=== PATIENT | female | born 1940 | race Caucasian/White ===

== ENCOUNTER 2017-05-31 11:18 | Outpatient (RCR) | payer SELFPAY | END 2017-06-27 23:59 | LOC: NS 11:18 | PROVIDERS: Family Provider Family Medicine; PCP Family Medicine; Visit Provider Family Medicine | DX: Z71.3 Dietary counseling and surveillance (principal) | CPT/HCPCS: 97803 ==

== ENCOUNTER → 2017-06-29 12:33 | Outpatient (CLI) | payer MEDICARE, SELFPAY ==
[2017-06-29 13:35] LABS: Anion Gap 8 (5-15); BUN 19 mg/dL (7-18); BUN/Creat Ratio 18.6 RATIO (10-20); Calcium,Total 9.3 mg/dL (8.5-10.1); Chloride 100 mmol/L (98-107); Creatinine, Serum 1.02 mg/dL (0.55-1.02); EST Glomerular Filtration Rate 56 mL/min (>60); Est Glom Filt Rate - Afr Amer 68 mL/min (>60); Glucose 90 mg/dL (70-110); Potassium 3.8 mmol/L (3.5-5.1); Sodium Level 137 mmol/L (136-145)
== END ==
PROVIDERS: Family Provider Family Medicine; PCP Family Medicine; Visit Provider Nurse Practitioner Family
DX: I10 Essential (primary) hypertension (principal); R53.83 Other fatigue
CPT/HCPCS: 36415; 80048

== ENCOUNTER 2017-07-26 11:32 | Outpatient (RCR) | payer SELFPAY | END 2017-08-25 23:59 | LOC: NS 11:32 | PROVIDERS: Family Provider Family Medicine; PCP Family Medicine; Visit Provider Family Medicine | DX: Z71.3 Dietary counseling and surveillance (principal) | CPT/HCPCS: 97803 ==

== ENCOUNTER → 2017-12-14 08:41 | Outpatient (CLI) | payer MEDICARE, SELFPAY ==
[2017-12-14 10:34] LABS: Anion Gap 6 (5-15); BUN 18 mg/dL (7-18); BUN/Creat Ratio 17.8 RATIO (10-20); Calcium,Total 9.2 mg/dL (8.5-10.1); Chloride 104 mmol/L (98-107); Creatinine, Serum 1.01 mg/dL (0.55-1.02); EST Glomerular Filtration Rate 57 mL/min (>60); Est Glom Filt Rate - Afr Amer 69 mL/min (>60); Glucose 96 mg/dL (74-106); Potassium 4.4 mmol/L (3.5-5.1); Sodium Level 140 mmol/L (136-145)
== END ==
PROVIDERS: Family Provider Family Medicine; PCP Family Medicine; Visit Provider Internal Medicine Cardiovascular Disease
DX: I34.1 Nonrheumatic mitral (valve) prolapse (principal); I10 Essential (primary) hypertension
CPT/HCPCS: 36415; 80048

== ENCOUNTER → 2018-02-28 14:27 | Outpatient (CLI) | payer MEDICARE, SELFPAY ==
--- NOTE | 2018-02-28 14:31 | ECHOD_ITS ---
Reason For Study: MVP Procedure This was a 2D Doppler, Color Flow transthoracic echocardiogram. The exam was of adequate technical quality. Exam performed in department. Left Ventricle Normal LV size. Left ventricular systolic function is normal. The estimated ejection fraction is 70 %. There is evidence of diastolic dysfunction. No regional wall motion abnormalities noted. Right Ventricle Normal RV size. Normal systolic function. Atria Normal left atrium. Normal right atrium. No doppler evidence for ASD. Mitral Valve There is mild mitral annular calcification. Mild diffuse mitral valve thickening. Mild mitral valve prolapse. Trivial mitral valve insufficiency. Tricuspid Valve Normal tricuspid valve. Mild tricuspid valve insufficiency. Right ventricular systolic pressure estimated to be 25 mmHg. Aortic Valve Trisinus/trileaflet aortic valve. Normal aortic valve. Trivial aortic valve insufficiency. Pulmonic Valve The pulmonic valve is not well visualized. Trivial pulmonic valve insufficiency. Great Vessels Normal sized aortic root. Pericardium/Pleural Trivial pericardial effusion. There are no echocardiographic indications of cardiac tamponade. MMode/2D Measurements & Calculations LVIDd: 4.6 cm IVSd: 1.1 cm Ao root diam: 3.4 cm LVIDs: 3.2 cm LVPWd: 1.1 cm LA dimension: 3.8 cm RVDd: 2.6 cm FS: 29.3 % LAV(MOD-bp): 49.4 ml LVAd ap4: 23.3 cm2 SV(MOD-sp4): 43.3 ml LAV(MOD-bp) Indexed: 26.4 ml/m2 EDV(MOD-sp4): 61.7 ml LAV(MOD-sp2): 59.4 ml EDV(sp4-el): 63.5 ml LAV(MOD-sp4): 33.9 ml LVAs ap4: 11.4 cm2 ESV(MOD-sp4): 18.4 ml ESV(sp4-el): 19.3 ml EF(MOD-sp4): 70.2 % EF(sp4-el): 69.7 % SV(sp4-el): 44.3 ml LA A4 area: 14.1 cm2 RA A4 area: 12.6 cm2 Time Measurements MV dec time: 0.31 sec Doppler Measurements & Calculations MV E max darin: 82.6 cm/sec Lat Peak E' Darin: 3.1 cm/sec Med Peak E' Darin: 3.0 cm/sec MV A max darin: 96.6 cm/sec E/E' lat: 26.7 E/E' med: 27.8 MV E/A: 0.85 Ao V2 max: 141.0 cm/sec LV V1 max: 107.0 cm/sec TR max darin: 234.2 cm/sec Ao max P.0 mmHg LV V1 max P.6 mmHg TR max P.1 mmHg Interpretation Summary Left ventricular systolic function is normal. The estimated ejection fraction is 70 %. There is mild mitral annular calcification. Mild diffuse mitral valve thickening. Mild mitral valve prolapse. Trivial mitral valve insufficiency. Mild tricuspid valve insufficiency. Trivial aortic valve insufficiency. Trivial pulmonic valve insufficiency. Trivial pericardial effusion. There are no echocardiographic indications of cardiac tamponade. Right ventricular systolic pressure estimated to be 25 mmHg. There is evidence of diastolic dysfunction. Ordering Physician: Rick Prabhakar Referring Physician: SEBASTIAN CASAS Performed By: Flor Walter, ANJELICA, RVT
== END ==
PROVIDERS: Family Provider Family Medicine; PCP Family Medicine; Referring Provider Internal Medicine Cardiovascular Disease; Visit Provider Internal Medicine Cardiovascular Disease
DX: I34.1 Nonrheumatic mitral (valve) prolapse (principal)
CPT/HCPCS: 93306

== ENCOUNTER → 2020-03-24 09:00 | Outpatient (CLI) | payer MEDICARE, SELFPAY ==
[2019-11-17 08:43] VITALS: BMI 31.0
[2020-03-22 13:03] VITALS: BMI 31.4
--- NOTE | 2020-03-24 09:25 | MRI_ITS ---
STUDY: MRI BRAIN WITHOUT CONTRAST (ATTENTION INTERNAL AUDITORY CANALS - I.A.C.''s) REASON FOR EXAM: Female, 79 years old. left tinnitus, left sudden sensoneural hearing loss TECHNIQUE: Standardized multiplanar fat and water weighted pulse sequences were obtained. COMPARISON: None. FINDINGS: Normal bilateral internal auditory canals. There is no demonstrated intracanalicular or cisternal vestibular schwannoma (acoustic neuroma) on this unenhanced examination. Normal visualized bilateral cochlea, vestibules and semicircular canals. Normal bilateral mastoid air cells. Normal midbrain, gilmar and medulla. Normal cerebellum. Normal basal cisterns. There is mild cerebral atrophy with widening of the extra-axial spaces and ventricular dilatation. There are a limited number of small white matter hyperintensities, distributed throughout the deep white matter tracts of the cerebral hemispheres, consistent with mild chronic white matter ischemic changes. There is no evidence for recent intracranial ischemia or other cause of cytotoxic edema on diffusion weighted imaging (DWI). Normal bilateral basal ganglia. Normal thalami. There is no extra-axial fluid accumulation. Normal flow voids within the major intracranial circulation suggesting patency by spin echo criteria. Normal sella turcica, pituitary gland, infundibular stalk, optic chiasm and hypothalamus. Normal tectal plate and pineal gland. No demonstrated orbital abnormality, within the constraints of a routine brain study. Normal visualized paranasal sinuses. Normal calvarium and skull base. Normal visualized soft tissue structures. MRI/Brain without Contrast IMPRESSION: Normal unenhanced MRI of the bilateral internal auditory canals (I.A.C''s). Involutional changes of the brain, as described above. Electronically Signed: Guillermo Ken MD at 14:08 EDT Tel , Service support ,
== END ==
PROVIDERS: PCP Student in an Organized Health Care Education/Training Program; Referring Provider Otolaryngology; Visit Provider Otolaryngology
DX: H93.12 Tinnitus, left ear (principal); H91.22 Sudden idiopathic hearing loss, left ear
CPT/HCPCS: 70551

== ENCOUNTER 2021-08-25 10:25 | Outpatient (RCR) | payer MEDICARE, SELFPAY ==
--- NOTE | 2021-08-25 12:55 | HP.OTEVAL ---
Patient's Visit Information MARNI BARRAZA is a 80 year old F, referred to Occupational Therapy by Dr. Lizz Doty MD, with a diagnosis of lymphedema. Date of Evaluation: 08/25/21 Occupational Therapist: Bernice Helms, OTR/L, CHT - Subjective This 80 year old female was seen for OT eval with dx of Lymphedema-. 18 lymph nodes removed from groin. swelling increases with blood pressure medication change- pt states she gained 9lbs. left leg larger than right. 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 - Lymphedema (Circumferential Measure) Ankle: right 24cm left 25cm Lower calf: right 27.5cm left 28.5cm Largest calf: right 39.5cm left 39.8cm Below knee: right 40cm left 40cm Above knee: right 47cm left 46cm Mid-thigh: right 52.5cm left 52.5cm Groin: right 58cm left 57cm - Lower Limb Functional Index Lower Extremity Functional Score: 62 - Rehabilitation General Assessment: pt demo need for skilled OT services 2-3 visits to ed. pt on use of compression garments, lymph stim exercise, self manual lymph massage, skin care and beneficial exercise. Today therapist discussed options of pantyhose vs thigh high compression garments along with use of capris and knee high compression socks- pt was receptive to the leggings and compression knee high socks- to avoid use of garments with silicone beaded boarders- pt states she will initiate a pool program at the in [place]. pt demo understanding of POC and agree to POC. Rehabilitation Potential: Good - Anticipated Interventions Education re Diagnosis, Manual Lymph Drainage, Education re Life-long lymphedema Management, Education re Skin Care and Precautions, Education re Self Massage Techniques, Education re Correct Donning Tech,Care&Wearing Sched Comp Garments, Home Program - Visit Plan TEXT: Thank you for the opportunity to evaluate your patient. For Medicare and Medicare HMO plans, please review the plan of care and approve it. It will need to be FAXED BACK to us at [phone] for Medicare purposes. Please let me know if there are questions or concerns regarding this plan of care. Physician Signature: Date:
== END 2021-08-25 19:00 | disposition home or self-care (01) ==
LOC: OT 10:25
PROVIDERS: PCP Internal Medicine; Referring Provider Internal Medicine; Visit Provider Internal Medicine
DX: I89.0 Lymphedema, not elsewhere classified (principal)
CPT/HCPCS: 97166; 97530

== ENCOUNTER → 2022-03-21 | Outpatient (CLI) | payer MEDICARE, SELFPAY | END | disposition home or self-care (01) | LOC: LABSPEC 09:46 | PROVIDERS: PCP Internal Medicine; Visit Provider Physician Assistant | DX: R05.9 Cough, unspecified (principal) | CPT/HCPCS: 87635; U0003; U0005 ==

== ENCOUNTER → 2022-09-11 | Outpatient (CLI) | payer MEDICARE, SELFPAY ==
[2022-09-11 14:32] LABS: Absolute Lymphocyte Count 1.54 X10^3/uL (0.83-4.51); Absolute Neutrophil Count 3.4 X10^3/uL (2.0-7.7); Basophil# 0.07 X10^3/uL; Basophil% 1.3 % (0-1); Eosinophil# 0.12 X10^3/uL; Eosinophils% 2.2 % (0-5); Hematocrit 39.5 % (37-47); Hemoglobin 13.2 g/dL (12.0-15.0); Lymphocyte # 1.54 X10^3/ul (0.83-4.51); Lymphocyte % 27.6 % (19-41); Mean Corp Hgb Conc 33.4 g/dL (32-36); Mean Corpuscular Hgb 29.8 pg (27.0-32.0); Mean Corpuscular Volume 89.2 fL (81-99); Mean Platelet Vol. 10.8 fl (6.2-12.0); Monocyte# 0.43 X10^3/uL; Monocyte% 7.7 % (0-10); NRBC Flagged by Analyzer 0 % (0-5); Platelet Count 256 K/mm3 (150-450); RBC Distribution Width CV 12.8 % (11.6-14.6); RBC Distribution Width SD 42.3 fl (35.1-43.9); Red Blood Count 4.43 M/mm3 (4.2-5.4); White Blood Count 5.6 K/mm3 (4.4-11.0)
[2022-09-11 15:09] LABS: AST(SGOT) 17 U/L (15-37); Alanine Aminotransfer ALT/SGPT 26 U/L (13-56); Albumin, Serum 3.7 g/dL (3.2-5.0); Alkaline Phosphatase 82 U/L (45-117); Bilirubin, Direct 0.08 mg/dL (0.00-0.30); Globulin 4.2 g/dL (2.2-4.2); Protein, Total 7.9 g/dL (6.4-8.2)
[2022-09-11 15:12] LABS: Free T3 2.7 pg/mL (2.18-3.98)
== END | disposition home or self-care (01) ==
LOC: LAB 14:06
PROVIDERS: PCP Internal Medicine; Referring Provider Nurse Practitioner Family; Visit Provider Nurse Practitioner Family
DX: I89.0 Lymphedema, not elsewhere classified (principal); I34.1 Nonrheumatic mitral (valve) prolapse; I10 Essential (primary) hypertension; E03.9 Hypothyroidism, unspecified; R00.2 Palpitations
CPT/HCPCS: 36415; 80076; 84481; 85025

== ENCOUNTER → 2022-10-12 | Outpatient (CLI) | payer MEDICARE, SELFPAY ==
--- NOTE | 2022-10-12 08:45 | RAD_ITS ---
STUDY: X-RAY - RIGHT FOOT CLINICAL: Female, 81 years old. Toe injury. Painful toes. TECHNIQUE: 2 view(s) of the foot. COMPARISON: None. FINDINGS: Normal talus, calcaneus, and tarsal bones. Normal visualized subtalar, talonavicular, calcaneocuboid, tarsal and tarsometatarsal articulations. Normal metatarsi. There is degenerative arthrosis of the metatarsophalangeal joint of the hallux with a hallux valgus deformity. Normal tibial and fibular sesamoid bones. Normal interphalangeal joint of the great toe. Normal phalanges of the great toe. Normal second through fifth metatarsophalangeal joints. There is Claw toe deformity of the second through fifth toes. The soft tissue structures are unremarkable. RAD/Foot 2 Views IMPRESSION: Degenerative changes of the forefoot without visualized fracture or dislocation. Electronically Signed: Joe Ferrari DO at 20:31 EDT ,
== END | disposition home or self-care (01) ==
LOC: RAD 08:35
PROVIDERS: PCP Internal Medicine; Referring Provider Internal Medicine; Visit Provider Internal Medicine
DX: M79.674 Pain in right toe(s) (principal)
CPT/HCPCS: 73620

== ENCOUNTER → 2023-01-24 | Outpatient (CLI) | payer MEDICARE, SELFPAY ==
[2023-01-24 07:29] LABS: Absolute Neutrophil Count 1.9 X10^3/uL (2.0-7.7); Basophil# 0.06 X10^3/uL; Basophil% 1.5 % (0-1); Eosinophil# 0.12 X10^3/uL; Lymphocyte % 37.6 % (19-41); Mean Corp Hgb Conc 32.5 g/dL (32-36); Mean Corpuscular Hgb 29.4 pg (27.0-32.0); Mean Corpuscular Volume 90.5 fL (81-99); Mean Platelet Vol. 11.7 fl (6.2-12.0); Monocyte# 0.45 X10^3/uL; Monocyte% 11.3 % (0-10); NRBC Flagged by Analyzer 0 % (0-5); Neutrophil # 1.85 X10^3/uL (2.7-7.7); Neutrophil % 46.3 % (47-70); Platelet Count 231 K/mm3 (150-450); RBC Distribution Width CV 12.9 % (11.6-14.6); RBC Distribution Width SD 42.5 fl (35.1-43.9); Red Blood Count 4.42 M/mm3 (4.2-5.4)
[2023-01-24 08:09] LABS: ALB/GLOB Ratio 0.9 RATIO (0.9-2.4); AST(SGOT) 15 U/L (15-37); Alanine Aminotransfer ALT/SGPT 22 U/L (13-56); Albumin, Serum 3.7 g/dL (3.2-5.0); Alkaline Phosphatase 74 U/L (45-117); Anion Gap 6 (5-15); BUN 12 mg/dL (7-18); BUN/Creat Ratio 13.2 RATIO (10-20); Calcium,Total 9.1 mg/dL (8.5-10.1); Chloride 102 mmol/L (98-107); Cholesterol 185 mg/dL (200); Creatinine, Serum 0.91 mg/dL (0.55-1.02); EST Glomerular Filtration Rate 63 mL/min (>60); Est Glom Filt Rate - Afr Amer 76 mL/min (>60); Globulin 3.9 g/dL (2.2-4.2); Glucose 93 mg/dL (74-106); High Density Lipoprotein 57 mg/dL; Magnesium 2.5 mg/dL (1.6-2.6); Potassium 3.6 mmol/L (3.5-5.1); Protein, Total 7.6 g/dL (6.4-8.2); Sodium Level 137 mmol/L (136-145); T4 Free Direct 1.42 ng/dL (0.76-1.46); Triglycerides 89 mg/dL; Very Low Density Lipoprotein 18 mg/dL (5-40)
[2023-01-24 08:52] LABS: Vitamin D,25 Hydroxy 45.9 ng/mL
== END | disposition home or self-care (01) ==
LOC: LAB 06:39
PROVIDERS: PCP Internal Medicine; Referring Provider Internal Medicine; Visit Provider Internal Medicine
DX: I10 Essential (primary) hypertension (principal); E03.9 Hypothyroidism, unspecified; E55.9 Vitamin D deficiency, unspecified
CPT/HCPCS: 36415; 80053; 80061; 82306; 83735; 84439; 84443; 84481; 85025

== ENCOUNTER → 2023-02-09 | Outpatient (CLI) | payer MEDICARE, SELFPAY ==
--- NOTE | 2023-02-09 08:56 | ECHOD_ITS ---
Reason For Study: MURMUR Procedure This was a 2D Doppler, Color Flow transthoracic echocardiogram. Exam performed in department. Left Ventricle Normal LV size. Left ventricular systolic function is normal. The estimated ejection fraction is 60 %. Stage 1 diastolic dysfunction. No regional wall motion abnormalities noted. Right Ventricle Normal RV size. Normal systolic function. Atria Normal left atrium. Normal right atrium. Mitral Valve Equivocal mitral valve prolapse. Tricuspid Valve Normal tricuspid valve. Mild (1+) tricuspid valve insufficiency. Pulmonary artery systolic pressure is 30 mmHg. Aortic Valve Normal aortic valve. Trisinus/trileaflet aortic valve. Pulmonic Valve Normal pulmonic valve. Great Vessels Normal aortic root. The pulmonary artery is normal size. Normal inferior vena cava. Pericardium/Pleural No pericardial effusion. MMode/2D Measurements & Calculations LVIDd: 3.8 cm IVSd: 0.97 cm Ao root diam: 3.1 cm LVIDs: 2.6 cm LVPWd: 1.5 cm RVDd: 3.1 cm FS: 31.3 % LAV(MOD-bp): 61.6 ml LVAd ap4: 26.8 cm2 SV(MOD-sp4): 54.6 ml LAV(MOD-bp) Indexed: 35.1 ml/m2 LVLd ap4: 7.7 cm LAV(MOD-sp2): 62.7 ml EDV(MOD-sp4): 77.1 ml LAV(MOD-sp4): 59.6 ml EDV(sp4-el): 79.4 ml LVAs ap4: 12.4 cm2 LVLs ap4: 6.1 cm ESV(MOD-sp4): 22.5 ml ESV(sp4-el): 21.6 ml EF(MOD-sp4): 70.8 % EF(sp4-el): 72.8 % SV(sp4-el): 57.8 ml LA A4 area: 20.1 cm2 LA dimension(2D): 3.6 cm RA A4 area: 18.4 cm2 Time Measurements MV dec time: 0.30 sec Doppler Measurements & Calculations MV E max darin: 102.3 cm/sec Lat Peak E' Darin: 7.6 cm/sec Med Peak E' Darin: 6.7 cm/sec MV A max darin: 103.7 cm/sec E/E' lat: 13.5 E/E' med: 15.2 MV E/A: 0.99 MV V2 max: 114.5 cm/sec Ao V2 max: 180.9 cm/sec MV max P.2 mmHg MV dec slope: 337.0 cm/sec2 Ao max P.1 mmHg MV V2 mean: 69.3 cm/sec Ao V2 mean: 119.4 cm/sec MV mean P.2 mmHg Ao mean P.6 mmHg MV V2 VTI: 39.3 cm Ao V2 VTI: 40.3 cm AV (velocity ratio): 0.77 LV V1 max: 141.1 cm/sec PA V2 max: 107.1 cm/sec TR max darin: 263.5 cm/sec LV V1 max P.0 mmHg PA V2 mean: 78.5 cm/sec TR max P.8 mmHg LV V1 mean P.0 mmHg LV V1 mean: 92.8 cm/sec LV V1 VTI: 31.2 cm ECHO/Echo Complete Interpretation Summary Normal LV size. Left ventricular systolic function is normal. The estimated ejection fraction is 60 %. Equivocal mitral valve prolapse. Stage 1 diastolic dysfunction. Ordering Physician: Lizz Doty Referring Physician: Lizz Doty Performed By: Karla Gross RCS
== END | disposition home or self-care (01) ==
PROVIDERS: PCP Internal Medicine; Referring Provider Internal Medicine; Visit Provider Internal Medicine
DX: R00.2 Palpitations (principal)
CPT/HCPCS: 93306

== ENCOUNTER → 2023-05-01 | Outpatient (CLI) | payer MEDICARE, SELFPAY ==
[2023-05-07 21:07] LABS: Fats, Neutral Normal (.); Fats, Total Normal (.)
== END | disposition home or self-care (01) ==
LOC: LABSPEC 08:47
PROVIDERS: PCP Internal Medicine; Referring Provider Internal Medicine; Visit Provider Internal Medicine
DX: R19.7 Diarrhea, unspecified (principal); K58.9 Irritable bowel syndrome, unspecified
CPT/HCPCS: 82705; 83630; 87493; 87506

== ENCOUNTER → 2023-08-14 | Outpatient (CLI) | payer MEDICARE, SELFPAY ==
[2023-08-14 11:45] LABS: Absolute Neutrophil Count 2.4 X10^3/uL (2.0-7.7); Basophil# 0.03 X10^3/uL; Basophil% 0.8 % (0-1); Eosinophil# 0.15 X10^3/uL; Eosinophils% 3.8 % (0-5); Hematocrit 40.1 % (37-47); Hemoglobin 13.3 g/dL (12.0-15.0); Lymphocyte % 25.6 % (19-41); Mean Corp Hgb Conc 33.2 g/dL (32-36); Mean Corpuscular Hgb 29.6 pg (27.0-32.0); Mean Corpuscular Volume 89.3 fL (81-99); Mean Platelet Vol. 11.6 fl (6.2-12.0); Monocyte# 0.36 X10^3/uL; Monocyte% 9.2 % (0-10); NRBC Flagged by Analyzer 0 % (0-5); Neutrophil # 2.36 X10^3/uL (2.7-7.7); Neutrophil % 60.3 % (47-70); Platelet Count 264 K/mm3 (150-450); RBC Distribution Width CV 12.6 % (11.6-14.6); RBC Distribution Width SD 41.3 fl (35.1-43.9); Red Blood Count 4.49 M/mm3 (4.2-5.4); White Blood Count 3.9 K/mm3 (4.4-11.0)
[2023-08-14 12:37] LABS: Vitamin D,25 Hydroxy 40.1 ng/mL
[2023-08-14 12:49] LABS: ALB/GLOB Ratio 0.8 RATIO (0.9-2.4); AST(SGOT) 21 U/L (15-37); Alanine Aminotransfer ALT/SGPT 21 U/L (13-56); Albumin, Serum 3.7 g/dL (3.2-5.0); Alkaline Phosphatase 70 U/L (45-117); Anion Gap 6 (5-15); BUN 18 mg/dL (7-18); BUN/Creat Ratio 19.1 RATIO (10-20); Calcium,Total 9.2 mg/dL (8.5-10.1); Chloride 102 mmol/L (98-107); Creatinine, Serum 0.94 mg/dL (0.55-1.02); EST Glomerular Filtration Rate 61 mL/min (>60); Est Glom Filt Rate - Afr Amer 73 mL/min (>60); Globulin 4.4 g/dL (2.2-4.2); Glucose 100 mg/dL (74-106); Potassium 3.6 mmol/L (3.5-5.1); Protein, Total 8.1 g/dL (6.4-8.2); Sodium Level 137 mmol/L (136-145); T4 Free Direct 1.38 ng/dL (0.76-1.46); Thyroid Stim Hormone (TSH) 2.01 uIU/mL (0.358-3.74)
== END | disposition home or self-care (01) ==
LOC: BIMLAB 08:01
PROVIDERS: PCP Internal Medicine; Visit Provider Internal Medicine
DX: R00.2 Palpitations (principal); G47.9 Sleep disorder, unspecified; I10 Essential (primary) hypertension; E03.9 Hypothyroidism, unspecified; E55.9 Vitamin D deficiency, unspecified
CPT/HCPCS: 36415; 80053; 82306; 84439; 84443; 84481; 85025

== ENCOUNTER → 2023-09-04 | Outpatient (CLI) | payer MEDICARE, SELFPAY ==
--- NOTE | 2023-09-04 08:25 | BD_ITS ---
STUDY: DUAL ENERGY X-RAY ABSORPTIOMETRY / DXA REASON FOR EXAM: Female, 82 years old. Osteoporosis TECHNIQUE: Bone Mineral Density (BMD) measurements of lumbar spine and bilateral hips were obtained. COMPARISON: Comparison is made with prior study dated December 12, 2011. FINDINGS: Lumbar Spine (L1-L4): g/cm2 (0.864) / T-score (-1.4) / Z-score (1.3) Findings are suggestive of osteopenia with a low fracture risk. Left Femur Total: g/cm2 (0.817) / T-score (-1.0) / Z-score (1.1) Left Femoral Neck: g/cm2 (0.690) / T-score (-1.4) / Z-score (0.9) Right Femur Total: g/cm2 (0.833) / T-score (-0.9) / Z-score (1.3) Right Femoral Neck: g/cm2 (0.726) / T-score (-1.1) / Z-score (1.3) The T-Scores on the most recent prior examination were: Lumbar Spine (L1-L4): There has been worsening of bone density since the previous examination. Left Femur Total: which represents a worsening of 4.4%. Right Femur Total: which represents a worsening of 0.5%. BD/Dexa Bone Density Study IMPRESSION: The patient is considered osteopenic as outlined below according to World Bladimir Organization (WHO) criteria with a low fracture risk. There has been worsening of bone density since the previous examination. Reference Information: The T-score is the number of standard deviations above or below the standard which is normal for young adults at their peak bone mineral density. The World Health Organization (WHO) interprets the T-scores as follows: Above -1 Normal bone density Between -1 and -2.5 Osteopenia Equal to / or below -2.5 Osteoporosis As a practical clinical guideline, osteopenia may be graded as follows: Mild -1 through -1.5 Moderate -1.6 through -2.0 Severe -2.1 through -2.4 The Z-score is the number of standard deviations above or below age-matched controls. A Z-score of less than -1.5 would be considered abnormal. References: 1. NIH Osteoporosis and Related Bone Diseases www osteo.org 2. International Society for Clinical Densitometry www iscd.org 3. National Osteoporosis Foundation www nof.org Electronically Signed: Janes Aguilar MD at 13:20 EDT ,
== END | disposition home or self-care (01) ==
LOC: OPBD 08:11
PROVIDERS: PCP Internal Medicine; Referring Provider Internal Medicine; Visit Provider Internal Medicine
DX: M81.0 Age-related osteoporosis without current pathological fracture (principal)
CPT/HCPCS: 77080

== ENCOUNTER → 2023-10-19 | Outpatient (CLI) | payer MEDICARE, SELFPAY ==
--- NOTE | 2023-10-19 16:53 | RAD_ITS ---
INDICATION: left middle finger injury EXAMINATION/TECHNIQUE: X-RAY - LEFT HAND XR Fingers Min 2 Views 3 VIEWS COMPARISON: None FINDINGS: SOFT TISSUES: Distal third digit edema. No subcutaneous emphysema. No radiopaque foreign body. BONES/JOINTS: Intra-articular third distal phalanx dorsal base fracture with 1.3 mm proximal displacement. No dislocation. Mild diffuse degenerative joint space narrowing and minimal osteophyte formation along the imaged second through fourth digits. No aggressive osseous lesion. RAD/Finger(s) Min 2 Views IMPRESSION: Mildly displaced intra-articular third distal phalanx base fracture.. Electronically Signed: Hudson Lee MD at 17:48 EDT ,
== END | disposition home or self-care (01) ==
LOC: MTRAD 16:53
PROVIDERS: PCP Internal Medicine; Referring Provider Nurse Practitioner; Visit Provider Nurse Practitioner
DX: S69.92XA Unspecified injury of left wrist, hand and finger(s), initial encounter (principal)
CPT/HCPCS: 73140

== ENCOUNTER → 2024-04-11 | Outpatient (CLI) | payer MEDICARE, SELFPAY ==
[2024-04-11 12:33] LABS: AST(SGOT) 19 U/L (15-37); Alanine Aminotransfer ALT/SGPT 23 U/L (13-56); Albumin, Serum 3.5 g/dL (3.2-5.0); Alkaline Phosphatase 65 U/L (45-117); Bilirubin, Direct 0.12 mg/dL (0.00-0.30); Cholesterol 179 mg/dL (200); Globulin 3.9 g/dL (2.2-4.2); High Density Lipoprotein 56 mg/dL; Protein, Total 7.4 g/dL (6.4-8.2); Triglycerides 87 mg/dL; Very Low Density Lipoprotein 17 mg/dL (5-40)
== END | disposition home or self-care (01) ==
LOC: BIMLAB 07:57
PROVIDERS: PCP Internal Medicine; Referring Provider Nurse Practitioner Family; Visit Provider Nurse Practitioner Family
DX: E78.00 Pure hypercholesterolemia, unspecified (principal); I10 Essential (primary) hypertension; I73.9 Peripheral vascular disease, unspecified; I34.1 Nonrheumatic mitral (valve) prolapse
CPT/HCPCS: 36415; 80061; 80076

== ENCOUNTER → 2024-10-27 | Outpatient (CLI) | payer MEDICARE, SELFPAY ==
[2024-10-27 09:41] LABS: Erythrocyte Sedimentation Rate 13 mm/hr (0-30)
[2024-10-27 09:43] LABS: Absolute Lymphocyte Count 1.39 X10^3/uL (0.83-4.51); Absolute Neutrophil Count 1.7 X10^3/uL (2.0-7.7); Basophil# 0.05 X10^3/uL; Basophil% 1.3 % (0-1); Eosinophil# 0.17 X10^3/uL; Eosinophils% 4.6 % (0-5); Hematocrit 38.6 % (37-47); Hemoglobin 12.8 g/dL (12.0-15.0); Lymphocyte # 1.39 X10^3/ul (0.83-4.51); Lymphocyte % 37.5 % (19-41); Mean Corp Hgb Conc 33.2 g/dL (32-36); Mean Corpuscular Hgb 29.2 pg (27.0-32.0); Mean Corpuscular Volume 87.9 fL (81-99); Mean Platelet Vol. 11.6 fl (6.2-12.0); Monocyte# 0.37 X10^3/uL; NRBC Flagged by Analyzer 0 % (0-5); Neutrophil # 1.72 X10^3/uL (2.7-7.7); Neutrophil % 46.3 % (47-70); Platelet Count 243 K/mm3 (150-450); RBC Distribution Width CV 12.7 % (11.6-14.6); RBC Distribution Width SD 41.3 fl (35.1-43.9); Red Blood Count 4.39 M/mm3 (4.2-5.4); White Blood Count 3.7 K/mm3 (4.4-11.0)
[2024-10-27 10:05] LABS: ALB/GLOB Ratio 1.2 RATIO (0.9-2.4); AST(SGOT) 22 U/L (<=31); Alanine Aminotransfer ALT/SGPT 22 U/L (<=34); Albumin, Serum 4.2 g/dL (3.4-4.8); Alkaline Phosphatase 76 U/L (35-104); Anion Gap 11 (5-15); BUN 19 mg/dL (4-19); BUN/Creat Ratio 21.4 RATIO (10-20); Calcium,Total 9.6 mg/dL (7.6-11.0); Carbon Dioxide 26.9 mmol/L (21.0-32.0); Chloride 101 mmol/L (98-108); Cholesterol 192 mg/dL (<=200); EST Glomerular Filtration Rate 64 (>60); Ferritin 100 ng/mL (22-378); Free T3 2.9 pg/mL (2.18-3.98); Globulin 3.4 g/dL (2.2-4.2); Glucose 101 mg/dL (70-99); High Density Lipoprotein 49 mg/dL; Low Density Lipoprotein Calc. 121 mg/dL; Potassium 4.3 mmol/L (3.3-5.1); Protein, Total 7.6 g/dL (5.9-8.4); Sodium Level 139 mmol/L (133-145); Total Bilirubin 0.53 mg/dL (0.00-1.30); Triglycerides 107 mg/dL; Very Low Density Lipoprotein 21 mg/dL (5-40)
[2024-10-27 10:29] LABS: CRP < 3.00 mg/L (0.0-3.0); LDH 100 U/L (84-246); Magnesium 2.2 mg/dL (1.5-2.2)
== END | disposition home or self-care (01) ==
LOC: BIMLAB 08:06
PROVIDERS: PCP Internal Medicine; Referring Provider Internal Medicine; Visit Provider Internal Medicine
DX: D72.818 Other decreased white blood cell count (principal); R94.6 Abnormal results of thyroid function studies; D50.9 Iron deficiency anemia, unspecified; R74.8 Abnormal levels of other serum enzymes; R70.0 Elevated erythrocyte sedimentation rate; R53.83 Other fatigue; E78.5 Hyperlipidemia, unspecified; R77.9 Abnormality of plasma protein, unspecified; E55.9 Vitamin D deficiency, unspecified; I10 Essential (primary) hypertension; E03.9 Hypothyroidism, unspecified; I89.0 Lymphedema, not elsewhere classified
CPT/HCPCS: 36415; 80053; 80061; 82306; 82728; 83615; 83735; 84439; 84443; 84481; 85025; 85652; 86140

== ENCOUNTER 2024-11-26 13:00 | Outpatient (RCR) | payer MEDICARE, SELFPAY ==
--- NOTE | 2024-10-23 07:47 | HP.OTEVAL ---
Patient's Visit Information Visit Information Visit Information: MARNI BARRAZA is a 83 year old F, referred to Occupational Therapy by Dr. Lizz Doty MD, with a diagnosis of Lymphedema. Date of Evaluation: 10/22/24 Occupational Therapist: Bernice Helms, ABELINO/Andressa, CHT Subjective Subjective: This 83 year old female was seen for OT eval with dx of lymphedema: pt states she has tried to wear compression hose a few times, and they are very difficult to get on. Pt states she legs are less swollen in AM. pt states she likes to travel and would like to mtg. her LE edema the best she can. pt motivated to initiate mtg. of her lymphedema Lymphedema (Circumferential Measure) Mid-foot: right 21cm left 21cm Ankle: right 26cm left 27cm Lower calf: right 24cm left 24cm Largest calf: right 38cm left 38cm Below knee: right 36cm left 36.5cm Above knee: right 46cm left 47cm Lower Limb Functional Index Lower Extremity Functional Score: 54 Goals Goal: Patient will demonstrate a 20% reduction in edema by discharge: Yes Goal: Patient will demonstrate adequate knowledge of self-massage by the end of the second week.: Yes Goal: Patient will demonstrate adequate knowledge of skin care and precautions by the end of the first week.: Yes Goal: Patient will demonstrate adequate knowledge of therapeutic exercises by discharge.: Yes Goal: Patient will select an appropriate compression garment and demonstrate adequate knowledge of correct donning technique, care and wearing schedule by discharge.: Yes Goal: Patient will voice understanding of need to replace compression garment every four to six months by discharge.: Yes Rehabilitation General Assessment: pt demo with lymphedema and decreased knowledge of how to mtg. dx. pt would benefit from skilled OT services 3-4 visits to ensure pts understanding of life long mtg of lymphedema, exercises that promote lymphatic circulation, skin care and compression garment use for mtg. pt demo understanding and agrees to POC. Rehabilitation Potential: Good Anticipated Interventions Anticipated Interventions: Education re Diagnosis, Education re Life-long lymphedema Management, Education re Self-Bandaging Techniques, Education re Skin Care and Precautions, Education re Self Massage Techniques and Education re Correct Donning Tech,Care&Wearing Sched Comp Garments Visit Plan Frequency: 1x/Week Duration: 6 Weeks TEXT: Thank you for the opportunity to evaluate your patient. For Medicare and Medicare HMO plans, please review the plan of care and approve it. It will need to be FAXED BACK to us at [phone] for Medicare purposes. Please let me know if there are questions or concerns regarding this plan of care. Physician Signature: Date:
--- NOTE | 2024-11-26 13:49 | HP.OTREVAL ---
Re-Evaluation Intro: Dr. Lizz Doty MD, It has been my pleasure to treat MARNI BARRAZA over the last 3 visits for Lymphedema. Please see the progress note below for an update on the occupational therapy plan of care! Subjective Subjective: pt arrives to session states she continue to have issues with swelling. Objective Objective/Function: Mid-foot: right 21cm left 21cm Ankle: right 26cm left 27cm Lower calf: right 24cm left 24cm Largest calf: right 38cm left 38cm Below knee: right 36cm left 36.5cm Above knee: right 46cm left 47cm mid thigh right 56cm left 57 cm Plan Plan Frequency: 1x/Week Duration: 6 Weeks Visits in this POC: 3-4 visits Plan: pt arrives following 4 weeks of conservative lymphedema treatment. Pt was using elevation, exercise, using compression garments and performing self massage. This did not change pts skin integrity or circumference in limbs. pt would benefit from use of home vaso pneumatic thigh high . Goals Goals Goal: Patient will demonstrate a 20% reduction in edema by discharge: Yes Goal: Patient will demonstrate adequate knowledge of self-massage by the end of the second week.: Yes Goal: Patient will demonstrate adequate knowledge of skin care and precautions by the end of the first week.: Yes Goal: Patient will demonstrate adequate knowledge of therapeutic exercises by discharge.: Yes Goal: Patient will select an appropriate compression garment and demonstrate adequate knowledge of correct donning technique, care and wearing schedule by discharge.: Yes Goal: Patient will voice understanding of need to replace compression garment every four to six months by discharge.: Yes Patient Goals: Learn how to Manage Lymphedema and Learn how to Apply Compression Stockings Anticipated Interventions Anticipated Interventions Anticipated Interventions: Education re Diagnosis, Education re Life-long lymphedema Management, Education re Self-Bandaging Techniques, Education re Skin Care and Precautions, Education re Self Massage Techniques and Education re Correct Donning Tech,Care&Wearing Sched Comp Garments Re-Evaluation Ending Re-evaluation ending: Please do not hesitate to contact me at [phone] by phone or if you have questions or concerns regarding this new plan of care! Sincerely, Bernice Helms, OTR/L, CHT
--- NOTE | 2025-02-17 11:58 | HP.OT.NRP ---
Patient Information Patient Information: MARNI BARRAZA was seen in my office for initial evaluation on 10/22/24. The following Plan of Care was established for this patient: POC Established Initial Frequency: 1x/Week Initial Duration: 6 Weeks Plan: pt arrives following 4 weeks of conservative lymphedema treatment. Pt was using elevation, exercise, using compression garments and performing self massage. This did not change pts skin integrity or circumference in limbs. pt would benefit from use of home vaso pneumatic thigh high . Anticipated Interventions Anticipated Interventions: Education re Diagnosis, Education re Life-long lymphedema Management, Education re Self-Bandaging Techniques, Education re Skin Care and Precautions, Education re Self Massage Techniques and Education re Correct Donning Tech,Care&Wearing Sched Comp Garments Last Seen Last Seen: This patient was last seen in our office 11/26/24. Pertinent comments regarding their Occupational therapy will appear below: no further apts have been scheduled and due to time lapse in services pt is d/c at this time. At this point I will be discontinuing this patient from occupational therapy. I would be happy to see this patient again in the future if found appropriate by the physician. Thank you! Bernice Helms, OTR/L, CHT
== END 2024-11-26 19:00 | disposition home or self-care (01) ==
LOC: OT 13:00
PROVIDERS: PCP Internal Medicine; Referring Provider Internal Medicine; Visit Provider Internal Medicine
DX: I89.0 Lymphedema, not elsewhere classified (principal)
CPT/HCPCS: 97166; 97530

== ENCOUNTER → 2025-01-17 | Outpatient (CLI) | payer MEDICARE, SELFPAY ==
--- OUTSIDE RECORDS SUMMARY | 2025-01-17 08:40 | XMS RPT_ITS | CCD ---
Author Organization [facility] Care Team Providers Care Airport Guide Name Role Phone Pau CAMARENA, Dari Shore Unavailable Unavailable MARGA CHILEL DO Primary Care Physician Dr. Tanvi Doty Primary Care Provider Dr. Tanvi Doty Attending Provider [phone] Dr. Tanvi Doty Referring Provider [phone] Dr. Marga Chilel Primary Care Provider Dr. Marga Chilel Referring Provider [phone] Star SHIRT FINISHER, SHIRT FINISHER-Annalise Ramirez Attending Provider Dr. Tanvi Doty Primary Care Provider Dr. Tanvi Doty Attending Provider [phone] Dr. Tanvi Doty Referring Provider [phone] [place], [place] Tammy Attending Provider Unavailab le Clifford Aburto DO Primary Care Provider Shahnaz vailable Clifford Aburto DO Primary Care Provider Shahnaz vailable Dr. Tanvi Doty Primary Care Provider Dr. Tanvi Doty Referring Provider [phone] Star SHIRT FINISHER, INEZ-Annalise Ramirez Attending Provider Dr. Tanvi Doty Primary Care Provider Dr. Tanvi Doty Attending Provider [phone] Tnavi Doty Primary Care Provider Dr. Tnavi Doty Attending Provider [phone] Rodger Hogan Attending Provider [phone] [place] DO Primary Care Provider [phone] Clifford Aburto DO Primary Care Provider Tanvi Doty MD Primary Care Provider HYUN DAVIS, PAO Attending Unavaila ble HALKO DO, MARGA Primary Care Unavailable HYUN DAVIS, PAO Attending Unavaila ble HALKO DO, MARGA Primary Care Unavailable MARIZA DAVIS, DR PHAM Ann JR Attending Unavaila ble HALKO DO, MARGA Primary Care Unavailable KEVAN OLSON, ANNIA Attending Unavailable JOSEPHKO , MARGA Primary Care Unavailable TANVI DOTY MD Primary Care Physician [phone] ANNIA WILSON Attending Unavailable TANVI DOTY Primary Care Unavailable ATNVI DOTY Primary Care Unavailable AMERICA SULTANA JR Attending Unavaila AMERICA Kolb JR Admitting Unavaila TANVI Elizabeth Primary Care Unavailable ANNIA WILSON Attending Unavailable TANVI DOTY Primary Care Unavailable ANNIA WILSON Attending Unavailable TANVI DOTY Primary Care Unavailable PAO PURVIS MD Attending Unavaila ble HALKO DO, MARGA Primary Care Unavailable KEVAN OLSON, ANNIA Attending Unavailable TANVI DOTY MD Primary Care Unavailable HYUN DAVIS, PAO Attending Unavailasia DOTY MD, TANVI Primary Care Unavailable JUAN LOPEZ MD Attending Unavailable SOREN DAVIS, TANVI Primary Care Unavailable SOREN DAVIS, TANVI Primary Care Unavailable SUROVE, MOTOR BLOCK MECHANIC-DATABASE ADMINISTRATION MANAGER EPIFANIO Attending Gus labbrenda RUIZKO , MARGA Primary Care Unavailable MARIZA DAVIS, DR PHAM Ann JR Attending Unavaila Tanvi Elizabeth Primary Care Unavailable Tanvi Doty Attending Unavailable Nelson Rojo Attending Unavailable Tanvi Doty Primary Care Unavailable Tanvi Doty Referring Unavailable Nelson Rojo Attending Unavailable Tanvi Doty Primary Care Unavailable Tavni Doty Referring Unavailable Tanvi Doty Primary Care Unavailable Tanvi Doty Attending Unavailable Soren, Tanvi Primary Care Unavailable Carlos Herrmann Attending Unavailable Soren, Tanvi Referring Unavailable Soren, Tanvi Attending Unavailable Soren, Tanvi Referring Unavailable Soren, Tanvi Primary Care Unavailable Roof SHIRT FINISHER, Suresh H Attending Unavailable Roof SHIRT FINISHER, Suresh H Referring Unavailable Soren, Tanvi Primary Care Unavailable Soren, Tanvi Attending Unavailable Soren, Tanvi Referring Unavailable Soren, Tanvi Primary Care Unavailable Soren, Tanvi Primary Care Unavailable Carols Herrmann Attending Unavailable Soren, Tanvi Referring Unavailable Soren, Tanvi Attending Unavailable Soren, Tanvi Primary Care Unavailable Soren, Tanvi Attending Unavailable Soren, Tanvi Primary Care Unavailable Soren, Tanvi Attending Unavailable Soren, Tanvi Primary Care Unavailable Nelson Rojo Attending Unavailable Soren, Tanvi Primary Care Unavailable Soren, Tanvi Referring Unavailable Allergies Allergy Classification Reported Allergen(s) Allergy Type Date of Onset Reaction(s) Facility amLODIPine (1 source) amLODIPine; Translations: [amlodipine] Drug Allergy Leg swelling symptom (finding) [facility] HMG-CoA Reductase Inhibitors (statins) (1 source) atorvastatin; Translations: [atorvastatin] Drug Allergy Eruption of skin (disorder) [facility] Lidocaine (1 source) Lidocaine; Translations: [lidocaine] Drug Allergy Congestion of throat (finding) [facility] NSAIDs (1 source) Naproxen; Translations: [naproxen] Drug Allergy Colitis (disorder) [facility] Penicillins (antibiotic) (2 sources) Penicillins; Translations: [Penicillin -class of antibiotic- (substance)] Drug Allergy [facility] Sulfonamides (antibiotic) (2 sources) Sulfonamides (Antibiotic); Translations: [Sulfonamide (substance)] Drug Allergy [facility] (16 sources) penicillin; Translations: [penicillins] Drug Allergy [facility] Work Phone: [phone] (1 source) Sulfonamides (Antibiotic) drug allergy [facility] Work Phone: (20 sources) amLODIPine; Translations: [amlodipine] Drug Allergy Leg swelling symptom (finding) [facility] Work Phone: (20 sources) atorvastatin; Translations: [atorvastatin] Drug Allergy Eruption of skin (disorder) [facility] Work Phone: (15 sources) Lidocaine; Translations: [lidocaine] Drug Allergy Congestion of throat (finding) [facility] Work Phone: (15 sources) Naproxen; Translations: [naproxen] Drug Allergy Colitis (disorder) [facility] Work Phone: (15 sources) Sulfonamides (Antibiotic); Translations: [sulfa drugs] Drug allergy [facility] Work Phone: (5 sources) Losartan Drug Allergy doesn't feel well, fatigued [facility] (20 sources) Penicillins; Translations: [PENICILLINS] Allergy to substance [facility] (20 sources) Sulfonamides (Antibiotic); Translations: [SULFA (SULFONAMIDE ANTIBIOTICS)] Allergy to substance [facility] (6 sources) Influenza Virus Vaccines; Translations: [Influenza Virus Vaccines] Allergy to substance left ear deafness [facility] (1 source) generic telmisartan-hctz Propensity to adverse reactions Palpitations, nausea, fatigue [facility] Work Phone: (4 sources) hydroCHLOROthiazide Drug Allergy Nausea, fatigue, palpitations [facility] (4 sources) telmisartan Drug Allergy Nausea, fatigue, palpitations [facility] (20 sources) HMG-CoA reductase inhibitor; Translations: [[id number] REDUCTASE INHIBITORS] Drug Intolerance Other: See [facility] (5 sources) NSAIDs; Translations: [NSAIDS (NON-STEROIDAL ANTI-INFLAMMATORY DRUG)] Propensity to adverse reactions to drug Contraindicati on-Medical Surgical [facility] (1 source) amLODIPine Drug Allergy [facility] (1 source) atorvastatin Drug Allergy [facility] (1 source) hydroCHLOROthiazide Drug Allergy [facility] (1 source) Losartan Drug Allergy [facility] (1 source) telmisartan Drug Allergy [facility] Medications Current Medications Medication Drug Class(es) Dates Sig (Normalized) Sig (Original) biotin 2.5 mg oral capsule (20 sources) Biotin 2,500 mcg cap Take by mouth. Twice weekly Active Comment on above: Take by mouth. Twice weekly calcium carbonate 1500 mg oral tablet (12 sources) Start: 12-13-2023 calcium (as carbonate) 600 mg oral tablet Dose : 600 mg = 1 tab(s), Oral, qDay, 0 Refill(s) Start Date: 12/13/23 Status: Ordered Medication Dispense Status: Completed Total Allowed Fills: 1 Fills Dispensed: 0 Start: 03-24-2019 End: 11-17-2019 take 1 tablet by mouth every other day Calcium Carbonate (Calcium 600) 600 mg calcium (1,500 mg) tablet Discontinued 600 MG PO .QOD March 24, 2019 12:00am November 17, 2019 8:46am Start: 02-23-2017 take 1 tablet by jori th once daily CALCIUM 600 600 MG TABS One tablet by mouth daily CALCIUM CARBONATE [id number] Rick Prabhakar MD calcium carbonate 1500 mg / cholecalciferol 0.01 mg oral capsule (5 sources) Vitamin D Start: 03-22-2020 take 1 capsule by mouth once daily Calcium Carbonate-Vitamin D3 Active 1 CAP PO DAILY March 22, 2020 12:00am Calcium Carbonate / vitamin D3 (20 sources) CALCIUM CARBONATE/VITAMIN D3 (CALCIUM 600 + D ORAL) Take by mouth. Active CALCIUM CARBONAT E/VITAMIN D3 (CALCIUM 600 + D ORAL) Take by mouth. 0 Active Comment on above: Take by mouth. cephalexin 500 mg oral capsule (1 source) Cephalosporin Antibacterial Start: End: cephalexin 500 mg oral capsule Dose : 500 mg = 1 cap(s), Oral, q8h, X 7 day(s), # 21 cap(s), 0 Refill(s), 01/13/25 9:45:00 AM EDT, Pharmacy: [facility], 162, cm, 12/23/24 9:52:00 EDT, Height, 75.3, kg, 12/23/24 9:52:00 EDT, Dosing Weight Start Date: 01/06/25 Stop Date: 01/13/25 Status: Ordered Medication Dispense Status: Completed Quantity: 21.0 Unit: cap(s) Total Allowed Fills: 1 Fills Dispensed: 0 ciprofloxacin 250 mg oral tablet (2 sources) Quinolone Antimicrobial Start: 023 Ciprofloxacin Hcl Active 250 MG PO DAILY January 18, 2023 12:00am Take one tab 1/2 hour prior to or immediately after sexual activity. Citracal Calcium + D Slow Release 1200 oral tablet, extended release (10 sources) Start: 020 Citracal Calcium + D Slow Release 1200 oral tablet, extended release See Instructions, 2 tab(s) Oral qAM, 0 Refill(s) Start Date: 12/31/19 Status: Ordered docosahexaenoic acid/epa (FISH OIL ORAL) (11 sources) Start: 022 take 1 tablet by mouth once daily docosahexaenoic acid/epa (FISH OIL ORAL) Take 1 tablet by mouth once daily. 01/05/2022 Active fluocinolone acetonide 0.1 mg/ml otic solution (2 sources) Corticosteroid Start: 024 fluocinolone 0.01% otic solution place 3 drops INTO AFFECTED EAR(S) once daily if needed Start Date: 12/13/23 Status: Ordered Repeat number: 1 MULTIVIT WITH CALCIUM,IRON,MIN (MULTIPLE VITAMIN, WOMENS ORAL) (20 sources) take 1 tablet by mouth once daily MULTIVIT WITH CALCIUM,IRON,MIN (MULTIPLE VITAMIN, WOMENS ORAL) Take 1 tablet by mouth once daily. Active take 1 tablet by mouth once sonal y MULTIVIT WITH CALCIUM,IRON,MIN (MULTIPLE VITAMIN, WOMENS ORAL) Take 1 tablet by mouth once daily. 0 Active Comment on above: Take 1 tablet by [facility] once daily. Multivitamin preparation (15 sources) Start: 12-13-2023 take 1 tablet by mouth once daily Multivitamin Dose = 1 tab(s), Oral, Daily, 0 Refill(s) Start Date: 12/13/23 Status: Ordered Repeat number: 1 Start: 12-13-2023 take 1 tablet by jori once daily Multivitamin Dose = 1 tab(s), Oral, Daily, 0 Refill(s) Start Date: 12/13/23 Status: Ordered Start: 07-08-2021 End: 01-05-2022 take 0.5 tablet by mouth once daily Multivitamin Discontinued 0.5 TABLET PO DAILY July 08, 2021 10:51am January 05, 2022 9:11am Start: 07-08-2021 take 0.5 tablet by m outh once daily Multivitamin Active 0.5 TABLET PO DAILY July 08, 2021 10:51am Start: 03-22-2020 End: 07-08-2021 take 1 tablet by mouth once daily Multivitamin Discontinued 1 TABLET PO DAILY March 22, 2020 12:00am July 08, 2021 10:52am nitrofurantoin, macrocrystals 25 mg / nitrofurantoin, monohydrate 75 mg oral capsule (1 source) Nitrofuran Antibacterial Start: 12-24-2024 End: 12-31-2024 take 1 capsule by mouth twice daily nitrofurantoin monohydrate and macrocrystal (MACROBID) 100 mg capsule Indications: Acute cystitis without hematuria Take 1 capsule by mouth two times a day for 7 days. 14 capsule 12/24/2024 12/31/2024 Active [place]-3 Fatty Acids (4 sources) Start: 01-05-2022 take 1000 mg by mouth once daily [place]-3 Fatty Acids Active 1000 MG PO DAILY January 05, 2022 12:00am omega-3 polyunsaturated fatty acids-turmeric (12 sources) Start: 02-09-2022 take 1 capsule by mouth once daily omega-3 polyunsaturated fatty acids-turmeric Dose = 1 cap(s), Oral, qDay, Fish oil, 0 Refill(s) Start Date: 02/09/22 Status: Ordered Medication Dispense Status: Completed Total Allowed Fills: 1 Fills Dispensed: 0 Start: 02-09-2022 take 1 capsule by mo [facility] once daily omega-3 polyunsaturated fatty acids-turmeric Dose = 1 cap(s), Oral, qDay, Fish oil, 0 Refill(s) Start Date: 02/09/22 Status: Ordered Repeat number: 1 Start: 02-09-2022 take 1 capsule by [facility] once daily omega-3 polyunsaturated fatty acids-turmeric Dose = 1 cap(s), Oral, qDay, Fish oil, 0 Refill(s) Start Date: 02/09/22 Status: Ordered Start: 02-09-2022 omega-3 polyun saturated fatty acids-turmeric Oral, BID, 0 Refill(s) Start Date: 02/09/22 Status: Ordered POLYCARBOPHIL (REPLENS VAGIN AL) (20 sources) POLYCARBOPHIL (R EPLENS VAGINAL) Use vaginally. Active POLYCARBOPHIL (R EPLENS VAGINAL) Use vaginally. 0 Active Comment on above: Use vaginally. Pressure Vision Multivit (1 source) Start: 12-23-2024 Pressure Vision Multivit Pressure Vision Multivit, 0 Refill(s), 74.8 Start Date: 12/23/24 Status: Ordered Medication Dispense Status: Completed Total Allowed Fills: 1 Fills Dispensed: 0 Propylene glycol (11 sources) propylene glycol (SYSTANE COMPLETE OPHTHALMIC) Use 1 Drop in eyes as needed (Eyes). Active psyllium 3400 mg powder for oral suspension (5 sources) Start: 07-02-2019 Metamucil 3.4 g/5.2 g oral powder for reconstitution See Instructions, gram(s) Oral qDay, 0 Refill(s), 81.6 Start Date: 07/02/19 Status: Ordered Start: 02-23-2017 METAMUCIL POWD as directed PSYLLIUM POWD [id number] Rick Prabhakar MD Saccharomyces boulardii (20 sources) SACCHAROMYCES PRINCE ULARDII (PROBIOTIC, S.BOULARDII, ORAL) Take by mouth as needed. Active SACCHAROMYCES PRINCE ULARDII (PROBIOTIC, S.BOULARDII, ORAL) Take by mouth as needed. 0 Active Comment on above: Take by mouth as nee ded. telmisartan (7 sources) Angiotensin 2 Receptor Letty Start: 06-02-2021 End: 11-29-2021 take 1 tablet by mouth once daily Micardis HCT 80 mg-25 mg oral tablet Dose = 1 tab(s), Oral, Daily, must be brand name, cannot tolerate generic formulation, # 90 tab(s), 1 Refill(s), JAYE, Pharmacy: [id number], 162, cm, 06/02/21 9:36:00 EST, Height, kg, 06/02/21 9:36:00 EST, Dosing Weight Start Date: 06/02/21 Stop Date: 11/29/21 Status: Ordered Start: 04-15-2018 End: 07-24-2019 take 40 mg by mouth once daily Telmisartan Discontinue d 40 MG PO DAILY April 15, 2018 1:00am July 24, 2019 4:00pm levothyroxine sodium 0.1 mg oral tablet (20 sources) l-Thyroxine Start: 06-24-2024 Synthroid 100 mcg (0.1 mg) oral tablet Dose : 100 mcg = 1 tab(s), Oral, qDay, 1 tab daily , skip sundays, # 90 tab(s), 3 Refill(s), JAYE, Pharmacy: [facility], 162, cm, 06/24/24 9:51:00 EST, Height, kg, 06/24/24 9:51:00 EST, Dosing Weight Start Date: 06/24/24 Status: Ordered Medication Dispense Status: Completed Quantity: 90.0 Unit: tab(s) Total Allowed Fills: 4 Fills Dispensed: 0 Start: 06-16-2024 Synthroid 100 mcg (0.1 mg) oral tablet Dose : 100 mcg = 1 tab(s), Oral, qDay, 1 tab daily , skip sundays, # 90 tab(s), 3 Refill(s), JAYE, Pharmacy: [facility], 162, cm, 12/13/23 9:55:00 EDT, Height, kg, 12/13/23 9:55:00 EDT, Dosing Weight Start Date: 06/16/24 Status: Ordered Quantity: 90.0 Unit: tab(s) Repeat number: 4 Start: 12-13-2023 Synthroid 100 mcg (0.1 mg) oral tablet Dose : 100 mcg = 1 tab(s), Oral, qDay, 1 tab daily , skip sundays, # 90 tab(s), 3 Refill(s), JAYE, other reason (Rx) Start Date: 12/13/23 Status: Ordered Start: 06-07-2023 Synthroid 100 mcg (0.1 mg) oral tablet Dose : 100 mcg = 1 tab(s), Oral, qDay, # 90 tab(s), 3 Refill(s), JAYE, Pharmacy: [facility], 162, cm, 03/15/23 10:00:00 EDT, Height, kg, 03/15/23 10:00:00 EDT, Dosing Weight Start Date: 06/07/23 Status: Ordered Start: 05-04-2022 Synthroid 100 mcg (0.1 mg) oral tablet Dose : 100 mcg = 1 tab(s), Oral, qDay, # 90 tab(s), 3 Refill(s), JAYE, Pharmacy: [facility], 162, cm, 02/09/22 10:32:00 EDT, Height, kg, 02/09/22 10:32:00 EDT, Dosing Weight Start Date: 05/04/22 Status: Ordered Start: 02-03-2021 take 1 tablet by jori th once daily Synthroid 100 mcg (0.1 mg) oral tablet See Instructions, take 1 tablet by mouth daily, EXCEPT SUNDAYS, # 90 tab(s), 3 Refill(s), JAYE, Pharmacy: [facility], 162, cm, 02/03/21 10:45:00 EDT, Height, kg, 02/03/21 10:45:00 EDT, Dosing Weight Start Date: 02/03/21 Status: Ordered Start: 11-30-2017 End: 01-05-2022 take 1 capsule by mouth once daily levothyroxine 100 mcg capsule Discontinued 100 MCG PO daily November 30, 2017 1:31pm January 05, 2022 9:05am Start: 06-08-2017 End: 11-30-2017 levothyroxine 100 mcg capsul e Discontinued PO June 08, 2017 1:00am November 30, 2017 1:54pm Start: 03-04-2015 SYNTHROID 100 mcg tablet Once daily, skip tab on sundays10/21/2015 Active Comment on above: Once daily, skip tab on sundays Turmeric extract (20 sources) Start: 07-28-2022 take 250 mg by mouth once daily Turmeric Active 250 MG PO DAILY July 28, 2022 4:26pm Start: 02-09-2022 take 500 mg by mouth once daily TURMERIC ORAL Take 500 mg by mouth once daily. 02/09/2022 Active Start: 02-09-2022 turmeric 500 m g oral capsule Dose : 500 mg = 1 cap(s), Oral, qDay, 0 Refill(s) Start Date: 02/09/22 Status: Ordered Medication Dispense Status: Completed Total Allowed Fills: 1 Fills Dispensed: 0 Start: 01-05-2022 End: 07-28-2022 Turmeric Discontinued MG PO January 05, 2022 12:00am July 28, 2022 4:27pm Start: 01-05-2022 Turmeric Activ e MG PO January 05, 2022 12:00am Vitamin D3 50 mcg (2000 intl units) oral tablet (2 sources) Start: 08-04-2021 Vitamin D3 50 mcg (2000 intl units) oral tablet Dose : 2,000 unit(s) = 1 tab(s), Oral, Daily, # 90 tab(s), 3 Refill(s), other reason (Rx) Start Date: 08/04/21 Status: Ordered Completed/Discontinued Medications Medication Drug Class(es) Dates Sig (Normalized) Sig (Original) amLODIPine 2.5 mg oral tablet (16 sources) Dihydropyridine Calcium Channel Letty Start: 07-24-2019 End: 09-22-2022 take 1 tablet by mouth once daily Amlodipine (Norvasc) 2.5 mg tablet Discontinued 2.5 MG PO DAILY October 13, 2019 2:44pm June 02, 2020 3:46pm Comment on above: Take 2.5 mg by mouth once daily. atorvastatin 40 mg oral tablet (5 sources) HMG-CoA Reductase Inhibitor Start: 07-24-2019 End: 07-24-2019 take 40 mg by mouth once daily Atorvastatin Discontinued 40 MG PO DAILY July 24, 2019 1:00am July 24, 2019 4:26pm atropine sulfate 0.025 mg / diphenoxylate hydrochloride 2.5 mg oral tablet (2 sources) Anticholinergic, Cholinergic Muscarinic Antagonist, Antidiarrheal Start: 03-04-2015 End: 02-23-2017 LOMOTIL 2.5-0.025 MG TABS As needed DIPHENOXYLATE-ATR OPINE [id number] Rick Prabhakar MD benzonatate 100 mg oral capsule (4 sources) Non-narcotic Antitussive Start: 03-21-2022 End: 07-28-2022 take 100 mg by mouth three times daily Benzonatate Discontinued 100 MG PO THREE TIMES A DAY March 21, 2022 12:00am July 28, 2022 4:27pm calcium carbonate / vitamin D (2 sources) Start: 03-03-2016 take 1 tablet by mouth once daily OYSTER SHELL CALCIUM 500 + D 500-200 MG-UNIT TABS One tablet by mouth daily CALCIUM CARBONATE-VITAMIN D Rick Prabhakar MD Start: 03-03-2016 End: 02-23-2017 take 1 tablet by mouth once daily OYSTER SHELL CALCIUM 500 + D 500-200 MG-UNIT TABS One tablet by mouth daily CALCIUM CARBONATE-VITAMIN D Rick Prabhaakr MD cholecalciferol 0.025 mg oral capsule (20 sources) Vitamin D Start: 03-24-2019 End: 11-17-2019 take 1000 [IU] by mouth once daily Cholecalciferol (Vitamin D3) Discontinued 1000 UNIT PO DAILY March 24, 2019 12:00am November 17, 2019 8:46am Comment on above: Take 1,000 Units by mouth once daily. clindamycin 150 mg oral capsule (20 sources) Lincosamide Antibacterial Start: 07-24-2019 End: 11-17-2019 Clindamycin Hcl Discontinued PO July 24, 2019 1:00am November 17, 2019 8:46am Start: 11-30-2017 End: 07-24-2019 take 300 mg by mouth once Clindamycin Hcl Discontinued 300 MG PO ONCE 2 June 19, 2019 12:23pm July 24, 2019 4:01pm Start: 03-19-2015 take 4 capsules by m outh every hour CLINDAMYCIN HCL 150 MG CAPS 4 capsules by mouth (600 mg) 1 hour prior to dental appt. CLINDAMYCIN HCL [id number] Rick Prabhakar MD Cod Liver Oil (5 sources) Start: 03-24-2019 End: 07-24-2019 take 1 capsule by mouth once daily Cod Liver Oil Discontinued 1 CAP PO DAILY March 24, 2019 12:00am July 24, 2019 4:01pm ferrous sulfate 325 mg delayed release oral tablet (11 sources) Start: 11-30-2017 End: 03-24-2019 take 325 mg by mouth once daily Ferrous Sulfate Discontinued 325 MG PO daily November 30, 2017 12:00am March 24, 2019 11:07am Start: 11-06-2017 End: 09-22-2022 take 1 tablet by mouth once ferrous sulfate 325 mg (65 mg iron) tablet take 1 tablet by mouth every AFTERNOON 0 11/06/2017 09/22/2022 Discontinued Comment on above: take 1 tablet by jori th every AFTERNOON furosemide 20 mg oral tablet (11 sources) Loop Diuretic Start: 11-30-2017 End: 11-30-2017 take 20 mg by mouth every other day Furosemide Discontinued 20 MG PO .QOD November 30, 2017 12:00am November 30, 2017 1:50pm Start: 11-06-2017 End: 09-22-2022 take 1 tablet by mouth once furosemide (LASIX) 20 mg t ablet TAKE 1 TABLET BY MOUTH EVERY SUNDAY, SUNDAY AND SUNDAY 0 11/06/2017 09/22/2022 Discontinued Comment on above: TAKE 1 TABLET BY JORI TH EVERY SUNDAY, SUNDAY AND SUNDAY guaiFENesin 200 mg oral tablet (4 sources) Start: End: take 200 mg by mouth every six hours Guaifenesin Discontinued 200 MG PO EVERY 6 HOURS March 21, 2022 12:00am July 28, 2022 4:27pm hydroCHLOROthiazide 12.5 mg oral tablet (15 sources) Thiazide Diuretic Start: 018 End: 019 take 12.5 mg by mouth once daily Hydrochlorothiazide Discontinued 12.5 MG PO DAILY April 15, 2018 1:00am March 24, 2019 11:07am Start: 06-15-2017 End: 06-22-2017 take 12.5 mg by mouth once daily Hydrochlorothiazide Discontinued 12.5 MG PO daily June 15, 2017 4:39pm June 22, 2017 3:50pm Start: 06-08-2017 End: 06-15-2017 take 25 mg by mouth once daily Hydrochlorothiazide Discontinued 25 MG PO daily June 08, 2017 1:00am June 15, 2017 4:40pm hydroCHLOROthiazide 25 mg / telmisartan 80 mg oral tablet (20 sources) Thiazide Diuretic, Angiotensin 2 Receptor Letty Start: 09-13-2020 End: 01-18-2023 take 1 tablet by mouth once daily Micardis HCT 80 mg-25 mg oral tablet Dose = 1 tab(s), Oral, Daily, must be brand name, cannot tolerate generic formulation, # 90 tab(s), 1 Refill(s), JAYE, Pharmacy: [address] [facility], 162, cm, 06/02/21 9:36:00 EST, Height, kg, 06/02/21 9:36:00 EST, Dosing Weight Start Date: 06/02/21 Stop Date: 11/29/21 Status: Ordered Medication Dispense Status: Completed Quantity: 90.0 Unit: tab(s) Total Allowed Fills: 2 Fills Dispensed: 0 Start: 06-02-2020 End: 09-13-2020 take 1 tablet by mouth twice daily Telmisartan-Hydrochlorothiazid (Micardis Hct) 40-12.5 mg tablet Discontinued 1 TABLET PO TWICE A DAY 180 June 02, 2020 1:00am September 13, 2020 1:09pm Start: 03-04-2015 End: 05-09-2024 take 1 tablet by mouth once daily Telmisartan-Hydrochlorothiazid (Micardis Hct) 40-12.5 mg tablet Discontinued 1 TABLET PO DAILY 90 June 02, 2020 3:41pm June 02, 2020 3:43pm Comment on above: Take 0.5 tablets by mouth once daily. Take 1 tablet by jori th once daily. loperamide hydrochloride 2 mg oral capsule (6 sources) Opioid Agonist End: loperamide (IMODIUM) 2 mg cap(s) Take 2 mg by mouth as needed. 0 09/22/2022 Discontinued Comment on above: Take 2 mg by mouth a s needed. losartan potassium 50 mg oral tablet (20 sources) Angiotensin 2 Receptor Letty Start: 8 End: 8 take 50 mg by mouth once daily Losartan Discontinued 50 MG PO daily June 15, 2017 4:40pm June 22, 2017 3:50pm Start: 06-08-2017 End: 06-15-2017 take 100 mg by mouth once daily Losartan Discontinued 100 MG PO daily June 08, 2017 1:00am June 15, 2017 4:40pm Start: 05-07-2017 End: 09-22-2022 take 50 mg by mouth once daily Losartan Discontinued 5 0 MG PO daily November 30, 2017 12:00am November 30, 2017 1:49pm Start: 03-15-2017 take 1 tablet by jori th once daily LOSARTAN POTASSIUM 50 MG TABS One tablet by mouth daily LOSARTAN POTASSIUM [id number] Bernice Johnson RN Start: 02-01-2017 End: 03-05-2017 take 1 tablet by mouth once daily LOSARTAN POTASSIUM 50 MG TABS One tablet by mouth daily LOSARTAN POTASSIUM [id number] Dari Mai RN Start: 02-01-2017 take 0.5 tablet by m outh once daily LOSARTAN POTASSIUM 50 MG TABS 1/2 tablet by mouth daily LOSARTAN POTASSIUM [id number] Dari Mai RN Comment on above: Take 50 mg by mouth once daily. Melatonin (5 sources) End: 05-09-2024 MELATONIN ORAL Take 1 tablet by mouth as directed. 05/09/2024 Discontinued MELATONIN ORAL T yobani 1 tablet by mouth as directed. 0 Active Comment on above: Take 1 tablet by jori th as directed. MULTIPLE VITAMINS-MINERALS (1 source) Start: 02-23-2017 take 1 tablet by mouth once daily MULTIVITAMIN ADULT TABS One tablet by mouth daily MULTIPLE VITAMINS-MINERALS [id number] Rick Prabhakar MD MULTIVIT-MINERALS/ FERROUS FUM (MULTI VITAMIN ORAL) (13 sources) End: 05-09-2024 MULTIVIT-MINERALS/FERR OUS FUM (MULTI VITAMIN ORAL) Take by mouth. 05/09/2024 Discontinued MULTIVIT-MINERAL S/FERROUS FUM (MULTI VITAMIN ORAL) Take by mouth. 0 Active Comment on above: Take by mouth. Zhhllhqizfrp-Qp-Zrwo- Minerals (Multiple Vitamin, Womens) tablet (5 sources) Start: 11-30-2017 End: 11-17-2019 Ixolkujparsn-Wm-Uqjh-M inerals (Multiple Vitamin, Womens) tablet Discontinued TABLET PO November 30, 2017 12:00am November 17, 2019 8:46am polypodium leucotomos (2 sources) Start: 03-04-2015 take 1 tablet by mouth once daily HELIOCARE 240 MG CAPS One tablet by mouth daily POLYPODIUM LEUCOTOMOS [id number] Carmen Barker RN Start: 03-04-2015 End: 03-11-2015 take 1 tablet by mouth once daily HELIOCARE 240 MG CAPS One tablet by mouth daily POLYPODIUM LEUCOTOMOS [id number] Rick Prabhakar MD RED YEAST RICE ORAL (13 sources) End: 05-09-2024 RED YEAST RICE ORAL Take by mouth. 05/09/2024 Discontinued RED YEAST RICE O RAL Take by mouth. 0 Active Comment on above: Take by mouth. spironolactone 25 mg oral tablet (8 sources) Aldosterone Antagonist Start: 02-23-2017 End: 09-22-2022 spironolactone (ALDACTONE) 25 mg tablet 0 03/23/2017 09/22/2022 Discontinued Start: 02-23-2017 take 0.5 tablet by m out once daily SPIRONOLACTONE 25 MG TABS 1/2 tablet by mouth daily SPIRONOLACTONE [id number] Dari Mai RN TRIAMCINOLONE ACETONIDE CREA (2 sources) Corticosteroid Start: 03-11-2015 TRIAMCINOLONE ACETONIDE CREA as needed TRIAMCINOLONE ACETONIDE CREA [id number] Rick Prabhakar MD Start: 03-11-2015 End: 02-23-2017 TRIAMCINOLONE ACETONIDE CREA as needed TRIAMCINOLONE ACETONIDE CREA [id number] Rick Prabhakar MD vancomycin 250 mg oral capsule (2 sources) Glycopeptide Antibacterial Start: 01-18-2016 End: 02-23-2017 VANCOMYCIN HCL 250 MG CAPS Two capsules by mouth 60 minutes prior to procedure VANCOMYCIN HCL [id number] Rick Prabhakar MD vitamin B 12 (2 sources) Vitamin B12 Start: 03-03-2016 VITAMIN B-12 1 000 MCG/15ML LIQD 5,000 IU 2 times per wk CYANOCOBALAMIN [id number] Rick Prabhakar MD Start: 03-03-2016 End: 02-23-2017 VITAMIN B-12 1000 MCG/15ML L IQD 5,000 IU 2 times per wk CYANOCOBALAMIN [id number] Rick Prabhakar MD vitamin d 1000 unt oral tablet (2 sources) Start: 03-03-2016 End: 02-23-2017 take 1 tablet by mouth once daily VITAMIN D 1000 UNIT TABS One tablet by mouth daily CHOLECALCIFEROL [id number] Rick Prabhakar MD Problems Active Problems Problem Classification Problem Date Documented Da te Episodic/Chronic Administrative/social admission (2 sources) Education and/or schooling finding; Translations: [Problems related to education and literacy, unspecified] Onset: 12-04-2024 12-03-2024 Episodic Blindness and vision defects (16 sources) Wears glasses 05-06-2019 Episodic Cancer of cervix (16 sources) Malignant tumor of cervix 07-03-2014 Chronic Cancer of other female genital organs (20 sources) Malignant tumor of vulva; Translations: [Malignant neoplasm of vulva, unspecified] Onset: 12-07-2015 09-29-2020 Chronic Cancer of other female genital organs (1 source) Personal history of malignant neoplasm of other female genital organs; Translations: [History of cancer of vulva] Onset: 11-07-2024 Episodic Cardiac dysrhythmias (20 sources) Palpitations; Translations: [Palpitations] 01-24-2021 Episodic Chronic kidney disease (16 sources) Chronic kidney disease stage 3 12-31-2019 Chronic Coronary atherosclerosis and other heart disease (16 sources) Angina pectoris 01-24-2021 Chronic Deficiency and other anemia (2 sources) Iron deficiency anemia, unspecified; Translations: [Iron deficiency anemia, unspecified] Onset: 04-12-2022 Episodic Diabetes mellitus without complication (20 sources) Prediabetes; Translations: [Prediabetes] Onset: 01-06-2016 12-31-2019 Episodic Diseases of white blood cells (19 sources) Neutropenia; Translations: [Other decreased white blood cell count] Onset: 04-12-2022 12-31-2019 Chronic Disorders of lipid metabolism (20 sources) Hyperlipidemia; Translations: [Hypercholesterolemia ] Onset: 05-08-2024 12-31-2019 Chronic Essential hypertension (20 sources) Hypertensive disorder; Translations: [Essential hypertension] Onset: 03-04-2015 03-05-2015 Chronic Heart valve disorders (20 sources) Mitral valve prolapse; Translations: [Nonrheumatic mitral (valve) prolapse] Onset: 03-11-2015 03-11-2015 Chronic Lymphadenitis (2 sources) Nonspecific mesenteric adenitis; Translations: [Nonspecific mesenteric lymphadenitis] Onset: 01-06-2025 Episodic Mood disorders (2 sources) Major depression single episode, in partial remission; Translations: [Major depressive disorder, single episode, in partial remission] 11-23-2023 Chronic Noninfectious gastroenteritis (17 sources) Colitis; Translations: [Noninfective gastroenteritis and colitis, unspecified] 04-15-2019 Episodic Nutritional deficiencies (17 sources) Vitamin D deficiency; Translations: [Vitamin D deficiency, unspecified] Onset: 10-15-2024 01-01-2020 Chronic Other aftercare (6 sources) History of malignant neoplasm of vulva; Translations: [Encounter for follow-up examination after completed treatment for malignant neoplasm] Episodic Other aftercare (1 source) Surgical follow-up; Translations: [Encounter for follow-up examination after completed treatment for conditions other than malignant neoplasm] 12-11-2024 Episodic Other aftercare (1 source) Encounter for follow-up examination after completed treatment for conditions other than malignant neoplasm; Translations: [Postop check] Onset: 12-11-2024 Episodic Other bone disease and musculoskeletal deformities (16 sources) Osteopenia 07-02-2019 Episodic Other connective tissue disease (2 sources) Pain in toe; Translations: [Pain in right toe(s)] 10-11-2022 Episodic Other connective tissue disease (1 source) Pain in right toe(s); Translations: [Pain in limb] 10-16-2022 Episodic Other diseases of veins and lymphatics (20 sources) Lymphedema; Translations: [Lymphedema, not elsewhere classified] Onset: 08-16-2020 09-29-2020 Chronic Other diseases of veins and lymphatics (3 sources) Lymphedema, not elsewhere classified; Translations: [Other lymphedema] Onset: 11-05-2024 10-16-2022 Chronic Other ear and sense organ disorders (16 sources) Hearing disorder 02-03-2021 Chronic Other ear and sense organ disorders (5 sources) Deafness of left ear; Translations: [Unspecified hearing loss, left ear] 08-15-2021 Chronic Other ear and sense organ disorders (3 sources) Unspecified hearing loss, left ear; Translations: [Unspecified hearing loss] Chronic Other ear and sense organ disorders (20 sources) Does use hearing aid 05-06-2019 Episodic Other ear and sense organ disorders (16 sources) Tinnitus 02-24-2020 Episodic Other female genital disorders (3 sources) Stenosis of vagina; Translations: [Stricture and atresia of vagina] 05-04-2023 Episodic Other gastrointestinal disorders (20 sources) Diarrhea; Translations: [Diarrhea, unspecified] 09-19-2011 Episodic Other liver diseases (2 sources) Abnormal levels of other serum enzymes; Translations: [Abnormal levels of other serum enzymes] Onset: 04-12-2022 Episodic Other lower respiratory disease (1 source) Cough; Translations: [Cough] Episodic Other non-traumatic joint disorders (16 sources) Knee pain 06-02-2021 Episodic Other nutritional; endocrine; and metabolic disorders (16 sources) Body mass index 30+ - obesity 06-02-2021 Chronic Other nutritional; endocrine; and metabolic disorders (16 sources) Obesity 12-31-2019 Chronic Other screening for suspected conditions (not mental disorders or infectious disease) (10 sources) Abnormal results of thyroid function studies; Translations: [Abnormal vaginal Papanicolaou smear] Onset: 04-12-2022 Episodic Other skin disorders (16 sources) Lichen sclerosus et atrophicus 04-08-2019 Chronic Other skin disorders (1 source) Other skin changes; Translations: [Other skin changes] Onset: 11-05-2024 Episodic Peripheral and visceral atherosclerosis (2 sources) Peripheral vascular disease; Translations: [Peripheral vascular disease, unspecified] 10-11-2022 Chronic Residual codes; unclassified (16 sources) Immunization due 05-06-2019 Episodic Residual codes; unclassified (1 source) Insomnia; Translations: [Insomnia, unspecified] 05-09-2024 Episodic Thyroid disorders (20 sources) Markell thyroiditis; Translations: [Hypothyroidism] Onset: 01-06-2016 12-31-2019 Chronic Unclassified (2 sources) Body mass index (BMI) 32.0-32.9, adult; Translations: [Body mass index (BMI) 31.0-31.9, adult] Onset: 03-11-2015 03-03-2016 Chronic Unclassified (16 sources) Cancer cervix screening status 01-24-2021 Unclassified (20 sources) Patient encounter status 05-06-2019 Unclassified (16 sources) Statin not tolerated (context-dependent category) 09-29-2020 Unclassified (1 source) Cough, unspecified; Translations: [Cough, unspecified] Onset: 07-18-2024 Urinary tract infections (1 source) Acute cystitis; Translations: [Acute cystitis without hematuria] 12-24-2024 Episodic Viral infection (1 source) COVID-19; Translations: [COVID-19] Onset: 11-05-2024 Past or Other Problems Problem Classification Problem Date Documented Da te Episodic/Chronic Abdominal pain (14 sources) Abdominal pain; Translations: [Unspecified abdominal pain] Onset: 01-20-2016 Resolved: 01-20-2016 01-20-2016 Episodic Hemorrhoids (20 sources) Hemorrhoids; Translations: [Unspecified hemorrhoids] Onset: 01-06-2016 01-06-2016 Episodic Malaise and fatigue (1 source) Fatigue; Translations: [Other fatigue] Onset: 03-04-2015 03-05-2015 Episodic Nonspecific chest pain (1 source) Chest pain, unspecified; Translations: [Chest pain, unspecified] Onset: 03-04-2015 03-05-2015 Episodic Other upper respiratory disease (1 source) Dysphonia; Translations: [Dysphonia] Onset: 06-02-2024 Episodic Other upper respiratory disease (1 source) Other specified disorders of nose and nasal sinuses; Translations: [Other specified disorders of nose and nasal sinuses] Onset: 02-05-2024 Episodic Other upper respiratory infections (1 source) Acute upper respiratory infection, unspecified; Translations: [Acute upper respiratory infection, unspecified] Onset: 06-09-2024 Episodic Unclassified (1 source) Family history of ischemic heart disease and other diseases of the circulatory system; Translations: [Family history of ischemic heart disease and other diseases of the circulatory system] 03-11-2015 Episodic Results Test Name Value Interpretation Reference Range Facility /Barb 01-14-2025 /[facility] [address] [place], [place] [id number] OFFICE VISIT Date of Service: 01/14/25 MR#: [id number] Acct: [id number] Name: DAMIEN PATRICIA Rep #: [id number] : 1940 Provider: Dr. 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 Accompanied by: Self Is patient in pain?: No Allergies atorvastatin Allergy (Severe, Verified 01/14/25 10:28) Hives Influenza Virus Vaccines Allergy (Severe, Verified 01/14/25 10:28) left ear deafness Sulfa (Sulfonamide Antibiotics) Allergy (Severe, Verified 01/14/25 10:28) Hives Penicillins Allergy (Intermediate, Verified 01/14/25 10:28) Rash amlodipine Adverse Reaction (Intermediate, Verified 01/14/25 10:28) swelling in feet and legs losartan Adverse Reaction (Intermediate, Verified 01/14/25 10:28) doesn't feel well, fatigued hydrochlorothiazide (From Micardis HCT) Adverse Reaction (Verified 01/14/25 10:28) Nausea, fatigue, palpitations telmisartan (From Micardis HCT) Adverse Reaction (Verified 01/14/25 10:28) Nausea, fatigue, palpitations Medications ???Medication ???Instructions ???Recorded ???Confirmed ???Type calcium 600 mg (as 1 cap PO DAILY 03/22/20 01/14/25 H istory carbonate)-vitamin D3 10 mcg (400 unit) capsule levothyroxine 100 mcg tablet 100 mcg PO .COMPLEX 01/05/2201/14 History (Synthroid) omega-3 fatty acids 1,000 mg 1,000 mg PO DAILY 01/05/22 5 History capsule diphenhydramine HCl 25 mg tablet 25 mg PO QHS PRN 08/08/23 01/14/25 History (Benadryl Allergy) fluocinolone acetonide oil 0.01 % 1 drp otic (ear) PRN 08/08/23 History ear drops 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 PO 04/16/24 01/14/25 History lpoqlgsu-bltxpficu-zx xameth 3.5 1 drp ophthalmic (eye) Q8H 5 01/14/25 History mg/mL-10,000 unit/mL-0.1% eye drops magnesium oxide 250 mg PO QHS 10/15/24 01/14/25 Hi story trazodone 50 mg tablet 25 mg (1/2 x 50 mg) PO QHS PRN 01/14/25 Rx sleep #30 tabs vit C 250 mg-vit E 90 mg-zinc 40 1 tab PO BID 10/15/24 01/14/25 His tory mg-copper 1 qz-lkbtxe-vtvtwq capsule (PreserVision AREDS-2) Micardis HCT 80 mg-25 mg tablet 1 tab PO QAM #90 tabs 11/24/24 Rx (telmisartan-hydrochl orothiazid) Have you fallen in the past year?: No [facility] Medical History (Updated 01/14/25 @ 12:[address] Tanvi Doty MD) History of cancer of vulva Mesenteric adenitis Viral URI COVID-19 ( 12/24/21) Palpitations Vulvar cancer Essential hypertension Hypothyroidism Nonrheumatic mitral valve prolapse Surgical History History of tubal ligation History of hysterectomy History of vaginal surgery Family History Father CAD (coronary artery disease) Heart valve disease Sister Tachycardia Social History Smoking Status: Never smoker alcohol intake: current alcohol intake frequency: 0-2 drinks per day Alcohol type: beer and wine substance use type: does not use caffeine: Yes Type: coffee Number of servings: 2 HPI HPI Chief Complaint: No acute concerns Details: DAMIEN PATRICIA, is a 84 F who presents to the office today for ER follow-up. 84-year-old female who recently presented to the ER at [facility] for right lower abdominal pain. Recently, as part of her normal follow-up for history of vulvar cancer, with extensive surgical reconstruction done at [facility], she was in for her annual follow-up with [employer] at [facility] in [place]. They were typically just doing Pap smears. Apparently she had an abnormal Pap and concerns so she underwent biopsy. She did not hear directly back from them about the biopsy but when she was reading about it online, [facility] website, she got the impression that it was all okay. However about a week or so later, she did develop symptoms consistent with UTI and she called their office. Was placed on antibiotic which presumably was generic of Bactrim. She had resolution to the urinary symptoms, cloudiness to the urine. Then perhaps a week or so later, she abruptly developed right lower abdominal pain. Difficult with placing we (more content not included)... Normal [facility] [place] .Auto Diffon 01-06-2025 Basophil, Absolute 0.0 10 3/mcL Normal 0.0-0.3 [facility] Comment on above: Performed By: #### A DIFF, ANEU, GFR, CBC, LIP, CMP, MDW ####[facility] [place], [place] [address] Basophils/100 WBC (Bld) 0.7 % Normal 0.0-2.5 [facility] Comment on above: Performed By: #### A DIFF, ANEU, GFR, CBC, LIP, CMP, MDW ####[facility] [place], [place] [address] Eosinophil, Absolute 0.2 10 3/mcL Normal 0.0-0.7 [facility] Comment on above: Performed By: #### A DIFF, ANEU, GFR, CBC, LIP, CMP, MDW ####[facility] [place], [place] [address] Eosinophils/100 WBC (Bld) 2.9 % Normal 0.0-6.0 [facility] Comment on above: Performed By: #### A DIFF, ANEU, GFR, CBC, LIP, CMP, MDW ####[facility] [place], [place] [address] Lymphocyte, Absolute 1.2 10 3/mcL Normal 0.9-4.3 [facility] Comment on above: Performed By: #### A DIFF, ANEU, GFR, CBC, LIP, CMP, MDW ####[place] [address] [place], [place] [address] Lymphocytes/100 WBC (Bld) 18.4 % Low 20.0-40.0 [facility] Comment on above: Performed By: #### A DIFF, ANEU, GFR, CBC, LIP, CMP, MDW ####[facility] [address] [place], [place] [address] Monocyte, Absolute 0.7 10 3/mcL Normal 0.1-1.4 [facility] Comment on above: Performed By: #### A DIFF, ANEU, GFR, CBC, LIP, CMP, MDW ####[facility] [address] [place], [place] [address] Monocytes/100 WBC (Bld) 10.1 % Normal 2.0-13.0 [facility] Comment on above: Performed By: #### A DIFF, ANEU, GFR, CBC, LIP, CMP, MDW ####[place] [address] [place], [place] [address] Neutrophils/100 WBC (Bld) 67.9 % Normal 50.0-75.0 [facility] Comment on above: Performed By: #### A DIFF, ANEU, GFR, CBC, LIP, CMP, MDW ####[facility] [place], [place] [address] .GFRon 01-06-2025 Estimated Glomerular Filtration Rate 66 ml/min/1.73sqm Normal [facility] Comment on above: Result Comment: Stages of Chronic Kidney Disease (CKD) Stage Description eGFR(ml/min/1.73 sq.m.) CKD 1 Normal kidney function or >=90 normal kindney function with possible kidney damage (ex. Proteinuria) CKD 2 Kidney damage with mild loss 60-89 of kidney function CKD 3a Mild to moderate loss of kidney 45-59 function CKD 3b Moderate to severe loss of 30-44 of kindey function CKD 4 Severe loss of kidney function 15-29 CKD 5 Kidney failure <15 Note: (go live 2024) the eGFR calculation was updated to the 2020 CKD-EPI creatinine equation without a race factor to calculate the eGFR results. Performed By: #### A DIFF, ANEU, GFR, CBC, LIP, CMP, MDW ####[facility] [address] [place], [place] [address] .MDWon 01-06-2025 Monocyte Distribution Width 18.00 Normal 0.00-20.00 [facility] Comment on above: Result Comment: For ED adult patients suspected of sepsis, MDW<=20.0 does not rule out sepsis or risk of sepsis Performed By: #### A DIFF, ANEU, GFR, CBC, LIP, CMP, MDW ####[place] [address] [address] .NEUABSon 01-06-2025 Neutrophil, Absolute 4.5 10 3/mcL Normal 2.3-8.1 [facility] Comment on above: Performed By: #### A DIFF, ANEU, GFR, CBC, LIP, CMP, MDW ####[place] [address] [place], [place] [address] CBCon 01-06-2025 Erythrocyte distribution width (RBC) [Ratio] 13.2 % Normal 11.5-15.5 [facility] Comment on above: Performed By: #### A DIFF, ANEU, GFR, CBC, LIP, CMP, MDW ####[place] [address] [place], [place] [address] Hematocrit (Bld) [Volume fraction] 38.7 % Normal 34.0-46.0 [facility] Comment on above: Performed By: #### A DIFF, ANEU, GFR, CBC, LIP, CMP, MDW ####[place] [address] [address] Hgb 13.1 G/dL Normal 12.0-16.0 [facility] Comment on above: Performed By: #### A DIFF, ANEU, GFR, CBC, LIP, CMP, MDW ####[facility] [address] [place], [place] [address] MCH (RBC) [Entitic mass] 29.2 pg Normal 27.0-33.0 [facility] Comment on above: Performed By: #### A DIFF, ANEU, GFR, CBC, LIP, CMP, W ####[facility] [address] [place], [place] [address] MCHC 33.8 G/dL Normal 32.0-36.0 [facility] Comment on above: Performed By: #### A DIFF, ANEU, GFR, CBC, LIP, CMP, MDW ####[facility] [address] [place], [place] [address] MCV (RBC) [Entitic vol] 86.6 fL Normal 80.0-99.0 [facility] Comment on above: Performed By: #### A DIFF, ANEU, GFR, CBC, LIP, CMP, MDW ####[facility] [address] [place], [place] [address] Platelet 224 10 3/mcL Normal 150-450 [facility] Comment on above: Performed By: #### A DIFF, ANEU, GFR, CBC, LIP, CMP, MDW ####[facility] [address] [place], [place] [address] Platelet mean volume (Bld) [Entitic vol] 9.6 fL Normal 6.6-10.5 [facility] Comment on above: Performed By: #### A DIFF, ANEU, GFR, CBC, LIP, CMP, MDW ####[facility] [address] [place], [place] [address] RBC 4.46 10 6/mcL Normal 4.10-5.30 [facility] Comment on above: Performed By: #### A DIFF, ANEU, GFR, CBC, LIP, CMP, MDW ####[facility] [address] [place], [place] [address] WBC 6.7 10 3/mcL Normal 4.5-10.8 [facility] Comment on above: Performed By: #### A DIFF, ANEU, GFR, CBC, LIP, CMP, MDW ####[facility] [place], [place] [address] CMPon 01-06-2025 Albumin Level 3.7 G/dL Normal 3.4-4.8 [facility] Comment on above: Performed By: #### A DIFF, ANEU, GFR, CBC, LIP, CMP, MDW ####[place] [address] [place] [id number] Albumin/Globulin [Mass ratio] 0.9 {ratio} Low 1.1-2.5 [facility] Comment on above: Performed By: #### A DIFF, ANEU, GFR, CBC, LIP, CMP, MDW ####[place] [place] [id number] ALP [Catalytic activity/Vol] 88 U/L Normal 40-135 [facility] Comment on above: Performed By: #### A DIFF, ANEU, GFR, CBC, LIP, CMP, MDW ####[address] [address] ALT [Catalytic activity/Vol] 45 U/L Normal 14-59 [facility] Comment on above: Performed By: #### A DIFF, ANEU, GFR, CBC, LIP, CMP, MDW ####[place] [address] [place], [place] [address] AST [Catalytic activity/Vol] 25 U/L Normal 10-40 [facility] Comment on above: Performed By: #### A DIFF, ANEU, GFR, CBC, LIP, CMP, MDW ####[place] [address] [place], [place] [address] Bili Total 0.7 mg/dL Normal 0.2-1.0 [facility] Comment on above: Result Comment: Use of this assay is not recommended for patients undergoing treatment with eltrombopag due to the potential for falsely elevated results. Performed By: #### A DIFF, ANEU, GFR, CBC, LIP, CMP, MDW ####[place] [address] [place] [id number] BUN/Creatinine Ratio 28 ratio High 7-27 [facility] Comment on above: Performed By: #### A DIFF, ANEU, GFR, CBC, LIP, CMP, MDW ####[place] [address] [place], [place] [address] Calcium [Mass/Vol] 9.7 mg/dL Normal 8.4-10.2 [facility] Comment on above: Performed By: #### A DIFF, ANEU, GFR, CBC, LIP, CMP, MDW ####[place] [address] [place], [place] [address] Chloride [Moles/Vol] 100 mmol/L Normal 98-107 [facility] Comment on above: Performed By: #### A DIFF, ANEU, GFR, CBC, LIP, CMP, MDW ####[place] [address] [place] [address] CO2 [Moles/Vol] 31 mmol/L Normal 23-31 [facility] Comment on above: Performed By: #### A DIFF, ANEU, GFR, CBC, LIP, CMP, MDW ####[place] [address] [place], [place] [address] Creatinine [Mass/Vol] 0.87 mg/dL Normal 0.51-0.95 [facility] Comment on above: Performed By: #### A DIFF, ANEU, GFR, CBC, LIP, CMP, MDW ####[place] [address] [place], [place] [address] Electrolyte Balance 7.0 mEq/L Normal 4.0-15.0 [facility] Comment on above: Performed By: #### A DIFF, ANEU, GFR, CBC, LIP, CMP, MDW ####[place] [address] [place], [place] [address] Globulin 4.1 G/dL Normal 2.7-4.4 [facility] Comment on above: Performed By: #### A DIFF, ANEU, GFR, CBC, LIP, CMP, MDW ####[facility] [place], [place] [address] Glucose [Mass/Vol] 118 mg/dL High 83-110 [facility] Comment on above: Performed By: #### A DIFF, ANEU, GFR, CBC, LIP, CMP, MDW ####[facility] [place], [place] [address] Potassium [Moles/Vol] 3.5 mmol/L Normal 3.5-5.1 [facility] Comment on above: Performed By: #### A DIFF, ANEU, GFR, CBC, LIP, CMP, MDW ####[facility] [place], [place] [address] Sodium [Moles/Vol] 138 mmol/L Normal 136-145 [facility] Comment on above: Performed By: #### A DIFF, ANEU, GFR, CBC, LIP, CMP, MDW ####[facility] [place], [place] [address] Total Protein 7.8 G/dL Normal 6.4-8.2 [facility] Comment on above: Performed By: #### A DIFF, ANEU, GFR, CBC, LIP, CMP, MDW ####[place] [id number] [place], [place] [address] Urea nitrogen [Mass/Vol] 24 mg/dL High 7-18 [facility] Comment on above: Performed By: #### A DIFF, ANEU, GFR, CBC, LIP, CMP, MDW ####[facility] [place], [place] [address] CT ABD/PELVIS W/ IV CONTRAST ONLYon 01-06-2025 CT ABD/PELVIS W/ IV CONTRAST ONLY ORIGINAL EXAMINATION: CT OF THE ABDOMEN AND PELVIS WITH CONTRAST01/06/2025 8:37 am TECHNIQUE: CT of the abdomen and pelvis was performed with the administration of intravenous contrast. Multiplanar reformatted images are provided for review. Automated exposure control, iterative reconstruction, and/or weight based adjustment of the mA/kV was utilized to reduce the radiation dose to as low as reasonably achievable. COMPARISON: None HISTORY: ORDERING SYSTEM PROVIDED HISTORY: Reason for Exam: RLQ abdominal pain FINDINGS: The included lung bases are clear. There is no visible pleural or pericardial effusion. The heart is normal in size. A small pericardial effusion visible. The liver, spleen, adrenal glands, and pancreas are within normal limits. No filling defects seen in the gallbladder. The kidneys enhance symmetrically. A smoothly marginated cyst at the upper pole of the right kidney measures 4 cm and 15 Hounsfield units. Additional small renal cysts are too small to characterize. No radiodense urinary calculus seen. No hydroureteronephrosis . The large and small bowel demonstrate no obstruction. The appendix is not visualized. No free intraperitoneal fluid or gas is identified. The aorta is normal in caliber. There is mild atherosclerosis of the larger arteries. Hazy infiltration is seen of the left mesentery with associated subcentimeter lymph nodes. No filling defects seen in the urinary bladder. There is no acute fracture or aggressive osseous lesion. Degenerative changes seen of the hips, sacroiliac joints and spine. IMPRESSION: 1. Hazy infiltration of the left mesentery with associated subcentimeter lymph nodes. 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 A six-month follow-up CT advised. 2. Small pericardial effusion. 3. No focal bowel inflammation visible. Other incidental findings, as above. Interpreted by: Valentino Drake MD Preliminary Report By: Valentino Drake MD Electronically signed By Valentino Drake MD Dictated Date: 01/06/2025 8:45:15 AM Prelim Date: 01/06/2025 8:51:51 AM Sign Date: 01/06/2025 8:51:51 AM Ordering Provider: JUAN Pandey [facility]ATORYOrdered By: Leo Tate on 01-06-2025 Appearance (U) Clear (01/06/25 9:18 AM) Normal Clear AO Auto Urine SS Bilirubin Ql (U) Negative (01/06/25 9:18 AM) Normal Negative AO Auto Urine SS Color (U) Yellow (01/06/25 9:18 AM) Normal AO Auto Urine SS Glucose Test strip (U) [Mass/Vol] Negative Normal Negative AO Auto Urine SS Hemoglobin Auto test strip (U) [Mass/Vol] Negative (01/06/25 9:18 AM) Normal Negative AO Auto Urine SS Ketones Ql (U) Negative Normal Negative AO Auto Ur ine SS UA Leuk Est Trace (01/06/25 9:18 AM) Normal Negative AO Auto Urine SS UA Nitrite Negative (01/06/25 9:18 AM) Normal Negative AO Auto Urine SS UA pH 6.5 (01/06/25 9:18 AM) Normal 5.0 - 8.0 AO Auto Urine SS UA Protein Negative Normal Negative AO Auto Urine SS UA Spec Grav 1.010 *ABN* (01/06/25 9:18 AM) Invalid Interpretation Code 1.015-1.025 AO Auto Urine SS UA Specimen Type Clean Catch (01/06/25 9:18 AM) Normal AO Auto Urine SS UA Urobilinogen 0.2 E.U./dL Normal 0.2-1.0 AO Auto Urine SS LABORATORYOrdered By: SYSTEM SYSTEM on 01-06-2025 Albumin BCP dye [Mass/Vol] 3.7 G/dL Normal 3.4 - 4.8 G/dL AO ADM SS Albumin/Globulin [Mass ratio] 0.9 {ratio} Low 1.1 - 2.5 ratio AO ADM SS ALP [Catalytic activity/Vol] 88 U/L Normal 40 - 135 U/L AO ADM SS ALT With P-5'-P [Catalytic activity/Vol] 45 U/L Normal 14 - 59 U/L AO ADM SS AST With P-5'-P [Catalytic activity/Vol] 25 U/L Normal 10 - 40 U/L AO ADM SS Basophils (Bld) [#/Vol] 0.0 103/mcL Normal 0.0 - 0.3 10^3/mcL AO Workflow SS Basophils/100 WBC (Bld) 0.7 % Normal 0.0 - 2.5 % AO Workflow SS Bilirubin [Mass/Vol] 0.7 mg/dL Normal 0.2 - 1 .0 mg/dL AO ADM SS Comment on above: Interpretive Data: U se of this assay is not recommended for patients undergoing treatment with eltrombopag due to the potential for falsely elevated results. Calcium [Mass/Vol] 9.7 mg/dL Normal 8.4 - 10. 2 mg/dL AO ADM SS Chloride [Moles/Vol] 100 mmol/L Normal 98 - 10 7 mmol/L AO ADM SS CO2 [Moles/Vol] 31 mmol/L Normal 23 - 31 mmol/L AO ADM SS Creatinine [Mass/Vol] 0.87 mg/dL Normal 0.51 - 0.95 mg/dL AO ADM SS Electrolyte Balance 7.0 mEq/L Normal 4.0 - 15 .0 mEq/L AO ADM SS Eosinophil, Absolute 0.2 103/mcL Normal 0.0 - 0 .7 10^3/mcL AO Workflow SS Eosinophils/100 WBC (Bld) 2.9 % Normal 0.0 - 6.0 % AO Workflow SS Erythrocyte distribution width (RBC) [Ratio] 13.2 % Normal 11.5 - 15.5 % AO Workflow SS Estimated Glomerular Filtration Rate 66 ml/min/1.73sqm Invalid Interpretation Code AO Chemistry S Comment on above: Interpretive Data: Stages of Chronic Kidney Disease (CKD) Stage Description eGFR(ml/min/1.73 sq.m.) CKD 1 Normal kidney function or >=90 normal kindney function with possible kidney damage (ex. Proteinuria) CKD 2 Kidney damage with mild loss 60-89 of kidney function CKD 3a Mild to moderate loss of kidney 45-59 function CKD 3b Moderate to severe loss of 30-44 of kindey function CKD 4 Severe loss of kidney function 15-29 CKD 5 Kidney failure <15 Note: (go live 2024) the eGFR calculation was updated to the 2020 CKD-EPI creatinine equation without a race factor to calculate the eGFR results. Globulin 4.1 G/dL Normal 2.7 - 4.4 G/dL AO ADM SS Glucose [Mass/Vol] 118 mg/dL High 83 - 110 mg/dL AO ADM SS Hematocrit (Bld) [Volume fraction] 38.7 % Normal 34.0 - 46.0 % AO Workflow SS Hemoglobin (Bld) [Mass/Vol] 13.1 G/dL Normal 12.0 - 16.0 G/dL AO Workflow SS Lipase [Catalytic activity/Vol] 42 U/L Normal 16 - 77 U/L AO ADM SS Lymphocytes (Bld) [#/Vol] 1.2 103/mcL Normal 0.9 - 4.3 10^3/mcL AO Workflow SS Lymphocytes/100 WBC (Bld) 18.4 % Low 20.0 - 40.0 % AO Workflow SS MCH (RBC) [Entitic mass] 29.2 pg Normal 27.0 - 33.0 pg AO Workflow SS MCHC 33.8 G/dL Normal 32.0 - 36.0 G/dL AO Workflow SS MCV (RBC) [Entitic vol] 86.6 fL Normal 80.0 - 99.0 fL AO Workflow SS Monocyte distribution width Auto (Bld) [Entitic vol] 18.00 1 Normal 0.00 - 20.00 AO Workflow SS Comment on above: Result Comment: For ED adult patients suspected of sepsis, MDW<=20.0 does not rule out sepsis or risk of sepsis Monocytes (Bld) [#/Vol] 0.7 103/mcL Normal 0.1 - 1.4 10^3/mcL AO Workflow SS Monocytes/100 WBC (Bld) 10.1 % Normal 2.0 - 13.0 % AO Workflow SS Neutrophils (Bld) [#/Vol] 4.5 103/mcL Normal 2.3 - 8.1 10^3/mcL AO Workflow SS Neutrophils/100 WBC (Bld) 67.9 % Normal 50.0 - 75.0 % AO Workflow SS Platelet mean volume (Bld) [Entitic vol] 9.6 fL Normal 6.6 - 10.5 fL AO Workflow SS Platelets (Bld) [#/Vol] 224 103/mcL Normal 150 - 450 10^3/mcL AO Workflow SS Potassium [Moles/Vol] 3.5 mmol/L Normal 3.5 - 5.1 mmol/L AO ADM SS Protein [Mass/Vol] 7.8 G/dL Normal 6.4 - 8.2 G/dL AO ADM SS RBC (Bld) [#/Vol] 4.46 106/mcL Normal 4.10 - 5.3 0 10^6/mcL AO Workflow SS Sodium [Moles/Vol] 138 mmol/L Normal 136 - 145 mmol/L AO ADM SS Urea nitrogen [Mass/Vol] 24 mg/dL High 7 - 18 mg/dL AO ADM SS Urea nitrogen/Creatinine [Mass ratio] 28 ratio High 7 - 27 ratio AO ADM SS WBC (Bld) [#/Vol] 6.7 103/mcL Normal 4.5 - 10.8 10^3/mcL AO Workflow SS LIPon 01-06-2025 Lipase Level 42 U/L Normal 16-77 [facility] Comment on above: Performed By: #### A DIFF, ANEU, GFR, CBC, LIP, CMP, MDW ####[facility] [address] [place], [place] [address] UAon 01-06-2025 Color (U) Yellow Normal [facility] Comment on above: Performed By: #### U A ####[address] [place], [place] [address] Glucose (U) [Mass/Vol] Negative Normal Negative [facility] Comment on above: Performed By: #### U A ####[address] [place] [place] [address] Ketones Ql (U) Negative Normal Negative [facility] Comment on above: Performed By: #### U A ####[address] [place] [address] UA Appear Clear Normal Clear [facility] Comment on above: Performed By: #### U A ####[address] [place] [address] UA Blood Negative Normal Negative [facility] Comment on above: Performed By: #### U A ####[address] [place] [address] UA Leuk Est Trace Normal Negative [facility] Comment on above: Performed By: #### U A ####[address] [address] UA Nitrite Negative Normal Negative [facility] Comment on above: Performed By: #### U A ####[address] [address] UA pH 6.5 Normal 5.0 - 8.0 [facility] Comment on above: Performed By: #### U A ####[address] [place] [address] UA Protein Negative Normal Negative [facility] Comment on above: Performed By: #### U A ####[address] [place] [address] UA Spec Grav 1.010 Abnormal 1.015-1.025 [facility] Comment on above: Performed By: #### U A ####[address] [place] [address] UA Specimen Type Clean Catch Normal [facility] Comment on above: Performed By: #### U A ####[address] [place], [place] [address] UA Urobilinogen 0.2 E.U./dL Normal 0.2-1.0 [facility] Comment on above: Performed By: #### U A ####[address] [place], [place] [address] Urobilinogen (U) [Mass/Vol] Negative Normal Negative [facility] Comment on above: Performed By: #### U A ####[address] [place] [place], [place] [address] [facility] 12-24-2024 [facility] Telephone (Q) DAMIEN PATRICIA ([id number]) 1940 F Date Time Provider Department 12/24/[address] [facility] During your visit today, we recorded the following information about you: Aden Braxton 12/24/2024 11:59 AM Signed Patient called this morning regarding results from her urine test from last week. I requested the results from [facility] and they are scanned to chart. She would like a call back to [facility]. Viridiana Garber RN 12/24/2024 12:52 PM Signed Returned call to patient to let her know that we received her urine results and she does have a UTI.Annia WILEY will send over a prescription to her pharmacy. Patient stated that the burning is better but she feels her urine might still be cloudy. Made her aware that the antibiotic will help clear that up. Patient appreciative of call. Allergies As of Date: 12/24/2024 Noted Allergy Reaction SULFA (SULFONAMIDE ANTIBIOTICS) 12/02/2015 4 - Hives NSAIDS (NON-STEROIDAL ANTI-INFLAM* 5 15 - Contraindication-Medi tatum Gutierrez* Comments: Patient states she has CKD3 and was told she cannot have NSAIDs PENICILLINS 12/02/2015 2 - Rash Comments: Took ampicillin in 2014 without complications [id number] REDUCTASE INHIBIT*08/06/2020 14 - Other: See Comments Comments: Pain on my head and back, bad shaking and my ears turned really red Date Reviewed: 12/11/2024 Reviewed by: Annia Wilson APRN.DATABASE ADMINISTRATION MANAGER - Fully Assessed Reason for Visit: Results [95] Prescriptions as of 12/24/2024 - TURMERIC ORAL Take 500 mg by mouth once daily. - docosahexaenoic acid/epa (FISH OIL ORAL) Take 1 tablet by mouth once daily. - propylene glycol (SYSTANE COMPLETE OPHTHALMIC) Use 1 Drop in eyes as needed (Eyes). - MICARDIS HCT 80-25 mg per tablet Take 1 tablet by mouth once daily. - MULTIVIT WITH CALCIUM,IRON,MIN (MULTIPLE VITAMIN, WOMENS ORAL) Take 1 tablet by mouth once daily. - POLYCARBOPHIL (REPLENS VAGINAL) Use vaginally. - Cholecalciferol, Vitamin D3, 25 mcg (1,000 unit) cap Take 1,000 Units by mouth once daily. - CALCIUM CARBONATE/VITAMIN D3 (CALCIUM 600 + D ORAL) Take by mouth. - SACCHAROMYCES BOULARDII (PROBIOTIC, S.BOULARDII, ORAL) Take by mouth as needed. - SYNTHROID 100 mcg tablet Once daily, skip tab on sundays - Biotin 2,500 mcg cap Take by mouth. Twice weekly Problem List As Of Date 12/24/2024 Noted Resolved Diarrhea [R19.7] Hypercholesterolemia [E78.00] Unspecified essential hypertension [I10] Vulvar cancer (HCC) [C51.9] 12/07/2015 Hypothyroidism [E03.9] 01/06/2016 Hemorrhoids [K64.9] 01/06/2016 Mitral valve prolapse [I34.1] 01/06/2016 Borderline diabetes mellitus [R73.03] 01/06/2016 Abdominal pain, vomiting, and diarrhea [R10.9, *01/20/2016 01/20/2016 Lymphedema [I89.0] 08/16/2020 Encounter Status:Closed by VIRIDIANA GARBER on 12/24/24 Normal [facility] MAMMOGRAM SCREENING BILAT ERAL W/Adriana 12-23-2024 ND MAMMOGRAM SCREENING BILATERAL W/BOLA ORIGINAL FROM: WILLIAM [address] [place], [place] [address] PROCEDURE FOR: DAMIEN PATRICIA [address] [place] [address] Home: PID#: [id number] Exam#: [id number] : 1940 Age: 84 TO: ANNIA WILSON MOTOR BLOCK MECHANIC DATABASE ADMINISTRATION MANAGER [address] [place], [place] [address] EXAMINATION: SCREENING DIGITAL BILATERAL MAMMOGRAM WITH TOMOSYNTHESIS, 12/18/2024 7:16 am TECHNIQUE: Screening mammography of the bilateral breasts was performed with tomosynthesis. 2D standard and 3D tomosynthesis combination imaging performed through both breasts in the MLO and CC projection. Computer aided detection was utilized in the interpretation of this exam. COMPARISON: Mammogram 12/05/2023, 09/28/2022, 09/22/2021, and 09/20/2020 HISTORY: Breast cancer screening. FINDINGS: BREAST DENSITY: There are scattered areas of fibroglandular density. . There are no significant masses or calcifications. IMPRESSION: No mammographic evidence of malignancy in either breast. Return to annual screening mammography is recommended. Timmy Ralph risk calculations, generated with the history provided, report this patient's lifetime risk for developing breast cancer at 0.8%. Based on this assessment tool, if the patient's calculated lifetime risk is below 20%, then the patient is considered at average risk for developing breast cancer. If the patient's calculated lifetime risk is at or above 20%, then the patient is considered high risk for developing breast cancer and may be a candidate for supplemental breast MRI screening in addition to annual mammographic screening per the [employer]. I have personally reviewed the images of this examination and agree with the resident's findings and interpretation. BIRADS: BI-RADS: 1: Negative RECALL: return to screening RECALL TYPE: mammo LETTER SENT: Normal BI-RADS 1 and 2 Interpreted by: Shelley Durbin Preliminary Report By: Tomer Jaimes Electronically signed By Shelley Durbin Dictated Date: 12/22/2024 3:35:28 PM Prelim Date: 12/23/2024 12:16:04 PM Sign Date: 12/23/2024 12:16:04 PM Ordering Provider: ANNIA WILSON copy to: TANVI DOTY MD, ph: [phone], fax: [phone] Manager [employer] Sourcing: AUDIE RENAE RT(R)(M)(CT) letter sent: Normal BI-RADS 1 and 2 Mammogram BI-RADS: 1 Negative Normal [facility] FT4on 12-19-2024 Free T4 [Mass/Vol] 1.47 ng/dL High 0.76-1.46 [facility] Comment on above: Performed By: #### F ERR, LD, GFR, ESR, ADIFF, ANEU, CMP, CRP, CBC #### [id number] [place], [place] [address] .GFRon 12-18-2024 Estimated Glomerular Filtration Rate 59 ml/min/1.73sqm [facility] Comment on above: Result Comment: Stages of Chronic Kidney Disease (CKD) Stage Description eGFR(ml/min/1.73 sq.m.) CKD 1 Normal kidney function or >=90 normal kindney function with possible kidney damage (ex. Proteinuria) CKD 2 Kidney damage with mild loss 60-89 of kidney function CKD 3a Mild to moderate loss of kidney 45-59 function CKD 3b Moderate to severe loss of 30-44 of kindey function CKD 4 Severe loss of kidney function 15-29 CKD 5 Kidney failure <15 Note: (go live 2024) the eGFR calculation was updated to the 2020 CKD-EPI creatinine equation without a race factor to calculate the eGFR results. Performed By: #### F ERR, LD, GFR, ESR, ADIFF, ANEU, CMP, CRP, CBC #### [facility] [address] [place], [place] [address] A1Con 12-18-2024 Glucose [Mass/Vol] 117 mg/dL Normal [facility] Comment on above: Result Comment: Chantale mated Average Glucose calculated by equation ((28.7xA1C)-46.7) Estimated average glucose (eAG) is a calculated value from Hemoglobin A1C and is telephone claims representative of the average blood glucose level in the last 2-3 month period. Normal range: less than 114 mg/dL Performed By: #### M ALBR #### [address] [address] HbA1c (Bld) [Mass fraction] 5.7 % Normal 4.3-6.4 [facility] Comment on above: Performed By: #### M ALBR #### [address] [address] CMPon 12-18-2024 Albumin/Globulin [Mass ratio] 0.9 {ratio} Low 1.1-2.5 [facility] Comment on above: Performed By: #### F ERR, LD, GFR, ESR, ADIFF, ANEU, CMP, CRP, CBC #### [address] [address] Globulin 4.3 G/dL Normal 2.7-4.4 [facility] Comment on above: Performed By: #### F ERR, LD, GFR, ESR, ADIFF, ANEU, CMP, CRP, CBC #### [address] [address] ALP [Catalytic activity/Vol] 84 U/L Normal 40-135 [facility] Comment on above: Performed By: #### F ERR, LD, GFR, ESR, ADIFF, ANEU, CMP, CRP, CBC #### [address] [address] ALT [Catalytic activity/Vol] 76 U/L High 14-59 [facility] Comment on above: Performed By: #### F ERR, LD, GFR, ESR, ADIFF, ANEU, CMP, CRP, CBC #### [address] [address] AST [Catalytic activity/Vol] 40 U/L Normal 10-40 [facility] Comment on above: Performed By: #### F ERR, LD, GFR, ESR, ADIFF, ANEU, CMP, CRP, CBC #### [address] [address] Bili Total 0.5 mg/dL Normal 0.2-1.0 [facility] Comment on above: Result Comment: Use of this assay is not recommended for patients undergoing treatment with eltrombopag due to the potential for falsely elevated results. Performed By: #### F ERR, LD, GFR, ESR, ADIFF, ANEU, CMP, CRP, CBC #### [address] [address] BUN/Creatinine Ratio 22 ratio Normal 7-27 [facility] Comment on above: Performed By: #### F ERR, LD, GFR, ESR, ADIFF, ANEU, CMP, CRP, CBC #### [place] [id number] Calcium [Mass/Vol] 9.8 mg/dL Normal 8.4-10.2 [facility] Comment on above: Performed By: #### F ERR, LD, GFR, ESR, ADIFF, ANEU, CMP, CRP, CBC #### [place] [address] Creatinine [Mass/Vol] 0.95 mg/dL Normal 0.51-0.95 [facility] Comment on above: Performed By: #### F ERR, LD, GFR, ESR, ADIFF, ANEU, CMP, CRP, CBC #### [address] [address] Glucose [Mass/Vol] 110 mg/dL Normal 83-110 [facility] Comment on above: Performed By: #### F ERR, LD, GFR, ESR, ADIFF, ANEU, CMP, CRP, CBC #### [address] [address] Total Protein 8.0 G/dL Normal 6.4-8.2 [facility] Comment on above: Performed By: #### F ERR, LD, GFR, ESR, ADIFF, ANEU, CMP, CRP, CBC #### [address] [address] Urea nitrogen [Mass/Vol] 21 mg/dL High 7-18 [facility] Comment on above: Performed By: #### F ERR, LD, GFR, ESR, ADIFF, ANEU, CMP, CRP, CBC #### [address] [address] Albumin Level 3.7 G/dL Normal 3.4-4.8 [facility] Comment on above: Performed By: #### F ERR, LD, GFR, ESR, ADIFF, ANEU, CMP, CRP, CBC #### [address] [address] Chloride [Moles/Vol] 102 mmol/L Normal 98-107 [facility] Comment on above: Performed By: #### F ERR, LD, GFR, ESR, ADIFF, ANEU, CMP, CRP, CBC #### [place] [address] CO2 [Moles/Vol] 30 mmol/L Normal 23-31 [facility] Comment on above: Performed By: #### F ERR, LD, GFR, ESR, ADIFF, ANEU, CMP, CRP, CBC #### [address] [address] Electrolyte Balance 8.0 mEq/L Normal 4.0-15.0 [facility] Comment on above: Performed By: #### F ERR, LD, GFR, ESR, ADIFF, ANEU, CMP, CRP, CBC #### [address] [address] Potassium [Moles/Vol] 3.8 mmol/L Normal 3.5-5.1 [facility] Comment on above: Performed By: #### F ERR, LD, GFR, ESR, ADIFF, ANEU, CMP, CRP, CBC #### [address] [address] Sodium [Moles/Vol] 140 mmol/L Normal 136-145 [facility] Comment on above: Performed By: #### F ERR, LD, GFR, ESR, ADIFF, ANEU, CMP, CRP, CBC #### [address] [address] Fabienne 12-18-2024 [place] Telephone ([facility]) DAMIEN PATRICIA ([id number]) 1940 F Date Time Provider Department 12/18/24 [address], AMERICA PORTILLO During your visit today, we recorded the following information about you: Aden Braxton 12/18/2024 8:32 AM Signed Patient calling to see if we could fax over an order to have her urine tested for bacteria. She gave a urine sample this morning at [facility] as her remote sensing specialist is testing for diabetes but she said her urine was cloudy and she's experiencing some incontinence. Fax order to [facility] @ [phone] Viridiana Garber RN 12/18/2024 9:18 AM Signed Returned call to patient letting her know that order for culture and sensitivity was sent to [facility]. Patient asked if she could be notified of results. I made her aware that we would call her once we receive them. Patient appreciative. Allergies As of Date: 12/18/2024 Noted Allergy Reaction SULFA (SULFONAMIDE ANTIBIOTICS) 12/02/2015 4 - Hives NSAIDS (NON-STEROIDAL ANTI-INFLAM* 5 15 - Contraindication-Medi tatum Gutierrez* Comments: Patient states she has CKD3 and was told she cannot have NSAIDs PENICILLINS 12/02/2015 2 - Rash Comments: Took ampicillin in 2014 without complications [id number] REDUCTASE INHIBIT*08/06/2020 14 - Other: See Comments Comments: Pain on my head and back, bad shaking and my ears turned really red Date Reviewed: 12/11/2024 Reviewed by: Annia Wilson APRN.DATABASE ADMINISTRATION MANAGER - Fully Assessed Reason for Visit: Orders [681] Prescriptions as of 12/18/2024 - TURMERIC ORAL Take 500 mg by mouth once daily. - docosahexaenoic acid/epa (FISH OIL ORAL) Take 1 tablet by mouth once daily. - propylene glycol (SYSTANE COMPLETE OPHTHALMIC) Use 1 Drop in eyes as needed (Eyes). - MICARDIS HCT 80-25 mg per tablet Take 1 tablet by mouth once daily. - MULTIVIT WITH CALCIUM,IRON,MIN (MULTIPLE VITAMIN, WOMENS ORAL) Take 1 tablet by mouth once daily. - POLYCARBOPHIL (REPLENS VAGINAL) Use vaginally. - Cholecalciferol, Vitamin D3, 25 mcg (1,000 unit) cap Take 1,000 Units by mouth once daily. - CALCIUM CARBONATE/VITAMIN D3 (CALCIUM 600 + D ORAL) Take by mouth. - SACCHAROMYCES BOULARDII (PROBIOTIC, S.BOULARDII, ORAL) Take by mouth as needed. - SYNTHROID 100 mcg tablet Once daily, skip tab on sundays - Biotin 2,500 mcg cap Take by mouth. Twice weekly Problem List As Of Date 12/18/2024 Noted Resolved Diarrhea [R19.7] Hypercholesterolemia [E78.00] Unspecified essential hypertension [I10] Vulvar cancer (HCC) [C51.9] 12/07/2015 Hypothyroidism [E03.9] 01/06/2016 Hemorrhoids [K64.9] 01/06/2016 Mitral valve prolapse [I34.1] 01/06/2016 Borderline diabetes mellitus [R73.03] 01/06/2016 Abdominal pain, vomiting, and diarrhea [R10.9, *01/20/2016 01/20/2016 Lymphedema [I89.0] 08/16/2020 Encounter Status:Closed by VIRIDIANA GARBER on 12/18/[address] [facility] 12-18-2024 Free T3 [Mass/Vol] 3.48 pg/mL Normal 2.30-4.00 [facility] Comment on above: Performed By: #### M ALBR #### [address] [address] LABORATORYOrdered By: Esau Shultz on 12-18-2024 Albumin DL <= 20 mg/L (U) [Mass/Vol] 45.2 mg/L Invalid Interpretation Code AO ADM SS Albumin/Creatinine DL <= 20 mg/L (U) [Mass ratio] 93 mg/G High 0 - 30 mg/G AO Chemistry S Creatinine (U) [Mass/Vol] 48.7 mg/dL Invalid Interpretation Code AO ADM SS LABORATORYOrdered By: SYSTEM SYSTEM on 12-18-2024 25-hydroxyvitamin D3 [Mass/Vol] 31.6 ng/mL Invalid Interpretation Code AO ADM SS Comment on above: Interpretive Data: I nterpretive Values Based on Total 25(OH) Vitamin D: Deficient <20 ng/mL Insufficient 20 - <30 ng/mL Sufficient 30-100 ng/mL Albumin BCP dye [Mass/Vol] 3.7 G/dL Normal 3.4 - 4.8 G/dL AO ADM SS ALP [Catalytic activity/Vol] 84 U/L Normal 40 - 135 U/L AO ADM SS ALT With P-5'-P [Catalytic activity/Vol] 76 U/L High 14 - 59 U/L AO ADM SS AST With P-5'-P [Catalytic activity/Vol] 40 U/L Normal 10 - 40 U/L AO ADM SS Bilirubin [Mass/Vol] 0.5 mg/dL Normal 0.2 - 1 .0 mg/dL AO ADM SS Comment on above: Interpretive Data: U se of this assay is not recommended for patients undergoing treatment with eltrombopag due to the potential for falsely elevated results. Calcium [Mass/Vol] 9.8 mg/dL Normal 8.4 - 10. 2 mg/dL AO ADM SS Chloride [Moles/Vol] 102 mmol/L Normal 98 - 10 7 mmol/L AO ADM SS CO2 [Moles/Vol] 30 mmol/L Normal 23 - 31 mmol/L AO ADM SS Creatinine [Mass/Vol] 0.95 mg/dL Normal 0.51 - 0.95 mg/dL AO ADM SS Electrolyte Balance 8.0 mEq/L Normal 4.0 - 15 .0 mEq/L AO ADM SS Estimated Glomerular Filtration Rate 59 ml/min/1.73sqm Invalid Interpretation Code AO Chemistry S Comment on above: Interpretive Data: Stages of Chronic Kidney Disease (CKD) Stage Description eGFR(ml/min/1.73 sq.m.) CKD 1 Normal kidney function or >=90 normal kindney function with possible kidney damage (ex. Proteinuria) CKD 2 Kidney damage with mild loss 60-89 of kidney function CKD 3a Mild to moderate loss of kidney 45-59 function CKD 3b Moderate to severe loss of 30-44 of kindey function CKD 4 Severe loss of kidney function 15-29 CKD 5 Kidney failure <15 Note: (go live 2024) the eGFR calculation was updated to the 2020 CKD-EPI creatinine equation without a race factor to calculate the eGFR results. Free T3 [Mass/Vol] 3.48 pg/mL Normal 2.30 - 4. 00 pg/mL AO ADM SS Glucose [Mass/Vol] 117 mg/dL Invalid Interpretation Code AO Chemistry S Comment on above: Interpretive Data: E stimated average glucose (eAG) is a calculated value from Hemoglobin A1C and is telephone claims representative of the average blood glucose level in the last 2-3 month period. Normal range: less than 114 mg/dL Glucose [Mass/Vol] 110 mg/dL Normal 83 - 110 mg/dL AO ADM SS HbA1c (Bld) [Mass fraction] 5.7 % Normal 4.3 - 6.4 % AO ADM SS Potassium [Moles/Vol] 3.8 mmol/L Normal 3.5 - 5.1 mmol/L AO ADM SS Protein [Mass/Vol] 8.0 G/dL Normal 6.4 - 8.2 G/dL AO ADM SS Sodium [Moles/Vol] 140 mmol/L Normal 136 - 145 mmol/L AO ADM SS TSH Qn 0.94 m[IU]/L Normal 0.36 - 3.74 mcIU/mL AO ADM SS Urea nitrogen [Mass/Vol] 21 mg/dL High 7 - 18 mg/dL AO ADM SS Urea nitrogen/Creatinine [Mass ratio] 22 ratio Normal 7 - 27 ratio AO ADM SS LABORATORYOrdered By: Jacqueline Harris on 12-18-2024 Albumin/Globulin [Mass ratio] 0.9 {ratio} Low 1.1 - 2.5 ratio AO ADM SS Cholesterol [Mass/Vol] 195 mg/dL Normal 0 - 2 00 mg/dL AO ADM SS Comment on above: Interpretive Data: C holesterol Reference Interval: Less than 200 Desirable 200-239 Borderline high risk 240 and above High risk Cholesterol in HDL [Mass/Vol] 51 mg/dL Normal 40 - 60 mg/dL AO ADM SS Cholesterol in LDL [Mass/Vol] 130 mg/dL Normal 0 - 130 mg/dL AO ADM SS Globulin 4.3 G/dL Normal 2.7 - 4.4 G/dL AO ADM SS Triglyceride [Mass/Vol] 72 mg/dL Normal 0 - 150 mg/dL AO ADM SS Comment on above: Interpretive Data: T riglyceride Reference Interval: Less than 150 Normal 150-199 Borderline high risk 200-499 High risk 500 or higher Very high risk LIPIDon 12-18-2024 Cholesterol [Mass/Vol] 195 mg/dL Normal 0-200 [facility] Comment on above: Result Comment: Chol esterol Reference Interval: Less than 200 Desirable 200-239 Borderline high risk 240 and above High risk Performed By: #### F ERR, LD, GFR, ESR, ADIFF, ANEU, CMP, CRP, CBC #### [address] [address] Cholesterol in HDL [Mass/Vol] 51 mg/dL Normal 40-60 [facility] Comment on above: Performed By: #### F ERR, LD, GFR, ESR, ADIFF, ANEU, CMP, CRP, CBC #### [address] [address] Cholesterol in LDL [Mass/Vol] 130 mg/dL Normal 0-130 [facility] Comment on above: Performed By: #### F ERR, LD, GFR, ESR, ADIFF, ANEU, CMP, CRP, CBC #### [address] [address] Triglyceride [Mass/Vol] 72 mg/dL Normal 0-150 [facility] Comment on above: Result Comment: Trig lyceride Reference Interval: Less than 150 Normal 150-199 Borderline high risk 200-499 High risk 500 or higher Very high risk Performed By: #### F ERR, LD, GFR, ESR, ADIFF, ANEU, CMP, CRP, CBC #### [address] [address] MALBRon 12-18-2024 U Creatinine 48.7 mg/dL Normal [facility] Comment on above: Performed By: #### M ALBR #### [address] [address] U Microalb 45.2 mg/L Normal [facility] Comment on above: Performed By: #### M ALBR #### [address] [address] U Ratio Alb/Cre 93 mg/G High 0-30 [facility] Comment on above: Performed By: #### M ALBR #### [address] [address] No Panel Informationon 12-18 Culture Urine Specimen received in lab. [facility] TSHon 12-18-2024 TSH Qn 0.94 m[IU]/L Normal 0.36-3.74 [facility] Comment on above: Performed By: #### F ERR, LD, GFR, ESR, ADIFF, ANEU, CMP, CRP, CBC #### [id number] [place], [place] [address] VIDHon 12-18-2024 Vit. D 25-Hydroxy 31.6 ng/mL Normal [facility] Comment on above: Result Comment: Inte rpretive Values Based on Total 25(OH) Vitamin D: Deficient <20 ng/mL Insufficient 20 - <30 ng/mL Sufficient 30-100 ng/mL Performed By: #### F ERR, LD, GFR, ESR, ADIFF, ANEU, CMP, CRP, CBC #### [address] [place], [place] [address] ANES POSTPROC EVALon 025 ANES POSTPROC EVAL HNO ID: [id number] Author: MELISSA PETERS MD Service: ? Author Type: Anesthesiologist Type: Anesthesia Postprocedure Evaluation Filed: 12/08/2024 10:31 Note Text: POST ANESTHESIA EVALUATION NOTE : 1940 Procedure Summary Date: 12/08/24 Room / Location: [address] Anesthesia Start: 704 Anesthesia Stop: 748 Procedure: COLPOSCOPY W/ BIOPSY VAGINA/CERVIX (Pending) Diagnosis: Abnormal Pap smear of vagina Preop examination (Abnormal Pap smear of vagina [R87.629]) (Preop examination [Z01.818]) Surgeons: America Sultana Jr., MD Responsible Provider: Melissa Peters MD Anesthesia Type: general ASA Status: 2 Anesthesia Type: general Airway Type: LMA Last Vitals Vitals Value Taken Time BP 134/64 12/08/24 0819 Temp 36 ?C (96.8 ?F) 12/08/24 0749 Pulse 56 12/08/24 0819 Resp 16 12/08/24 0819 SpO2 97 % 12/08/24818 Post Anesthesia Patient Status Patient Evaluation: PACU. PACU/ICU Patient Condition: stable. Anticipated Disposition: phase 2 then home. Neurological Status: aware and responsive. Pulmonary Status: breathing comfortably on room air Airway Control: returned to baseline unsupported. Cardiovascular Status: stable. Pain Management: clinically adequate Postoperative Hydration: acceptable. Intraoperative Events: no significant anesthesia events Post Operative Nausea/Vomiting Status: no significant post operative nausea or vomiting Recommendation: continue current plan of care. Anesthesia Observations No Documentation SIGNATURE: Melissa Peters MD PATIENT NAME: Damien Patricia DATE: December 08, 2024 TIME: 10:31 AM CSN: [id number] Normal [facility] ANES PRE-OPon 12-08-2024 ANES PRE-OP HNO ID: [id number] Author: MELISSA PETERS MD Service: ? Author Type: Anesthesiologist Type: Anesthesia Preprocedure Evaluation Filed: 12/08/2024 07:04 Note Text: ANESTHESIOLOGY DAY OF SURGERY NOTE : 1940 Procedure Information Date/Time: 12/08/24714 Procedure: COLPOSCOPY W/ BIOPSY VAGINA/CERVIX (Pending) Location: [place] [address] / [place] Surgeons: America Sultana Jr., MD Estimated body mass index is 28.43 kg/m? as calculated from the following: Height as of 08/05/21: 163.8 cm (5' 4.5). Weight as of 11/07/24: 76.3 kg (168 lb 3.4 oz). Most recent hematocrit and potassium results: Hematocrit 36.6 02/26/2014 Relevant Problems CARDIO (+) Hemorrhoids (+) Mitral valve prolapse (+) Unspecified essential hypertension ENDO (+) Hypothyroidism I - PHYSICAL EVALUATION AIRWAY Patient intubated: No. Tracheostomy tube not present Mallampati: II. TM distance: >3 FB. Neck ROM: full ROM without neurological symptoms. Mouth opening: adequate. Short neck: no. Thick neck: no Additional exam findings: no II - ANESTHESIA PLAN ASA Score: 2 Anesthetic Plan: general Airway type: LMA The patient is not a current smoker. NPO Status: adequate Beta Letty Monitoring Plan Monitoring plan: standard ASA. Post Procedure Analgesic Plan Postoperative analgesic plan: parenteral or oral opioids. Informed Consent Anesthetic risks, benefits, alternatives, personnel and consent discussed: yes. Patient / Responsible Democrat agrees to proceed: yes Patient / Surrogate agrees to blood products: blood products not planned Potential Anesthesia issues that may suggest increased risk of complications or contraindication to planned procedure: none. Vitals Value Taken Time BP 138/75 12/08/24605 Pulse 70 12/08/24605 Resp 16 12/08/24605 Temp 36.6 ?C (97.9 ?F) 12/08/24605 SpO2 98 % 12/08/24605 Facility-Administered Medications as of 12/08/2024 Medication Dose Route Frequency lidocaine (PF) 10 mg/mL (1 %) 1-2 mg injection (XYLOCAINE) 0.1-0.2 mL INTRADERMAL PRN Or lidocaine 1% 0.25 mL subcutaneous j-tip syringe (XYLOCAINE) 0.25 mL SUBCUTANEOUS PRN NaCl 0.9% iv flush bag 20 mL INTRAVENOUS PRN [COMPLETED] acetaminophen 1,000 mg tab(s) (TYLENOL) 1,000 mg ORAL Pre-Op Once Outpatient Medications as of 12/08/2024 Medication Sig TURMERIC ORAL Take 500 mg by mouth once daily. docosahexaenoic acid/epa (FISH OIL ORAL) Take 1 tablet by mouth once daily. propylene glycol (SYSTANE COMPLETE OPHTHALMIC) Use 1 Drop in eyes as needed (Eyes). MICARDIS HCT 80-25 mg per tablet Take 1 tablet by mouth once daily. MULTIVIT WITH CALCIUM,IRON,MIN (MULTIPLE VITAMIN, WOMENS ORAL) Take 1 tablet by mouth once daily. Cholecalciferol, Vitamin D3, 25 mcg (1,000 unit) cap Take 1,000 Units by mouth once daily. CALCIUM CARBONATE/VITAMIN D3 (CALCIUM 600 + D ORAL) Take by mouth. SACCHAROMYCES BOULARDII (PROBIOTIC, S.BOULARDII, ORAL) Take by mouth as needed. SYNTHROID 100 mcg tablet Once daily, skip tab on sundays POLYCARBOPHIL (REPLENS VAGINAL) Use vaginally. Biotin 2,500 mcg cap Take by mouth. Twice weekly (Patient not taking: Reported on 05/09/2024) I have interviewed and examined the patient. I have reviewed the medical record and/or the pre-anesthesia evaluation, pertinent labs, and test results. This contains updated information obtained within 48 hours of Surgery/Procedure. SIGNATURE: Melissa Peters MD PATIENT NAME: Damien Patricia DATE: December 08, 2024 TIME: 7:03 AM CSN: [id number] Normal [facility] BRIEF OP NOTon 12-08-2024 BRIEF OP NOT HNO ID: [id number] Author: SHEFALI PIERRE DO Service: Gynecology Oncology Author Type: Resident Type: Brief Op Note Filed: 12/08/2024 07:37 Note Text: BRIEF OPERATIVE / PROCEDURE NOTE LOG ID: [id number] SURGERY/PROCEDURE DATE: 12/08/2024 INCISION/PROCEDURE START TIME: 7:25 AM INCISION CLOSE/PROCEDURE END TIME: 7:30 AM SURGEON(S)/PROCEDURAL IST(S) AND EDI DEVELOPER(S): Surgeons and Role: * America Sultana Jr., MD - Primary * Shefali Pierre DO - Resident - Assisting No Additional Staff SURGERY/PROCEDURE(S): pelvic examination under anesthesia, colposcopy, vaginal biopsy ANESTHESIA: General FINDINGS: atrophic and stenotic vagina, diffuse lugols uptake with area of hypopigmentation/decr eased uptake in posterior vaginal wall ESTIMATED BLOOD LOSS: 2 mls SPECIMENS: ID Type Source Tests Collected by Time Destination A : posterior vagina Tissue Vagina, Biopsy SURGICAL PATHOLOGY America Sultana Jr., MD 12/08/2024 7:26 AM COMPLICATIONS: None CLOSURE TECHNIQUE: Non-primary PRE-OP/PRE-PROCEDURE DIAGNOSIS: vulvar dysplasia POST-OP/POST-PROCEDUR E DIAGNOSIS: Same as Preop Patient was accompanied to the next level of care by a licensed practitioner from the surgical team pending completion of this brief op note (or operative note) SIGNATURE: Shefali Pierre DO PATIENT NAME: Damien Patricia DATE: December 08, 2024 TIME: 7:36 AM Normal [facility] HISTORY PHYSICALon HISTORY PHYSICAL HNO ID: [id number] Author: AMERICA SULTANA JR, MD Service: Gynecology Oncology Author Type: Resident Type: H&P Filed: 12/30/2024 11:27 Note Text: Attestation signed by America Sultana Jr., MD at 12/30/2024 11:27 AM Link Trainer Operator Onc Staff: Patient was seen and examined by me. All stewart elements of the residents history and physical were confirmed. I agree with the above documented findings and plan of care as outlined by the resident. America Sultana MD GYNECOLOGY ONCOLOGY HISTORY AND PHYSICAL SERVICE DATE: 12/08/2024 Code Status: Not on file SERVICE TIME: 6:16 AM Subjective HISTORY OF THE PRESENT ILLNESS Damien Patricia is a 83 year old with IA moderately differentiated vulvar cancer. Feeling well with no complaints. 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 HYSTERECTOMY HX 02/2014 INGUINOFEM LMPHADEC SUPFC W/PEL LMPHADEC 08/2009 OTHER 03/2016 vulvar biopsy OTHER SURGICAL HISTORY (PLEASE SPECIFY) HX Right 2005 labia reconstruction; [facility] OTHER SURGICAL HISTORY (PLEASE SPECIFY) HX 80's multiple lipoma removal SIGMOIDOSCOPY 03/2018 TUBAL LIGATION HX 1972 VULVECTOMY RADICAL PARTIAL 06/29/2014, 06/2015 VULVECTOMY RADICAL PARTIAL 02/03, 08/04, 07/11 FAMILY HISTORY Problem Relation Age of Onset Breast Cancer Sister 69 stage 1 other (bowel cancer) Other grandmother other (leukemia) Other aunts other (pancreatic cancer) Other cousin Social History Tobacco Use Smoking status: Never Smokeless tobacco: Never Vaping Use Vaping status: Never Used Substance Use Topics Alcohol use: Yes Alcohol/week: 5.0 standard drinks of alcohol Types: 5 Cans of Beer (12oz) per week Comment: wine with supper;occ. beer Drug use: No OB History Gravida2 Para2 Term2 Preterm0 AB0 Living2 SAB0 IAB0 Ectopic0 Multiple0 Live Births0 ALLERGIES Allergen Reactions Sulfa (Sulfonamide * Hives Penicillins Rash Took ampicillin in 2014 without complications Smrqxfn-Acz-Dez Red* Other: See Comments Pain on my head and back, bad shaking and my ears turned really red No current facility-administered medications on file prior to encounter. Current Outpatient Medications on File Prior to Encounter Medication Sig TURMERIC ORAL Take 500 mg by mouth once daily. docosahexaenoic acid/epa (FISH OIL ORAL) Take 1 tablet by mouth once daily. propylene glycol (SYSTANE COMPLETE OPHTHALMIC) Use 1 Drop in eyes as needed (Eyes). MICARDIS HCT 80-25 mg per tablet Take 1 tablet by mouth once daily. MULTIVIT WITH CALCIUM,IRON,MIN (MULTIPLE VITAMIN, WOMENS ORAL) Take 1 tablet by mouth once daily. Cholecalciferol, Vitamin D3, 25 mcg (1,000 unit) cap Take 1,000 Units by mouth once daily. CALCIUM CARBONATE/VITAMIN D3 (CALCIUM 600 + D ORAL) Take by mouth. SACCHAROMYCES BOULARDII (PROBIOTIC, S.BOULARDII, ORAL) Take by mouth as needed. SYNTHROID 100 mcg tablet Once daily, skip tab on sundays POLYCARBOPHIL (REPLENS VAGINAL) Use vaginally. Biotin 2,500 mcg cap Take by mouth. Twice weekly (Patient not taking: Reported on 05/09/2024) ROS: The remainder of the review of systems is negative. Objective PHYSICAL EXAM: Blood pressure 138/75, pulse 70, temperature 36.6 ?C (97.9 ?F), temperature source Temporal, resp. rate 16, last menstrual period 12/07/1995, SpO2 98%. General: AANDOx3, NAD Cardiovascular: RRR no m/g/r Pulmonary: CTABL no w/r/r No diet orders placed this encounter Lines, Drains, and Airways Line Duration Peripheral 12/08/24 0606 [facility] Short Left Hand 20 Gauge <1 day Current Anti-Infective Meds (From admission, onward) None Current Anticoagulants AND Antiplatelets (From admission, onward) None DATA: Diagnostic tests reviewed for today's visit: Most recent labs Most recent imaging There are no hospital problems to display for this patient. Assessment/Plan Assessment AND Plan: Damien Patricia is a 83 year old with IA moderately differentiated vulvar cancer. Feeling well with no complaints Vulvar Cancer - Pap smear with atypical cells, cannot rule out ASC-H - Consent signed for colposcopy with possible Bx today Plan of care discussed with Provider, RN, Patient Note is not final until cosigned by staff. SIGNATURE: Shefali Pierre DO (more content not included)... Normal [facility] OPERATIVE NOon 12-08-2024 OPERATIVE NO HNO ID: [id number] Author: AMERICA SULTANA JR, MD Service: Gynecology Oncology Author Type: Physician Type: Operative Report Filed: 12/30/2024 11:06 Note Text: [facility] - Operative Report [address] [address] [place] DAMIEN PATRICIA : 1940 AGE: 83. SEX: F PATIENT TYPE: A HOSP SVC: OB LOCATION: [id number] ATTENDING PHYSICIAN: AMERICA SULTANA JR CSN NUMBER: [id number] DATE OF SURGERY/PROCEDURE: 12/08/2024 INCISION/PROCEDURE START TIME: 7:24. INCISION CLOSE/PROCEDURE END TIME: 7:27. PREOPERATIVE DIAGNOSIS: Abnormal Pap smear with ASCUS, HPV negative, history of vulvar cancer. POSTOPERATIVE DIAGNOSIS: Abnormal Pap smear with ASCUS, HPV negative, history of vulvar cancer. SURGEON: America Sultana M.D. EDI DEVELOPER: Dr. Shefali Pierre. SURGERY/PROCEDURE: Exam under anesthesia, also examination of the vagina with biopsy of posterior vagina. ANESTHESIA: LMA. IV FLUIDS: Please refer to the Anesthesia record. BLOOD LOSS: Minimal. URINE OUTPUT: Not recorded. SPECIMENS: Vaginal biopsy, 1 cm from the vaginal introitus on the posterior wall. COMPLICATIONS: None. INDICATIONS: This is an 83-year-old woman with a distant history of vulvar cancer, who recently presented to the office for evaluation. She has cytology of the vaginal cuff, which identified ASCUS with no evidence of high-risk HPV. She is taken to the operating room today for assessment as she could not tolerate an adequate exam in the office. FINDINGS: On exam under anesthesia, the patient has normal atrophic external genitalia. She had well-healed incisions from her prior radical resection. The vaginal introitus was narrowed and the vagina itself was foreshortened measuring approximately 6 cm. Gross examination revealed extremely atrophic and foreshortened vagina with no obvious lesions. Lugol's exam identified normal uptake of Lugol with the exception of an area on the posterior vagina approximately 1 cm from the vaginal introitus. This area was biopsied. No colposcope was used DESCRIPTION OF PROCEDURE: After informed consent was reviewed, the patient was taken to the operating room, given anesthesia without complications, placed in dorsal lithotomy position and examined under anesthesia with the above findings noted. She was then draped in the normal sterile fashion. Lugol's was then placed in the vagina and the area was carefully examined. A tissue biopsy forceps was used to biopsy this area of mucosa and it was sent for permanent pathologic analysis. The area did not have any significant bleeding. The vagina was then rinsed and the patient was awoken from anesthesia without complications and transferred to recovery room in stable condition. Please note, I was present and scrubbed for the entire procedure. COMPLICATIONS: None. SPECIMENS: Vaginal biopsy, as above. America Sultana M.D. LEONCIO:[id number] /[id number] Normal [facility] Pathology biopsy report Hang (Tiss)on 12-08-2024 AP DISCLAIMER Normal [facility] Comment on above: Order Comment: Speci men Type: TISSUE SPECIMENOrdering Facility: [facility] Address: [address] [place] [address] Result Comment: Srinivasan jeffrey Developed Test (LDT) Disclaimer: Performance characteristics of immunohistochemical, immunofluorescent, and chromogenic in-situ hybridization tests have been determined by the performing laboratory within [facility] Pathology and Laboratory Medicine Department ([facility], [facility], [facility], [facility], [facility], [facility], or [facility]) in a manner consistent with CLIA requirements. One or more of these tests may not have been cleared or approved by the FDA. [facility] is regulated under CLIA as qualified to perform high-complexity testing. These tests are used for clinical purposes. These should not be regarded as investigational or for research. Positive and negative controls stain appropriately. Performed By: #### 6 6121-5 ####[facility] LABIA [id number] [place] [address] [place] CASE REPORT Normal [facility] Comment on above: Order Comment: Speci men Type: TISSUE SPECIMENOrdering Facility: [facility] Address: [address] [place] [address] Result Comment: Surg [facility] Pathology Report Case: [id number] Authorizing Provider: America Sultana Jr., Collected: 12/08/2024 07:26 AM Ordering Location: Admitting Received: 12/08/2024 09:54 AM Pathologist: Debi Aguirre MD Specimen: Vagina, Biopsy, posterior vagina Performed By: #### 6 6121-5 ####[facility] LABCLIA [id number] [address] STATES [place] CLINICAL HISTORY Normal [facility] Comment on above: Order Comment: Speci men Type: TISSUE SPECIMENOrdering Facility: [facility] Address: [address] [place] [address] Result Comment: Pre- op diagnosis: Abnormal Pap smear of vagina [R87.629] Preop examination [Z01.818] Performed By: #### 6 6121-5 ####[facility] LABCLIA [id number] [address] OF [place] FINAL DIAGNOSIS Normal [facility] Comment on above: Order Comment: Speci men Type: TISSUE SPECIMENOrdering Facility: [facility] Address: [address] [place] [address] Result Comment: Kayode nichole, posterior, biopsy: - Polypoid squamous epithelium with marked chronic inflammation and reactive changes, negative for high-grade dysplasia or carcinoma. at 1230 EDT Performed By: #### 6 6121-5 ####[facility] LABCLIA [id number] [address] STATES OF [facility] FINAL PERFORMING LAB Normal [facility] Comment on above: Order Comment: Speci men Type: TISSUE SPECIMENOrdering Facility: [facility] Address: [address] [place] [address] Result Comment: Diag nostic interpretation performed at: [facility], [address] [place] [address] CLIA# [id number] Quill Fixer: Jey Kumar MD Performed By: #### 6 6121-5 ####[facility] LABIA [id number] [address] [place] GROSS DESCRIPTION Normal [facility] Comment on above: Order Comment: Speci men Type: TISSUE SPECIMENOrdering Facility: [facility] Address: [address] [place] [address] Result Comment: Kayode nichole, Biopsy Received in formalin is one piece of pink, soft tissue measuring 0.6 x 0.3 x 0.2 cm. Totally submitted in one cassette. CL December 08, 2024 11:56 AM Gross examination performed at [facility], [address] [place] [address] Performed By: #### 6 6121-5 ####[facility] LABCLIA [id number] [place] [address] [place] CNNURSEon 12-04-2024 CNNURSE Nurse Visit (TK) DAMIEN PATRICIA ([id number]) 1940 F Date Time Provider Department 12/04/24 10:30 AM ENVIRONMENTAL QUALITY ANALYST ONC NURSE HALEY FREY During your visit today, we recorded the following information about you: Shaneka Glass RN 12/04/2024 11:01 AM Signed DATE OF SERVICE: 12/04/2024 PROBLEM: Damien Patricia presents for pre-op teaching. PRE-OP DIAGNOSIS: History of cancer of vulva SCHEDULED SURGERY AND DATE: 12/08/24 PRIMARY SURGEON: America Sultana MD NURSING PREOP ASSESSMENT: Fevers, chills, cough, or nasal congestion: No Vaginal itching, burning, discharge, or odor: No Pain with urination, frequency, urgency, cloudy or foul smelling urine: No If yes to any of the above then MD notified: Not Applicable ADVANCED CARE PLANNING: Does the patient have an advanced directive: No Does [facility] have a copy of the patient's advanced directive: No Was advanced directive given to the patient: Yes PATIENT LEARNING ASSESSMENT: Individual patient/family learning needs evaluated and addressed: Yes Cognitive ability: Alert and oriented Motivation to learn: Eager Interested Factors affecting learning: None Physical limitations affecting learning: None Patient learns best by: Verbal Instruction Method of instruction: Verbal instruction Instructions provided to: Patient via telephone. Written material provided prior to education appointment. Family support: Unable to assess - Family not present PRE- AND POST-OPERATIVE TEACHING Pre-operative teaching and supplemental material provided and reviewed with patient: Your Surgical Guide Book Map Written pre-op and post-op instructions Antibacterial soap: patient declined, will use own Pre-operative instructions provided and reviewed with patient/family: No eating, drinking, or smoking after midnight prior to surgery unless otherwise directed No alcohol the day before surgery Medications as prescribed by anesthesia, internal medicine, surgeon, or SHIRT FINISHER Stop NSAIDs, Aspirin (ASA), vitamins, herbal supplements, herbal teas, and diet pills 7-10 days prior to surgery OK to take tylenol prn pain unless otherwise directed by physician Call surgery coordinators if any other questions about surgery date or pre-op appointments Bowel prep instructions: NPO after midnight Day of surgery instructions provided and reviewed with patient/family: Arrival time (call surgical coordinators on the office day prior to surgery for verification) No jewelry, body piercing, makeup, contacts, lotions, nail gibraltarian on fingers, or anything in hair on arrival to surgery Wear low healed shoes and loose fitting clothing Leave all valuables at home or with a family member Directions to [facility] and [facility] Parking/parking validation on the day prior to surgery Admission/check in (Report to DESK J1-9 for surgery) Holding area Placement of IV Surgical positioning Family waiting area Surgical recovery room Post-operative instructions provided and reviewed with patient/family: SEE PATIENT INSTRUCTION SECTION FOR DETAILS. ACTIVITY - No heavy lifting (>5-10 lbs), no pushing/pulling, OK to climb stairs VULVAR CARE - Sitz baths TID and prn, keep vulva clean/dry/open to air, apply medicated cream as prescribed by surgeon. BATHING - OK to shower after surgery unless otherwise directed by MD, no tub baths. PAIN MEDICATION - IV pain medication after surgery, IV RN SURGICAL if ordered by MD, discharged home with a prescription for PO pain medication, pain management after surgery, side effects of pain medication (including constipation, dizziness, drowsiness, and medication interactions). VAGINAL CARE - Pelvic rest x6 weeks unless otherwise directed by MD. DVT PROPHYLAXIS - Early ambulation, SCDs, injectable anticoagulants (heparin, lovenox, etc) RESPIRATORY - Incentive spirometer, coughing/deep breathing exercises, ambulation. RETURN TO WORK - As directed by physician, please send any FMLA papers to physician's corporation secretary. SYMPTOMS TO NOTIFY MD - Fever, chills, nausea, vomiting, increased or severe pain, heavy vaginal bleeding, foul smelling vaginal drainage, pain or swelling in extremities. URGENT SYMPTOMS - Call 911 or go to ER if any shortness of breath, difficulty breathing, or chest pain. HOW TO CONTACT PHYSICIAN - Physician's office phone number given to patient, if after hours patient instructed to call croze machine operator and ask for air liaison and special staff quantitative consultant onc resident. RUDDY program offered to patient: No Additional teaching as indicated by patient/family learning needs. PATIENT LEARNING EVALUATION AND FOLLOW UP PLAN: Patient and/or family express understanding of upcoming surgery, pre-operative preparation, the operative process, and post-operative instructions. Follow up plan: Complete - No need for follow-up Patient has a post-op appoi (more content not included)... Normal [facility] CNPNon 11-27-2024 WHITNEYN Telephone (TK) DAMIEN PATRICIA ([id number]) 1940 F Date Time Provider Department 11/27/24 RD TONEY, AMERICA FREY During your visit today, we recorded the following information about you: Teagan Hamilton 11/27/2024 10:18 AM Signed Patient called office stating she got a new diagnosis from her pap. Patient is not sure what it was since she was upset at the time. Saurabh Grande, RN 11/27/2024 11:27 AM Signed Returned call to patient. Discussed her PAP results. Pt verbalized understanding. Pt asked about her upcoming appointments. Went through appts with pt. Pt verbalized understanding. Pt asked about a pain in her hip she had start after gardening. Advised that pt should f/u with her PCP. Pt verbalized understanding. Allergies As of Date: 11/27/2024 Noted Allergy Reaction SULFA (SULFONAMIDE ANTIBIOTICS) 12/02/2015 4 - Hives PENICILLINS 12/02/2015 2 - Rash Comments: Took ampicillin in 2014 without complications [id number] REDUCTASE INHIBIT*08/06/2020 14 - Other: See Comments Comments: Pain on my head and back, bad shaking and my ears turned really red Date Reviewed: 11/07/2024 Reviewed by: Annia Wilson, MOTOR BLOCK MECHANIC.DATABASE ADMINISTRATION MANAGER - Fully Assessed Reason for Visit: Patient Question [0117] Prescriptions as of 11/27/2024 - TURMERIC ORAL Take 500 mg by mouth once daily. - docosahexaenoic acid/epa (FISH OIL ORAL) Take 1 tablet by mouth once daily. - propylene glycol (SYSTANE COMPLETE OPHTHALMIC) Use 1 Drop in eyes as needed (Eyes). - MICARDIS HCT 80-25 mg per tablet Take 1 tablet by mouth once daily. - MULTIVIT WITH CALCIUM,IRON,MIN (MULTIPLE VITAMIN, WOMENS ORAL) Take 1 tablet by mouth once daily. - POLYCARBOPHIL (REPLENS VAGINAL) Use vaginally. - Cholecalciferol, Vitamin D3, 25 mcg (1,000 unit) cap Take 1,000 Units by mouth once daily. - CALCIUM CARBONATE/VITAMIN D3 (CALCIUM 600 + D ORAL) Take by mouth. - SACCHAROMYCES BOULARDII (PROBIOTIC, S.BOULARDII, ORAL) Take by mouth as needed. - SYNTHROID 100 mcg tablet Once daily, skip tab on sundays - Biotin 2,500 mcg cap Take by mouth. Twice weekly Problem List As Of Date 11/27/2024 Noted Resolved Diarrhea [R19.7] Hypercholesterolemia [E78.00] Unspecified essential hypertension [I10] Vulvar cancer (HCC) [C51.9] 12/07/2015 Hypothyroidism [E03.9] 01/06/2016 Hemorrhoids [K64.9] 01/06/2016 Mitral valve prolapse [I34.1] 01/06/2016 Borderline diabetes mellitus [R73.03] 01/06/2016 Abdominal pain, vomiting, and diarrhea [R10.9, *01/20/2016 01/20/2016 Lymphedema [I89.0] 08/16/2020 Encounter Status:Closed by SAURABH GRANDE on 11/27/24 [facility] Re-Evalution OTon 11-26-2024 Re-Evalution OT [facility] Occup[facility] [place] [address] / REEVALUATION / MEDICARE RECERTIFICATION OCCUPATIONAL THERAPY MR#: [id number] Acct: [id number] Name: DAMIEN PATRICIA Rep #: [id number] : 1940 83 From: Bernice Helms OTR/L, CHT Referring Dr.: Dr. Tanvi Doty MD Status: R EG RCR Insurance: LISA Melgar Date: SELF PAY INSURANCE Re-Evaluation Intro: Dr. Tanvi Doty MD, It has been my pleasure to treat DAMIEN PATRICIA over the last 3 visits for Lymphedema. Please see the progress note below for an update on the occupational therapy plan of care! Subjective Subjective: pt arrives to session states she continue to have issues with swelling. Objective Objective/Function: Mid-foot: right 21cm left 21cm Ankle: right 26cm left 27cm Lower calf: right 24cm left 24cm Largest calf: right 38cm left 38cm Below knee: right 36cm left 36.5cm Above knee: right 46cm left 47cm mid thigh right 56cm left 57 cm Plan Plan Frequency: 1x/Week Duration: 6 Weeks Visits in this POC: 3-4 visits Plan: pt arrives following 4 weeks of conservative lymphedema treatment. Pt was using elevation, exercise, using compression garments and performing self massage. This did not change pts skin integrity or circumference in limbs. pt would benefit from use of home vaso pneumatic thigh high . Goals Goals Goal: Patient will demonstrate a 20% reduction in edema by discharge: Yes Goal: Patient will demonstrate adequate knowledge of self-massage by the end of the second week.: Yes Goal: Patient will demonstrate adequate knowledge of skin care and precautions by the end of the first week.: Yes Goal: Patient will demonstrate adequate knowledge of therapeutic exercises by discharge.: Yes Goal: Patient will select an appropriate compression garment and demonstrate adequate knowledge of correct donning technique, care and wearing schedule by discharge.: Yes Goal: Patient will voice understanding of need to replace compression garment every four to six months by discharge.: Yes Patient Goals: Learn how to Manage Lymphedema and Learn how to Apply Compression Stockings Anticipated Interventions Anticipated Interventions Anticipated Interventions: Education re Diagnosis, Education re Life-long lymphedema Management, Education re Self-Bandaging Techniques, Education re Skin Care and Precautions, Education re Self Massage Techniques and Education re Correct Donning Tech,Care Wearing Sched Comp Garments Re-Evaluation Ending Re-evaluation ending: Please do not hesitate to contact me at [phone] by phone or if you have questions or concerns regarding this new plan of care! Sincerely, Bernice Helms, OTR/L, CHT 11/26/24 1349 CC: Dr. Tanvi Doty MD RANULFO Signed For Medicare only, by signing this I certify the plan of care. Physicians Signature Date Normal [facility] 11-24-2024 CNPN Telephone (WHQ) DAMIEN PATRICIA ([id number]) 1940 F Date Time Provider Department 11/24/24 AMERICA SULTANA JR Q During your visit today, we recorded the following information about you: Bridgette RobertsonBobi 11/24/2024 8:09 AM Signed Patient returning call from Annia regarding her results. She would like a call back today. Myla Rhodes APRN.[facility] 11/24/2024 4:47 PM Signed Please visit the following website for the [facility] surgery guide. [email or web address] PATIENT SURGICAL CHECKLIST - NEXT STEPS - Your surgeon's office will call you to arrange your surgery date and pre-admission testing appointments. - You should receive a call within 2-5 business days from our scheduling team. (If you do not receive a call within 5 days - please call [phone]) - Pre-admission testing appointments include: - Preop anesthesia clearance with [facility] (pre-anesthesia consultation clinic). There are options for in person appointments or virtual appointments based on the recommendations from your surgeon. - Preop exam which can be done at the time of an in person pre-anesthesia appointment or by your surgeon's team depending on the complexity of your medical history. This needs to be done within 30 days of surgery. - Virtual shared preop nurse teaching appointment. - Lab work - Any other testing that the provider orders for prior to surgery if needed - You will receive a call from the storage administrator the business day prior to your surgery as to when and where to arrive on the day of your scheduled surgery ENVIRONMENTAL QUALITY ANALYST ONCOLOGY PHYSICIAN CONTACT INFORMATION Surgery Scheduling Office Surgeons: Dr. Enid Vegas Dr. Farhana Osorio Dr. America Sultana Dr. Adriel Lopez Dr. Felicia Tolbert Dr. Bernice Xavier Dr. Duglas Denton Dr. Herson Garcia Dr. Sarkis Saeed Dr. Valentino Aguilar Link Trainer Operator Oncology Nurse Practitioners: Valerie Joseph, MOTOR BLOCK MECHANIC.WHITNEY Rhodes, MOTOR BLOCK MECHANIC.WHITNEY Wilson, MOTOR BLOCK MECHANIC.WHITNEY Haney, MOTOR BLOCK MECHANIC.WHITNEY Velázquez, MOTOR BLOCK MECHANIC.WHITNEY After 4:30 pm or on holidays or weekends, call: or . Ask the croze machine operator to page the quantitative consultant oncologist air liaison and special staff. PRE-OPERATIVE CHECKLIST: PATIENT INSTRUCTIONS PRIOR TO SURGERY Our guidelines have changed, so please read these instructions carefully. Your surgery may be cancelled if you do not follow these instructions. MY ARRIVAL TIME IS: I have been instructed not to have any solid food to eat after midnight prior to my surgery (this includes no gum, mints, smoking). I am allowed to drink small amounts (up to 12 oz) of clear liquids up until 2 hours prior to my arrival time. Clear liquids include water, fruit juices without pulp, carbonated beverages (i.e. lester todd), electrolyte beverages (i.e. Gatorade), clear tea and black coffee, clear broth, popsicles and jello. (No milk). No alcohol the day before or day of surgery. I will bring this binder to all pre and post-operative appointments AND day of surgery. MEDICATION STOPPAGE: Unless my surgeon tells me differently, I will STOP THESE MEDICATIONS 7 DAYS PRIOR TO SURGERY: (Motrin/ibuprofen/Nap roxen/Aleve/Advil), Aspirin, vitamin E, herbal medications, diet pills, and pevn-njg-dxmevxk medications. Tylenol (acetaminophen) is okay. I will not wear jewelry, body piercing(s), makeup, nail gibraltarian, hairpins, or contacts on the day of surgery. I am to leave valuables and money at home or with family members. If I am prescribed inhalers for breathing, I will use them and bring them to the hospital. Medication(s) to be taken on the morning of surgery with a few sips of water: If I am taking any of the following blood thinning medications - Aspirin, clopidogrel (Plavix), ticagrelor (Brilinta), prasugrel (Efficient), ticlodipine (Ticlid), warfarin (Coumadin), dibigatran (Pradaxa) or rivaroxaban (Xarelto) - I will discuss whether or not I should stop them before surgery with my surgeon. Discuss medication changes with your repair department manager or primary care physician as well. If I stopped taking my blood-thinning medication, I will ask the surgeon when to resume taking it. If I am an outpatient, a responsible person will drive me home and it was suggested that someone stay with me for 24 hours. I understand that a business education instructor or cabdriver is NOT a responsible caregiver. Patients with diabetes, I will not take my morning diabetes medication (pills) on the morning of surgery. If I am on insulin, someone has gone over those instructions with me for the morning of surgery. I understand if my surgery is delayed, I will notify the [facility] (more content not included)... Normal [facility] Fabienne 11-21-2024 NINOSKA Telephone (Talyst) DAMIEN PATRICIA ([id number]) 1940 F Date Time Provider Department 11/21/24 ANNIA WILSON During your visit today, we recorded the following information about you: Annia Wilson APRN.WHITNEY 11/21/2024 11:13 AM Signed Called patient to review pap smear results. LVM to return my call Review with Dr. Sultana given prior surgeries and cancer dx, will discuss EUA/ vaginoscopy in OR. Interpretation Abnormal Atypical squamous cells cannot exclude high grade squamous intraepithelial lesion (ASC-H); see comment. at 1538 EDT Diagnosis Comment Suggest colposcopy/biopsy as clinically indicated. Results from the ASCUS/LSIL triage study found that interpretations of ASC-H were associated with a higher risk of underlying HSIL (NEREIDA 2 or worse; 30-40%). HPV negative. Annia Wilson APRN.WHITNEY Allergies As of Date: 11/21/2024 Noted Allergy Reaction SULFA (SULFONAMIDE ANTIBIOTICS) 12/02/2015 4 - Hives PENICILLINS 12/02/2015 2 - Rash Comments: Took ampicillin in 2014 without complications [id number] REDUCTASE INHIBIT*08/06/2020 14 - Other: See Comments Comments: Pain on my head and back, bad shaking and my ears turned really red Date Reviewed: 11/07/2024 Reviewed by: Annia Wilson APRN.DATABASE ADMINISTRATION MANAGER - Fully Assessed Reason for Visit: Results [95] Prescriptions as of 11/21/2024 - TURMERIC ORAL Take 500 mg by mouth once daily. - docosahexaenoic acid/epa (FISH OIL ORAL) Take 1 tablet by mouth once daily. - propylene glycol (SYSTANE COMPLETE OPHTHALMIC) Use 1 Drop in eyes as needed (Eyes). - MICARDIS HCT 80-25 mg per tablet Take 1 tablet by mouth once daily. - MULTIVIT WITH CALCIUM,IRON,MIN (MULTIPLE VITAMIN, WOMENS ORAL) Take 1 tablet by mouth once daily. - POLYCARBOPHIL (REPLENS VAGINAL) Use vaginally. - Cholecalciferol, Vitamin D3, 25 mcg (1,000 unit) cap Take 1,000 Units by mouth once daily. - CALCIUM CARBONATE/VITAMIN D3 (CALCIUM 600 + D ORAL) Take by mouth. - SACCHAROMYCES BOULARDII (PROBIOTIC, S.BOULARDII, ORAL) Take by mouth as needed. - SYNTHROID 100 mcg tablet Once daily, skip tab on sundays - Biotin 2,500 mcg cap Take by mouth. Twice weekly Problem List As Of Date 11/21/2024 Noted Resolved Diarrhea [R19.7] Hypercholesterolemia [E78.00] Unspecified essential hypertension [I10] Vulvar cancer (HCC) [C51.9] 12/07/2015 Hypothyroidism [E03.9] 01/06/2016 Hemorrhoids [K64.9] 01/06/2016 Mitral valve prolapse [I34.1] 01/06/2016 Borderline diabetes mellitus [R73.03] 01/06/2016 Abdominal pain, vomiting, and diarrhea [R10.9, *01/20/2016 01/20/2016 Lymphedema [I89.0] 08/16/2020 Encounter Status:Closed by ANNIA WILSON on 11/21/24 [facility] CNOVSPon 11-07-2024 CNOVSP Visit (SP) Office (GYNCMD) DAMIEN PATRICIA ([id number]) 1940 F Date Time Provider Department 11/07/24 2:00 PM ANNIA WILSON GYND During your visit today, we recorded the following information about you: Blood pressure Weight 118/74 76.3 kg Annia Wilson, MOTOR BLOCK MECHANIC.DATABASE ADMINISTRATION MANAGER 12/04/2024 10:47 AM Addendum DATE OF SERVICE: 11/07/2024 PROBLEM: Damien Patricia presents today for follow up. DIAGNOSIS: IA moderately differentiated vulvar cancer. GENETIC TESTING: No GENOMIC TESTING: No TREATMENT HISTORY: 1) 11/2008: vulvectomy at [facility] (path unavailable) 2) 07/2009: vulvectomy at [facility] (path unavailable) 3) 08/2009: Bilateral inguinal lymph node dissection (path unavailable) Patient reports 18 lymph nodes were removed 4) 01/21/2014 CO2 laser conization with Dr. Burk FINAL DIAGNOSIS: CERVIX, BIOPSY - BENIGN STROMA WITH MINUTE FRAGMENTED STRIPS OF ATTACHED ATYPICAL SQUAMOUS MUCOSA. SEE COMMENT. COMMENT: The squamous mucosa is almost entirely denuded. Features are suggestive of but not diagnostic of dysplasia. Procurement artifact is present. There is no evidence of malignancy. OPERATIVE PROCEDURE: Excisional CO2 laser conization 5) 02/25/2014: Ex-lap, STAN/BSO FINAL DIAGNOSIS: HYSTERECTOMY WITH BILATERAL SALPINGO-OOPHORECTOMY - EXTENSIVELY CAUTERIZED ECTOCERVIX WITH NO RESIDUAL IDENTIFIABLE SQUAMOUS MUCOSA. NO SQUAMOUS DYSPLASIA OR HUMAN PAPILLOMA VIRUS EFFECT IS IDENTIFIED. ENDOMETRIAL ATROPHY. SEROSAL ADHESIONS. RIGHT AND LEFT OVARIES AND FALLOPIAN TUBES- ATROPHIC CHANGES. 6) 06/29/2014 Partial vulvectomy (posterior/anterior vulva) with Dr. Burk FINAL DIAGNOSIS: A) PARTIAL VULVECTOMY (POSTERIOR VULVA AND PERINEUM) - CHRONIC INFLAMMATION. NEGATIVE FOR MALIGNANCY. B) PARTIAL VULVECTOMY (ANTERIOR VULVA) - SQUAMOUS CELL CARCINOMA IN SITU. COMMENT: No invasive component or margin involvement is identified. 7) 06/30/15: Left posterior vulva excision with Dr. Burk FINAL DIAGNOSIS: LEFT POSTERIOR VULVA, EXCISION - INVASIVE, MODERATELY DIFFERENTIATED, KERATINIZING SQUAMOUS CELL CARCINOMA. ASSOCIATED IN SITU SQUAMOUS CELL CARCINOMA. NEGATIVE SURGICAL MARGINS. OBSCURING CAUTERY. CHRONIC VULVITIS. SEE COMMENT. COMMENT: Associated with carcinoma in situ, is a focal area of invasive squamous cell carcinoma. The depth of invasion is 0.2 mm. Lymphovascular space invasion is not appreciated. 8) 12/07/2015: Vaginal biopsies with Dr. Arriaga FINAL DIAGNOSIS: A) VAGINAL INTROITUS @ 11 O'CLOCK, BIOPSY - BENIGN SQUAMOUS MUCOSA. B) POSTERIOR VAGINAL INTROITUS, BIOPSIES - INFLAMED GRANULATION TISSUE. BENIGN SQUAMOUS EPITHELIUM. SEE COMMENT. COMMENT: The patient's history of squamous cell carcinoma is known. The present biopsies demonstrate benign changes 9) 04/04/2016 Vulvar biopsy: FINAL DIAGNOSIS: VULVAR BIOPSY AT 7 O'CLOCK - CHRONICALLY INFLAMED HYPERPARAKERATOTIC SKIN. NEGATIVE FOR MALIGNANCY. PAST MEDICAL HISTORY Diagnosis Date Borderline diabetes mellitus 01/06/2016 Carpal tunnel syndrome on both sides AND osteoarthritis Diarrhea Diverticulitis Dupuytren contracture Hemorrhoids Hypercholesterolemia Hypothyroidism Lymphocytic colitis Unspecified essential hypertension Vulvar carcinoma (HCC) PAST SURGICAL HISTORY Procedure Laterality Date CERVICAL BIOPSY COLONOSCOPY FLX DX W/COLLJ SPEC WHEN PFRMD 01/20/2016 Colonoscopy (MAC) COLONOSCOPY FLX DX W/COLLJ SPEC WHEN PFRMD 05/26/2021 No further colonoscopies needed, due to age. HYSTERECTOMY HX 02/2014 INGUINOFEM LMPHADEC SUPFC W/PEL LMPHADEC 08/2009 OTHER 03/2016 vulvar biopsy OTHER SURGICAL HISTORY (PLEASE SPECIFY) HX Right 2005 labia reconstruction; [facility] OTHER SURGICAL HISTORY (PLEASE SPECIFY) HX 80's multiple lipoma removal SIGMOIDOSCOPY 03/2018 TUBAL LIGATION HX 1972 VULVECTOMY RADICAL PARTIAL 06/29/2014, 06/2015 VULVECTOMY RADICAL PARTIAL 02/03, 08/04, 07/11 Social History Tobacco Use Smoking status: Never Smokeless tobacco: Never Vaping Use Vaping status: Never Used Substance Use Topics Alcohol use: Yes Alcohol/week: 5.0 standard drinks of alcohol Types: 5 Cans of Beer (12oz) per week Comment: wine with supper;occ. beer Drug use: No Family History Problem Relation Age of Onset Breast Cancer Sister 69 stage 1 other (bowel cancer) Other grandmother other (leukemia) Other aunts other (pancreatic cancer) Other cousin IMAGING: CT CHEST: No results found. CT ABD/PELVIS: No results found. HEALTH MAINTENANCE: Last colonoscopy: 01/01/2018 Last pap/HPV: 11/14/2024 ADVANCED CARE PLANNING: Not addressed this visit SUBJECTIVE/ROS: Patient is a female with a history of vulvar cancer s/p multiple excisions, the last being in 2015. She reports inconsistent use of vaginal dilators, noting that she has regressed to a smaller size but plans to a (more content not included)... Normal [facility] HIGH RISK HUMAN PAPILLOMA JOHN (HPV), PCR FOR DETECTION AND GENOTYPINGon 11-07-2024 HPV 16 Ag Ql (Unsp spec) Not detected Normal Not detected [facility] Comment on above: Order Comment: Speci men Type: FLUID SPECIMENOrdering Facility: [facility] Address: [address] [place] [address] Performed By: #### H PVHRT ####[facility] LABCLIA [id number] [place] [address] [place] HPV 18 Ag Ql (Unsp spec) Not detected Normal Not detected [facility] Comment on above: Order Comment: Speci men Type: FLUID SPECIMENOrdering Facility: [facility] Address: [address] [place] [address] Performed By: #### H PVHRT ####[facility] LABCLIA [id number] [place] [address] [place] HPV 31+33+35+39+45+51+52+5 6+58+59+66+68 DNA SHARON+probe Ql (Cvx) Not detected Normal Not detected [facility] Comment on above: Order Comment: Speci men Type: FLUID SPECIMENOrdering Facility: [facility] Address: [address] [place] [address] Result Comment: High Risk HPV Other Type includes HPV types 31, 33, 35, 39, 45, 51, 52, 56, 58, 59, 66 and 68. Performed By: #### H PVHRT ####[facility] LABCLIA [id number] [place] [address] [place] PAP TESTon 11-07-2024 ADEQUACY Satisfactory for interpretation. Normal [facility] Comment on above: Order Comment: Speci men Type: FLUID SPECIMENOrdering Facility: [facility] Address: [address] [place] [address] Performed By: #### L [id number] ####AMJO LABORATORYCLIA [id number] [place] [address] [place] CASE REPORT Normal [facility] Comment on above: Order Comment: Speci men Type: FLUID SPECIMENOrdering Facility: [facility] Address: [address] [place] [address] Result Comment: Gyne cologic Cytology Report Case: [id number] Authorizing Provider: Annia Wilson, Collected: 11/07/2024 02:31 PM MOTOR BLOCK MECHANIC.DATABASE ADMINISTRATION MANAGER Ordering Location: Gynecology Oncology Received: 11/10/2024 07:49 AM First Screen: Gmitro, Valentino, [place], ASCP Pathologist: Víctor Siu MD Specimen: Pap Test, ThinPrep, Vagina Performed By: #### L [id number] ####TYNER LABORATORYCLIA [id number] [place] [address] [place] CLINICAL HISTORY, CYTOLOGY, ENVIRONMENTAL QUALITY ANALYST Normal [facility] Comment on above: Order Comment: Speci men Type: FLUID SPECIMENOrdering Facility: [facility] Address: [address] [place] [address] Result Comment: Hist ory of Malignancy (Describe) Hysterectomy, Total history of vulvar cancer Performed By: #### L [id number] ####TYNER LABORATORYCLIA [id number] [place] [address] [place] [facility] DIAGNOSIS COMMENT Suggest colposcopy/biopsy as clinically indicated. Results from the ASCUS/LSIL triage study found that interpretations of ASC-H were associated with a higher risk of underlying HSIL (NEREIDA 2 or worse; 30-40%). Normal [facility] Comment on above: Order Comment: Speci men Type: FLUID SPECIMENOrdering Facility: [facility] Address: [address] [place] [address] Performed By: #### L [id number] ####TYNER LABORATORYCLIA [id number] [place] [address] [place] FINAL PERFORMING LAB Normal [facility] Comment on above: Order Comment: Speci men Type: FLUID SPECIMENOrdering Facility: [facility] Address: [address] [place] [address] Result Comment: Tech nical component, new car sales manager screening performed at: [facility], [address] [address] CLIA: [id number] Diagnostic interpretation performed at: [facility], [address] [address] CLIA# [id number] Quill Fixer: Aj Fuentes MD Performed By: #### L [id number] ####TYNER LABORATORYCLIA [id number] [place] [address] [place] INTERPRETATION, CYTOLOGY, ENVIRONMENTAL QUALITY ANALYST Abnormal [facility] Comment on above: Order Comment: Speci men Type: FLUID SPECIMENOrdering Facility: [facility] Address: [address] [place] [address] Result Comment: Atyp ical squamous cells cannot exclude high grade squamous intraepithelial lesion (ASC-H); see comment. at 1538 EDT Performed By: #### L [id number] ####TYNER LABORATORYCLIA [id number] [place] [address] [place] PAP DISCLAIMER COMMENT The Pap Smear is a screening test for cervical cancer. False negative results occur with all screening tests, emphasizing the need for rescreening at recommended intervals, and clinical correlation. Normal [facility] Comment on above: Order Comment: Speci men Type: FLUID SPECIMENOrdering Facility: [facility] Address: [address] [place] [address] Performed By: #### L [id number] ####TYNER LABORATORYCLIA [id number] [place] [address] [place] PAP GENERAL CATEGORIZATION Epithelial Cell Abnormality Normal [facility] Comment on above: Order Comment: Speci men Type: FLUID SPECIMENOrdering Facility: [facility] Address: [address] [place] [address] Performed By: #### L [id number] ####TYNER LABORATORYCLIA [id number] [place] [id number] [place] PAP GEOPHYSICAL PROSPECTING SURVEYOR COMMENT This specimen has been analyzed by the FDA-approved Hastify System, which uses digital imaging and an enhanced artificial intelligence image analysis algorithm to identify espinoza of interest on the microscopic slide, to assist the transcriptionist and pathologist in evaluating cells on ThinPrep Pap tests. Following analysis, espinoza of interest on the microscopic slide selected by the algorithm are reviewed by a transcriptionist. If a sample requires hierarchical review, the pathologist will review the same espinoza of interest selected by the algorithm prior to final interpretation. Normal [facility] Comment on above: Order Comment: Speci men Type: FLUID SPECIMENOrdering Facility: [facility] Address: [address] [place] [address] Performed By: #### L [id number] ####MAJO LABORATORYCLIA [id number] [address] MR/BMS.IMBon 11-05-2024 MR/BMS.IMB [facility] [address] [place] [address] OFFICE VISIT Date of Service: 11/05/24 MR#: [id number] Acct: [id number] Name: DAMIEN PATRICIA Rep #: [id number] : 1940 Provider: Dr. 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 Accompanied by: Self Is patient in pain?: No Allergies atorvastatin Allergy (Severe, Verified 11/05/24 14:25) Hives Influenza Virus Vaccines Allergy (Severe, Verified 11/05/24 14:25) left ear deafness Sulfa (Sulfonamide Antibiotics) Allergy (Severe, Verified 11/05/24 14:25) Hives Penicillins Allergy (Intermediate, Verified 11/05/24 14:25) Rash amlodipine Adverse Reaction (Intermediate, Verified 11/05/24 14:25) swelling in feet and legs losartan Adverse Reaction (Intermediate, Verified 11/05/24 14:25) doesn't feel well, fatigued hydrochlorothiazide (From Micardis HCT) Adverse Reaction (Verified 11/05/24 14:25) Nausea, fatigue, palpitations telmisartan (From Micardis HCT) Adverse Reaction (Verified 11/05/24 14:25) Nausea, fatigue, palpitations Medications ???Medication ???Instructions ???Recorded ???Confirmed ???Type calcium 600 mg (as 1 cap PO DAILY 03/22/20 11/05/24 H istory carbonate)-vitamin D3 10 mcg (400 unit) capsule levothyroxine 100 mcg tablet 100 mcg PO .COMPLEX 01/05/2211/05 History (Synthroid) omega-3 fatty acids 1,000 mg 1,000 mg PO DAILY 01/05/22 5 History capsule turmeric 400 mg capsule 250 mg PO DAILY PRN 05/01/2311/05 History diphenhydramine HCl 25 mg tablet 25 mg PO QHS PRN 08/08/23 11/05/24 History (Benadryl Allergy) fluocinolone acetonide oil 0.01 % 1 drp otic (ear) PRN 08/08/2304/21 History ear drops 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 PO 04/16/24 11/05/24 History Micardis HCT 80 mg-25 mg tablet 1 tab PO QAM #90 tabs 06/09/2404/21 Rx (telmisartan-hydrochl orothiazid) fcwklvdk-lutuyqqnu-fe xameth 3.5 1 drp ophthalmic (eye) Q8H 5 11/05/24 History mg/mL-10,000 unit/mL-0.1% eye drops magnesium oxide 250 mg PO QHS 10/15/24 11/05/24 Hi story trazodone 50 mg tablet 25 mg (1/2 x 50 mg) PO QHS PRN 11/05/24 Rx sleep #30 tabs vit C 250 mg-vit E 90 mg-zinc 40 1 tab PO BID 10/15/24 11/05/24 His tory mg-copper 1 gx-offkco-oqyvoj capsule (PreserVision AREDS-2) Have you fallen in the past year?: No PFSH Medical History Viral URI COVID-19 ( 12/24/21) Palpitations Vulvar cancer Essential hypertension Hypothyroidism Nonrheumatic mitral valve prolapse Surgical History History of tubal ligation History of hysterectomy History of vaginal surgery Family History Father CAD (coronary artery disease) Heart valve disease Sister Tachycardia Social History Smoking Status: Never smoker alcohol intake: current alcohol intake frequency: 0-2 drinks per day Alcohol type: beer and wine substance use type: does not use caffeine: Yes Type: coffee Number of servings: 2 HPI HPI Chief Complaint: Foot/Toe Pain Details: DAMIEN PATRICIA, is a 83 F who presents to the office today for an acute care follow-up visit. 83-year-old female who noted that when she had COVID a couple of years ago, she had some abnormal symptoms involving her feet and COVID toes. She noticed a sense of some numbness. She also noted a bit of very mild discoloration bilateral shins and she briefly mentioned that to another practitioner who recommended she follow-up with vascular studies of her legs. She decided to follow-up here just to make sure that that was something it really needed done or not. She really has a paucity of any symptoms at this point. May be some very minimal numbness feeling, no pain particularly in the legs. She does have history of lymphedema, stemming from vulvar cancer surgery. Recently I referred her back to the lymphedema subspecialty care at the [facility] and she did learn some new things there and is planning to get a pump in the near future to assist with that. Review of systems per chart. Physical exam. Vital sig (more content not included)... Normal [facility] CBC W/Diff, Automatedon Absolute Lymph 1.39 X10 3/uL Normal 0.83-4.51 [facility] Comment on above: Performed By: #### L 506.1001, L504.2610, L506.0400, L501.9520, L101.9900, L503.6550, L500.4050, L501.5200, L100.0100, L500.4100, L501.6710, L501.31262 #### [facility] [address] [place], [place], [phone] (292) Absolute Neut 1.7 X10 3/uL Low 2.0-7.7 [facility] Comment on above: Performed By: #### L 506.1001, L504.2610, L506.0400, L501.9520, L101.9900, L503.6550, L500.4050, L501.5200, L100.0100, L500.4100, L501.6710, L501.40692 #### [facility] [address] [place], [place], [phone] (209) Basophils/100 WBC (Bld) 1.3 % High 0-1 [facility] Comment on above: Performed By: #### L 506.1001, L504.2610, L506.0400, L501.9520, L101.9900, L503.6550, L500.4050, L501.5200, L100.0100, L500.4100, L501.6710, L501.20294 #### [facility] [address] [place], [place], [id number] (138) Eosinophils/100 WBC (Bld) 4.6 % Normal 0-5 [facility] Comment on above: Performed By: #### L 506.1001, L504.2610, L506.0400, L501.9520, L101.9900, L503.6550, L500.4050, L501.5200, L100.0100, L500.4100, L501.6710, L501.47431 #### [facility] [address] [place], [place], [phone] (014) Erythrocyte distribution width (RBC) [Ratio] 12.7 % Normal 11.6-14.6 [facility] Comment on above: Performed By: #### L 506.1001, L504.2610, L506.0400, L501.9520, L101.9900, L503.6550, L500.4050, L501.5200, L100.0100, L500.4100, L501.6710, L501.45118 #### [facility] [address] [place], [place], [phone] (340) Hematocrit (Bld) [Volume fraction] 38.6 % Normal 37-47 [facility] Comment on above: Performed By: #### L 506.1001, L504.2610, L506.0400, L501.9520, L101.9900, L503.6550, L500.4050, L501.5200, L100.0100, L500.4100, L501.6710, L501.34825 #### [facility] [address], [address] (262) Hemoglobin (Bld) [Mass/Vol] 12.8 g/dL Normal 12.0-15.0 [facility] Comment on above: Performed By: #### L 506.1001, L504.2610, L506.0400, L501.9520, L101.9900, L503.6550, L500.4050, L501.5200, L100.0100, L500.4100, L501.6710, L501.79773 #### [facility] [address] [place], [place], [id number] IG% 0.300 Normal 0.0-0.9 [facility] Comment on above: Result Comment: IG% - Immature Granulocytes (promyelocytes, myelocytes and metamyelocytes) > 1% indicates that a LEFT SHIFT is Present. Performed By: #### L 506.1001, L504.2610, L506.0400, L501.9520, L101.9900, L503.6550, L500.4050, L501.5200, L100.0100, L500.4100, L501.6710, L501.09410 #### [facility] [address] [place], [address] Lymphocytes/100 WBC (Bld) 37.5 % Normal 19-41 [facility] Comment on above: Performed By: #### L 506.1001, L504.2610, L506.0400, L501.9520, L101.9900, L503.6550, L500.4050, L501.5200, L100.0100, L500.4100, L501.6710, L501.14780 #### [facility] [address] [facility] [facility] [address] [place], [address] MCH (RBC) [Entitic mass] 29.2 pg Normal 27.0-32.0 [facility] Comment on above: Performed By: #### L 506.1001, L504.2610, L506.0400, L501.9520, L101.9900, L503.6550, L500.4050, L501.5200, L100.0100, L500.4100, L501.6710, L501.27825 #### [facility] [address] [place], [address] MCHC (RBC) [Mass/Vol] 33.2 g/dL Normal 32-36 [facility] Comment on above: Performed By: #### L 506.1001, L504.2610, L506.0400, L501.9520, L101.9900, L503.6550, L500.4050, L501.5200, L100.0100, L500.4100, L501.6710, L501.63337 #### [facility] [address] [place], [address] MCV (RBC) [Entitic vol] 87.9 fL Normal 81-99 [facility] Comment on above: Performed By: #### L 506.1001, L504.2610, L506.0400, L501.9520, L101.9900, L503.6550, L500.4050, L501.5200, L100.0100, L500.4100, L501.6710, L501.26854 #### [facility] [address], [address] Monocytes/100 WBC (Bld) 10.0 % Normal 0-10 [facility] Comment on above: Performed By: #### L 506.1001, L504.2610, L506.0400, L501.9520, L101.9900, L503.6550, L500.4050, L501.5200, L100.0100, L500.4100, L501.6710, L501.73034 #### [facility] [address] [facility] [place], [address] Neutrophils/100 WBC (Bld) 46.3 % Low 47-70 [facility] Comment on above: Performed By: #### L 506.1001, L504.2610, L506.0400, L501.9520, L101.9900, L503.6550, L500.4050, L501.5200, L100.0100, L500.4100, L501.6710, L501.44466 #### [facility] [address] [facility] [place], [address] Nucleated RBC (Bld) [#/Vol] 0 10*3/uL Normal 0-5 [facility] Comment on above: Performed By: #### L 506.1001, L504.2610, L506.0400, L501.9520, L101.9900, L503.6550, L500.4050, L501.5200, L100.0100, L500.4100, L501.6710, L501.24051 #### [facility] [address] [place], [address] Platelet mean volume (Bld) [Entitic vol] 11.6 fL Normal 6.2-12.0 [facility] Comment on above: Performed By: #### L 506.1001, L504.2610, L506.0400, L501.9520, L101.9900, L503.6550, L500.4050, L501.5200, L100.0100, L500.4100, L501.6710, L501.63906 #### [facility] [address] [place], [address] Platelets (Bld) [#/Vol] 243 10*3/uL Normal 150-450 [facility] Comment on above: Performed By: #### L 506.1001, L504.2610, L506.0400, L501.9520, L101.9900, L503.6550, L500.4050, L501.5200, L100.0100, L500.4100, L501.6710, L501.25212 #### [facility] [address] [place], [address] RBC (Bld) [#/Vol] 4.39 10*6/uL Normal 4.2-5.4 [facility] Comment on above: Performed By: #### L 506.1001, L504.2610, L506.0400, L501.9520, L101.9900, L503.6550, L500.4050, L501.5200, L100.0100, L500.4100, L501.6710, L501.87909 #### [facility] [address] [place], [address] RDW SD 41.3 fl Normal 35.1-43.9 [facility] Comment on above: Performed By: #### L 506.1001, L504.2610, L506.0400, L501.9520, L101.9900, L503.6550, L500.4050, L501.5200, L100.0100, L500.4100, L501.6710, L501.85937 #### [facility] [address] [place], [address] WBC (Bld) [#/Vol] 3.7 10*3/uL Low 4.4-11.0 [facility] Comment on above: Performed By: #### L 506.1001, L504.2610, L506.0400, L501.9520, L101.9900, L503.6550, L500.4050, L501.5200, L100.0100, L500.4100, L501.6710, L501.65067 #### [facility] [address] [place], [place], [id number] CRPon 10-27-2024 C-REACTIVE PROT < 3.00 Normal 0.0-3.0 [facility] Comment on above: Performed By: #### L 500.3400, L500.4100 #### [facility] [address] [place], [address] Comprehensive Metabolic Prof ilon 10-27-2024 Albumin [Mass/Vol] 4.2 g/dL Normal 3.4-4.8 [facility] Comment on above: Performed By: #### L 506.1001, L504.2610, L506.0400, L501.9520, L101.9900, L503.6550, L500.4050, L501.5200, L100.0100, L500.4100, L501.6710, L501.95450 #### [facility] [address] [place], [address] Albumin/Globulin [Mass ratio] 1.2 {ratio} Normal 0.9-2.4 [facility] Comment on above: Performed By: #### L 506.1001, L504.2610, L506.0400, L501.9520, L101.9900, L503.6550, L500.4050, L501.5200, L100.0100, L500.4100, L501.6710, L501.39561 #### [facility] [address] [place], [place], [id number] ALK PHOS 76 U/L Normal 35-104 [facility] Comment on above: Performed By: #### L 506.1001, L504.2610, L506.0400, L501.9520, L101.9900, L503.6550, L500.4050, L501.5200, L100.0100, L500.4100, L501.6710, L501.85577 #### [facility] [address] [place], [address] ALT [Catalytic activity/Vol] 22 U/L Normal <=34 [facility] Comment on above: Performed By: #### L 506.1001, L504.2610, L506.0400, L501.9520, L101.9900, L503.6550, L500.4050, L501.5200, L100.0100, L500.4100, L501.6710, L501.11634 #### [facility] [address] [place], [address] AST [Catalytic activity/Vol] 22 U/L Normal <=31 [facility] Comment on above: Performed By: #### L 506.1001, L504.2610, L506.0400, L501.9520, L101.9900, L503.6550, L500.4050, L501.5200, L100.0100, L500.4100, L501.6710, L501.56068 #### [facility] [address] [place], [address] Bilirubin [Mass/Vol] 0.53 mg/dL Normal 0.00-1.30 [facility] Comment on above: Performed By: #### L 506.1001, L504.2610, L506.0400, L501.9520, L101.9900, L503.6550, L500.4050, L501.5200, L100.0100, L500.4100, L501.6710, L501.98445 #### [facility] [address] [place], [place], [id number] (895) BUN/CRE 21.4 RATIO High 10-20 [facility] Comment on above: Performed By: #### L 506.1001, L504.2610, L506.0400, L501.9520, L101.9900, L503.6550, L500.4050, L501.5200, L100.0100, L500.4100, L501.6710, L501.82329 #### [facility] [address] [place], [place], [id number] (924) Calcium [Mass/Vol] 9.6 mg/dL Normal 7.6-11.0 [facility] Comment on above: Performed By: #### L 506.1001, L504.2610, L506.0400, L501.9520, L101.9900, L503.6550, L500.4050, L501.5200, L100.0100, L500.4100, L501.6710, L501.53790 #### [facility] [address] [place], [place], [id number] (710) Chloride [Moles/Vol] 101 mmol/L Normal 98-108 [facility] Comment on above: Performed By: #### L 506.1001, L504.2610, L506.0400, L501.9520, L101.9900, L503.6550, L500.4050, L501.5200, L100.0100, L500.4100, L501.6710, L501.88908 #### [facility] [address] [place], [address] CO2 [Moles/Vol] 26.9 mmol/L Normal 21.0-32.0 [facility] Comment on above: Performed By: #### L 506.1001, L504.2610, L506.0400, L501.9520, L101.9900, L503.6550, L500.4050, L501.5200, L100.0100, L500.4100, L501.6710, L501.34228 #### [facility] [address] [place], [address] Creatinine [Mass/Vol] 0.90 mg/dL Normal 0.70-1.20 [facility] Comment on above: Performed By: #### L 506.1001, L504.2610, L506.0400, L501.9520, L101.9900, L503.6550, L500.4050, L501.5200, L100.0100, L500.4100, L501.6710, L501.77366 #### [facility] [address] [place], [place], [id number] GAP 11 Normal 5-15 [facility] Comment on above: Performed By: #### L 506.1001, L504.2610, L506.0400, L501.9520, L101.9900, L503.6550, L500.4050, L501.5200, L100.0100, L500.4100, L501.6710, L501.11099 #### [facility] [address] [place], [address] GFR/1.73 sq M.predicted among non-blacks MDRD (S/P/Bld) [Vol rate/Area] 64 mL/min/{1.73_m2} Normal >60 [facility] Comment on above: Result Comment: mL/m in/1.73m2 CKD-EPI Creatinine Equation (2020) Performed By: #### L 506.1001, L504.2610, L506.0400, L501.9520, L101.9900, L503.6550, L500.4050, L501.5200, L100.0100, L500.4100, L501.6710, L501.98024 #### [facility] [address] [place], [address] Globulin (S) [Mass/Vol] 3.4 g/dL Normal 2.2-4.2 [facility] Comment on above: Performed By: #### L 506.1001, L504.2610, L506.0400, L501.9520, L101.9900, L503.6550, L500.4050, L501.5200, L100.0100, L500.4100, L501.6710, L501.97991 #### [facility] [address] [place], [address] Glucose [Mass/Vol] 101 mg/dL High 70-99 [facility] Comment on above: Performed By: #### L 506.1001, L504.2610, L506.0400, L501.9520, L101.9900, L503.6550, L500.4050, L501.5200, L100.0100, L500.4100, L501.6710, L501.38534 #### [facility] [address] [place], [address] Potassium [Moles/Vol] 4.3 mmol/L Normal 3.3-5.1 [facility] Comment on above: Performed By: #### L 506.1001, L504.2610, L506.0400, L501.9520, L101.9900, L503.6550, L500.4050, L501.5200, L100.0100, L500.4100, L501.6710, L501.99510 #### [facility] [address] [place], [address] Sodium [Moles/Vol] 139 mmol/L Normal 133-145 [facility] Comment on above: Performed By: #### L 506.1001, L504.2610, L506.0400, L501.9520, L101.9900, L503.6550, L500.4050, L501.5200, L100.0100, L500.4100, L501.6710, L501.44852 #### [facility] [address] [place], [place], [id number] T PROT 7.6 g/dL Normal 5.9-8.4 [facility] Comment on above: Performed By: #### L 506.1001, L504.2610, L506.0400, L501.9520, L101.9900, L503.6550, L500.4050, L501.5200, L100.0100, L500.4100, L501.6710, L501.49590 #### [facility] [address] [place], [place], [id number] Urea nitrogen [Mass/Vol] 19 mg/dL Normal 4-19 [facility] [place] Comment on above: Performed By: #### L 506.1001, L504.2610, L506.0400, L501.9520, L101.9900, L503.6550, L500.4050, L501.5200, L100.0100, L500.4100, L501.6710, L501.14416 #### [facility] [address] [place], [place], [id number] Erythrocyte Sed Rateon 10-27 SED RATE 13 mm/hr Normal 0-30 [facility] Comment on above: Performed By: #### L 506.1001, L504.2610, L506.0400, L501.9520, L101.9900, L503.6550, L500.4050, L501.5200, L100.0100, L500.4100, L501.6710, L501.70672 #### [facility] [address] [place], [place], [id number] Ferritinon 10-27-2024 Ferritin [Mass/Vol] 100 ng/mL Normal 22-378 [facility] Comment on above: Performed By: #### L 506.1001, L504.2610, L506.0400, L501.9520, L101.9900, L503.6550, L500.4050, L501.5200, L100.0100, L500.4100, L501.6710, L501.01528 #### [facility] [address] [place], [place], [id number] Free T3on 10-27-2024 Free T3 [Mass/Vol] 2.9 pg/mL Normal 2.18-3.98 [facility] Comment on above: Performed By: #### L 506.1001, L504.2610, L506.0400, L501.9520, L101.9900, L503.6550, L500.4050, L501.5200, L100.0100, L500.4100, L501.6710, L501.61339 #### [facility] [address] [place], [place], [address] LDHon 10-27-2024 LDH 100 U/L Normal 84-246 [facility] Comment on above: Order Comment: 1 Performed By: #### L 500.3400, L500.4100 #### [facility] [address] [place], [place], [address] Lipid Profileon 10-27-2024 CHOL:HDL 3.90 Normal [facility] Comment on above: Performed By: #### L 506.1001, L504.2610, L506.0400, L501.9520, L101.9900, L503.6550, L500.4050, L501.5200, L100.0100, L500.4100, L501.6710, L501.97894 #### [facility] [address] [place], [place], [phone] ([phone]) Cholesterol [Mass/Vol] 192 mg/dL Normal <=200 [facility] Comment on above: Result Comment: Chol esterol level, Desirable <200 mg/dL Borderline high cholesterol 200-239 mg/dL High cholesterol >=240 mg/dL Recommendations of the NCEP Adult Treatment Panel for the following risk-cutoff thresholds for the [place] population. Performed By: #### L 506.1001, L504.2610, L506.0400, L501.9520, L101.9900, L503.6550, L500.4050, L501.5200, L100.0100, L500.4100, L501.6710, L501.84229 #### [facility] [address] [place], [address] ([phone]) Cholesterol in HDL [Mass/Vol] 49 mg/dL Normal [facility] Comment on above: Result Comment: Brittani onal Cholesterol Education Program (NCEP) guidelines: <40 mg/dL: Low HDL-cholesterol (major risk factor for CHD) >= 60 mg/dL: High HDL-cholesterol (negative risk factor for CHD) HDL-cholesterol is affected by a number of factors, e.g. smoking, exercise, hormones, sex and age. Performed By: #### L 506.1001, L504.2610, L506.0400, L501.9520, L101.9900, L503.6550, L500.4050, L501.5200, L100.0100, L500.4100, L501.6710, L501.07319 #### [facility] [address] [place], [place], [phone] ([phone]) Cholesterol in LDL [Mass/Vol] 121 mg/dL Normal [facility] Comment on above: Result Comment: Bord qozrtt=516-549 mg/dL Higher Tgid=261 mg/dL or greater Performed By: #### L 506.1001, L504.2610, L506.0400, L501.9520, L101.9900, L503.6550, L500.4050, L501.5200, L100.0100, L500.4100, L501.6710, L501.56503 #### [facility] [address] [place], [place], [phone] ([phone]) Cholesterol in VLDL [Mass/Vol] 21 mg/dL Normal 5-40 [facility] Comment on above: Performed By: #### L 506.1001, L504.2610, L506.0400, L501.9520, L101.9900, L503.6550, L500.4050, L501.5200, L100.0100, L500.4100, L501.6710, L501.26526 #### [facility] [address] [place], [place], [id number] Triglyceride [Mass/Vol] 107 mg/dL Normal [facility] Comment on above: Result Comment: The drugs N-Acetylcysteine and Metamizole may falsely depress this assay. Normal range: <150 mg/dL Borderline High: 150-199 mg/dL High: 200-499 mg/dL Very High: >500 mg/dL Performed By: #### L 506.1001, L504.2610, L506.0400, L501.9520, L101.9900, L503.6550, L500.4050, L501.5200, L100.0100, L500.4100, L501.6710, L501.22742 #### [facility] [address] [place], [place], [phone] Magnesiumon 10-27-2024 Magnesium [Mass/Vol] 2.2 mg/dL Normal 1.5-2.2 [facility] Comment on above: Performed By: #### L 500.3400, L500.4100 #### [facility] [address] [place], [place], [address] T4 Free Directon 10-27-2024 T4 FREE DIRECT 1.40 ng/dL Normal 0.76-1.46 [facility] Comment on above: Performed By: #### L 506.1001, L504.2610, L506.0400, L501.9520, L101.9900, L503.6550, L500.4050, L501.5200, L100.0100, L500.4100, L501.6710, L501.31931 #### [facility] [address] [place], [place], [id number] Thyroid Stim Hormone (TSH)on 10-27-2024 TSH 2.570 uIU/mL Normal 0.300-4.200 [facility] Comment on above: Performed By: #### L 506.1001, L504.2610, L506.0400, L501.9520, L101.9900, L503.6550, L500.4050, L501.5200, L100.0100, L500.4100, L501.6710, L501.11625 #### [facility] [address] [place], [place], [id number] Vitamin D,25 Hydroxyon 10-27 Vitamin D 25-OH 33.0 ng/mL Normal 30-100 [facility] Comment on above: Result Comment: Kyra min D Status Deficiency: <20 ng/mL (50nmol/L) Insufficiency: 20-30 ng/mL (50-75 nmol/L) Sufficiency: 30-100 ng/mL (75-250 nmol/L) Toxicity: >100 ng/mL (>250 nmol/L) Performed By: #### L 500.3400, L500.4100 #### [facility] [address] [place], [place], [address] OT General Evaluationon 05-2 OT General Evaluation [facility] Occupational Therapy [address] [place] [address] / REHABILITATION SERVICES INITIAL EVALUATION MR#: [id number] Acct: [id number] Name: DAMIEN PATRICIA Rep #: [id number] : 1940 83 From: Bernice RCOA/Andressa, OLIVERIOT Referring Dr.: Dr. Tanvi Doty MD Status: R EG RCR [facility] Eval Date: SELF PAY INSURANCE Patient's Visit Information Visit Information Visit Information: DAMIEN PATRICIA is a 83 year old F, referred to Occupational Therapy by Dr. Tanvi Doty MD, with a diagnosis of Lymphedema. Date of Evaluation: 10/22/24 Occupational Therapist: ABELINO Rosario/Andressa, CHT Subjective Subjective: This 83 year old female was seen for OT eval with dx of lymphedema: pt states she has tried to wear compression hose a few times, and they are very difficult to get on. Pt states she legs are less swollen in AM. pt states she likes to travel and would like to mtg. her LE edema the best she can. pt motivated to initiate mtg. of her lymphedema Lymphedema (Circumferential Measure) Mid-foot: right 21cm left 21cm Ankle: right 26cm left 27cm Lower calf: right 24cm left 24cm Largest calf: right 38cm left 38cm Below knee: right 36cm left 36.5cm Above knee: right 46cm left 47cm Lower Limb Functional Index Lower Extremity Functional Score: 54 Goals Goal: Patient will demonstrate a 20% reduction in edema by discharge: Yes Goal: Patient will demonstrate adequate knowledge of self-massage by the end of the second week.: Yes Goal: Patient will demonstrate adequate knowledge of skin care and precautions by the end of the first week.: Yes Goal: Patient will demonstrate adequate knowledge of therapeutic exercises by discharge.: Yes Goal: Patient will select an appropriate compression garment and demonstrate adequate knowledge of correct donning technique, care and wearing schedule by discharge.: Yes Goal: Patient will voice understanding of need to replace compression garment every four to six months by discharge.: Yes Rehabilitation General Assessment: pt demo with lymphedema and decreased knowledge of how to mtg. dx. pt would benefit from skilled OT services 3-4 visits to ensure pts understanding of life long mtg of lymphedema, exercises that promote lymphatic circulation, skin care and compression garment use for mtg. pt demo understanding and agrees to POC. Rehabilitation Potential: Good Anticipated Interventions Anticipated Interventions: Education re Diagnosis, Education re Life-long lymphedema Management, Education re Self-Bandaging Techniques, Education re Skin Care and Precautions, Education re Self Ma ssage Techniques and Education re Correct Donning Tech,Care Wearing Sched Comp Garments Visit Plan Frequency: 1x/Week Duration: 6 Weeks TEXT: Thank you for the opportunity to evaluate your patient. For Medicare and Medicare HMO plans, please review the plan of care and approve it. It will need to be FAXED BACK to us at [phone] for Medicare purposes. Please let me know if there are questions or concerns regarding this plan of care. Physician Signature: Date : 10/23/24 0747 CC: Dr. Tanvi Doty MD RANULFO Signed For Medicare only, by signing this I certify the plan of care. Physicians Signature Date Normal [facility] MR/BMS.IMBon 10-15-2024 MR/BMS.IMB [facility] [address] [place] [address] OFFICE VISIT Date of Service: 10/15/24 MR#: [id number] Acct: [id number] Name: DAMIEN PATRICIA Rep #: [id number] : 1940 Provider: Dr. 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 Required: No Accompanied by: Self Is patient in pain?: No Allergies atorvastatin Allergy (Severe, 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/24 13:26) Hives Influenza Virus Vaccines Allergy (Severe, 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/24 13: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 Sulfa (Sulfonamide Antibiotics) Allergy (Severe, 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/24 13:26) Hives Penicillins Allergy (Intermediate, 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/24 13:26) Rash amlodipine Adverse Reaction (Intermediate, 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/24 13:26) swelling in feet and legs losartan Adverse Reaction (Intermediate, 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/24 13:26) doesn't feel well, fatigued hydrochlorothiazide (From Micardis HCT) Adverse Reaction (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/24 13:26) Nausea, fatigue, palpitations telmisartan (From Micardis HCT) Adverse Reaction (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/24 13:26) Nausea, fatigue, palpitations Medications ???Medication ???Instructions ???Recorded ???Confirmed ???Type calcium 600 mg (as 1 cap PO DAILY 03/22/20 10/15/24 H istory carbonate)-vitamin D3 10 mcg (400 unit) capsule levothyroxine 100 mcg tablet 100 mcg PO .COMPLEX 01/05/2210/15 History (Synthroid) omega-3 fatty acids 1,000 mg 1,000 mg PO DAILY 01/05/22 5 History capsule turmeric 400 mg capsule 250 mg PO DAILY PRN 05/01/2310/15 History diphenhydramine HCl 25 mg tablet 25 mg PO QHS PRN 08/08/23 10/15/24 History (Benadryl Allergy) fluocinolone acetonide oil 0.01 % 1 drp otic (ear) PRN 08/08/23 History ear drops 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 PO 04/16/24 10/15/24 History Micardis HCT 80 mg-25 mg tablet 1 tab PO QAM #90 tabs 06/09/24 Rx (telmisartan-hydrochl orothiazid) rkqxugmp-vghjywole-jg xameth 3.5 1 drp ophthalmic (eye) Q8H 5 10/15/24 History mg/mL-10,000 unit/mL-0.1% eye drops magnesium oxide 250 mg PO QHS 10/15/24 10/15/24 Hi story trazodone 50 mg tablet 25 mg (1/2 x 50 mg) PO QHS PRN 10/15/24 Rx sleep #30 tabs vit C 250 mg-vit E 90 mg-zinc 40 1 tab PO BID 10/15/24 10/15/24 His tory mg-copper 1 ld-tfqzui-fczfrw capsule (PreserVision AREDS-2) Have you fallen in the past year?: Yes (08/2024, got bumped into and fell to ground ) PFSH Medical History Viral URI COVID-19 ( 12/24/21) Palpitations Vulvar cancer Essential hypertension Hypothyroidism Nonrheumatic mitral valve prolapse Surgical History History of tubal ligation History of hysterectomy History of vaginal surgery Family History Father CAD (coronary artery disease) Heart valve disease Sister Tachycardia Social History Smoking Status: Never smoker alcohol intake: current alcohol intake frequency: 0-2 drinks per day Alcohol type: beer and wine substance use type: does not use caffeine: Yes Type: coffee Number of servings: 2 HPI HPI Chief Complaint: Discuss BP Medication/Log Details: DAMIEN PATRICIA, is a 83 F who presents to the office today for 6-month follow-up. She wanted to discuss a number of issues. First off she has been following with a dry house operator of which I was not aware as I never received any notes. Apparently this was for a low WBC count that had been noted previously. I would say that our lab monitoring that we have been doing she had showed intermittently a mildly low WBC count, normal platelets, normal hemoglobin and no other bothersome findings otherwise, but isolated issue. Anyhow was Domonique Magana. He is retiring. We will try and obtain notes and see if we need to follow or if she needs to actually follow with a dry house operator. Had never had bone marrow biopsy. They have been simply monitoring. Wonders about taking as needed trazodone which we had previously prescribed. Typically she feels maybe once a week that it could be helpful but has not used it in a while now. I am fine with that. New refill sent. Would like a referral to [facility] (more content not included)... Normal [facility] Urgent Care Visit Reporton 0 07-18-2024 Urgent Care Visit Report [facility] [address], [address] [place] [address] OFFICE VISIT Date of Service: 07/18/24 MR#: [id number] Acct: [id number] Name: DAMIEN PATRICIA Rep #: [id number] : 1940 Provider: JOSE Fabian Age/Sex: 83/F Location: [facility] Status: Signed Intake Vital Signs 06/09/24 11:04 07/18/24 16:08 Height 5 ft 4 in Weight: 166 lb BMI 28.5 BP 151/89 H 144/72 H Blood Pressure Location Lt brachial Rt brachial Position Sitting Sitting Respiration 16 Pulse 78 68 Pulse Source Monitor NIBP Temp 98.6 F 98.5 F Temp Source Temporal Oral Pulse Oximetry (%) 95 99 Oxygen Delivery Method room air room air Intake Visit Reasons: CONCERN FOR FLU Chief Complaint: cough, BA Ornament Stapler Required: No Is patient in pain?: No Allergies atorvastatin Allergy (Severe, Verified 07/11/24 13:28) Hives Influenza Virus Vaccines Allergy (Severe, Verified 07/11/24 13:28) left ear deafness Sulfa (Sulfonamide Antibiotics) Allergy (Severe, Verified 07/11/24 13:28) Hives Penicillins Allergy (Intermediate, Verified 07/11/24 13:28) Rash amlodipine Adverse Reaction (Intermediate, Verified 07/11/24 13:28) swelling in feet and legs losartan Adverse Reaction (Intermediate, Verified 07/11/24 13:28) doesn't feel well, fatigued hydrochlorothiazide (From Micardis HCT) Adverse Reaction (Verified 07/11/24 13:28) Nausea, fatigue, palpitations telmisartan (From Micardis HCT) Adverse Reaction (Verified 07/11/24 13:28) Nausea, fatigue, palpitations Is last menstrual period known: No Post menopausal: Yes Patient : No Have you fallen in the past year?: No Nurse's Note: cough, body aches x 1 week. seen here 07/11 ( day #1) all negative testing. pt cough worsening, wishes to be retested [facility] Medical History (Updated 07/18/24 @ 17:58 by Carlos GARCIA, PA) Viral URI COVID-19 ( 12/24/21) Palpitations Vulvar cancer Essential hypertension Hypothyroidism Nonrheumatic mitral valve prolapse Surgical History History of tubal ligation History of hysterectomy History of vaginal surgery Family History Father CAD (coronary artery disease) Heart valve disease Sister Tachycardia Social History Smoking Status: Never smoker alcohol intake: current alcohol intake frequency: 0-2 drinks per day Alcohol type: beer and wine substance use type: does not use caffeine: Yes Type: coffee Number of servings: 2 HPI HPI Chief Complaint: cough, BA Details: DAMIEN PATRICIA, is a 83 F who presents to the office today for complaint of cough, congestion and bodyaches ongoing for the past week. Patient denies nausea, vomiting or diarrhea. No hemoptysis, shortness of breath or difficulty breathing. No loss of taste or smell. No other associated symptoms or alleviating/aggravati ng factors. ROS Const Constitutional: No other (As above) Exam Const General: cooperative and well developed HENMT Head: normal to inspection and atraumatic Ears: hearing grossly normal bilaterally Nose: nasal discharge clear Face and sinus: normal facial exam Mouth: oral mucosae normal Throat: abnormal tonsil bilaterally hypertrophy 1+ Resp Effort Inspection: normal respiratory effort and no audible wheezes Auscultation: Bilateral: Clear to Auscultation Cardio Rate: regular rate Rhythm: regular rhythm Neuro General: patient alert and CN's II-XI intact bilaterally Psych Appearance: grossly normal Mental Status: mental status grossly normal Results POC FLU A B Office Flu A B Positive FLU F B Last Edit by Zahraa Merlos on 07/18/24 16:21 POC SARS AG POC SARS AG Negative Last Edit by Zahraa Merlos on 07/18/24 16:21 Coding Level of Care Code Off vis,est,level 3 Diagnoses Influenza due to influenza virus, type A, human J10.1 Influenza due to influenza virus, type B J10.1 Assessment and Plan Assessment and Plan (1) Influenza due to influenza virus, type A, human: Status: Acute (2) Influenza due to influenza virus, type B: Status: Acute Orders: Orders POC FLU A B Today R05.9 - Cough, unspecified POC Rapid SARS Antigen Today Medications: New azithromycin take 500 mg today (day 1), then 250 mg for 4 days (days 2-5) PO 6 tabs 0RF dexamethasone 6 mg PO DAILY 7 tabs 0RF benzonatate 200 mg (2 x 100 mg) PO TID PRN 30 caps 0RF cough Plan Azithromycin, Decadron and benzonatate as prescribed today. Encouraged to get plenty of rest, drink lots of clear liquids, and use Tylenol or Ibuprofen (unless contraindicated) for fever and comfort. Patient also educated on other symptomatic management techniques (more content not included)... Normal [facility] Urgent Care Visit Reporton 0 07-11-2024 Urgent Care Visit Report [facility] [address], [address] [place] [address] OFFICE VISIT Date of Service: 07/11/24 MR#: [id number] Acct: [id number] Name: DAMIEN PATRICIA Rep #: [id number] : 1940 Provider: JOSE Fabian Age/Sex: 83/F Location: [facility] Status: Signed Intake Vital Signs 06/09/24 11:04 07/11/24 13:29 Height 5 ft 4 in Weight: 166 lb BMI 28.5 BP 151/89 H 124/80 H Blood Pressure Location Lt brachial Position Sitting Sitting Pulse 78 100 Pulse Source Monitor Temp 98.6 F 97.9 F Temp Source Temporal Oral Pulse Oximetry (%) 95 93 Oxygen Delivery Method room air room air Intake Visit Reasons: Cough Accompanied by: Self Allergies atorvastatin Allergy (Severe, Verified 07/11/24 13:28) Hives Influenza Virus Vaccines Allergy (Severe, Verified 07/11/24 13:28) left ear deafness Sulfa (Sulfonamide Antibiotics) Allergy (Severe, Verified 07/11/24 13:28) Hives Penicillins Allergy (Intermediate, Verified 07/11/24 13:28) Rash amlodipine Adverse Reaction (Intermediate, Verified 07/11/24 13:28) swelling in feet and legs losartan Adverse Reaction (Intermediate, Verified 07/11/24 13:28) doesn't feel well, fatigued hydrochlorothiazide (From Micardis HCT) Adverse Reaction (Verified 07/11/24 13:28) Nausea, fatigue, palpitations telmisartan (From Micardis HCT) Adverse Reaction (Verified 07/11/24 13:28) Nausea, fatigue, palpitations Medications ???Medication ???Instructions ???Recorded ???Confirmed ???Type calcium 600 mg (as 1 cap PO DAILY 03/22/20 07/11/24 H istory carbonate)-vitamin D3 10 mcg (400 unit) capsule levothyroxine 100 mcg tablet 100 mcg PO .COMPLEX 01/05/2207/11 History (Synthroid) omega-3 fatty acids 1,000 mg 1,000 mg PO DAILY 01/05/22 5 History capsule melatonin, L Theanine PO 04/30/23 07/11/24 History turmeric 400 mg capsule 250 mg PO DAILY PRN 05/01/2307/11 History diphenhydramine HCl 25 mg tablet 25 mg PO QHS PRN 08/08/23 07/11/24 History (Benadryl Allergy) fluocinolone acetonide oil 0.01 % 1 drp otic (ear) PRN 08/08/23 History ear drops l theanine PO DAILY 08/08/23 07/11/24 History benzonatate 200 mg capsule 200 mg PO TID PRN cough #20 caps 0 02/05/24 07/11/24 Rx trazodone 50 mg tablet 25 mg (1/2 x 50 mg) PO QHS PRN 07/11/24 Rx sleep #30 tabs 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 PO 04/16/24 07/11/24 History azithromycin 250 mg tablet See Rx Instructions PO .COMPLEX #6 06/04/24 07/11/24 Rx tabs Micardis HCT 80 mg-25 mg tablet 1 tab PO QAM #90 tabs 06/09/24 Rx (telmisartan-hydrochl orothiazid) dydqkher-dynjisbjg-ml xameth 3.5 1 drp ophthalmic (eye) Q8H 5 07/11/24 History mg/mL-10,000 unit/mL-0.1% eye drops Have you fallen in the past year?: No Nurse's Note: Patient has a cough that started this AM. Patient states no other symptoms. [facility] Medical History (Updated 06/09/24 @ 11:[address] Tanvi Doty MD) Viral URI COVID-19 ( 12/24/21) Palpitations Vulvar cancer Essential hypertension Hypothyroidism Nonrheumatic mitral valve prolapse Surgical History History of tubal ligation History of hysterectomy History of vaginal surgery Family History Father CAD (coronary artery disease) Heart valve disease Sister Tachycardia Social History Smoking Status: Never smoker alcohol intake: current alcohol intake frequency: 0-2 drinks per day Alcohol type: beer and wine substance use type: does not use caffeine: Yes Type: coffee Number of servings: 2 HPI HPI Details: DAMIEN PATRICIA, is a 83 F who presents to the office today for complaint of cough, congestion starting this morning. Patient states wanting to be sure that she does not have COVID or influenza. She denies fever, chills, sweats. No nausea, vomiting, diarrhea. No loss of taste or smell. No other associated symptoms or alleviating/aggravati ng factors. ROS Const Constitutional: No other (As above) Exam Const General: cooperative and well developed [facility] Head: normal to inspection and atraumatic Ears: hearing grossly normal bilaterally Nose: nasal discharge clear Face and sinus: normal facial exam Mouth: oral mucosae normal Throat: abnormal tonsil bilaterally hypertrophy 1+ Resp Effort Inspection: normal respiratory effort and no audible wheezes Auscultation: Bilateral: Clear to Auscultation Cardio Palpation: normal PMI Rate: regular rate Rhythm: regular rhythm Neuro General: patient alert and CN's II-XI intact bilaterally Psych Appearance: grossly normal Mental Status: mental status grossly norm (more content not included)... Normal [facility] .GFRon 06-17-2024 GFR 67 ml/min/1.73sqm Normal [facility] Comment on above: Result Comment: GFR Population mean for , Non- Americans Ages 20-29 = 116 mL/min/1.73 sq.m. Ages 30-39 = 107 mL/min/1.73 sq.m. Ages 40-49 = 99 mL/min/1.73 sq.m. Ages 50-59 = 93 mL/min/1.73 sq.m. Ages 60-69 = 85 mL/min/1.73 sq.m. Ages 70+ = 75 mL/min/1.73 sq.m. Chronic Kidney Disease: Less than 60 mL/min/1.73 square meters End Stage Renal Disease: Less than 15 mL/min/1.73 square meters Performed By: #### M ALBR #### [address] [address] GFR Non- 56 ml/min/1.73sqm Normal [facility] Comment on above: Result Comment: GFR Population mean for , Non- Americans Ages 20-29 = 116 mL/min/1.73 sq.m. Ages 30-39 = 107 mL/min/1.73 sq.m. Ages 40-49 = 99 mL/min/1.73 sq.m. Ages 50-59 = 93 mL/min/1.73 sq.m. Ages 60-69 = 85 mL/min/1.73 sq.m. Ages 70+ = 75 mL/min/1.73 sq.m. Chronic Kidney Disease: Less than 60 mL/min/1.73 square meters End Stage Renal Disease: Less than 15 mL/min/1.73 square meters Performed By: #### M ALBR #### [address] [address] A1Con 06-17-2024 Glucose [Mass/Vol] 134 mg/dL Normal [facility] [facility] Comment on above: Result Comment: Chantale mated Average Glucose calculated by equation ((28.7xA1C)-46.7) Estimated average glucose (eAG) is a calculated value from Hemoglobin A1C and is telephone claims representative of the average blood glucose level in the last 2-3 month period. Normal range: less than 114 mg/dL Performed By: #### M ALBR #### [place] [id number] HbA1c (Bld) [Mass fraction] 6.3 % Normal 4.3-6.4 [facility] Comment on above: Performed By: #### M ALBR #### [address] [address] CMPon 06-17-2024 Albumin Level 3.4 G/dL Normal 3.4-4.8 [facility] Comment on above: Performed By: #### M ALBR #### [place] [id number] Albumin/Globulin [Mass ratio] 0.8 {ratio} Low 1.1-2.5 [facility] Comment on above: Performed By: #### M ALBR #### [address] [address] ALP [Catalytic activity/Vol] 86 U/L Normal 40-135 [facility] Comment on above: Performed By: #### M ALBR #### [address] [address] ALT [Catalytic activity/Vol] 22 U/L Normal 14-59 [facility] Comment on above: Performed By: #### M ALBR #### [address] [address] AST [Catalytic activity/Vol] 16 U/L Normal 10-40 [facility] Comment on above: Performed By: #### M ALBR #### [address] [address] Bili Total 0.5 mg/dL Normal 0.2-1.0 [facility] Comment on above: Result Comment: Use of this assay is not recommended for patients undergoing treatment with eltrombopag due to the potential for falsely elevated results. Performed By: #### M ALBR #### [place] [id number] BUN/Creatinine Ratio 25 ratio Normal 7-27 [facility] Comment on above: Performed By: #### M ALBR #### [place] [id number] Calcium [Mass/Vol] 9.4 mg/dL Normal 8.4-10.2 [facility] Comment on above: Performed By: #### M ALBR #### [place] [id number] Chloride [Moles/Vol] 102 mmol/L Normal 98-107 [facility] Comment on above: Performed By: #### M ALBR #### [address] [address] CO2 [Moles/Vol] 34 mmol/L High 23-31 [facility] Comment on above: Performed By: #### M ALBR #### [address] [address] Creatinine [Mass/Vol] 0.96 mg/dL Normal 0.55-1.02 [facility] Comment on above: Result Comment: Test ing performed on Siemens Dimension EXL analyzer using a modified kinetic Fifi technique. Performed By: #### M ALBR #### [place] [address] Electrolyte Balance 2.0 mEq/L Low 4.0-15.0 [facility] Comment on above: Performed By: #### M ALBR #### [place] [id number] Globulin 4.5 G/dL Normal [facility] Comment on above: Performed By: #### M ALBR #### [address] [address] Glucose [Mass/Vol] 95 mg/dL Normal 83-110 [facility] Comment on above: Performed By: #### M ALBR #### [address] [address] Potassium [Moles/Vol] 4.0 mmol/L Normal 3.5-5.1 [facility] Comment on above: Performed By: #### M ALBR #### [address] [address] Sodium [Moles/Vol] 138 mmol/L Normal 136-145 [facility] Comment on above: Performed By: #### M ALBR #### [address] [address] Total Protein 7.9 G/dL Normal 6.4-8.2 [facility] Comment on above: Performed By: #### M ALBR #### [address] [address] Urea nitrogen [Mass/Vol] 24 mg/dL High 7-18 [facility] Comment on above: Performed By: #### M ALBR #### [address] [address] FT3on 06-17-2024 Free T3 [Mass/Vol] 3.11 pg/mL Normal 2.30-4.00 [facility] Comment on above: Performed By: #### M ALBR #### [address] [address] FT4on 06-17-2024 Free T4 [Mass/Vol] 1.21 ng/dL Normal 0.76-1.46 [facility] Comment on above: Performed By: #### M ALBR #### [address] [address] LABORATORYOrdered By: SYSTEM SYSTEM on 06-17-2024 25-hydroxyvitamin D3 [Mass/Vol] 28.5 ng/mL Invalid Interpretation Code AO ADM SS Comment on above: Interpretive Data: I nterpretive Values Based on Total 25(OH) Vitamin D: Deficient <20 ng/mL Insufficient 20 - <30 ng/mL Sufficient 30-100 ng/mL Albumin BCP dye [Mass/Vol] 3.4 G/dL Normal 3.4 - 4.8 G/dL AO ADM SS Albumin/Globulin [Mass ratio] 0.8 {ratio} Low 1.1 - 2.5 ratio AO ADM SS ALP [Catalytic activity/Vol] 86 U/L Normal 40 - 135 U/L AO ADM SS ALT With P-5'-P [Catalytic activity/Vol] 22 U/L Normal 14 - 59 U/L AO ADM SS AST With P-5'-P [Catalytic activity/Vol] 16 U/L Normal 10 - 40 U/L AO ADM SS Bilirubin [Mass/Vol] 0.5 mg/dL Normal 0.2 - 1 .0 mg/dL AO ADM SS Comment on above: Interpretive Data: U se of this assay is not recommended for patients undergoing treatment with eltrombopag due to the potential for falsely elevated results. Calcium [Mass/Vol] 9.4 mg/dL Normal 8.4 - 10. 2 mg/dL AO ADM SS Chloride [Moles/Vol] 102 mmol/L Normal 98 - 10 7 mmol/L AO ADM SS CO2 [Moles/Vol] 34 mmol/L High 23 - 31 mmol/L AO ADM SS Creatinine [Mass/Vol] 0.96 mg/dL Normal 0.55 - 1.02 mg/dL AO ADM SS Comment on above: Interpretive Data: T esting performed on Siemens Dimension EXL analyzer using a modified kinetic Fifi technique. Electrolyte Balance 2.0 mEq/L Low 4.0 - 15 .0 mEq/L AO ADM SS Free T3 [Mass/Vol] 3.11 pg/mL Normal 2.30 - 4. 00 pg/mL AO ADM SS Free T4 [Mass/Vol] 1.21 ng/dL Normal 0.76 - 1. 46 ng/dL AO ADM SS GFR/1.73 sq M.predicted among blacks MDRD (S/P/Bld) [Vol rate/Area] 67 ml/min/1.73sqm Invalid Interpretation Code AO Chemistry S Comment on above: Interpretive Data: GFR Population mean for , Non- Americans Ages 20-29 = 116 mL/min/1.73 sq.m. Ages 30-39 = 107 mL/min/1.73 sq.m. Ages 40-49 = 99 mL/min/1.73 sq.m. Ages 50-59 = 93 mL/min/1.73 sq.m. Ages 60-69 = 85 mL/min/1.73 sq.m. Ages 70+ = 75 mL/min/1.73 sq.m. Chronic Kidney Disease: Less than 60 mL/min/1.73 square meters End Stage Renal Disease: Less than 15 mL/min/1.73 square meters GFR/1.73 sq M.predicted among non-blacks MDRD (S/P/Bld) [Vol rate/Area] 56 ml/min/1.73sqm Invalid Interpretation Code AO Chemistry S Comment on above: Interpretive Data: GFR Population mean for , Non- Americans Ages 20-29 = 116 mL/min/1.73 sq.m. Ages 30-39 = 107 mL/min/1.73 sq.m. Ages 40-49 = 99 mL/min/1.73 sq.m. Ages 50-59 = 93 mL/min/1.73 sq.m. Ages 60-69 = 85 mL/min/1.73 sq.m. Ages 70+ = 75 mL/min/1.73 sq.m. Chronic Kidney Disease: Less than 60 mL/min/1.73 square meters End Stage Renal Disease: Less than 15 mL/min/1.73 square meters Globulin 4.5 G/dL Invalid Interpretation Code AO ADM SS Glucose [Mass/Vol] 95 mg/dL Normal 83 - 110 mg/dL AO ADM SS Glucose [Mass/Vol] 134 mg/dL Invalid Interpretation Code AO Chemistry S Comment on above: Interpretive Data: E stimated average glucose (eAG) is a calculated value from Hemoglobin A1C and is telephone claims representative of the average blood glucose level in the last 2-3 month period. Normal range: less than 114 mg/dL HbA1c (Bld) [Mass fraction] 6.3 % Normal 4.3 - 6.4 % AO ADM SS Potassium [Moles/Vol] 4.0 mmol/L Normal 3.5 - 5.1 mmol/L AO ADM SS Protein [Mass/Vol] 7.9 G/dL Normal 6.4 - 8.2 G/dL AO ADM SS Sodium [Moles/Vol] 138 mmol/L Normal 136 - 145 mmol/L AO ADM SS TSH Qn 3.01 m[IU]/L Normal 0.36 - 3.74 mcIU/mL AO ADM SS Urea nitrogen [Mass/Vol] 24 mg/dL High 7 - 18 mg/dL AO ADM SS Urea nitrogen/Creatinine [Mass ratio] 25 ratio Normal 7 - 27 ratio AO ADM SS LABORATORYOrdered By: Esau Shultz on 06-17-2024 Cholesterol [Mass/Vol] 191 mg/dL Normal 0 - 2 00 mg/dL AO ADM SS Comment on above: Interpretive Data: C holesterol Reference Interval: Less than 200 Desirable 200-239 Borderline high risk 240 and above High risk Cholesterol in HDL [Mass/Vol] 51 mg/dL Normal 40 - 60 mg/dL AO ADM SS Cholesterol in LDL [Mass/Vol] 126 mg/dL Normal 0 - 130 mg/dL AO ADM SS Triglyceride [Mass/Vol] 72 mg/dL Normal 0 - 150 mg/dL AO ADM SS Comment on above: Interpretive Data: T riglyceride Reference Interval: Less than 150 Normal 150-199 Borderline high risk 200-499 High risk 500 or higher Very high risk LIPIDon 06-17-2024 Cholesterol [Mass/Vol] 191 mg/dL Normal 0-200 [facility] Comment on above: Result Comment: Chol esterol Reference Interval: Less than 200 Desirable 200-239 Borderline high risk 240 and above High risk Performed By: #### M ALBR #### [address] [address] Cholesterol in HDL [Mass/Vol] 51 mg/dL Normal 40-60 [facility] Comment on above: Performed By: #### M ALBR #### [place] [id number] [place], [place] [address] Cholesterol in LDL [Mass/Vol] 126 mg/dL Normal 0-130 [facility] Comment on above: Performed By: #### M ALBR #### [place] [id number] [place], [place] [address] Triglyceride [Mass/Vol] 72 mg/dL Normal 0-150 [facility] Comment on above: Result Comment: Trig lyceride Reference Interval: Less than 150 Normal 150-199 Borderline high risk 200-499 High risk 500 or higher Very high risk Performed By: #### M ALBR #### [place] [address] [place], [place] [address] TSHon 06-17-2024 TSH Qn 3.01 m[IU]/L Normal 0.36-3.74 [facility] Comment on above: Performed By: #### M ALBR #### [address] [address] VIDHon 06-17-2024 Vit. D 25-Hydroxy 28.5 ng/mL Normal [facility] Comment on above: Result Comment: Inte rpretive Values Based on Total 25(OH) Vitamin D: Deficient <20 ng/mL Insufficient 20 - <30 ng/mL Sufficient 30-100 ng/mL Performed By: #### M ALBR #### [address] [address] MR/BMS.IMBon 06-09-2024 MR/BMS.IMB [facility] [address] [place] [address] OFFICE VISIT Date of Service: 06/09/24 MR#: [id number] Acct: [id number] Name: DAMIEN PATRICIA Rep #: [id number] : 1940 Provider: Dr. Tanvi jacobsen MD Age/Sex: 83/F Location: [facility] Status: Signed Intake Vital Signs 06/02/24 16:40 06/09/24 11:04 Height 5 ft 4 in 5 ft 4 in Weight: 165 lb 6 oz 166 lb BMI 28.3 28.5 BP 124/74 H 151/89 H Blood Pressure Location Lt brachial Position Sitting Sitting Pulse 97 78 Pulse Source Monitor Temp 98.7 F 98.6 F Temp Source Oral Temporal Pulse Oximetry (%) 97 95 Oxygen Delivery Method room air room air Intake Visit Reasons: [facility] FU Ornament Stapler Required: No Accompanied by: Self Is patient in pain?: No Allergies atorvastatin Allergy (Severe, Verified 06/09/24 11:05) Hives Influenza Virus Vaccines Allergy (Severe, Verified 06/09/24 11:05) left ear deafness Sulfa (Sulfonamide Antibiotics) Allergy (Severe, Verified 06/09/24 11:05) Hives Penicillins Allergy (Intermediate, Verified 06/09/24 11:05) Rash amlodipine Adverse Reaction (Intermediate, Verified 06/09/24 11:05) swelling in feet and legs losartan Adverse Reaction (Intermediate, Verified 06/09/24 11:05) doesn't feel well, fatigued hydrochlorothiazide (From Micardis HCT) Adverse Reaction (Verified 06/09/24 11:05) Nausea, fatigue, palpitations telmisartan (From Micardis HCT) Adverse Reaction (Verified 06/09/24 11:05) Nausea, fatigue, palpitations Medications ???Medication ???Instructions ???Recorded ???Confirmed ???Type calcium 600 mg (as 1 cap PO DAILY 03/22/20 06/09/24 History carbonate)-vitamin D3 10 mcg (400 unit) capsule levothyroxine 100 mcg tablet 100 mcg PO .COMPLEX 01/05/22 06/09/24 History (Synthroid) omega-3 fatty acids 1,000 mg 1,000 mg PO DAILY 01/05/22 06/09/24 History capsule melatonin, L Theanine PO 04/30/23 06/09/24 History turmeric 400 mg capsule 250 mg PO DAILY PRN 05/01/23 06/09/24 History diphenhydramine HCl 25 mg tablet 25 mg PO QHS PRN 08/08/23 06/09/24 History (Benadryl Allergy) fluocinolone acetonide oil 0.01 % 1 drp otic (ear) PRN 08/08/23 06/09/24 History ear drops l theanine PO DAILY 08/08/23 06/09/24 History Micardis HCT 80 mg-25 mg tablet 1 tab PO QAM #90 tabs 12/19/23 06/09/24 Rx (telmisartan-hydrochl orothiazid) benzonatate 200 mg capsule 200 mg PO TID PRN cough #20 caps 02/05/24 06/09/24 Rx trazodone 50 mg tablet 25 mg (1/2 x 50 mg) PO QHS PRN 02/19/24 06/09/24 Rx sleep #30 tabs 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 PO 04/16/24 06/09/24 History azithromycin 250 mg tablet See Rx Instructions PO .COMPLEX #6 06/04/24 06/09/24 Rx tabs [id number]-gv xameth 3.5 1 drp ophthalmic (eye) Q8H 06/09/24 06/09/24 History mg/mL-10,000 unit/mL-0.1% eye drops Have you fallen in the past year?: No PFSH Medical History (Updated 06/09/24 @ 11:[address] Tanvi Doty MD) Viral URI COVID-19 ( 12/24/21) Palpitations Vulvar cancer Essential hypertension Hypothyroidism Nonrheumatic mitral valve prolapse Surgical History History of tubal ligation History of hysterectomy History of vaginal surgery Family History Father CAD (coronary artery disease) Heart valve disease Sister Tachycardia Social History Smoking Status: Never smoker alcohol intake: current alcohol intake frequency: 0-2 drinks per day Alcohol type: beer and wine substance use type: does not use caffeine: Yes Type: coffee Number of servings: 2 HPI HPI Details: DAMIEN PATRICIA, is a 83 F who presents to the office today for an acute care follow-up visit. 83-year-old female who is generally quite healthy he takes levothyroxine, trazodone as needed and imfh-yxv-bpondzt supplements. She developed an acute URI, after this year. I believe the Sunday following Ethel, she went to urgent care and was tested for COVID-19 and influenza both of which were negative. She was discharged. Then, she developed irritation, a lot of discharge from the right eye. She went back to urgent care on 04 June. There, she was diagnosed with URI, received Zithromax prescription and tobramycin eyedrops. However she also followed with ophthalmology and they recommended different eyedrop, as they felt this was more likely viral. The drop that was prescribed added neomycin and steroid. Her eye symptoms have basically resolved at this point. She still has a fair amount of nasal discharge. She did not take the Z-Milton as she was concerned about the risk of hearing problems which was listed in the information packet with the medication. Today is the 13th. She st (more content not included)... Normal [facility] [place] Urgent Care Visit Reporton 0 06-04-2024 Urgent Care Visit Report [facility] [address], [address] [place] [address] OFFICE VISIT Date of Service: 06/04/24 MR#: [id number] Acct: [id number] Name: DAMIEN PATRICIA Rep #: [id number] : 1940 Provider: JOSE Alexander Age/Sex: 83/F Location: [facility] Status: Signed Intake Vital Signs 06/02/24 16:40 06/04/24 15:35 Height 5 ft 4 in Weight: 165 lb 6 oz BMI 28.3 BP 124/74 H 122/72 H Blood Pressure Location Lt brachial Position Sitting Sitting Respiration 16 Pulse 97 92 Pulse Source NIBP Temp 98.7 F 98.5 F Temp Source Oral Oral Pulse Oximetry (%) 97 98 Oxygen Delivery Method room air room air Intake Visit Reasons: RED SWOLLEN R EYE Chief Complaint: right eye Ornament Stapler Required: No Is patient in pain?: No Allergies atorvastatin Allergy (Severe, Verified 06/04/24 15:35) Hives Influenza Virus Vaccines Allergy (Severe, Verified 06/04/24 15:35) left ear deafness Sulfa (Sulfonamide Antibiotics) Allergy (Severe, Verified 06/04/24 15:35) Hives Penicillins Allergy (Intermediate, Verified 06/04/24 15:35) Rash amlodipine Adverse Reaction (Intermediate, Verified 06/04/24 15:35) swelling in feet and legs losartan Adverse Reaction (Intermediate, Verified 06/04/24 15:35) doesn't feel well, fatigued hydrochlorothiazide (From Micardis HCT) Adverse Reaction (Verified 06/04/24 15:35) Nausea, fatigue, palpitations telmisartan (From Micardis HCT) Adverse Reaction (Verified 06/04/24 15:35) Nausea, fatigue, palpitations Is last menstrual period known: No Post menopausal: Yes Patient : No Have you fallen in the past year?: No Nurse's Note: right eye redness/drainage today. denies pain/itching/fever. pt with very red sclera and pus in inner [place]hus area. [facility] Medical History COVID-19 ( 12/24/21) Palpitations Vulvar cancer Essential hypertension Hypothyroidism Nonrheumatic mitral valve prolapse Surgical History History of tubal ligation History of hysterectomy History of vaginal surgery Family History Father CAD (coronary artery disease) Heart valve disease Sister Tachycardia Social History Smoking Status: Never smoker alcohol intake: current alcohol intake frequency: 0-2 drinks per day Alcohol type: beer and wine substance use type: does not use caffeine: Yes Type: coffee Number of servings: 2 HPI HPI Chief Complaint: right eye Details: DAMIEN PATRICIA, is a 83 F who presents to the office today for initial evaluation new onset right eye conjunctival injection with exudate for 24 hours. No vision changes or eye globe pain. No complaints of fever, chills, sweats, lightheadedness/dizzi ness, nausea/vomiting - though purulent pnd w/ cough now appreciated. No agjc-uos-gucklix ophthalmic drops tried to assist. No other associated symptoms and no other alleviating/aggravati ng factors. ROS Const Constitutional: No other (As above) Exam Const General: cooperative, healthy appearing and no acute distress Orientation: alert, awake and oriented x3 HENMT Head: normal to inspection Ears: hearing grossly normal bilaterally and external ears normal Nose: external nose normal and no nasal discharge Eyes General: appearance normal, both eyes and all related structures Other: Except right conjunctival injection with exudate; negative limbus OU Neck Neck: normal visual inspection, no meningeal signs and supple Resp Effort Inspection: normal respiratory effort and able to speak in complete sentences, CTA w/ moist nonproductive cough Cardio Rate: regular rate Pulses: radial pulses present Skin General: no rashes or lesions noted Neuro General: patient alert, patient awake and patient oriented x3 Cognition: normal cognition Speech: speech normal Psych Appearance: grossly normal Mental Status: mental status grossly normal Mood: congruent mood Affect: normal affect Speech and Movement: speech and movement normal Attitude: cooperative Diagnoses Acute conjunctivitis H10.30 Assessment and Plan Assessment and Plan (1) Acute conjunctivitis: Status: Acute Plan: - w/ cough Tobrex drops and azithromycin as prescribed today. Supportive measures as instructed today. Follow-up with PCP or ophthalmology in 2 to 3 days should symptoms not improve, sooner should symptoms only worsen or any other concerns develop. Patient states acknowledging understanding all the above. Coding Level of Care Code Off vis,est,level 3 Assessment and Plan Assessment and Plan Medications: New tobramycin 0.3% to affected ey (more content not included)... Normal [facility] 06-03-2024 N[place]OS[place] Telephone (TK) DAMIEN PATRICIA ([id number]) 1940 F Date Time Provider Department 06/03/24 ANNIA WILSON During your visit today, we recorded the following information about you: Annia Wilson APRN.WHITNEY 06/03/2024 5:56 PM Signed Spoke with patient regarding last appointment. She was unsure when her last visit was and when she called to check she was told I will no longer be seeing patients in [place]. I assured her that I am still seeing patients in [place] and her next appt is 11/07 at 2pm. She was thankful for the call. Annia Wilson APRN.WHITNEY Allergies As of Date: 06/03/2024 Noted Allergy Reaction SULFA (SULFONAMIDE ANTIBIOTICS) 12/02/2015 4 - Hives PENICILLINS 12/02/2015 2 - Rash Comments: Took ampicillin in 2014 without complications TTCXNAL-OHX-DEM REDUCTASE INHIBIT*08/06/2020 14 - Other: See Comments Comments: Pain on my head and back, bad shaking and my ears turned really red Date Reviewed: 05/09/2024 Reviewed by: Annia Wilson, MOTOR BLOCK MECHANIC.DATABASE ADMINISTRATION MANAGER - Fully Assessed Reason for Visit: Patient Question [2857] Prescriptions as of 06/03/2024 - TURMERIC ORAL Take 500 mg by mouth once daily. - docosahexaenoic acid/epa (FISH OIL ORAL) Take 1 tablet by mouth once daily. - propylene glycol (SYSTANE COMPLETE OPHTHALMIC) Use 1 Drop in eyes as needed (Eyes). - MICARDIS HCT 80-25 mg per tablet Take 1 tablet by mouth once daily. - MULTIVIT WITH CALCIUM,IRON,MIN (MULTIPLE VITAMIN, WOMENS ORAL) Take 1 tablet by mouth once daily. - POLYCARBOPHIL (REPLENS VAGINAL) Use vaginally. - Cholecalciferol, Vitamin D3, 25 mcg (1,000 unit) cap Take 1,000 Units by mouth once daily. - CALCIUM CARBONATE/VITAMIN D3 (CALCIUM 600 + D ORAL) Take by mouth. - SACCHAROMYCES BOULARDII (PROBIOTIC, S.BOULARDII, ORAL) Take by mouth as needed. - SYNTHROID 100 mcg tablet Once daily, skip tab on sundays - Biotin 2,500 mcg cap Take by mouth. Twice weekly Problem List As Of Date 06/03/2024 Noted Resolved Diarrhea [R19.7] Hypercholesterolemia [E78.00] Unspecified essential hypertension [I10] Vulvar cancer (HCC) [C51.9] 12/07/2015 Hypothyroidism [E03.9] 01/06/2016 Hemorrhoids [K64.9] 01/06/2016 Mitral valve prolapse [I34.1] 01/06/2016 Borderline diabetes mellitus [R73.03] 01/06/2016 Abdominal pain, vomiting, and diarrhea [R10.9, *01/20/2016 01/20/2016 Lymphedema [I89.0] 08/16/2020 Encounter Status:Closed by ANNIA WILSON on 06/03/24 Normal [facility] Urgent Care Visit Reporton 0 06-02-2024 Urgent Care Visit Report [facility] [address], [address] [place] [address] OFFICE VISIT Date of Service: 06/02/24 MR#: [id number] Acct: [id number] Name: DAMIEN PATRICIA Rep #: [id number] : 1940 Provider: JOSE Alexander Age/Sex: 83/F Location: [facility] Status: Signed Intake Vital Signs 04/16/24 13:27 06/02/24 16:40 Height 5 ft 4 in 5 ft 4 in Weight: 161 lb 165 lb 6 oz BMI 27.6 28.3 BP 127/79 H 124/74 H Blood Pressure Location Rt brachial Position Sitting Sitting Respiration 16 Pulse 71 97 Pulse Source Monitor Temp 98.6 F 98.7 F Temp Source Temporal Oral Pulse Oximetry (%) 94 97 Oxygen Delivery Method room air room air Intake Visit Reasons: HOARNESS Accompanied by: Self Allergies atorvastatin Allergy (Severe, Verified 06/02/24 16:01) Hives Influenza Virus Vaccines Allergy (Severe, Verified 06/02/24 16:01) left ear deafness Sulfa (Sulfonamide Antibiotics) Allergy (Severe, Verified 06/02/24 16:01) Hives Penicillins Allergy (Intermediate, Verified 06/02/24 16:01) Rash amlodipine Adverse Reaction (Intermediate, Verified 06/02/24 16:01) swelling in feet and legs losartan Adverse Reaction (Intermediate, Verified 06/02/24 16:01) doesn't feel well, fatigued hydrochlorothiazide (From Micardis HCT) Adverse Reaction (Verified 06/02/24 16:01) Nausea, fatigue, palpitations telmisartan (From Micardis HCT) Adverse Reaction (Verified 06/02/24 16:01) Nausea, fatigue, palpitations Medications ???Medication ???Instructions ???Recorded ???Confirmed ???Type calcium 600 mg (as 1 cap PO DAILY 03/22/20 06/02/24 History carbonate)-vitamin D3 10 mcg (400 unit) capsule levothyroxine 100 mcg tablet 100 mcg PO .COMPLEX 01/05/22 06/02/24 History (Synthroid) omega-3 fatty acids 1,000 mg 1,000 mg PO DAILY 01/05/22 06/02/24 History capsule melatonin, L Theanine PO 04/30/23 06/02/24 History turmeric 400 mg capsule 250 mg PO DAILY PRN 05/01/23 06/02/24 History diphenhydramine HCl 25 mg tablet 25 mg PO QHS PRN 08/08/23 06/02/24 History (Benadryl Allergy) fluocinolone acetonide oil 0.01 % 1 drp otic (ear) PRN 08/08/23 06/02/24 History ear drops l theanine PO DAILY 08/08/23 06/02/24 History Micardis HCT 80 mg-25 mg tablet 1 tab PO QAM #90 tabs 12/19/23 06/02/24 Rx (telmisartan-hydrochl orothiazid) benzonatate 200 mg capsule 200 mg PO TID PRN cough #20 caps 02/05/24 06/02/24 Rx trazodone 50 mg tablet 25 mg (1/2 x 50 mg) PO QHS PRN 02/19/24 06/02/24 Rx sleep #30 tabs 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 PO 04/16/24 06/02/24 History Have you fallen in the past year?: No Nurse's Note: Patient has hoarseness. Patient states yesterday she did a nasal saline spray and she wasn't sure if it was to strong of one. she has never done that one before. Patient now has that going on. Patient did a at home covid test and it was negative. [facility] Medical History COVID-19 ( 12/24/21) Palpitations Vulvar cancer Essential hypertension Hypothyroidism Nonrheumatic mitral valve prolapse Surgical History History of tubal ligation History of hysterectomy History of vaginal surgery Family History Father CAD (coronary artery disease) Heart valve disease Sister Tachycardia Social History Smoking Status: Never smoker alcohol intake: current alcohol intake frequency: 0-2 drinks per day Alcohol type: beer and wine substance use type: does not use caffeine: Yes Type: coffee Number of servings: 2 HPI HPI Details: DAMIEN PATRICIA, is a 83 F who presents to the office today [facility] for new onset hoarseness that developed last evening. Patient states yesterday she did a new nasal saline spray which clear nasal drainage for passage causing it to go down the back of her throat and has had a hoarseness sensation to her speech ever since. She did perform a home COVID test which was negative last evening, but would like to be screened for COVID-19 and influenza again today as well. No complaints of fever, chills, sweats, lightheadedness/dizzi ness, nausea/vomiting, loss of taste or smell, congestion/runny nose, or chest pressure/shortness of breath/dyspnea on exertion. No [id number] products taken to assist. No other associated symptoms and no other alleviating/aggravati ng factors. ROS Const Constitutional: No other (As above) Exam Const General: cooperative, healthy appearing and no acute distress Orientation: alert, awake and oriented x3 HENMT Head: normal to inspection Ears: hearing grossly normal bilaterally, exter (more content not included)... Normal [facility] [place] CNOVSPon 05-09-2024 CNOVSP Visit (SP) Office (GYNCMD) DAMIEN PATRICIA ([id number]) 1940 F Date Time Provider Department 05/09/24 2:30 PM ANNIA WILSON GYND During your visit today, we recorded the following information about you: Blood pressure Weight 117/74 73.8 kg Annia Wilson, MOTOR BLOCK MECHANIC.DATABASE ADMINISTRATION MANAGER 05/09/2024 5:33 PM Signed DATE OF SERVICE: 05/09/2024 PROBLEM: Damien Patricia presents today for follow up. HPI: Damien had vulvectomies (11/2008 and 07/2009) as well as bilateral inguinal lymph node dissection in August 2009) for IA moderately differentiated vulvar cancer. 12/2013 she under went laser conization. She had STAN/BSO with Dr. Burk at [facility] in 02/2014 for atypical cervical dysplasia. She then had partial vulvectomy in 06/2014 that showed SCC in situ. 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 She had a negative biopsy November 2015 and 2016. PRIOR HISTORY AND TREATMENT: 1) 11/2008: vulvectomy at [facility] (path unavailable) 2) 07/2009: vulvectomy at [facility] (path unavailable) 3) 08/2009: Bilateral inguinal lymph node dissection (path unavailable) Patient reports 18 lymph nodes were removed 4) 01/21/2014 CO2 laser conization with Dr. Burk FINAL DIAGNOSIS: CERVIX, BIOPSY - BENIGN STROMA WITH MINUTE FRAGMENTED STRIPS OF ATTACHED ATYPICAL SQUAMOUS MUCOSA. SEE COMMENT. COMMENT: The squamous mucosa is almost entirely denuded. Features are suggestive of but not diagnostic of dysplasia. Procurement artifact is present. There is no evidence of malignancy. OPERATIVE PROCEDURE: Excisional CO2 laser conization 5) 02/25/2014: Ex-lap, STAN/BSO FINAL DIAGNOSIS: HYSTERECTOMY WITH BILATERAL SALPINGO-OOPHORECTOMY - EXTENSIVELY CAUTERIZED ECTOCERVIX WITH NO RESIDUAL IDENTIFIABLE SQUAMOUS MUCOSA. NO SQUAMOUS DYSPLASIA OR HUMAN PAPILLOMA VIRUS EFFECT IS IDENTIFIED. ENDOMETRIAL ATROPHY. SEROSAL ADHESIONS. RIGHT AND LEFT OVARIES AND FALLOPIAN TUBES- ATROPHIC CHANGES. 6) 06/29/2014 Partial vulvectomy (posterior/anterior vulva) with Dr. Burk FINAL DIAGNOSIS: A) PARTIAL VULVECTOMY (POSTERIOR VULVA AND PERINEUM) - CHRONIC INFLAMMATION. NEGATIVE FOR MALIGNANCY. B) PARTIAL VULVECTOMY (ANTERIOR VULVA) - SQUAMOUS CELL CARCINOMA IN SITU. COMMENT: No invasive component or margin involvement is identified. 7) 06/30/15: Left posterior vulva excision with Dr. Burk FINAL DIAGNOSIS: LEFT POSTERIOR VULVA, EXCISION - INVASIVE, MODERATELY DIFFERENTIATED, KERATINIZING SQUAMOUS CELL CARCINOMA. ASSOCIATED IN SITU SQUAMOUS CELL CARCINOMA. NEGATIVE SURGICAL MARGINS. OBSCURING CAUTERY. CHRONIC VULVITIS. SEE COMMENT. COMMENT: Associated with carcinoma in situ, is a focal area of invasive squamous cell carcinoma. The depth of invasion is 0.2 mm. Lymphovascular space invasion is not appreciated. 8) 12/07/2015: Vaginal biopsies with Dr. Arriaga FINAL DIAGNOSIS: A) VAGINAL INTROITUS @ 11 O'CLOCK, BIOPSY - BENIGN SQUAMOUS MUCOSA. B) POSTERIOR VAGINAL INTROITUS, BIOPSIES - INFLAMED GRANULATION TISSUE. BENIGN SQUAMOUS EPITHELIUM. SEE COMMENT. COMMENT: The patient's history of squamous cell carcinoma is known. The present biopsies demonstrate benign changes 9) 04/04/2016 Vulvar biopsy: FINAL DIAGNOSIS: VULVAR BIOPSY AT 7 O'CLOCK - CHRONICALLY INFLAMED HYPERPARAKERATOTIC SKIN. NEGATIVE FOR MALIGNANCY. PAST MEDICAL HISTORY Diagnosis Date Borderline diabetes mellitus 01/06/2016 Carpal tunnel syndrome on both sides AND osteoarthritis Diarrhea Diverticulitis Dupuytren contracture Hemorrhoids Hypercholesterolemia Hypothyroidism Lymphocytic colitis Unspecified essential hypertension Vulvar carcinoma (HCC) PAST SURGICAL HISTORY Procedure Laterality Date CERVICAL BIOPSY COLONOSCOPY FLX DX W/COLLJ SPEC WHEN PFRMD 01/20/2016 Colonoscopy (MAC) COLONOSCOPY FLX DX W/COLLJ SPEC WHEN PFRMD 05/26/2021 No further colonoscopies needed, due to age. HYSTERECTOMY HX 02/2014 INGUINOFEM LMPHADEC SUPFC W/PEL LMPHADEC 08/2009 OTHER 03/2016 vulvar biopsy OTHER SURGICAL HISTORY (PLEASE SPECIFY) HX Right 2004 labia reconstruction; [facility] OTHER SURGICAL HISTORY (PLEASE SPECIFY) HX 81's multiple lipoma removal SIGMOIDOSCOPY 03/2018 TUBAL LIGATION HX 1972 VULVECTOMY RADICAL PARTIAL 06/29/2014, 06/2015 VULVECTOMY RADICAL PARTIAL 02/03, 08/04, 07/11 Social History Tobacco Use Smoking status: Never Smokeless tobacco: Never Vaping Use Vaping status: Never Used Substance Use Topics Alcohol use: Yes Alcohol/week: 5.0 standard drinks of alcohol Types: 5 Cans of Beer (12oz) per week Comment: wine with supper;occ. beer Drug use: No SUBJECTIVE/ROS: Damien Patricia reports that she feels well. No vulvar bumps, lesions, pruritus. Reports LLQ pain. No vaginal bleeding or discharge. Patient is not sexually active. Patient reports swelling of lower extremities. Her ECOG performan (more content not included)... Normal [facility] .Auto Diffon 05-01-2024 Basophil, Absolute 0.1 10 3/mcL Normal 0.0-0.2 [facility] Comment on above: Performed By: #### F ERR, LD, GFR, ESR, ADIFF, ANEU, CMP, CRP, CBC #### [address] [address] Basophils/100 WBC (Bld) 1.1 % Normal 0.0-2.5 [facility] Comment on above: Performed By: #### F ERR, LD, GFR, ESR, ADIFF, ANEU, CMP, CRP, CBC #### [address] [address] Eosinophil, Absolute 0.1 10 3/mcL Normal 0.0-0.7 [facility] Comment on above: Performed By: #### F ERR, LD, GFR, ESR, ADIFF, ANEU, CMP, CRP, CBC #### [address] [address] Eosinophils/100 WBC (Bld) 2.6 % Normal 0.0-7.0 [facility] Comment on above: Performed By: #### F ERR, LD, GFR, ESR, ADIFF, ANEU, CMP, CRP, CBC #### [address] [address] Lymphocyte, Absolute 1.4 10 3/mcL Normal 0.9-4.3 [facility] Comment on above: Performed By: #### F ERR, LD, GFR, ESR, ADIFF, ANEU, CMP, CRP, CBC #### [address] [address] Lymphocytes/100 WBC (Bld) 26.5 % Normal 20.0-40.0 [facility] Comment on above: Performed By: #### F ERR, LD, GFR, ESR, ADIFF, ANEU, CMP, CRP, CBC #### [address] [address] Monocyte, Absolute 0.4 10 3/mcL Normal 0.1-1.4 [facility] Comment on above: Performed By: #### F ERR, LD, GFR, ESR, ADIFF, ANEU, CMP, CRP, CBC #### [address] [address] Monocytes/100 WBC (Bld) 8.2 % Normal 2.0-13.0 [facility] Comment on above: Performed By: #### F ERR, LD, GFR, ESR, ADIFF, ANEU, CMP, CRP, CBC #### [id number] [place], [place] [address] Neutrophils/100 WBC (Bld) 61.6 % Normal 50.0-75.0 [facility] Comment on above: Performed By: #### F ERR, LD, GFR, ESR, ADIFF, ANEU, CMP, CRP, CBC #### [id number] [place], [place] [address] .GFRon 05-01-2024 GFR 62 ml/min/1.73sqm Normal [facility] Comment on above: Result Comment: GFR Population mean for , Non- Americans Ages 20-29 = 116 mL/min/1.73 sq.m. Ages 30-39 = 107 mL/min/1.73 sq.m. Ages 40-49 = 99 mL/min/1.73 sq.m. Ages 50-59 = 93 mL/min/1.73 sq.m. Ages 60-69 = 85 mL/min/1.73 sq.m. Ages 70+ = 75 mL/min/1.73 sq.m. Chronic Kidney Disease: Less than 60 mL/min/1.73 square meters End Stage Renal Disease: Less than 15 mL/min/1.73 square meters Performed By: #### F ERR, LD, GFR, ESR, ADIFF, ANEU, CMP, CRP, CBC ####[address] [address] GFR Non- 51 ml/min/1.73sqm Normal [facility] Comment on above: Result Comment: GFR Population mean for , Non- Americans Ages 20-29 = 116 mL/min/1.73 sq.m. Ages 30-39 = 107 mL/min/1.73 sq.m. Ages 40-49 = 99 mL/min/1.73 sq.m. Ages 50-59 = 93 mL/min/1.73 sq.m. Ages 60-69 = 85 mL/min/1.73 sq.m. Ages 70+ = 75 mL/min/1.73 sq.m. Chronic Kidney Disease: Less than 60 mL/min/1.73 square meters End Stage Renal Disease: Less than 15 mL/min/1.73 square meters Performed By: #### F ERR, LD, GFR, ESR, ADIFF, ANEU, CMP, CRP, CBC ####[place] [address] .NEUABSon 05-01-2024 Neutrophil, Absolute 3.2 10 3/mcL Normal 2.3-8.1 [facility] Comment on above: Performed By: #### F ERR, LD, GFR, ESR, ADIFF, ANEU, CMP, CRP, CBC #### [address] [address] CBCon 05-01-2024 Erythrocyte distribution width (RBC) [Ratio] 13.3 % Normal 11.5-15.5 [facility] Comment on above: Performed By: #### F ERR, LD, GFR, ESR, ADIFF, ANEU, CMP, CRP, CBC #### [address] [address] Hematocrit (Bld) [Volume fraction] 40.4 % Normal 34.0-46.0 [facility] Comment on above: Performed By: #### F ERR, LD, GFR, ESR, ADIFF, ANEU, CMP, CRP, CBC #### [address] [place] [address] Hgb 13.7 G/dL Normal 12.0-16.0 [facility] Comment on above: Performed By: #### F ERR, LD, GFR, ESR, ADIFF, ANEU, CMP, CRP, CBC #### [address] [address] MCH (RBC) [Entitic mass] 30.4 pg Normal 27.0-33.0 [facility] Comment on above: Performed By: #### F ERR, LD, GFR, ESR, ADIFF, ANEU, CMP, CRP, CBC #### [place] [address] MCHC 33.8 G/dL Normal 32.0-36.0 [facility] Comment on above: Performed By: #### F ERR, LD, GFR, ESR, ADIFF, ANEU, CMP, CRP, CBC #### [address] [address] MCV (RBC) [Entitic vol] 89.9 fL Normal 80.0-99.0 [facility] Comment on above: Performed By: #### F ERR, LD, GFR, ESR, ADIFF, ANEU, CMP, CRP, CBC #### [address] [address] Platelet 216 10 3/mcL Normal 150-450 [facility] Comment on above: Performed By: #### F ERR, LD, GFR, ESR, ADIFF, ANEU, CMP, CRP, CBC #### [address] [address] Platelet mean volume (Bld) [Entitic vol] 9.3 fL Normal 6.6-10.5 [facility] Comment on above: Performed By: #### F ERR, LD, GFR, ESR, ADIFF, ANEU, CMP, CRP, CBC #### [address] [address] RBC 4.50 10 6/mcL Normal 4.10-5.30 [facility] Comment on above: Performed By: #### F ERR, LD, GFR, ESR, ADIFF, ANEU, CMP, CRP, CBC #### [address] [address] WBC 5.2 10 3/mcL Normal 4.5-10.8 [facility] Comment on above: Performed By: #### F ERR, LD, GFR, ESR, ADIFF, ANEU, CMP, CRP, CBC #### [address] [address] CMPon 05-01-2024 Albumin Level 3.8 G/dL Normal 3.4-4.8 [facility] Comment on above: Performed By: #### F ERR, LD, GFR, ESR, ADIFF, ANEU, CMP, CRP, CBC ####[address] [address] Albumin/Globulin [Mass ratio] 1.1 {ratio} Normal 1.1-2.5 [facility] Comment on above: Performed By: #### F ERR, LD, GFR, ESR, ADIFF, ANEU, CMP, CRP, CBC ####[address] [address] ALP [Catalytic activity/Vol] 83 U/L Normal 40-135 [facility] Comment on above: Performed By: #### F ERR, LD, GFR, ESR, ADIFF, ANEU, CMP, CRP, CBC ####[address] [address] ALT [Catalytic activity/Vol] 27 U/L Normal 14-59 [facility] Comment on above: Performed By: #### F ERR, LD, GFR, ESR, ADIFF, ANEU, CMP, CRP, CBC ####[address] [address] AST [Catalytic activity/Vol] 20 U/L Normal 10-40 [facility] Comment on above: Performed By: #### F ERR, LD, GFR, ESR, ADIFF, ANEU, CMP, CRP, CBC ####[address] [address] Bili Total 0.6 mg/dL Normal 0.2-1.0 [facility] Comment on above: Result Comment: Use of this assay is not recommended for patients undergoing treatment with eltrombopag due to the potential for falsely elevated results. Performed By: #### F ERR, LD, GFR, ESR, ADIFF, ANEU, CMP, CRP, CBC ####[address] [place], [place] [address] BUN/Creatinine Ratio 17 ratio Normal 7-27 [facility] Comment on above: Performed By: #### F ERR, LD, GFR, ESR, ADIFF, ANEU, CMP, CRP, CBC ####[address] [place], [place] [address] Calcium [Mass/Vol] 9.7 mg/dL Normal 8.4-10.2 [facility] Comment on above: Performed By: #### F ERR, LD, GFR, ESR, ADIFF, ANEU, CMP, CRP, CBC ####[address] [address] Chloride [Moles/Vol] 101 mmol/L Normal 98-107 [facility] Comment on above: Performed By: #### F ERR, LD, GFR, ESR, ADIFF, ANEU, CMP, CRP, CBC ####[address] [place], [place] [address] CO2 [Moles/Vol] 31 mmol/L Normal 23-31 [facility] Comment on above: Performed By: #### F ERR, LD, GFR, ESR, ADIFF, ANEU, CMP, CRP, CBC ####[address] [place], [place] [address] Creatinine [Mass/Vol] 1.03 mg/dL High 0.55-1.02 [facility] Comment on above: Result Comment: Test ing performed on Siemens Dimension EXL analyzer using a modified kinetic Fifi technique. Performed By: #### F ERR, LD, GFR, ESR, ADIFF, ANEU, CMP, CRP, CBC ####[address] [place], [place] [address] Electrolyte Balance 8.0 mEq/L Normal 4.0-15.0 [facility] Comment on above: Performed By: #### F ERR, LD, GFR, ESR, ADIFF, ANEU, CMP, CRP, CBC ####[address] [place], [place] [address] Globulin 3.6 G/dL Normal [facility] Comment on above: Performed By: #### F ERR, LD, GFR, ESR, ADIFF, ANEU, CMP, CRP, CBC ####[address] [place], [place] [address] Glucose [Mass/Vol] 104 mg/dL Normal 83-110 [facility] Comment on above: Performed By: #### F ERR, LD, GFR, ESR, ADIFF, ANEU, CMP, CRP, CBC ####[id number] Potassium [Moles/Vol] 4.3 mmol/L Normal 3.5-5.1 [facility] Comment on above: Performed By: #### F ERR, LD, GFR, ESR, ADIFF, ANEU, CMP, CRP, CBC ####[address] [address] Sodium [Moles/Vol] 140 mmol/L Normal 136-145 [facility] Comment on above: Performed By: #### F ERR, LD, GFR, ESR, ADIFF, ANEU, CMP, CRP, CBC ####[address] [address] Total Protein 7.4 G/dL Normal 6.4-8.2 [facility] Comment on above: Performed By: #### F ERR, LD, GFR, ESR, ADIFF, ANEU, CMP, CRP, CBC ####[address] [address] Urea nitrogen [Mass/Vol] 18 mg/dL Normal 7-18 [facility] Comment on above: Performed By: #### F ERR, LD, GFR, ESR, ADIFF, ANEU, CMP, CRP, CBC ####[address] [address] CRPon 05-01-2024 C-Reactive Protein 0.1 mg/dL Normal 0.0-0.3 [facility] Comment on above: Performed By: #### F ERR, LD, GFR, ESR, ADIFF, ANEU, CMP, CRP, CBC #### [address] [address] ESRon 05-01-2024 Erythrocyte Sed Rate 11 mm/hr Normal 0-30 [facility] Comment on above: Performed By: #### F ERR, LD, GFR, ESR, ADIFF, ANEU, CMP, CRP, CBC #### [address] [address] Tawanda 05-01-2024 Ferritin [Mass/Vol] 134.0 ng/mL Normal 8.0-252.0 [facility] Comment on above: Performed By: #### F ERR, LD, GFR, ESR, ADIFF, ANEU, CMP, CRP, CBC #### [address] [address] LABORATORYOrdered By: SYSTEM SYSTEM on 05-01-2024 Albumin BCP dye [Mass/Vol] 3.8 G/dL Normal 3.4 - 4.8 G/dL AO ADM SS Albumin/Globulin [Mass ratio] 1.1 {ratio} Normal 1.1 - 2.5 ratio AO ADM SS ALP [Catalytic activity/Vol] 83 U/L Normal 40 - 135 U/L AO ADM SS ALT With P-5'-P [Catalytic activity/Vol] 27 U/L Normal 14 - 59 U/L AO ADM SS AST With P-5'-P [Catalytic activity/Vol] 20 U/L Normal 10 - 40 U/L AO ADM SS Basophils (Bld) [#/Vol] 0.1 103/mcL Normal 0.0 - 0.2 10^3/mcL AO Workflow SS Basophils/100 WBC (Bld) 1.1 % Normal 0.0 - 2.5 % AO Workflow SS Bilirubin [Mass/Vol] 0.6 mg/dL Normal 0.2 - 1 .0 mg/dL AO ADM SS Comment on above: Interpretive Data: U se of this assay is not recommended for patients undergoing treatment with eltrombopag due to the potential for falsely elevated results. Calcium [Mass/Vol] 9.7 mg/dL Normal 8.4 - 10. 2 mg/dL AO ADM SS Chloride [Moles/Vol] 101 mmol/L Normal 98 - 10 7 mmol/L AO ADM SS CO2 [Moles/Vol] 31 mmol/L Normal 23 - 31 mmol/L AO ADM SS Creatinine [Mass/Vol] 1.03 mg/dL High 0.55 - 1.02 mg/dL AO ADM SS Comment on above: Interpretive Data: T esting performed on Siemens Dimension EXL analyzer using a modified kinetic Fifi technique. CRP [Mass/Vol] 0.1 mg/dL Normal 0.0 - 0.3 mg/dL AO ADM SS Electrolyte Balance 8.0 mEq/L Normal 4.0 - 15 .0 mEq/L AO ADM SS Eosinophil, Absolute 0.1 103/mcL Normal 0.0 - 0 .7 10^3/mcL AO Workflow SS Eosinophils/100 WBC (Bld) 2.6 % Normal 0.0 - 7.0 % AO Workflow SS Erythrocyte distribution width (RBC) [Ratio] 13.3 % Normal 11.5 - 15.5 % AO Workflow SS Ferritin [Mass/Vol] 134.0 ng/mL Normal 8.0 - 25 2.0 ng/mL AO ADM SS GFR/1.73 sq M.predicted among blacks MDRD (S/P/Bld) [Vol rate/Area] 62 ml/min/1.73sqm Invalid Interpretation Code AO Chemistry S Comment on above: Interpretive Data: GFR Population mean for , Non- Americans Ages 20-29 = 116 mL/min/1.73 sq.m. Ages 30-39 = 107 mL/min/1.73 sq.m. Ages 40-49 = 99 mL/min/1.73 sq.m. Ages 50-59 = 93 mL/min/1.73 sq.m. Ages 60-69 = 85 mL/min/1.73 sq.m. Ages 70+ = 75 mL/min/1.73 sq.m. Chronic Kidney Disease: Less than 60 mL/min/1.73 square meters End Stage Renal Disease: Less than 15 mL/min/1.73 square meters GFR/1.73 sq M.predicted among non-blacks MDRD (S/P/Bld) [Vol rate/Area] 51 ml/min/1.73sqm Invalid Interpretation Code AO Chemistry S Comment on above: Interpretive Data: GFR Population mean for , Non- Americans Ages 20-29 = 116 mL/min/1.73 sq.m. Ages 30-39 = 107 mL/min/1.73 sq.m. Ages 40-49 = 99 mL/min/1.73 sq.m. Ages 50-59 = 93 mL/min/1.73 sq.m. Ages 60-69 = 85 mL/min/1.73 sq.m. Ages 70+ = 75 mL/min/1.73 sq.m. Chronic Kidney Disease: Less than 60 mL/min/1.73 square meters End Stage Renal Disease: Less than 15 mL/min/1.73 square meters Globulin 3.6 G/dL Invalid Interpretation Code AO ADM SS Glucose [Mass/Vol] 104 mg/dL Normal 83 - 110 mg/dL AO ADM SS Hematocrit (Bld) [Volume fraction] 40.4 % Normal 34.0 - 46.0 % AO Workflow SS Hemoglobin (Bld) [Mass/Vol] 13.7 G/dL Normal 12.0 - 16.0 G/dL AO Workflow SS LDH [Catalytic activity/Vol] 91 U/L Normal 81 - 234 U/L AO ADM SS Lymphocytes (Bld) [#/Vol] 1.4 103/mcL Normal 0.9 - 4.3 10^3/mcL AO Workflow SS Lymphocytes/100 WBC (Bld) 26.5 % Normal 20.0 - 40.0 % AO Workflow SS MCH (RBC) [Entitic mass] 30.4 pg Normal 27.0 - 33.0 pg AO Workflow SS MCHC 33.8 G/dL Normal 32.0 - 36.0 G/dL AO Workflow SS MCV (RBC) [Entitic vol] 89.9 fL Normal 80.0 - 99.0 fL AO Workflow SS Monocytes (Bld) [#/Vol] 0.4 103/mcL Normal 0.1 - 1.4 10^3/mcL AO Workflow SS Monocytes/100 WBC (Bld) 8.2 % Normal 2.0 - 13.0 % AO Workflow SS Neutrophils (Bld) [#/Vol] 3.2 103/mcL Normal 2.3 - 8.1 10^3/mcL AO Workflow SS Neutrophils/100 WBC (Bld) 61.6 % Normal 50.0 - 75.0 % AO Workflow SS Platelet mean volume (Bld) [Entitic vol] 9.3 fL Normal 6.6 - 10.5 fL AO Workflow SS Platelets (Bld) [#/Vol] 216 103/mcL Normal 150 - 450 10^3/mcL AO Workflow SS Potassium [Moles/Vol] 4.3 mmol/L Normal 3.5 - 5.1 mmol/L AO ADM SS Protein [Mass/Vol] 7.4 G/dL Normal 6.4 - 8.2 G/dL AO ADM SS RBC (Bld) [#/Vol] 4.50 106/mcL Normal 4.10 - 5.3 0 10^6/mcL AO Workflow SS Sodium [Moles/Vol] 140 mmol/L Normal 136 - 145 mmol/L AO ADM SS Urea nitrogen [Mass/Vol] 18 mg/dL Normal 7 - 18 mg/dL AO ADM SS Urea nitrogen/Creatinine [Mass ratio] 17 ratio Normal 7 - 27 ratio AO ADM SS WBC (Bld) [#/Vol] 5.2 103/mcL Normal 4.5 - 10.8 10^3/mcL AO Workflow SS LABORATORYOrdered By: Ashley Brenner on 05-01-2024 ESR Photometric method (Bld) [Velocity] 11 mm/hr Normal 0 - 30 mm/hr AO Man Heme SS LDHon 05-01-2024 LDH 91 U/L Normal 81-234 [facility] Comment on above: Performed By: #### F ERR, LD, GFR, ESR, ADIFF, ANEU, CMP, CRP, CBC #### [facility] [address] [place], [place] [address] MR/BMSSilvana 04-16-2024 MR/BMS.MATTEO [facility] [address] [place] [address] OFFICE VISIT Date of Service: 04/16/24 MR#: [id number] Acct: [id number] Name: DAMIEN PATRICIA Rep #: [id number] : 1940 Provider: Dr. Tanvi jacobsen MD Age/Sex: 83/F [place] [facility] [place] Status: Signed Intake Vital Signs 02/05/24 13:15 04/16/24 13:27 Height 5 ft 4 in 5 ft 4 in Weight: 155 lb 161 lb BMI 26.6 27.6 BP 128/86 H 127/79 H Blood Pressure Location Lt brachial Rt brachial Position Sitting Sitting Respiration 16 16 Pulse 78 71 Pulse Source Monitor Monitor Temp 98.4 F 98.6 F Temp Source Temporal Temporal Pulse Oximetry (%) 98 94 Oxygen Delivery Method room air room air Intake Visit Reasons: Discuss BP Medication/Log Chief Complaint: discuss BP medication/log Ornament Stapler Required: No Accompanied by: Self Is patient in pain?: No Allergies atorvastatin Allergy (Severe, Verified 04/16/24 13:12) Hives Influenza Virus Vaccines Allergy (Severe, Verified 04/16/24 13:12) left ear deafness Sulfa (Sulfonamide Antibiotics) Allergy (Severe, Verified 04/16/24 13:12) Hives Penicillins Allergy (Intermediate, Verified 04/16/24 13:12) Rash amlodipine Adverse Reaction (Intermediate, Verified 04/16/24 13:12) swelling in feet and legs losartan Adverse Reaction (Intermediate, Verified 04/16/24 13:12) doesn't feel well, fatigued hydrochlorothiazide (From Micardis HCT) Adverse Reaction (Verified 04/16/24 13:12) Nausea, fatigue, palpitations telmisartan (From Micardis HCT) Adverse Reaction (Verified 04/16/24 13:12) Nausea, fatigue, palpitations Medications ???Medication ???Instructions ???Recorded ???Confirmed ???Type calcium 600 mg (as 1 cap PO DAILY 03/22/20 04/16/24 History carbonate)-vitamin D3 10 mcg (400 unit) capsule levothyroxine 100 mcg tablet 100 mcg PO .COMPLEX 01/05/22 04/16/24 History (Synthroid) omega-3 fatty acids 1,000 mg 1,000 mg PO DAILY 01/05/22 04/16/24 History capsule melatonin, L Theanine PO 04/30/23 04/16/24 History turmeric 400 mg capsule 250 mg PO DAILY PRN 05/01/23 04/16/24 History diphenhydramine HCl 25 mg tablet 25 mg PO QHS PRN 08/08/23 04/16/24 History (Benadryl Allergy) fluocinolone acetonide oil 0.01 % 1 drp otic (ear) PRN 08/08/23 04/16/24 History ear drops l theanine PO DAILY 08/08/23 04/16/24 History Micardis HCT 80 mg-25 mg tablet 1 tab PO QAM #90 tabs 12/19/23 04/16/24 Rx (telmisartan-hydrochl orothiazid) benzonatate 200 mg capsule 200 mg PO TID PRN cough #20 caps 02/05/24 04/16/24 Rx trazodone 50 mg tablet 25 mg (1/2 x 50 mg) PO QHS PRN 02/19/24 04/16/24 Rx sleep #30 tabs 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 PO 04/16/24 History Have you fallen in the past year?: No PFSH Medical History COVID-19 ( 12/24/21) Palpitations Vulvar cancer Essential hypertension Hypothyroidism Nonrheumatic mitral valve prolapse Surgical History History of tubal ligation History of hysterectomy History of vaginal surgery Family History Father CAD (coronary artery disease) Heart valve disease Sister Tachycardia Social History Smoking Status: Never smoker alcohol intake: current alcohol intake frequency: 0-2 drinks per day Alcohol type: beer and wine substance use type: does not use caffeine: Yes Type: coffee Number of servings: 2 HPI HPI Chief Complaint: discuss BP medication/log Details: DAMIEN PATRICIA, is a 83 F who presents to the office today for 6-month follow-up. Overall is doing quite well. She has a history of hypertension on telmisartan???HCTZ 80???25. Otherwise she takes turmeric, omega fatty acids, levothyroxine, calcium with vitamin D. Last year, into earlier this year, she was having a lot of difficulties with depressive symptoms, and family and friend relationship issues. Review all of my previous notes in that regards. Overall, she is doing much much better. She is doing a lot more out of house activities, engaging more in community types of activities. She is playing volleyball, has been recently taking some horse riding lessons. She enjoys doing these types of activities. She is gardening. She is attending gnosticist on a regular basis, doing more scripture or reading, prayerful reflection. All told, this has helped dramatically in terms of depressive symptoms and some of her sleep difficulties that she was having. She has been taking blood pressure readings at home, however inadvertently forgot to bring the log in with her. She will bring that in soon and drop it off. Eating still a very good high-quality diet, paying good attention to (more content not included)... Normal [facility] Lipid Profileon 04-11-2024 Cholesterol [Mass/Vol] 179 mg/dL Normal 200 [facility] Comment on above: Result Comment: <200 mg/dL Desirable 200-240 mg/dL Borderline >240 mg/dL High Risk Performed By: #### L 500.3400, L500.4100 #### [facility] [address] [place], [address] Cholesterol in HDL [Mass/Vol] 56 mg/dL Normal [facility] [place] Comment on above: Result Comment: The drugs N-Acetylcysteine and Metamizole may falsely depress this assay. Reference Range HDL <40 mg/dL Low HDL Cholesterol HDL >or= 60 mg/dL High HDL Cholesterol Performed By: #### L 500.3400, L500.4100 #### [facility] [place] [facility] [address] [place], [address] Cholesterol in LDL [Mass/Vol] 106 mg/dL Normal 0-130 [facility] Comment on above: Performed By: #### L 500.3400, L500.4100 #### [facility] [address] [place], [address] Cholesterol in VLDL [Mass/Vol] 17 mg/dL Normal 5-40 [facility] [place] Comment on above: Performed By: #### L 500.3400, L500.4100 #### [facility] [address] [place], [address] Triglyceride [Mass/Vol] 87 mg/dL Normal [facility] Comment on above: Result Comment: The drugs N-Acetylcysteine and Metamizole may falsely depress this assay. Serum Triglycerides Reference Interval Normal <150 mg/dL Borderline high 150 - 199 mg/dL High 200 - 499 mg/dL Very High > or = 500 mg/dL Performed By: #### L 500.3400, L500.4100 #### [facility] [address] [place], [address] Liver Profileon 04-11-2024 Albumin [Mass/Vol] 3.5 g/dL Normal 3.2-5.0 [facility] Comment on above: Performed By: #### L 500.3400, L500.4100 #### [facility] [address] [place], [address] ALK P 65 U/L Normal 45-117 [facility] Comment on above: Performed By: #### L 500.3400, L500.4100 #### [facility] [address] [place], [address] ALT [Catalytic activity/Vol] 23 U/L Normal 13-56 [facility] Comment on above: Performed By: #### L 500.3400, L500.4100 #### [facility] [address] [place], [address] AST [Catalytic activity/Vol] 19 U/L Normal 15-37 [facility] Comment on above: Performed By: #### L 500.3400, L500.4100 #### [facility] [address] [place], [address] Bilirubin [Mass/Vol] 0.70 mg/dL Normal 0.20-1.00 [facility] Comment on above: Result Comment: For patients on eltrombopag therapy, use of Dimension Kinney TBIL is not recommended. Performed By: #### L 500.3400, L500.4100 #### [facility] [address] [place], [address] Bilirubin.direct [Mass/Vol] 0.12 mg/dL Normal 0.00-0.30 [facility] Comment on above: Performed By: #### L 500.3400, L500.4100 #### [facility] [address] [place], [address] Globulin (S) [Mass/Vol] 3.9 g/dL Normal 2.2-4.2 [facility] Comment on above: Performed By: #### L 500.3400, L500.4100 #### [facility] [address] [place], [address] T PROT 7.4 g/dL Normal 6.4-8.2 [facility] Comment on above: Performed By: #### L 500.3400, L500.4100 #### [facility] [address] [place], [place], [address] Urgent Care Visit Reporton 0 02-05-2024 Urgent Care Visit Report [facility] [address], [address] [place], [place] [address] OFFICE VISIT Date of Service: 02/05/24 MR#: [id number] Acct: [id number] Name: DAMIEN PATRICIA Rep #: : 1940 Provider: JOSE Alexander Age/Sex: 83/F Location: [email or web address] Status: Signed Intake Vital Signs 08/08/23 16:14 02/05/24 13:15 Height 5 ft 4 in 5 ft 4 in Weight: 155 lb BMI 26.6 BP 128/86 H Blood Pressure Location Lt brachial Position Sitting Respiration 16 Pulse 78 Pulse Source Monitor Temp 98.4 F Temp Source Temporal Pulse Oximetry (%) 98 Oxygen Delivery Method room air Intake Visit Reasons: SINUS PRESSURE/PAIN/BILAT EYE/EAR PAIN Chief Complaint: SINUS PRESSURE PAIN BILATERAL EYE AND EAR CONCERNS Ornament Stapler Required: No Accompanied by: Self Is patient in pain?: Yes Allergies atorvastatin Allergy (Severe, Verified 02/05/24 13:16) Hives Influenza Virus Vaccines Allergy (Severe, Verified 02/05/24 13:16) left ear deafness Sulfa (Sulfonamide Antibiotics) Allergy (Severe, Verified 02/05/24 13:16) Hives Penicillins Allergy (Intermediate, Verified 02/05/24 13:16) Rash amlodipine Adverse Reaction (Intermediate, Verified 02/05/24 13:16) swelling in feet and legs losartan Adverse Reaction (Intermediate, Verified 02/05/24 13:16) doesn't feel well, fatigued hydrochlorothiazide (From Micardis HCT) Adverse Reaction (Verified 02/05/24 13:16) Nausea, fatigue, palpitations telmisartan (From Micardis HCT) Adverse Reaction (Verified 02/05/24 13:16) Nausea, fatigue, palpitations Medications ???Medication ???Instructions ???Recorded ???Confirmed ???Type calcium carbonate 600 mg-vitamin 1 cap PO DAILY 03/22/20 02/05/24 History D3 10 mcg (400 unit) capsule levothyroxine 100 mcg tablet 100 mcg PO .COMPLEX 01/05/22 02/05/24 History (Synthroid) omega-3 fatty acids 1,000 mg 1,000 mg PO DAILY 01/05/22 02/05/24 History capsule melatonin, L Theanine PO 04/30/23 02/05/24 History turmeric 400 mg capsule 250 mg PO DAILY PRN 05/01/23 02/05/24 History Saccharomyces boulardii 250 mg 250 mg PO DAILY 08/08/23 02/05/24 History capsule (Daily Probiotic (S. boulardii)) diphenhydramine HCl 25 mg tablet 25 mg PO QHS PRN 08/08/23 02/05/24 History (Benadryl Allergy) erythromycin 5 mg/gram (0.5 %) eye 1 applic ophthalmic (eye) HS 08/08/23 02/05/24 History ointment fluocinolone acetonide oil 0.01 % 1 drp otic (ear) PRN 08/08/23 02/05/24 History ear drops l theanine PO DAILY 08/08/23 02/05/24 History trazodone 50 mg tablet 25 mg PO QHS PRN 08/08/23 02/05/24 History Micardis HCT 80 mg-25 mg tablet 1 tab PO QAM #90 tabs 12/19/23 02/05/24 Rx (telmisartan-hydrochl orothiazid) benzonatate 200 mg capsule 200 mg PO TID PRN cough #20 caps 02/05/24 02/05/24 Rx methylprednisolone 4 mg tablets in See Rx Instructions PO PER PKG DIR 02/05/24 02/05/24 Rx a dose pack (Medrol ([place])) #21 tabs Have you fallen in the past year?: No PFSH Medical History COVID-19 ( 12/24/21) Palpitations Vulvar cancer Essential hypertension Hypothyroidism Nonrheumatic mitral valve prolapse Surgical History History of tubal ligation History of hysterectomy History of vaginal surgery Family History Father CAD (coronary artery disease) Heart valve disease Sister Tachycardia Social History Smoking Status: Never smoker alcohol intake: current alcohol intake frequency: 0-2 drinks per day Alcohol type: beer and wine substance use type: does not use caffeine: Yes Type: coffee Number of servings: 2 HPI HPI Chief Complaint: SINUS PRESSURE PAIN BILATERAL EYE AND EAR CONCERNS Details: DAMIEN PATRICIA, is a 83 F who presents to the office today for [facility] evaluation [facility] for approximately 24-hour history of persistent sinus congestion, clear rhinorrhea, and occasional cough. Patient notes no complaints of chest pain or shortness of breath or dyspnea on exertion. Several close contacts recently dx???d w/ similar URI complaints. No [id number] taken to assist. No other associated symptoms and no other alleviating/aggravati ng factors. ROS Const Constitutional: No other (As above) Exam Const General: cooperative, healthy appearing and no acute distress Orientation: alert, awake and oriented x3 HENMT Head: normal to inspection Ears: hearing grossly normal bilaterally, external ears normal, TM's normal bilaterally and EAC's normal Nose: external nose normal, nares normal, septum normal and clear nasal discharge Face and sinus: normal facial exam, sinuses (more content not included)... Normal [facility] MAMMOGRAM SCREENING BILAT ERAL W/TOMOon 12-05-2023 ND MAMMOGRAM SCREENING BILATERAL W/BOLA ORIGINAL FROM: [facility] [place] [address] [place], [place] [address] PROCEDURE FOR: DAMIEN PATRICIA [address] [place] [address] Home: PID#: [id number] Exam#: [id number] : 1940 Age: 82 TO: ANNIA WILSON APRN DATABASE ADMINISTRATION MANAGER [address] [place] [address] EXAMINATION: SCREENING DIGITAL BILATERAL MAMMOGRAM WITH TOMOSYNTHESIS, 12/05/2023 12:47 pm TECHNIQUE: Screening mammography of the bilateral breasts was performed with tomosynthesis. 2D standard and 3D tomosynthesis combination imaging performed through both breasts in the MLO and CC projection. Computer aided detection was utilized in the interpretation of this exam. COMPARISON: September 28, 2022, September 22, 2021, September 20, 2020 HISTORY: Breast cancer screening. FINDINGS: BREAST DENSITY: There are scattered areas of fibroglandular density. There are bilateral benign-type calcifications. There is no significant mass, architectural distortion or microcalcification. Fibroglandular pattern is stable. IMPRESSION: No mammographic evidence of malignancy. Continued screening with annual mammograms is recommended. Timmy Garcia risk calculations, generated with the history provided, report this patient's lifetime risk for developing breast cancer at 0.7%. Based on this assessment tool, if the patient's calculated lifetime risk is below 20%, then the patient is considered at average risk for developing breast cancer. If the patient's calculated lifetime risk is at or above 20%, then the patient is considered high risk for developing breast cancer and may be a candidate for supplemental breast MRI screening in addition to annual mammographic screening per the [employer]. BIRADS: MAMMOGRAM BI-RADS: 2: Benign finding RECALL: 1 year screening RECALL TYPE: mammo LETTER SENT: Normal BI-RADS 1 and 2 Interpreted by: Shyanne Graves Preliminary Report By: Shyanne Graves Electronically signed By Shyanne Graves Dictated Date: 12/05/2023 1:58:21 PM Prelim Date: 12/05/2023 2:01:10 PM Sign Date: 12/05/2023 2:01:10 PM Ordering Provider: ANNIA WILSON copy to: TANVI DOTY MD, ph: [phone], fax: [phone] Manager Strategic Sourcing: AUDIE RENAE RT(R)(M)(CT) letter sent: Normal BI-RADS 1 and 2 Mammogram BI-RADS: 2 Benign Normal [facility] ([place]) .GFRon 12-04-2023 GFR 60 ml/min/1.73sqm Normal [facility] ([place]) Comment on above: Result Comment: GFR Population mean for , Non- Americans Ages 20-29 = 116 mL/min/1.73 sq.m. Ages 30-39 = 107 mL/min/1.73 sq.m. Ages 40-49 = 99 mL/min/1.73 sq.m. Ages 50-59 = 93 mL/min/1.73 sq.m. Ages 60-69 = 85 mL/min/1.73 sq.m. Ages 70+ = 75 mL/min/1.73 sq.m. Chronic Kidney Disease: Less than 60 mL/min/1.73 square meters End Stage Renal Disease: Less than 15 mL/min/1.73 square meters Performed By: #### C MP, A1C, VIDH, FT4, FT3, GFR, TSH #### [address] [address] #### MCRSO #### [address] [address] GFR Non- 50 ml/min/1.73sqm Normal [facility] ([place]) Comment on above: Result Comment: GFR Population mean for , Non- Americans Ages 20-29 = 116 mL/min/1.73 sq.m. Ages 30-39 = 107 mL/min/1.73 sq.m. Ages 40-49 = 99 mL/min/1.73 sq.m. Ages 50-59 = 93 mL/min/1.73 sq.m. Ages 60-69 = 85 mL/min/1.73 sq.m. Ages 70+ = 75 mL/min/1.73 sq.m. Chronic Kidney Disease: Less than 60 mL/min/1.73 square meters End Stage Renal Disease: Less than 15 mL/min/1.73 square meters Performed By: #### C MP, A1C, VIDH, FT4, FT3, GFR, TSH #### [address] [address] #### MCRSO #### [address] [address] A1Con 12-04-2023 HbA1c (Bld) [Mass fraction] 6.0 % Normal 4.3-6.4 [facility] ([place]) Comment on above: Performed By: #### C MP, A1C, VIDH, FT4, FT3, GFR, TSH #### [address] [address] #### MCRSO #### [address] [address] CMPon 12-04-2023 Albumin Level 3.7 G/dL Normal 3.4-4.8 [facility] ([place]) Comment on above: Performed By: #### C MP, A1C, VIDH, FT4, FT3, GFR, TSH #### [address] [address] #### MCRSO #### [address] [address] Albumin/Globulin [Mass ratio] 1.1 {ratio} Normal 1.1-2.5 [facility] ([place]) Comment on above: Performed By: #### C MP, A1C, VIDH, FT4, FT3, GFR, TSH #### [address] [address] #### MCRSO #### [address] [address] ALP [Catalytic activity/Vol] 69 U/L Normal 40-135 [facility] ([place]) Comment on above: Performed By: #### C MP, A1C, VIDH, FT4, FT3, GFR, TSH #### [address] [address] #### MCRSO #### [address] [address] ALT [Catalytic activity/Vol] 23 U/L Normal 14-59 [facility] ([place]) Comment on above: Performed By: #### C MP, A1C, VIDH, FT4, FT3, GFR, TSH #### [address] [address] #### MCRSO #### [address] [address] AST [Catalytic activity/Vol] 13 U/L Normal 10-40 [facility] ([place]) Comment on above: Performed By: #### C MP, A1C, VIDH, FT4, FT3, GFR, TSH #### [place] [address] #### MCRSO #### [address] [address] Bili Total 0.5 mg/dL Normal 0.2-1.0 [facility] ([place]) Comment on above: Result Comment: Use of this assay is not recommended for patients undergoing treatment with eltrombopag due to the potential for falsely elevated results. Performed By: #### C MP, A1C, VIDH, FT4, FT3, GFR, TSH #### [place] [address] #### MCRSO #### [place] [address] BUN/Creatinine Ratio 21 ratio Normal 7-27 [facility] ([place]) Comment on above: Performed By: #### C MP, A1C, VIDH, FT4, FT3, GFR, TSH #### [place] [address] #### MCRSO #### [address] [address] Calcium [Mass/Vol] 9.6 mg/dL Normal 8.4-10.2 [facility] ([place]) Comment on above: Performed By: #### C MP, A1C, VIDH, FT4, FT3, GFR, TSH #### [place] [address] #### MCRSO #### [address] [address] Chloride [Moles/Vol] 101 mmol/L Normal 98-107 [facility] ([place]) Comment on above: Performed By: #### C MP, A1C, VIDH, FT4, FT3, GFR, TSH #### [place] [address] #### MCRSO #### [address] [address] CO2 [Moles/Vol] 29 mmol/L Normal 23-31 [facility] ([place]) Comment on above: Performed By: #### C MP, A1C, VIDH, FT4, FT3, GFR, TSH #### [address] [address] #### MCRSO #### [address] [address] Creatinine [Mass/Vol] 1.06 mg/dL High 0.55-1.02 [facility] ([place]) Comment on above: Performed By: #### C MP, A1C, VIDH, FT4, FT3, GFR, TSH #### [address] [address] #### MCRSO #### [address] [address] Electrolyte Balance 10.0 mEq/L Normal 4.0-15.0 [facility] ([place]) Comment on above: Performed By: #### C MP, A1C, VIDH, FT4, FT3, GFR, TSH #### [address] [address] #### MCRSO #### [address] [address] Globulin 3.5 G/dL Normal [facility] ([place]) Comment on above: Performed By: #### C MP, A1C, VIDH, FT4, FT3, GFR, TSH #### [address] [address] #### MCRSO #### [address] [address] Glucose [Mass/Vol] 96 mg/dL Normal 83-110 [facility] ([place]) Comment on above: Performed By: #### C MP, A1C, VIDH, FT4, FT3, GFR, TSH #### [address] [address] #### MCRSO #### [address] [address] Potassium [Moles/Vol] 4.6 mmol/L Normal 3.5-5.1 [facility] ([place]) Comment on above: Performed By: #### C MP, A1C, VIDH, FT4, FT3, GFR, TSH #### [address] [address] #### MCRSO #### [address] [address] Sodium [Moles/Vol] 140 mmol/L Normal 136-145 [facility] ([place]) Comment on above: Performed By: #### C MP, A1C, VIDH, FT4, FT3, GFR, TSH #### [place] [address] #### MCRSO #### [address] [address] Total Protein 7.2 G/dL Normal 6.4-8.2 [facility] ([place]) Comment on above: Performed By: #### C MP, A1C, VIDH, FT4, FT3, GFR, TSH #### [place] [address] #### MCRSO #### [address] [address] Urea nitrogen [Mass/Vol] 22 mg/dL High 7-18 [facility] ([place]) Comment on above: Performed By: #### C MP, A1C, VIDH, FT4, FT3, GFR, TSH #### [place] [address] #### MCRSO #### [address] [address] FT3on 12-04-2023 Free T3 [Mass/Vol] 3.07 pg/mL Normal 2.30-4.00 [facility] ([place]) Comment on above: Performed By: #### C MP, A1C, VIDH, FT4, FT3, GFR, TSH #### [place] [address] #### MCRSO #### [address] [address] FT4on 12-04-2023 Free T4 [Mass/Vol] 1.16 ng/dL Normal 0.76-1.46 [facility] ([place]) Comment on above: Performed By: #### C MP, A1C, VIDH, FT4, FT3, GFR, TSH #### [facility] [place] [address] [place], [place] [address] #### [facility] #### [facility] [address] [place] [address] LABORATORYOrdered By: SYSTEM SYSTEM on 12-04-2023 25-hydroxyvitamin D3 [Mass/Vol] 29.2 ng/mL Invalid Interpretation Code AO ADM SS Comment on above: Interpretive Data: I nterpretive Values Based on Total 25(OH) Vitamin D: Deficient <20 ng/mL Insufficient 20 - <30 ng/mL Sufficient 30-100 ng/mL Albumin BCP dye [Mass/Vol] 3.7 G/dL Normal 3.4 - 4.8 G/dL AO ADM SS Albumin/Globulin [Mass ratio] 1.1 {ratio} Normal 1.1 - 2.5 ratio AO ADM SS ALP [Catalytic activity/Vol] 69 U/L Normal 40 - 135 U/L AO ADM SS ALT With P-5'-P [Catalytic activity/Vol] 23 U/L Normal 14 - 59 U/L AO ADM SS AST With P-5'-P [Catalytic activity/Vol] 13 U/L Normal 10 - 40 U/L AO ADM SS Bilirubin [Mass/Vol] 0.5 mg/dL Normal 0.2 - 1 .0 mg/dL AO ADM SS Comment on above: Interpretive Data: U se of this assay is not recommended for patients undergoing treatment with eltrombopag due to the potential for falsely elevated results. Calcium [Mass/Vol] 9.6 mg/dL Normal 8.4 - 10. 2 mg/dL AO ADM SS Chloride [Moles/Vol] 101 mmol/L Normal 98 - 10 7 mmol/L AO ADM SS CO2 [Moles/Vol] 29 mmol/L Normal 23 - 31 mmol/L AO ADM SS Creatinine [Mass/Vol] 1.06 mg/dL High 0.55 - 1.02 mg/dL AO ADM SS Electrolyte Balance 10.0 mEq/L Normal 4.0 - 15 .0 mEq/L AO ADM SS Free T3 [Mass/Vol] 3.07 pg/mL Normal 2.30 - 4. 00 pg/mL AO ADM SS Free T4 [Mass/Vol] 1.16 ng/dL Normal 0.76 - 1. 46 ng/dL AO ADM SS GFR/1.73 sq M.predicted among blacks MDRD (S/P/Bld) [Vol rate/Area] 60 ml/min/1.73sqm Invalid Interpretation Code AO Chemistry S Comment on above: Interpretive Data: GFR Population mean for , Non- Americans Ages 20-29 = 116 mL/min/1.73 sq.m. Ages 30-39 = 107 mL/min/1.73 sq.m. Ages 40-49 = 99 mL/min/1.73 sq.m. Ages 50-59 = 93 mL/min/1.73 sq.m. Ages 60-69 = 85 mL/min/1.73 sq.m. Ages 70+ = 75 mL/min/1.73 sq.m. Chronic Kidney Disease: Less than 60 mL/min/1.73 square meters End Stage Renal Disease: Less than 15 mL/min/1.73 square meters GFR/1.73 sq M.predicted among non-blacks MDRD (S/P/Bld) [Vol rate/Area] 50 ml/min/1.73sqm Invalid Interpretation Code AO Chemistry S Comment on above: Interpretive Data: GFR Population mean for , Non- Americans Ages 20-29 = 116 mL/min/1.73 sq.m. Ages 30-39 = 107 mL/min/1.73 sq.m. Ages 40-49 = 99 mL/min/1.73 sq.m. Ages 50-59 = 93 mL/min/1.73 sq.m. Ages 60-69 = 85 mL/min/1.73 sq.m. Ages 70+ = 75 mL/min/1.73 sq.m. Chronic Kidney Disease: Less than 60 mL/min/1.73 square meters End Stage Renal Disease: Less than 15 mL/min/1.73 square meters Globulin 3.5 G/dL Invalid Interpretation Code AO ADM SS Glucose [Mass/Vol] 96 mg/dL Normal 83 - 110 mg/dL AO ADM SS HbA1c (Bld) [Mass fraction] 6.0 % Normal 4.3 - 6.4 % AO ADM SS Potassium [Moles/Vol] 4.6 mmol/L Normal 3.5 - 5.1 mmol/L AO ADM SS Protein [Mass/Vol] 7.2 G/dL Normal 6.4 - 8.2 G/dL AO ADM SS Sodium [Moles/Vol] 140 mmol/L Normal 136 - 145 mmol/L AO ADM SS TPO Ab IA Qn 534 unit/mL High 0 - 60 unit/mL AH ADM SS Comment on above: Interpretive Data: * *Note - New Reference Range in effect 19 TSH Qn 1.28 m[IU]/L Normal 0.36 - 3.74 mcIU/mL AO ADM SS Urea nitrogen [Mass/Vol] 22 mg/dL High 7 - 18 mg/dL AO ADM SS Urea nitrogen/Creatinine [Mass ratio] 21 ratio Normal 7 - 27 ratio AO ADM SS TSHon 12-04-2023 TSH Qn 1.28 m[IU]/L Normal 0.36-3.74 [facility] ([place]) Comment on above: Performed By: #### C MP, A1C, VIDH, FT4, FT3, GFR, TSH #### [address] [address] #### MCRSO #### [place] [address] VIDHon 12-04-2023 Vit. D 25-Hydroxy 29.2 ng/mL Normal [facility] ([place]) Comment on above: Result Comment: Inte rpretive Values Based on Total 25(OH) Vitamin D: Deficient <20 ng/mL Insufficient 20 - <30 ng/mL Sufficient 30-100 ng/mL Performed By: #### C MP, A1C, VIDH, FT4, FT3, GFR, TSH #### [address] [address] #### MCRSO #### [place] [address] aTPOon 12-04-2023 anti-Thyroid Peroxidase 534 units/ml High 0-60 [facility] ([place]) Comment on above: Result Comment: No te - New Reference Range in effect 19 Performed By: #### C MP, A1C, VIDH, FT4, FT3, GFR, TSH #### [address] [address] #### MCRSO #### [address] [address] T[place]anda 10-25-2023 Ferritin [Mass/Vol] 96.0 ng/mL Normal 8.0-252.0 [facility] ([place]) Comment on above: Performed By: #### F ERR, LD #### [address] [address] LDHon 10-25-2023 LDH 75 U/L Low 81-234 [facility] ([place]) Comment on above: Performed By: #### F ERR, LD #### [address] [address] .Auto Diffon 10-24-2023 Basophil, Absolute 0.0 10 3/mcL Normal 0.0-0.2 [facility] ([place]) Comment on above: Performed By: #### C MP, A1C, VIDH, FT4, FT3, GFR, TSH #### [place] [address] #### MCRSO #### [address] [address] Basophils/100 WBC (Bld) 0.9 % Normal 0.0-2.5 [facility] ([place]) Comment on above: Performed By: #### C MP, A1C, VIDH, FT4, FT3, GFR, TSH #### [address] [address] #### MCRSO #### [address] [address] Eosinophil, Absolute 0.1 10 3/mcL Normal 0.0-0.4 [facility] ([place]) Comment on above: Performed By: #### C MP, A1C, VIDH, FT4, FT3, GFR, TSH #### [place] [address] #### MCRSO #### [address] [address] Eosinophils/100 WBC (Bld) 2.1 % Normal 0.0-7.0 [facility] ([place]) Comment on above: Performed By: #### C MP, A1C, VIDH, FT4, FT3, GFR, TSH #### [address] [address] #### MCRSO #### [address] [address] Lymphocyte, Absolute 1.1 10 3/mcL Normal 0.8-3.9 [facility] ([place]) Comment on above: Performed By: #### C MP, A1C, VIDH, FT4, FT3, GFR, TSH #### [address] [address] #### MCRSO #### [address] [address] Lymphocytes/100 WBC (Bld) 23.8 % Normal 10.0-50.0 [facility] ([place]) Comment on above: Performed By: #### C MP, A1C, VIDH, FT4, FT3, GFR, TSH #### [place] [address] #### MCRSO #### [address] [address] Monocyte, Absolute 0.4 10 3/mcL Normal 0.2-1.0 [facility] ([place]) Comment on above: Performed By: #### C MP, A1C, VIDH, FT4, FT3, GFR, TSH #### [address] [address] #### MCRSO #### [address] [address] Monocytes/100 WBC (Bld) 9.0 % Normal 1.7-13.0 [facility] ([place]) Comment on above: Performed By: #### C MP, A1C, VIDH, FT4, FT3, GFR, TSH #### [place] [address] #### MCRSO #### [address] [address] Neutrophils/100 WBC (Bld) 64.2 % Normal 37.0-80.0 [facility] ([place]) Comment on above: Performed By: #### C MP, A1C, VIDH, FT4, FT3, GFR, TSH #### [address] [address] #### MCRSO #### [address] [address] .GFRon 10-24-2023 GFR 61 ml/min/1.73sqm Normal [facility] ([place]) Comment on above: Result Comment: GFR Population mean for , Non- Americans Ages 20-29 = 116 mL/min/1.73 sq.m. Ages 30-39 = 107 mL/min/1.73 sq.m. Ages 40-49 = 99 mL/min/1.73 sq.m. Ages 50-59 = 93 mL/min/1.73 sq.m. Ages 60-69 = 85 mL/min/1.73 sq.m. Ages 70+ = 75 mL/min/1.73 sq.m. Chronic Kidney Disease: Less than 60 mL/min/1.73 square meters End Stage Renal Disease: Less than 15 mL/min/1.73 square meters Performed By: #### C MP, A1C, VIDH, FT4, FT3, GFR, TSH #### [address] [address] #### MCRSO #### [address] [address] GFR Non- 50 ml/min/1.73sqm Normal [facility] ([place]) Comment on above: Result Comment: GFR Population mean for , Non- Americans Ages 20-29 = 116 mL/min/1.73 sq.m. Ages 30-39 = 107 mL/min/1.73 sq.m. Ages 40-49 = 99 mL/min/1.73 sq.m. Ages 50-59 = 93 mL/min/1.73 sq.m. Ages 60-69 = 85 mL/min/1.73 sq.m. Ages 70+ = 75 mL/min/1.73 sq.m. Chronic Kidney Disease: Less than 60 mL/min/1.73 square meters End Stage Renal Disease: Less than 15 mL/min/1.73 square meters Performed By: #### C MP, A1C, VIDH, FT4, FT3, GFR, TSH #### [address] [address] #### MCRSO #### [address] [address] .NEUABSon 10-24-2023 Neutrophil, Absolute 2.9 10 3/mcL Normal 2.9-6.2 [facility] ([place]) Comment on above: Performed By: #### C MP, A1C, VIDH, FT4, FT3, GFR, TSH #### [address] [address] #### MCRSO #### [address] [address] CBCon 10-24-2023 Erythrocyte distribution width (RBC) [Ratio] 13.4 % Normal 11.5-14.5 [facility] ([place]) Comment on above: Performed By: #### F ERR, LD #### [address] [address] Hematocrit (Bld) [Volume fraction] 38.5 % Normal 37.0-47.0 [facility] ([place] Comment on above: Performed By: #### F ERR, LD #### [address] [address] Hgb 13.4 G/dL Normal 12.0-16.0 [facility] ([place] Comment on above: Performed By: #### F ERR, LD #### [address] [address] MCH (RBC) [Entitic mass] 29.8 pg Normal 27.0-31.2 [facility] ([place] Comment on above: Performed By: #### F ERR, LD #### [address] [address] MCHC 34.9 G/dL Normal 33.0-37.0 [facility] ([place] Comment on above: Performed By: #### F ERR LD #### [address] [address] MCV (RBC) [Entitic vol] 85.5 fL Normal 80.0-94.0 [facility] ([place] Comment on above: Performed By: #### F ERR, LD #### [address] [address] Platelet 228 10 3/mcL Normal 130-400 [facility] ([place] Comment on above: Performed By: #### F ERR LD #### [address] [address] Platelet mean volume (Bld) [Entitic vol] 9.5 fL Normal 7.4-10.4 [facility] ([place] Comment on above: Performed By: #### F ERR, LD #### [address] [address] RBC 4.50 10 6/mcL Normal 4.20-5.40 [facility] ([place] Comment on above: Performed By: #### F ERR LD #### [address] [address] WBC 4.6 10 3/mcL Normal 4.6-10.8 [facility] ([place] Comment on above: Performed By: #### F ERR, LD #### [address] [address] CMPon 10-24-2023 Albumin Level 3.6 G/dL Normal 3.4-4.8 [facility] ([place] Comment on above: Performed By: #### C MP, A1C, VIDH, FT4, FT3, GFR, TSH #### [address] [address] #### MCRSO #### [address] [address] Albumin/Globulin [Mass ratio] 0.9 {ratio} Low 1.1-2.5 [facility] ([place] Comment on above: Performed By: #### C MP, A1C, VIDH, FT4, FT3, GFR, TSH #### [place] [address] #### MCRSO #### [address] [address] ALP [Catalytic activity/Vol] 71 U/L Normal 40-135 [facility] ([place] Comment on above: Performed By: #### C MP, A1C, VIDH, FT4, FT3, GFR, TSH #### [place] [address] #### MCRSO #### [place] [id number] ALT [Catalytic activity/Vol] 23 U/L Normal 14-59 [facility] ([place] Comment on above: Performed By: #### C MP, A1C, VIDH, FT4, FT3, GFR, TSH #### [place] [address] #### MCRSO #### [place] [address] AST [Catalytic activity/Vol] 12 U/L Normal 10-40 [facility] ([place] Comment on above: Performed By: #### C MP, A1C, VIDH, FT4, FT3, GFR, TSH #### [place] [address] #### MCRSO #### [address] [address] Bili Total 0.5 mg/dL Normal 0.2-1.0 [facility] ([place] Comment on above: Result Comment: Use of this assay is not recommended for patients undergoing treatment with eltrombopag due to the potential for falsely elevated results. Performed By: #### C MP, A1C, VIDH, FT4, FT3, GFR, TSH #### [place] [address] #### MCRSO #### [place] [id number] BUN/Creatinine Ratio 17 ratio Normal 7-27 [facility] ([place]) Comment on above: Performed By: #### C MP, A1C, VIDH, FT4, FT3, GFR, TSH #### [address] [address] #### MCRSO #### [address] [address] Calcium [Mass/Vol] 9.0 mg/dL Normal 8.4-10.2 [facility] ([place]) Comment on above: Performed By: #### C MP, A1C, VIDH, FT4, FT3, GFR, TSH #### [address] [address] #### MCRSO #### [address] [address] Chloride [Moles/Vol] 101 mmol/L Normal 98-107 [facility] ([place]) Comment on above: Performed By: #### C MP, A1C, VIDH, FT4, FT3, GFR, TSH #### [address] [address] #### MCRSO #### [address] [address] CO2 [Moles/Vol] 31 mmol/L Normal 23-31 [facility] ([place] Comment on above: Performed By: #### C MP, A1C, VIDH, FT4, FT3, GFR, TSH #### [address] [address] #### MCRSO #### [address] [address] Creatinine [Mass/Vol] 1.05 mg/dL High 0.55-1.02 [facility] ([place]) Comment on above: Performed By: #### C MP, A1C, VIDH, FT4, FT3, GFR, TSH #### [address] [address] #### MCRSO #### [address] [address] Electrolyte Balance 7.0 mEq/L Normal 4.0-15.0 [facility] ([place]) Comment on above: Performed By: #### C MP, A1C, VIDH, FT4, FT3, GFR, TSH #### [address] [address] #### MCRSO #### [address] [address] Globulin 3.8 G/dL Normal [facility] ([place] Comment on above: Performed By: #### C MP, A1C, VIDH, FT4, FT3, GFR, TSH #### [address] [address] #### MCRSO #### [address] [address] Glucose [Mass/Vol] 97 mg/dL Normal 83-110 [facility] ([place]) Comment on above: Performed By: #### C MP, A1C, VIDH, FT4, FT3, GFR, TSH #### [address] [address] #### MCRSO #### [address] [address] Potassium [Moles/Vol] 4.1 mmol/L Normal 3.5-5.1 [facility] ([place]) Comment on above: Performed By: #### C MP, A1C, VIDH, FT4, FT3, GFR, TSH #### [address] [address] #### MCRSO #### [address] [address] Sodium [Moles/Vol] 139 mmol/L Normal 136-145 [facility] ([place]) Comment on above: Performed By: #### C MP, A1C, VIDH, FT4, FT3, GFR, TSH #### [address] [address] #### MCRSO #### [address] [address] Total Protein 7.4 G/dL Normal 6.4-8.2 [facility] ([place] Comment on above: Performed By: #### C MP, A1C, VIDH, FT4, FT3, GFR, TSH #### [address] [address] #### MCRSO #### [place] [address] Urea nitrogen [Mass/Vol] 18 mg/dL Normal 7-18 [facility] ([place] Comment on above: Performed By: #### C MP, A1C, VIDH, FT4, FT3, GFR, TSH #### [place] [address] #### MCRSO #### [place] [address] CRPon 10-24-2023 C-Reactive Protein 0.1 mg/dL Normal 0.0-0.3 [facility] ([place] Comment on above: Performed By: #### C MP, A1C, VIDH, FT4, FT3, GFR, TSH #### [place] [address] #### MCRSO #### [place] [address] ESRon 10-24-2023 Erythrocyte Sed Rate 6 mm/hr Normal 0-30 [facility] ([place]) Comment on above: Performed By: #### C MP, A1C, VIDH, FT4, FT3, GFR, TSH #### [place] [address] #### MCRSO #### [place] [address] LABORATORYOrdered By: SYSTEM SYSTEM on 10-24-2023 Albumin BCP dye [Mass/Vol] 3.6 G/dL Normal 3.4 - 4.8 G/dL AO ADM SS Albumin/Globulin [Mass ratio] 0.9 {ratio} Low 1.1 - 2.5 ratio AO ADM SS ALP [Catalytic activity/Vol] 71 U/L Normal 40 - 135 U/L AO ADM SS ALT With P-5'-P [Catalytic activity/Vol] 23 U/L Normal 14 - 59 U/L AO ADM SS AST With P-5'-P [Catalytic activity/Vol] 12 U/L Normal 10 - 40 U/L AO ADM SS Basophil, Absolute 0.0 103/mcL Normal 0.0 - 0.2 10^3/mcL AO Workflow SS Basophils/100 WBC (Bld) 0.9 % Normal 0.0 - 2.5 % AO Workflow SS Bilirubin [Mass/Vol] 0.5 mg/dL Normal 0.2 - 1 .0 mg/dL AO ADM SS Comment on above: Interpretive Data: U se of this assay is not recommended for patients undergoing treatment with eltrombopag due to the potential for falsely elevated results. Calcium [Mass/Vol] 9.0 mg/dL Normal 8.4 - 10. 2 mg/dL AO ADM SS Chloride [Moles/Vol] 101 mmol/L Normal 98 - 10 7 mmol/L AO ADM SS CO2 [Moles/Vol] 31 mmol/L Normal 23 - 31 mmol/L AO ADM SS Creatinine [Mass/Vol] 1.05 mg/dL High 0.55 - 1.02 mg/dL AO ADM SS CRP [Mass/Vol] 0.1 mg/dL Normal 0.0 - 0.3 mg/dL AO ADM SS Electrolyte Balance 7.0 mEq/L Normal 4.0 - 15 .0 mEq/L AO ADM SS Eosinophil, Absolute 0.1 103/mcL Normal 0.0 - 0 .4 10^3/mcL AO Workflow SS Eosinophils/100 WBC (Bld) 2.1 % Normal 0.0 - 7.0 % AO Workflow SS Erythrocyte distribution width (RBC) [Ratio] 13.4 % Normal 11.5 - 14.5 % AO Workflow SS GFR/1.73 sq M.predicted among blacks MDRD (S/P/Bld) [Vol rate/Area] 61 ml/min/1.73sqm Invalid Interpretation Code AO Chemistry S Comment on above: Interpretive Data: GFR Population mean for , Non- Americans Ages 20-29 = 116 mL/min/1.73 sq.m. Ages 30-39 = 107 mL/min/1.73 sq.m. Ages 40-49 = 99 mL/min/1.73 sq.m. Ages 50-59 = 93 mL/min/1.73 sq.m. Ages 60-69 = 85 mL/min/1.73 sq.m. Ages 70+ = 75 mL/min/1.73 sq.m. Chronic Kidney Disease: Less than 60 mL/min/1.73 square meters End Stage Renal Disease: Less than 15 mL/min/1.73 square meters GFR/1.73 sq M.predicted among non-blacks MDRD (S/P/Bld) [Vol rate/Area] 50 ml/min/1.73sqm Invalid Interpretation Code AO Chemistry S Comment on above: Interpretive Data: GFR Population mean for , Non- Americans Ages 20-29 = 116 mL/min/1.73 sq.m. Ages 30-39 = 107 mL/min/1.73 sq.m. Ages 40-49 = 99 mL/min/1.73 sq.m. Ages 50-59 = 93 mL/min/1.73 sq.m. Ages 60-69 = 85 mL/min/1.73 sq.m. Ages 70+ = 75 mL/min/1.73 sq.m. Chronic Kidney Disease: Less than 60 mL/min/1.73 square meters End Stage Renal Disease: Less than 15 mL/min/1.73 square meters Globulin 3.8 G/dL Invalid Interpretation Code AO ADM SS Glucose [Mass/Vol] 97 mg/dL Normal 83 - 110 mg/dL AO ADM SS Hematocrit (Bld) [Volume fraction] 38.5 % Normal 37.0 - 47.0 % AO Workflow SS Hemoglobin (Bld) [Mass/Vol] 13.4 G/dL Normal 12.0 - 16.0 G/dL AO Workflow SS Lymphocyte, Absolute 1.1 103/mcL Normal 0.8 - 3 .9 10^3/mcL AO Workflow SS Lymphocytes/100 WBC (Bld) 23.8 % Normal 10.0 - 50.0 % AO Workflow SS MCH (RBC) [Entitic mass] 29.8 pg Normal 27.0 - 31.2 pg AO Workflow SS MCHC 34.9 G/dL Normal 33.0 - 37.0 G/dL AO Workflow SS MCV (RBC) [Entitic vol] 85.5 fL Normal 80.0 - 94.0 fL AO Workflow SS Monocyte, Absolute 0.4 103/mcL Normal 0.2 - 1.0 10^3/mcL AO Workflow SS Monocytes/100 WBC (Bld) 9.0 % Normal 1.7 - 13.0 % AO Workflow SS Neutrophil, Absolute 2.9 103/mcL Normal 2.9 - 6 .2 10^3/mcL AO Workflow SS Neutrophils/100 WBC (Bld) 64.2 % Normal 37.0 - 80.0 % AO Workflow SS Platelet mean volume (Bld) [Entitic vol] 9.5 fL Normal 7.4 - 10.4 fL AO Workflow SS Platelets (Bld) [#/Vol] 228 103/mcL Normal 130 - 400 10^3/mcL AO Workflow SS Potassium [Moles/Vol] 4.1 mmol/L Normal 3.5 - 5.1 mmol/L AO ADM SS Protein [Mass/Vol] 7.4 G/dL Normal 6.4 - 8.2 G/dL AO ADM SS RBC (Bld) [#/Vol] 4.50 106/mcL Normal 4.20 - 5.4 0 10^6/mcL AO Workflow SS Sodium [Moles/Vol] 139 mmol/L Normal 136 - 145 mmol/L AO ADM SS Urea nitrogen [Mass/Vol] 18 mg/dL Normal 7 - 18 mg/dL AO ADM SS Urea nitrogen/Creatinine [Mass ratio] 17 ratio Normal 7 - 27 ratio AO ADM SS WBC (Bld) [#/Vol] 4.6 103/mcL Normal 4.6 - 10.8 10^3/mcL AO Workflow SS LABORATORYOrdered By: Aj branch on 10-24-2023 ESR Photometric method (Bld) [Velocity] 6 mm/hr Normal 0 - 30 mm/hr AO Man Heme SS .GFRon 03-08-2023 GFR 63 ml/min/1.73sqm Normal [facility] ([place]) Comment on above: Result Comment: GFR Population mean for , Non- Americans Ages 20-29 = 116 mL/min/1.73 sq.m. Ages 30-39 = 107 mL/min/1.73 sq.m. Ages 40-49 = 99 mL/min/1.73 sq.m. Ages 50-59 = 93 mL/min/1.73 sq.m. Ages 60-69 = 85 mL/min/1.73 sq.m. Ages 70+ = 75 mL/min/1.73 sq.m. Chronic Kidney Disease: Less than 60 mL/min/1.73 square meters End Stage Renal Disease: Less than 15 mL/min/1.73 square meters Performed By: #### F TAMELA CARDONA #### [address] [address] GFR Non- 52 ml/min/1.73sqm Normal [facility] ([place]) Comment on above: Result Comment: GFR Population mean for , Non- Americans Ages 20-29 = 116 mL/min/1.73 sq.m. Ages 30-39 = 107 mL/min/1.73 sq.m. Ages 40-49 = 99 mL/min/1.73 sq.m. Ages 50-59 = 93 mL/min/1.73 sq.m. Ages 60-69 = 85 mL/min/1.73 sq.m. Ages 70+ = 75 mL/min/1.73 sq.m. Chronic Kidney Disease: Less than 60 mL/min/1.73 square meters End Stage Renal Disease: Less than 15 mL/min/1.73 square meters Performed By: #### F TAMELA CARDONA #### [address] [address] A1Con 03-08-2023 HbA1c (Bld) [Mass fraction] 5.8 % Normal 4.3-6.4 [facility] ([place]) Comment on above: Performed By: #### F TAMELA CARDONA #### [address] [address] CMPon 03-08-2023 Albumin Level 3.9 G/dL Normal 3.4-4.8 [facility] ([place]) Comment on above: Performed By: #### F TAMELA CARDONA #### [place] [address] [address] Albumin/Globulin [Mass ratio] 1.1 {ratio} Normal 1.1-2.5 [facility] ([place]) Comment on above: Performed By: #### F TAMELA CARDONA #### [place] [address] [address] ALP [Catalytic activity/Vol] 72 U/L Normal 40-135 [facility] ([place] Comment on above: Performed By: #### F TAMELA CARDONA #### [address] [address] ALT [Catalytic activity/Vol] 23 U/L Normal 14-59 [facility] ([place] Comment on above: Performed By: #### F ERR, LD #### [address] [address] AST [Catalytic activity/Vol] 17 U/L Normal 10-40 [facility] ([place] Comment on above: Performed By: #### F ERR, LD #### [address] [address] Bili Total 0.8 mg/dL Normal 0.2-1.0 [facility] ([place]) Comment on above: Result Comment: Use of this assay is not recommended for patients undergoing treatment with eltrombopag due to the potential for falsely elevated results. Performed By: #### F ERR, LD #### [address] [address] BUN/Creatinine Ratio 18 ratio Normal 7-27 [facility] ([place]) Comment on above: Performed By: #### F ERR, LD #### [address] [address] Calcium [Mass/Vol] 9.4 mg/dL Normal 8.4-10.2 [facility] ([place]) Comment on above: Performed By: #### F ERR, LD #### [address] [address] Chloride [Moles/Vol] 97 mmol/L Low 98-107 [facility] ([place]) Comment on above: Performed By: #### F ERR, LD #### [address] [address] CO2 [Moles/Vol] 30 mmol/L Normal 23-31 [facility] ([place] Comment on above: Performed By: #### F ERR, LD #### [address] [address] Creatinine [Mass/Vol] 1.02 mg/dL Normal 0.55-1.02 [facility] ([place]) Comment on above: Performed By: #### F ERR, TAMELA #### [address] [address] Electrolyte Balance 6.0 mEq/L Normal 4.0-15.0 [facility] ([place]) Comment on above: Performed By: #### F ERR, LD #### [address] [address] Globulin 3.7 G/dL Normal [facility] ([place] Comment on above: Performed By: #### F ERR, TAMELA #### [address] [address] Glucose [Mass/Vol] 90 mg/dL Normal 83-110 [facility] ([place]) Comment on above: Performed By: #### F ERR, TAMELA #### [address] [address] Potassium [Moles/Vol] 4.1 mmol/L Normal 3.5-5.1 [facility] ([place]) Comment on above: Performed By: #### F ERR, TAMELA #### [address] [address] Sodium [Moles/Vol] 133 mmol/L Low 136-145 [facility] ([place]) Comment on above: Performed By: #### F ERR, TAMELA #### [address] [address] Total Protein 7.6 G/dL Normal 6.4-8.2 [facility] ([place] Comment on above: Performed By: #### F ERR, LD #### [address] [address] Urea nitrogen [Mass/Vol] 18 mg/dL Normal 7-18 [facility] ([place] Comment on above: Performed By: #### F ERR, LD #### [place] [address] [address] FT3on 03-08-2023 Free T3 [Mass/Vol] 3.31 pg/mL Normal 2.30-4.00 [facility] ([place]) Comment on above: Performed By: #### F ERRTAMELA #### [place] [address] [place], [place] [address] FT4on 03-08-2023 Free T4 [Mass/Vol] 1.46 ng/dL Normal 0.76-1.46 [facility] ([place]) Comment on above: Performed By: #### F ERR, LD #### [place] [address] [place], [place] [address] LABORATORYOrdered By: SYSTEM SYSTEM on 03-08-2023 25-hydroxyvitamin D3 [Mass/Vol] 32.4 ng/mL Invalid Interpretation Code AO ADM SS Comment on above: Interpretive Data: I nterpretive Values Based on Total 25(OH) Vitamin D: Deficient <20 ng/mL Insufficient 20 - <30 ng/mL Sufficient 30-100 ng/mL Albumin BCP dye [Mass/Vol] 3.9 G/dL Invalid Interpretation Code 3.4 - 4.8 G/dL AO ADM SS Albumin/Globulin [Mass ratio] 1.1 {ratio} Invalid Interpretation Code 1.1 - 2.5 ratio AO ADM SS ALP [Catalytic activity/Vol] 72 U/L Invalid Interpretation Code 40 - 135 U/L AO ADM SS ALT With P-5'-P [Catalytic activity/Vol] 23 U/L Invalid Interpretation Code 14 - 59 U/L AO ADM SS AST With P-5'-P [Catalytic activity/Vol] 17 U/L Invalid Interpretation Code 10 - 40 U/L AO ADM SS Bilirubin [Mass/Vol] 0.8 mg/dL Invalid Interpretation Code 0.2 - 1.0 mg/dL AO ADM SS Comment on above: Interpretive Data: U se of this assay is not recommended for patients undergoing treatment with eltrombopag due to the potential for falsely elevated results. Calcium [Mass/Vol] 9.4 mg/dL Invalid Interpretation Code 8.4 - 10.2 mg/dL AO ADM SS Chloride [Moles/Vol] 97 mmol/L Invalid Interpretation Code 98 - 107 mmol/L AO ADM SS CO2 [Moles/Vol] 30 mmol/L Invalid Interpretation Code 23 - 31 mmol/L AO ADM SS Creatinine [Mass/Vol] 1.02 mg/dL Invalid Interpretation Code 0.55 - 1.02 mg/dL AO ADM SS Electrolyte Balance 6.0 mEq/L Invalid Interpretation Code 4.0 - 15.0 mEq/L AO ADM SS Free T3 [Mass/Vol] 3.31 pg/mL Invalid Interpretation Code 2.30 - 4.00 pg/mL AO ADM SS Free T4 [Mass/Vol] 1.46 ng/dL Invalid Interpretation Code 0.76 - 1.46 ng/dL AO ADM SS GFR/1.73 sq M.predicted among blacks MDRD (S/P/Bld) [Vol rate/Area] 63 ml/min/1.73sqm Invalid Interpretation Code AO Chemistry S Comment on above: Interpretive Data: GFR Population mean for , Non- Americans Ages 20-29 = 116 mL/min/1.73 sq.m. Ages 30-39 = 107 mL/min/1.73 sq.m. Ages 40-49 = 99 mL/min/1.73 sq.m. Ages 50-59 = 93 mL/min/1.73 sq.m. Ages 60-69 = 85 mL/min/1.73 sq.m. Ages 70+ = 75 mL/min/1.73 sq.m. Chronic Kidney Disease: Less than 60 mL/min/1.73 square meters End Stage Renal Disease: Less than 15 mL/min/1.73 square meters GFR/1.73 sq M.predicted among non-blacks MDRD (S/P/Bld) [Vol rate/Area] 52 ml/min/1.73sqm Invalid Interpretation Code AO Chemistry S Comment on above: Interpretive Data: GFR Population mean for , Non- Americans Ages 20-29 = 116 mL/min/1.73 sq.m. Ages 30-39 = 107 mL/min/1.73 sq.m. Ages 40-49 = 99 mL/min/1.73 sq.m. Ages 50-59 = 93 mL/min/1.73 sq.m. Ages 60-69 = 85 mL/min/1.73 sq.m. Ages 70+ = 75 mL/min/1.73 sq.m. Chronic Kidney Disease: Less than 60 mL/min/1.73 square meters End Stage Renal Disease: Less than 15 mL/min/1.73 square meters Globulin 3.7 G/dL Invalid Interpretation Code AO ADM SS Glucose [Mass/Vol] 90 mg/dL Invalid Interpretation Code 83 - 110 mg/dL AO ADM SS HbA1c (Bld) [Mass fraction] 5.8 % Invalid Interpretation Code 4.3 - 6.4 % AO ADM SS Potassium [Moles/Vol] 4.1 mmol/L Invalid Interpretation Code 3.5 - 5.1 mmol/L AO ADM SS Protein [Mass/Vol] 7.6 G/dL Invalid Interpretation Code 6.4 - 8.2 G/dL AO ADM SS Sodium [Moles/Vol] 133 mmol/L Invalid Interpretation Code 136 - 145 mmol/L AO ADM SS TSH Qn 2.15 m[IU]/L Invalid Interpretation Code 0.36 - 3.74 mcIU/mL AO ADM SS Urea nitrogen [Mass/Vol] 18 mg/dL Invalid Interpretation Code 7 - 18 mg/dL AO ADM SS Urea nitrogen/Creatinine [Mass ratio] 18 ratio Invalid Interpretation Code 7 - 27 ratio AO ADM SS LABORATORYOrdered By: Garima Bingham on 03-08-2023 Cholesterol [Mass/Vol] 204 mg/dL Invalid Interpretation Code 0 - 200 mg/dL AO ADM SS Comment on above: Interpretive Data: C holesterol Reference Interval: Less than 200 Desirable 200-239 Borderline high risk 240 and above High risk Cholesterol in HDL [Mass/Vol] 62 mg/dL Invalid Interpretation Code 40 - 60 mg/dL AO ADM SS Cholesterol in LDL [Mass/Vol] 131 mg/dL Invalid Interpretation Code 0 - 130 mg/dL AO ADM SS Triglyceride [Mass/Vol] 57 mg/dL Invalid Interpretation Code 0 - 150 mg/dL AO ADM SS Comment on above: Interpretive Data: T riglyceride Reference Interval: Less than 150 Normal 150-199 Borderline high risk 200-499 High risk 500 or higher Very high risk LIPIDon 03-08-2023 Cholesterol [Mass/Vol] 204 mg/dL High 0-200 [facility] ([place] Comment on above: Result Comment: Chol esterol Reference Interval: Less than 200 Desirable 200-239 Borderline high risk 240 and above High risk Performed By: #### F ERR LD #### [address] [address] Cholesterol in HDL [Mass/Vol] 62 mg/dL High 40-60 [facility] ([place]) Comment on above: Performed By: #### F ERRTAMELA #### [address] [address] Cholesterol in LDL [Mass/Vol] 131 mg/dL High 0-130 [facility] ([place] Comment on above: Performed By: #### F ERR, LD #### [place] [id number] [place], [place] [address] Triglyceride [Mass/Vol] 57 mg/dL Normal 0-150 [facility] ([place] Comment on above: Result Comment: Trig lyceride Reference Interval: Less than 150 Normal 150-199 Borderline high risk 200-499 High risk 500 or higher Very high risk Performed By: #### F ERR, LD #### [place] [address] [address] TSHon 03-08-2023 TSH Qn 2.15 m[IU]/L Normal 0.36-3.74 [facility] ([place]) Comment on above: Performed By: #### F ERR, LD #### [address] [address] VIDHon 03-08-2023 Vit. D 25-Hydroxy 32.4 ng/mL Normal [facility] ([place] Comment on above: Result Comment: Inte rpretive Values Based on Total 25(OH) Vitamin D: Deficient <20 ng/mL Insufficient 20 - <30 ng/mL Sufficient 30-100 ng/mL Performed By: #### F ERR, LD #### [address] [address] Absolute lymphocyte countOrd ered By: Tanvi Doty on 01-24-2023 Lymphocytes Auto (Unsp spec) [#/Vol] 1.50 10*3/uL 0.83-4.51 [facility] [place] Basophil percentageOrdered B y: Tanvi Doty on 01-24-2023 Basophils/100 WBC (Bld) 1.5 % 0-1 [facility] [place] Bilirubin [Mass/Vol] 0.80 mg/dL 0.20-1.00 [facility] Comment on above: For patients on eltr ombopag therapy, use of Dimension [place] TBIL is not recommended. Chloride [Moles/Vol] 102 mmol/L 98-107 [facility] Cholesterol [Mass/Vol] 185 mg/dL <200 [facility] Comment on above: <200 mg/dL Desirable 200-240 mg/dL Borderline >240 mg/dL High Risk Eosinophils/100 WBC (Bld) 3.0 % 0-5 [facility] [place] Glucose [Mass/Vol] 93 mg/dL 74-106 [facility] Neutrophils (Bld) [#/Vol] 1.9 10*3/uL 2.0-7.7 [facility] [place] Neutrophils/100 WBC (Bld) 46.3 % 47-70 [facility] [place] Potassium [Moles/Vol] 3.6 mmol/L 3.5-5.1 [facility] Protein [Mass/Vol] 7.6 g/dL 6.4-8.2 [facility] Sodium [Moles/Vol] 137 mmol/L 136-145 [facility] Triglyceride [Mass/Vol] 89 mg/dL <199 [facility] [place] Comment on above: The drugs N-Acetylcy steine and Metamizole may falsely depress this assay.Serum Triglycerides Reference Interval Normal <150 mg/dL Borderline high 150 - 199 mg/dL High 200 - 499 mg/dL Very High > or = 500 mg/dL WBC (Bld) [#/Vol] 4.0 10*3/uL 4.4-11.0 [facility] Blood erythrocytes count (nu mber/volume)Ordered By: Tanvi Doty on 01-24-2023 RBC (Bld) [#/Vol] 4.42 10*6/uL 4.2-5.4 [facility] Blood hemoglobin measurement (mass/volume)Ordered By: Tanvi Doty on 01-24-2023 Hemoglobin (Bld) [Mass/Vol] 13.0 g/dL 12.0-15.0 [facility] [facility] [place] Blood lymphocytes/100 leukoc ytesOrdered By: Tanvi Doty on 01-24-2023 Lymphocytes/100 WBC (Bld) 37.6 % 19-41 [facility] [place] Blood monocytes/100 leukocyt esOrdered By: Tanvi Doty on 01-24-2023 Monocytes/100 WBC (Bld) 11.3 % 0-10 [facility] [place] Blood platelet mean volumeOr dered By: Tanvi Doty on 01-24-2023 Platelet mean volume (Bld) [Entitic vol] 11.7 fL 6.2-12.0 [facility] [place] Determination of erythrocyte mean corpuscular volume (MCV)Ordered By: Tanvi Doty on 01-24-2023 MCV (RBC) [Entitic vol] 90.5 fL 81-99 [facility] [place] Hematocrit Auto (Bld) [Volum e fraction]Ordered By: Tanvi Doty on 01-24-2023 Hematocrit (Bld) [Volume fraction] 40.0 % 37-47 [facility] [place] Laboratory - Chemistry and C hemistry - challengeOrdered By: Tanviandreina Doty on 01-24-2023 ALP [Catalytic activity/Vol] 74 U/L 45-117 [facility] [place] ALT [Catalytic activity/Vol] 22 U/L 13-56 [facility] [place] CO2 [Moles/Vol] 29.0 mmol/L 21.0-32.0 [facility] [place] Free T4 [Mass/Vol] 1.42 ng/dL 0.76-1.46 [facility] Globulin (S) [Mass/Vol] 3.9 g/dL 2.2-4.2 [facility] [place] Magnesium [Mass/Vol] 2.5 mg/dL 1.6-2.6 [facility] Urea nitrogen/Creatinine [Mass ratio] 13.2 mg/mg 10-20 [facility] [place] Laboratory - Hematology and Cell countsOrdered By: Tanvi Doty on 01-24-2023 Erythrocyte distribution width (RBC) [Entitic vol] 42.5 fL 35.1-43.9 [facility] [place] Erythrocyte distribution width (RBC) [Ratio] 12.9 % 11.6-14.6 [facility] [place] Immature granulocytes/100 WBC (Bld) 0.300 % 0.0-0.9 [facility] [place] Comment on above: IG% - Immature Granu locytes (promyelocytes, myelocytes and metamyelocytes) > 1% indicates that a LEFT SHIFT is Present. MCH (RBC) [Entitic mass] 29.4 pg 27.0-32.0 [facility] [place] Nucleated RBC/100 WBC (Bld) [Ratio] 0 % 0-5 [facility] [place] MCHC Auto (RBC) [Mass/Vol]Or dered By: Tanvi Doty on 01-24-2023 MCHC (RBC) [Mass/Vol] 32.5 g/dL 32-36 [facility] No Panel InformationOrdered By: Tanvi Doty on 01-24-2023 Estimated GFR (MDRD) Amer 76 mL/min >60 [facility] [place] Comment on above: GFR Calc Estimated GFR (MDRD) Non-Af Amer 63 mL/min >60 [facility] [place] Comment on above: Non- GFR Calc Free Triiodothyronine (T3) pg/dL 3.0 pg/mL 2.18-3.98 [facility] [place] Thyroid Stimulating Hormone (TSH) 2.00 uIU/mL 0.358-3.74 [facility] [place] Vitamin D 25-Hydroxy 45.9 ng/mL [facility] Comment on above: Vitamin D 25(OH) Sta tus Range Deficiency <20 ng/mL (50nmol/L) Insufficiency 20 - 30 ng/mL (50 - 75 nmol/L) Sufficiency 30 - 100 ng/mL (75 - 250 nmol/L) Toxicity >100 ng/mL (>250 nmol/L) Platelets bldOrdered By: Jasmyne Doty on 01-24-2023 Platelets (Bld) [#/Vol] 231 10*3/uL 150-450 [facility] [place] Serum or plasma albumin papa urement (mass/volume)Ordered By: Tanvi Doty on 01-24-2023 Albumin [Mass/Vol] 3.7 g/dL 3.2-5.0 [facility] Serum or plasma albumin/glob ulin mass ratioOrdered By: Tanvi Doty on 01-24-2023 Albumin/Globulin [Mass ratio] 0.9 {ratio} 0.9-2.4 [facility] [place] Serum or plasma calcium papa urement (mass/volume)Ordered By: Tanvi Doty on 01-24-2023 Calcium [Mass/Vol] 9.1 mg/dL 8.5-10.1 [facility] Serum or plasma cholesterol in HDL measurement (mass/volume)Ordered By: Tanvi Doty on 01-24-2023 Cholesterol in HDL [Mass/Vol] 57 mg/dL >40 [facility] [place] Comment on above: The drugs N-Acetylcy steine and Metamizole may falsely depress this assay. Reference Range HDL <40 mg/dL Low HDL Cholesterol HDL >or= 60 mg/dL High HDL Cholesterol Serum or plasma cholesterol in VLDL measurement (mass/volume)Ordered By: Tanvi Doty on 01-24-2023 Cholesterol in VLDL [Mass/Vol] 18 mg/dL 5-40 [facility] [place] Serum or plasma creatinine m easurement (mass/volume)Ordered By: Tanvi Doty on 01-24-2023 Creatinine [Mass/Vol] 0.91 mg/dL 0.55-1.02 [facility] Comment on above: The validity of the calculated GFR & GFRAA in patients over 70 years has not been determined. Clinical correlation is essential. Serum or plasma low density lipoprotein (LDL) cholesterol measurement (mass/volume)Ordered By: Tanvi Doty on 01-24-2023 Cholesterol in LDL [Mass/Vol] 110 mg/dL 0-130 [facility] [place] Serum or plasma urea nitroge n measurement (mass/volume)Ordered By: Tanvi Doty on 01-24-2023 Urea nitrogen [Mass/Vol] 12 mg/dL 7-18 [facility] [place] Thin prep Papanicolaou smear with manual screeningOrdered By: Tanvi Doty on 01-24-2023 Thin prep Papanicolaou smear with manual screening 15 U/L 15-37 [facility] [place] Thin prep Papanicolaou smear with manual screening 6 5-15 [facility] [place] Absolute lymphocyte countOrd ered By: Dr. Doty on 09-11-2022 Lymphocytes Auto (Unsp spec) [#/Vol] 1.54 10*3/uL 0.83-4.51 [facility] [place] Basophil percentageOrdered B y: Dr. Doty on 09-11-2022 Basophils/100 WBC (Bld) 1.3 % 0-1 [facility] [place] Eosinophils/100 WBC (Bld) 2.2 % 0-5 [facility] [place] Neutrophils (Bld) [#/Vol] 3.4 10*3/uL 2.0-7.7 [facility] [place] Neutrophils/100 WBC (Bld) 61.0 % 47-70 [facility] [place] WBC (Bld) [#/Vol] 5.6 10*3/uL 4.4-11.0 [facility] Basophil percentageOrdered B y: Suresh Graves on 09-11-2022 Bilirubin [Mass/Vol] 0.40 mg/dL 0.20-1.00 [facility] Comment on above: For patients on eltr ombopag therapy, use of Dimension [place] TBIL is not recommended. Protein [Mass/Vol] 7.9 g/dL 6.4-8.2 [facility] Blood erythrocytes count (nu mber/volume)Ordered By: Dr. Doty on 09-11-2022 RBC (Bld) [#/Vol] 4.43 10*6/uL 4.2-5.4 [facility] Blood hemoglobin measurement (mass/volume)Ordered By: Dr. Doty on 09-11-2022 Hemoglobin (Bld) [Mass/Vol] 13.2 g/dL 12.0-15.0 [facility] [place] Blood lymphocytes/100 leukoc ytesOrdered By: Dr. Doty on 09-11-2022 Lymphocytes/100 WBC (Bld) 27.6 % 19-41 [facility] [place] Blood monocytes/100 leukocyt esOrdered By: Dr. Doty on 09-11-2022 Monocytes/100 WBC (Bld) 7.7 % 0-10 [facility] [place] Blood platelet mean volumeOr dered By: Dr. Doty on 09-11-2022 Platelet mean volume (Bld) [Entitic vol] 10.8 fL 6.2-12.0 [facility] [place] Determination of erythrocyte mean corpuscular volume (MCV)Ordered By: Dr. Doty on 09-11-2022 MCV (RBC) [Entitic vol] 89.2 fL 81-99 [facility] [place] Direct bilirubinOrdered By: Suresh Graves on 09-11-2022 Bilirubin.direct [Mass/Vol] 0.08 mg/dL 0.00-0.30 [facility] [place] Hematocrit Auto (Bld) [Volum e fraction]Ordered By: Dr. Doty on 09-11-2022 Hematocrit (Bld) [Volume fraction] 39.5 % 37-47 [facility] [place] Laboratory - Chemistry and C hemistry - challengeOrdered By: Suresh Graves on 09-11-2022 ALP [Catalytic activity/Vol] 82 U/L 45-117 [facility] [place] ALT [Catalytic activity/Vol] 26 U/L 13-56 [facility] [place] Globulin (S) [Mass/Vol] 4.2 g/dL 2.2-4.2 [facility] [place] Laboratory - Hematology and Cell countsOrdered By: Dr. Doty on 09-11-2022 Erythrocyte distribution width (RBC) [Entitic vol] 42.3 fL 35.1-43.9 [facility] [place] Erythrocyte distribution width (RBC) [Ratio] 12.8 % 11.6-14.6 [facility] [place] Immature granulocytes/100 WBC (Bld) 0.200 % 0.0-0.9 [facility] [place] Comment on above: IG% - Immature Granu locytes (promyelocytes, myelocytes and metamyelocytes) > 1% indicates that a LEFT SHIFT is Present. MCH (RBC) [Entitic mass] 29.8 pg 27.0-32.0 [facility] [place] Nucleated RBC/100 WBC (Bld) [Ratio] 0 % 0-5 [facility] [place] MCHC Auto (RBC) [Mass/Vol]Or dered By: Dr. Doty on 09-11-2022 MCHC (RBC) [Mass/Vol] 33.4 g/dL 32-36 [facility] No Panel InformationOrdered By: Dr. Doty on 09-11-2022 Free Triiodothyronine (T3) pg/dL 2.7 pg/mL 2.18-3.98 [facility] [place] Platelets bldOrdered By: Dr. Doty on 09-11-2022 Platelets (Bld) [#/Vol] 256 10*3/uL 150-450 [facility] [place] Serum or plasma albumin papa urement (mass/volume)Ordered By: Suresh Graves on 09-11-2022 Albumin [Mass/Vol] 3.7 g/dL 3.2-5.0 [facility] Thin prep Papanicolaou smear with manual screeningOrdered By: Suresh Graves on 09-11-2022 Thin prep Papanicolaou smear with manual screening 17 U/L 15-37 [facility] [place] LABORATORYOrdered By: SYSTEM SYSTEM on 08-30-2022 Albumin BCP dye [Mass/Vol] 3.7 G/dL Invalid Interpretation Code 3.4 - 4.8 G/dL AO ADM SS Albumin/Globulin [Mass ratio] 1.1 {ratio} Invalid Interpretation Code 1.1 - 2.5 ratio AO ADM SS ALP [Catalytic activity/Vol] 82 U/L Invalid Interpretation Code 40 - 135 U/L AO ADM SS ALT With P-5'-P [Catalytic activity/Vol] 28 U/L Invalid Interpretation Code 14 - 59 U/L AO ADM SS AST With P-5'-P [Catalytic activity/Vol] 16 U/L Invalid Interpretation Code 10 - 40 U/L AO ADM SS Bilirubin [Mass/Vol] 0.5 mg/dL Invalid Interpretation Code 0.2 - 1.0 mg/dL AO ADM SS Calcium [Mass/Vol] 9.1 mg/dL Invalid Interpretation Code 8.4 - 10.2 mg/dL AO ADM SS Chloride [Moles/Vol] 100 mmol/L Invalid Interpretation Code 98 - 107 mmol/L AO ADM SS CO2 [Moles/Vol] 31 mmol/L Invalid Interpretation Code 23 - 31 mmol/L AO ADM SS Creatinine [Mass/Vol] 0.95 mg/dL Invalid Interpretation Code 0.55 - 1.02 mg/dL AO ADM SS Electrolyte Balance 5.0 mEq/L Invalid Interpretation Code 4.0 - 15.0 mEq/L AO ADM SS Free T4 [Mass/Vol] 1.36 ng/dL Invalid Interpretation Code 0.76 - 1.46 ng/dL AO ADM SS GFR 69 ml/min/1.73sqm Invalid Interpretation Code AO Chemistry S GFR Non- 57 ml/min/1.73sqm Invalid Interpretation Code AO Chemistry S Globulin 3.5 G/dL Invalid Interpretation Code AO ADM SS Glucose [Mass/Vol] 98 mg/dL Invalid Interpretation Code 83 - 110 mg/dL AO ADM SS HbA1c (Bld) [Mass fraction] 5.9 % Invalid Interpretation Code 4.3 - 6.4 % AO ADM SS Potassium [Moles/Vol] 4.1 mmol/L Invalid Interpretation Code 3.5 - 5.1 mmol/L AO ADM SS Protein [Mass/Vol] 7.2 G/dL Invalid Interpretation Code 6.4 - 8.2 G/dL AO ADM SS Sodium [Moles/Vol] 136 mmol/L Invalid Interpretation Code 136 - 145 mmol/L AO ADM SS TSH Qn 1.09 m[IU]/L Invalid Interpretation Code 0.36 - 3.74 mcIU/mL AO ADM SS Urea nitrogen [Mass/Vol] 20 mg/dL Invalid Interpretation Code 7 - 18 mg/dL AO ADM SS Urea nitrogen/Creatinine [Mass ratio] 21 ratio Invalid Interpretation Code 7 - 27 ratio AO ADM SS Vit. D 25-Hydroxy 33.2 ng/mL Invalid Interpretation Code AO ADM SS LABORATORYOrdered By: Garima Bingham on 08-30-2022 Cholesterol [Mass/Vol] 201 mg/dL Invalid Interpretation Code 0 - 200 mg/dL AO ADM SS Cholesterol in HDL [Mass/Vol] 60 mg/dL Invalid Interpretation Code 40 - 60 mg/dL AO ADM SS Cholesterol in LDL [Mass/Vol] 129 mg/dL Invalid Interpretation Code 0 - 130 mg/dL AO ADM SS Triglyceride [Mass/Vol] 59 mg/dL Invalid Interpretation Code 0 - 150 mg/dL AO ADM SS Laboratory - Microbiology an d Antimicrobial susceptibilityon 03-21-2022 SARS-CoV-2 (COVID-19) RNA SHARON+probe Ql (Unsp spec) Not detected Not Detect [facility] [place] Work Phone: Comment on above: Normal Reference Ran ge: Not DetectedMethod:(RT-PCR) real-time reverse transcriptase PCRLuminex VERONICA Instrument*The Food and Drug Administration (FDA) has issued an Emergency Use Authorization (EAU) for the VERONICA SARS-CoV-2 Assay for the rapid detection of the virus that causes COVID-19. This test has been validated, but the FDAs independent review of this validation is pending.*Negative results do not preclude infection and should not be used as the sole basis for treatment or patient management. Optimum specimen types and timing for peak viral levels during infections caused by SARS-CoV-2 have not been determined. Collection of multiple specimens from the same patient may be necessary to detect the virus. The possibility of a false negative result should be considered if the patient has clinical presentation or has had recent exposure. LABORATORYOrdered By: SYSTEM SYSTEM on 02-01-2022 25-hydroxyvitamin D3 [Mass/Vol] 41.0 ng/mL Invalid Interpretation Code AH ADM SS GFR 67 ml/min/1.73sqm Invalid Interpretation Code AO Chemistry S GFR Non- 55 ml/min/1.73sqm Invalid Interpretation Code AO Chemistry S LABORATORYOrdered By: Radha Tran on 02-01-2022 Albumin BCP dye [Mass/Vol] 3.8 G/dL Invalid Interpretation Code 3.4 - 4.8 G/dL AO ADM SS Albumin/Globulin [Mass ratio] 1.0 {ratio} Invalid Interpretation Code 1.1 - 2.5 ratio AO ADM SS ALP [Catalytic activity/Vol] 66 U/L Invalid Interpretation Code 40 - 135 U/L AO ADM SS ALT With P-5'-P [Catalytic activity/Vol] 22 U/L Invalid Interpretation Code 14 - 59 U/L AO ADM SS AST With P-5'-P [Catalytic activity/Vol] 17 U/L Invalid Interpretation Code 10 - 40 U/L AO ADM SS Bilirubin [Mass/Vol] 0.5 mg/dL Invalid Interpretation Code 0.2 - 1.0 mg/dL AO ADM SS Calcium [Mass/Vol] 9.0 mg/dL Invalid Interpretation Code 8.4 - 10.2 mg/dL AO ADM SS Chloride [Moles/Vol] 101 mmol/L Invalid Interpretation Code 98 - 107 mmol/L AO ADM SS CO2 [Moles/Vol] 31 mmol/L Invalid Interpretation Code 23 - 31 mmol/L AO ADM SS Creatinine [Mass/Vol] 0.97 mg/dL Invalid Interpretation Code 0.55 - 1.02 mg/dL AO ADM SS Electrolyte Balance 7.0 mEq/L Invalid Interpretation Code 4.0 - 15.0 mEq/L AO ADM SS Free T3 [Mass/Vol] 3.14 pg/mL Invalid Interpretation Code 2.30 - 4.00 pg/mL AO ADM SS Free T4 [Mass/Vol] 1.33 ng/dL Invalid Interpretation Code 0.76 - 1.46 ng/dL AO ADM SS Globulin 3.8 G/dL Invalid Interpretation Code AO ADM SS Glucose [Mass/Vol] 90 mg/dL Invalid Interpretation Code 83 - 110 mg/dL AO ADM SS HbA1c (Bld) [Mass fraction] 6.0 % Invalid Interpretation Code 4.3 - 6.4 % AO ADM SS Potassium [Moles/Vol] 4.4 mmol/L Invalid Interpretation Code 3.5 - 5.1 mmol/L AO ADM SS Protein [Mass/Vol] 7.6 G/dL Invalid Interpretation Code 6.4 - 8.2 G/dL AO ADM SS Sodium [Moles/Vol] 139 mmol/L Invalid Interpretation Code 136 - 145 mmol/L AO ADM SS TSH Qn 0.46 m[IU]/L Invalid Interpretation Code 0.36 - 3.74 mcIU/mL AO ADM SS Urea nitrogen [Mass/Vol] 25 mg/dL Invalid Interpretation Code 7 - 18 mg/dL AO ADM SS Urea nitrogen/Creatinine [Mass ratio] 26 ratio Invalid Interpretation Code 7 - 27 ratio AO ADM SS CNPNon 10-26-2021 CNPN Telephone (GYNML) DAMIEN PATRICIA ([id number]) 1940 F Date Time Provider Department 10/26/21 RADHA PAGE During your visit today, we recorded the following information about you: Radha Page RN 10/26/2021 3:17 PM Signed Patient calling with concerns about not peeing enough. 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 Asking what to do since Annia is on maternity leave. Reviewed patient's c/o. Reports that she is not using her AC over the last few hot days and has been sweating a lot. She drank 4 cups of water today and has had output of ~ 1 cup. Denies odor, burning, lower discomfort. Recommended she use her AC, increase fluids, monitor output for S/S infection, visit local ED prn. Agreeable to plan. Allergies As of Date: 10/26/2021 Noted Allergy Reaction SULFA (SULFONAMIDE ANTIBIOTICS) 12/02/2015 4 - Hives PENICILLINS 12/02/2015 2 - Rash Comments: Took ampicillin in 2014 without complications [id number] REDUCTASE INHIBIT*08/06/2020 14 - Other: See Comments Comments: Pain on my head and back, bad shaking and my ears turned really red Date Reviewed: 08/05/2021 Reviewed by: Annia Wilson APRN.DATABASE ADMINISTRATION MANAGER - Fully Assessed Reason for Visit: Patient Update [1234] Prescriptions as of 10/26/2021 - MICARDIS HCT 80-25 mg per tablet Take 1 tablet by mouth once daily. - amLODIPine (NORVASC) 2.5 mg tablet Take 2.5 mg by mouth once daily. - furosemide (LASIX) 20 mg tablet TAKE 1 TABLET BY MOUTH EVERY SUNDAY, SUNDAY AND SUNDAY - ferrous sulfate 325 mg (65 mg iron) tablet take 1 tablet by mouth every AFTERNOON - loperamide (IMODIUM) 2 mg cap(s) Take 2 mg by mouth as needed. - spironolactone (ALDACTONE) 25 mg tablet - losartan (COZAAR) 50 mg tablet Take 50 mg by mouth once daily. - MULTIVIT WITH CALCIUM,IRON,MIN (MULTIPLE VITAMIN, WOMENS ORAL) Take 1 tablet by mouth once daily. - MULTIVIT-MINERALS/YAKELIN SHASHA FUM (MULTI VITAMIN ORAL) Take by mouth. - RED YEAST RICE ORAL Take by mouth. - POLYCARBOPHIL (REPLENS VAGINAL) Use vaginally. - FLUZONE HIGH-DOSE , PF, 180 mcg/0.5 mL injection - Cholecalciferol, Vitamin D3, (VITAMIN D) 1,000 unit cap Take 1,000 Units by mouth once daily. - CALCIUM CARBONATE/VITAMIN D3 (CALCIUM 600 + D ORAL) Take by mouth. - SACCHAROMYCES BOULARDII (PROBIOTIC, S.BOULARDII, ORAL) Take by mouth as needed. - Telmisartan-Hydrochlo rothiazid (MICARDIS HCT) 40-12.5 mg per tablet Take 0.5 tablets by mouth once daily. - SYNTHROID 100 mcg tablet Once daily, skip tab on sundays - Biotin 2,500 mcg cap Take by mouth. Twice weekly Problem List As Of Date 10/26/2021 Noted Resolved Diarrhea [R19.7] Hypercholesterolemia [E78.00] Unspecified essential hypertension [I10] Vulvar cancer (HCC) [C51.9] 12/07/2015 Hypothyroidism [E03.9] 01/06/2016 Hemorrhoids [K64.9] 01/06/2016 Mitral valve prolapse [I34.1] 01/06/2016 Borderline diabetes mellitus [R73.03] 01/06/2016 Abdominal pain, vomiting, and diarrhea [R10.9, *01/20/2016 01/20/2016 Lymphedema [I89.0] 08/16/2020 Encounter Status:Closed by RADHA PAGE on 10/26/21 [facility] LABORATORYOrdered By: Leo Tate on 07-28-2021 Albumin DL <= 20 mg/L (U) [Mass/Vol] 1340 mcg/dL Invalid Interpretation Code AO ADM SS Albumin/Creatinine DL <= 20 mg/L (U) [Mass ratio] 30 mcg/mg Invalid Interpretation Code 0 - 30 mcg/mg AO ADM SS Creatinine (U) [Mass/Vol] 44.4 mg/dL Invalid Interpretation Code 28.0 - 117.0 mg/dL AO ADM SS Albumin BCP dye [Mass/Vol] 3.9 G/dL Invalid Interpretation Code 3.4 - 4.8 G/dL AO ADM SS Albumin/Globulin [Mass ratio] 1.1 {ratio} Invalid Interpretation Code 1.1 - 2.5 ratio AO ADM SS ALP [Catalytic activity/Vol] 70 U/L Invalid Interpretation Code 40 - 135 U/L AO ADM SS ALT With P-5'-P [Catalytic activity/Vol] 28 U/L Invalid Interpretation Code 14 - 59 U/L AO ADM SS AST With P-5'-P [Catalytic activity/Vol] 17 U/L Invalid Interpretation Code 10 - 40 U/L AO ADM SS Bilirubin [Mass/Vol] 0.5 mg/dL Invalid Interpretation Code 0.2 - 1.0 mg/dL AO ADM SS Calcium [Mass/Vol] 9.5 mg/dL Invalid Interpretation Code 8.4 - 10.2 mg/dL AO ADM SS Chloride [Moles/Vol] 102 mmol/L Invalid Interpretation Code 98 - 107 mmol/L AO ADM SS Cholesterol [Mass/Vol] 215 mg/dL Invalid Interpretation Code 0 - 200 mg/dL AO ADM SS Cholesterol in HDL [Mass/Vol] 58 mg/dL Invalid Interpretation Code 40 - 60 mg/dL AO ADM SS Cholesterol in LDL [Mass/Vol] 137 mg/dL Invalid Interpretation Code 0 - 130 mg/dL AO ADM SS CO2 [Moles/Vol] 32 mmol/L Invalid Interpretation Code 23 - 31 mmol/L AO ADM SS Creatinine [Mass/Vol] 0.96 mg/dL Invalid Interpretation Code 0.55 - 1.02 mg/dL AO ADM SS Electrolyte Balance 6.0 mEq/L Invalid Interpretation Code 4.0 - 15.0 mEq/L AO ADM SS Globulin 3.7 G/dL Invalid Interpretation Code AO ADM SS Glucose [Mass/Vol] 93 mg/dL Invalid Interpretation Code 83 - 110 mg/dL AO ADM SS Potassium [Moles/Vol] 4.4 mmol/L Invalid Interpretation Code 3.5 - 5.1 mmol/L AO ADM SS Protein [Mass/Vol] 7.6 G/dL Invalid Interpretation Code 6.4 - 8.2 G/dL AO ADM SS Sodium [Moles/Vol] 140 mmol/L Invalid Interpretation Code 136 - 145 mmol/L AO ADM SS Triglyceride [Mass/Vol] 99 mg/dL Invalid Interpretation Code 0 - 150 mg/dL AO ADM SS Urea nitrogen [Mass/Vol] 22 mg/dL Invalid Interpretation Code 7 - 18 mg/dL AO ADM SS Urea nitrogen/Creatinine [Mass ratio] 23 ratio Invalid Interpretation Code 7 - 27 ratio AO ADM SS Vit. D 25-Hydroxy 28.8 ng/mL Invalid Interpretation Code AO ADM SS LABORATORYOrdered By: Garima Bingham on 07-28-2021 Free T3 [Mass/Vol] 3.11 pg/mL Invalid Interpretation Code 2.30 - 4.00 pg/mL AO ADM SS Free T4 [Mass/Vol] 1.19 ng/dL Invalid Interpretation Code 0.76 - 1.46 ng/dL AO ADM SS HbA1c (Bld) [Mass fraction] 6.3 % Invalid Interpretation Code 4.3 - 6.4 % AO ADM SS TSH Qn 3.30 m[IU]/L Invalid Interpretation Code 0.36 - 3.74 mcIU/mL AO ADM SS LABORATORYOrdered By: Corinna Gatson on 07-28-2021 Basophil, Absolute 0.00 103/mcL Invalid Interpretation Code 0.00 - 0.19 10^3/mcL AO Auto Heme SS Basophils/100 WBC (Bld) 1.4 % Invalid Interpretation Code 0.0 - 2.5 % AO Auto Heme SS Eosinophil, Absolute 0.20 103/mcL Invalid Interpretation Code 0.00 - 0.40 10^3/mcL AO Auto Heme SS Eosinophils/100 WBC (Bld) 4.8 % Invalid Interpretation Code 0.0 - 7.0 % AO Auto Heme SS Erythrocyte distribution width (RBC) [Ratio] 13.1 % Invalid Interpretation Code 11.5 - 14.5 % AO Auto Heme SS Hematocrit (Bld) [Volume fraction] 39.8 % Invalid Interpretation Code 37.0 - 47.0 % AO Auto Heme SS Hemoglobin (Bld) [Mass/Vol] 13.2 G/dL Invalid Interpretation Code 12.0 - 16.0 G/dL AO Auto Heme SS Lymphocyte, Absolute 1.50 103/mcL Invalid Interpretation Code 0.77 - 3.85 10^3/mcL AO Auto Heme SS Lymphocytes/100 WBC (Bld) 42.7 % Invalid Interpretation Code 10.0 - 50.0 % AO Auto Heme SS MCH (RBC) [Entitic mass] 29.2 pg Invalid Interpretation Code 27.0 - 31.2 pg AO Auto Heme SS MCHC (RBC) [Mass/Vol] 33.3 G/dL Invalid Interpretation Code 33.0 - 37.0 G/dL AO Auto Heme SS MCV (RBC) [Entitic vol] 87.9 fL Invalid Interpretation Code 80.0 - 94.0 fL AO Auto Heme SS Monocyte, Absolute 0.40 103/mcL Invalid Interpretation Code 0.15 - 1.00 10^3/mcL AO Auto Heme SS Monocytes/100 WBC (Bld) 10.7 % Invalid Interpretation Code 1.7 - 13.0 % AO Auto Heme SS Neutrophil, Absolute 1.40 103/mcL Invalid Interpretation Code 2.85 - 6.16 10^3/mcL AO Auto Heme SS Neutrophils/100 WBC (Bld) 40.4 % Invalid Interpretation Code 37.0 - 80.0 % AO Auto Heme SS Platelet mean volume (Bld) [Entitic vol] 10.2 fL Invalid Interpretation Code 7.4 - 10.4 fL AO Auto Heme SS Platelets (Bld) [#/Vol] 221 103/mcL Invalid Interpretation Code 130 - 400 10^3/mcL AO Auto Heme SS RBC (Bld) [#/Vol] 4.52 106/mcL Invalid Interpretation Code 4.20 - 5.40 10^6/mcL AO Auto Heme SS WBC (Bld) [#/Vol] 3.40 103/mcL Invalid Interpretation Code 4.60 - 10.80 10^3/mcL AO Auto Heme SS LABORATORYOrdered By: SYSTEM SYSTEM on 07-28-2021 GFR 68 ml/min/1.73sqm Invalid Interpretation Code AO Chemistry S GFR Non- 56 ml/min/1.73sqm Invalid Interpretation Code AO Chemistry S Parathyrin.intact [Mass/Vol] 37.4 pg/mL Invalid Interpretation Code 18.5 - 88.0 pg/mL AH ADM SS CNPNon 04-30-2019 CNPN Telephone (AGGYNONPOB) DANIADAVID ROMEROXuan ([id number]) 1940 F Date Time Provider Department 04/30/19 EDGARDO ARRIAGA AGGYNONPOVasu During your visit today, we recorded the following information about you: Alaina Borges RN 04/30/2019 3:33 PM Signed Pt called and requested an order for annual mammogram be faxed to [facility]. Order was faxed to [phone]. Pt aware. [facility] 9[facility]32 AM Signed I spoke with patient schedule appointment with Abiola Arriaga at [place] in October or November. August Allergies As of Date: 04/30/2019 Noted Allergy Reaction SULFA (SULFONAMIDE ANTIBIOTICS) 12/02/2015 4 - Hives PENICILLINS 12/02/2015 2 - Rash Comments: Took ampicillin in 2014 without complications Date Reviewed: 04/29/2019 Reviewed by: Laura (Noah) Donte - Fully Assessed Reason for Visit: Orders [401] Cmt: mamm Prescriptions as of 04/30/2019 Sig: FUROSEMIDE 20 MG TABLET TAKE 1 TABLET BY MOUTH EVERY * FERROUS SULFATE 325 MG (65 MG* take 1 tablet by mouth every * LOPERAMIDE 2 MG CAPSULE Take 2 mg by mouth as needed. SPIRONOLACTONE 25 MG TABLET LOSARTAN 50 MG TABLET Take 50 mg by mouth once sonal* MULTIPLE VITAMIN, WOMENS ORAL Take 1 tablet by mouth once d* MULTI VITAMIN ORAL Take by mouth. RED YEAST RICE ORAL Take by mouth. REPLENS VAGINAL Use vaginally. FLUZONE HIGH-DOSE (* GAVILYTE-G 236 GRAM-22.74 GRA* CHOLECALCIFEROL (VITAMIN D3) * Take 1,000 Units by mouth onc* CALCIUM 600 + D ORAL Take by mouth. PROBIOTIC (S.BOULARDII) ORAL Take by mouth as needed. TELMISARTAN 40 MG-HYDROCHLORO* Take 0.5 tablets by mouth onc* SYNTHROID 100 MCG TABLET Once daily, skip tab on * BIOTIN 2,500 MCG CAPSULE Take by mouth. Twice weekly Problem List As Of Date 04/30/2019 Noted Resolved Diarrhea [R19.7] Hypercholesterolemia [E78.00] Unspecified essential hypertension [I10] Vulvar cancer (HCC) [C51.9] 12/07/2015 Hypothyroidism [E03.9] 01/06/2016 Hemorrhoids [K64.9] 01/06/2016 Mitral valve prolapse [I34.1] 01/06/2016 Borderline diabetes mellitus [R73.03] 01/06/2016 Abdominal pain, vomiting, and diarrhea [R10.9, *01/20/2016 01/20/2016 Encounter Status:Closed by ALAINA BORGES RN on 04/30/19 [facility] ALVINOVon 04-29-2019 CN Office Visit (SARAHI) DAMIEN PATRICIA ([id number]) 1940 F Date Time Provider Department 04/29/19 1:30 PM EDGARDO ARRIAGA During your visit today, we recorded the following information about you: Temperature Pulse Respiration Blood pressure 98.1 degrees 81/minute 16/minute 124/80 Weight Height 81.2 kg 1.638 m Edgardo Arriaga MD 04/29/2019 2:40 PM Signed PROBLEM: pT1a N0 vulvar ca Current Outpatient Medications Medication Sig Dispense Refill - ferrous sulfate 325 mg (65 mg iron) tablet take 1 tablet by mouth every AFTERNOON 0 - furosemide (LASIX) 20 mg tablet TAKE 1 TABLET BY MOUTH EVERY SUNDAY, SUNDAY AND SUNDAY 0 - loperamide (IMODIUM) 2 mg cap(s) Take 2 mg by mouth as needed. - spironolactone (ALDACTONE) 25 mg tablet - losartan (COZAAR) 50 mg tablet Take 50 mg by mouth once daily. 11 - MULTIVIT WITH CALCIUM,IRON,MIN (MULTIPLE VITAMIN, WOMENS ORAL) Take 1 tablet by mouth once daily. - MULTIVIT-MINERALS/YAKELIN SHASHA FUM (MULTI VITAMIN ORAL) Take by mouth. - RED YEAST RICE ORAL Take by mouth. - POLYCARBOPHIL (REPLENS VAGINAL) Use vaginally. - FLUZONE HIGH-DOSE , PF, 180 mcg/0.5 mL injection - GAVILYTE-G 236-22.74-6.74 -5.86 gram suspension - Cholecalciferol, Vitamin D3, (VITAMIN D) 1,000 unit cap Take 1,000 Units by mouth once daily. - CALCIUM CARBONATE/VITAMIN D3 (CALCIUM 600 + D ORAL) Take by mouth. - SACCHAROMYCES BOULARDII (PROBIOTIC, S.BOULARDII, ORAL) Take by mouth as needed. - Telmisartan-Hydrochlo rothiazid (MICARDIS HCT) 40-12.5 mg per tablet Take 0.5 tablets by mouth once daily. - SYNTHROID 100 mcg tablet Once daily, skip tab on sundays - Biotin 2,500 mcg cap Take by mouth. Twice weekly No current facility-administered medications for this visit. SUBJECTIVE: Sharidonreports that she feels well. No vaginal bleeding or discharge. No shortness of breath, cough, or chest pain. No abdominal pain, nausea, vomiting, diarrhea, or constipation. No dysuria, gross hematuria, urinary frequency, urinary urgency, or incontinence. Her ECOG performance status is 1 (restricted in physically strenuous activity but ambulatory and able to carry out work of a light or sedentary nature). BP 124/80 Pulse 81 Temp (Src) 98.1 (Oral) Resp 16 Ht 5' 4.5 (1.64m) Wt 179 lb (81.2kg) SpO2 99% LMP 12/07/1995 BMI 30.26 kg/(m2). PHYSICAL EXAM: GEN: Comfortable HEENT: MMM, normocephalic NECK: No cervical or supraclavicular adenopathy. No thyromegaly CARD: RRR PULM: Clear bilat ABD: Soft, nontender, not distended, no organomegaly GROIN: No inguinal adenopathy PELVIC: The external genitalia are normal. Vaginal stenosis. Vaginal modi without lesion. Rectovaginal negative for mass. EXT: No lower ext edema or tendnerness. Mail Distributor: Riana Hitchcock, DO ASSESSMENT: 77?vulvar cancer pT1A N0 mod diff Multiple resections for locally recurrent/persistent disease Vulvectomy 11/2008 Vulvectomy 07/2009 Bilat inguinal LND 08/2009 Vulvectomy 06/30/2015 ?At that time tumor size 8mm, 0.2mm inv Margins clear Biopsy 03/2016 clear Vaginal stenosis S+ -> M dilator ? Prior hysterectomy (2013) PLAN: No clinical evidence of disease recurrence Pap?clear 10/23/2017, follow up Mammo 05/2017 nl per pt, William QOY Colonoscopy 12/2017 due at 4y BMD 03/2016 Continue surveillance RTC 6m Edgardo Arriaga MD Referring Provider: EDGARDO ARRIAGA [[id number]] Allergies As of Date: 04/29/2019 Noted Allergy Reaction SULFA (SULFONAMIDE ANTIBIOTICS) 12/02/2015 4 - Hives PENICILLINS 12/02/2015 2 - Rash Comments: Took ampicillin in 2014 without complications Date Reviewed: 04/29/2019 Reviewed by: Laura (Noah) Donte - Fully Assessed Reason for Visit: Follow Up [171] Visit Diagnosis:Vulva cancer (HCC) [C51.9] Prescriptions as of 04/29/2019 Sig: MULTIPLE VITAMIN, WOMENS ORAL Take 1 tablet by mouth once d* REPLENS VAGINAL Use vaginally. TELMISARTAN 40 MG-HYDROCHLORO* Take 0.5 tablets by mouth onc* FUROSEMIDE 20 MG TABLET TAKE 1 TABLET BY MOUTH EVERY * FERROUS SULFATE 325 MG (65 MG* take 1 tablet by mouth every * LOPERAMIDE 2 MG CAPSULE Take 2 mg by mouth as needed. SPIRONOLACTONE 25 MG TABLET LOSARTAN 50 MG TABLET Take 50 mg by mouth once sonal* MULTI VITAMIN ORAL Take by mouth. RED YEAST RICE ORAL Take by mouth. FLUZONE HIGH-DOSE 2242-1763 (* GAVILYTE-G 236 GRAM-22.74 GRA* CHOLECALCIFEROL (VITAMIN D3) * Take 1,000 Units by mouth onc* CALCIUM 600 + D ORAL Take by mouth. PROBIOTIC (S.BOULARDII) ORAL Take by mouth as needed. SYNTHROID 100 MCG TABLET Once daily, skip tab on * BIOTIN 2,500 MCG CAPSULE Take by mouth. Twice weekly Problem List As Of Date 04/29/2019 Noted Resolved Diarrhea [R19.7] Hypercholesterolemia [E78.00] Unspecified essential hypertension [I10] Vulvar cancer (HCC) [C51.9] 12/07/2015 Hypothyroidism [E03.9] 01/06/2016 Hemorrhoids [K64.9] 01/06/2016 Mitral valve prolapse [I34.1] 01/06/2016 Borderline diabetes mellitus [R73.03] 01/06/2016 Abdominal pain, vomiting, and diarrhea [R10.9, *01/20/2016 01/20/2016 Disposition: Return in about 6 months (around 10/29/2019). Follow-up and Disposition History Recorded Encounter Status:Closed by EDGARDO ARRIAGA MD on 04/29/19 [facility] PROGRESSon 04-29-2019 PROGRESS HNO ID: [id number] Author: Edgardo Arriaga Service: ? Author Type: Physician Type: Progress Notes Filed: 04/29/2019 2:40 PM Note Text: PROBLEM: pT1a N0 vulvar ca Current Outpatient Medications Medication Sig Dispense Refill - ferrous sulfate 325 mg (65 mg iron) tablet take 1 tablet by mouth every AFTERNOON 0 - furosemide (LASIX) 20 mg tablet TAKE 1 TABLET BY MOUTH EVERY SUNDAY, SUNDAY AND SUNDAY 0 - loperamide (IMODIUM) 2 mg cap(s) Take 2 mg by mouth as needed. - spironolactone (ALDACTONE) 25 mg tablet - losartan (COZAAR) 50 mg tablet Take 50 mg by mouth once daily. 11 - MULTIVIT WITH CALCIUM,IRON,MIN (MULTIPLE VITAMIN, WOMENS ORAL) Take 1 tablet by mouth once daily. - MULTIVIT-MINERALS/YAKELIN SHASHA FUM (MULTI VITAMIN ORAL) Take by mouth. - RED YEAST RICE ORAL Take by mouth. - POLYCARBOPHIL (REPLENS VAGINAL) Use vaginally. - FLUZONE HIGH-DOSE , PF, 180 mcg/0.5 mL injection - GAVILYTE-G 236-22.74-6.74 -5.86 gram suspension - Cholecalciferol, Vitamin D3, (VITAMIN D) 1,000 unit cap Take 1,000 Units by mouth once daily. - CALCIUM CARBONATE/VITAMIN D3 (CALCIUM 600 + D ORAL) Take by mouth. - SACCHAROMYCES BOULARDII (PROBIOTIC, S.BOULARDII, ORAL) Take by mouth as needed. - Telmisartan-Hydrochlo rothiazid (MICARDIS HCT) 40-12.5 mg per tablet Take 0.5 tablets by mouth once daily. - SYNTHROID 100 mcg tablet Once daily, skip tab on sundays - Biotin 2,500 mcg cap Take by mouth. Twice weekly No current facility-administered medications for this visit. SUBJECTIVE: Sharidonreports that she feels well. No vaginal bleeding or discharge. No shortness of breath, cough, or chest pain. No abdominal pain, nausea, vomiting, diarrhea, or constipation. No dysuria, gross hematuria, urinary frequency, urinary urgency, or incontinence. Her ECOG performance status is 1 (restricted in physically strenuous activity but ambulatory and able to carry out work of a light or sedentary nature). BP 124/80 Pulse 81 Temp (Src) 98.1 (Oral) Resp 16 Ht 5' 4.5 (1.64m) Wt 179 lb (81.2kg) SpO2 99% LMP 12/07/1995 BMI 30.26 kg/(m2). PHYSICAL EXAM: GEN: Comfortable HEENT: MMM, normocephalic NECK: No cervical or supraclavicular adenopathy. No thyromegaly CARD: RRR PULM: Clear bilat ABD: Soft, nontender, not distended, no organomegaly GROIN: No inguinal adenopathy PELVIC: The external genitalia are normal. Vaginal stenosis. Vaginal modi without lesion. Rectovaginal negative for mass. EXT: No lower ext edema or tendnerness. Mail Distributor: Riana Hitchcock, DO ASSESSMENT: 77?vulvar cancer pT1A N0 mod diff Multiple resections for locally recurrent/persistent disease Vulvectomy 11/2008 Vulvectomy 07/2009 Bilat inguinal LND 08/2009 Vulvectomy 06/30/2015 ?At that time tumor size 8mm, 0.2mm inv Margins clear Biopsy 03/2016 clear Vaginal stenosis S+ -> M dilator ? Prior hysterectomy (2013) PLAN: No clinical evidence of disease recurrence Pap?clear 10/23/2017, follow up Mammo 05/2017 nl per pt, William ROPER Colonoscopy 12/2017 due at 4y BMD 03/2016 Continue surveillance RTC 6m Edgardo Arriaga MD [facility] CNOVon 10-29-2018 CNOV Office Visit (AGGYNONPOB) DAMIEN PATRICIA ([id number]) 1940 F Date Time Provider Department 10/29/18 2:00 PM EDGARDO ARRIAGA During your visit today, we recorded the following information about you: Temperature Pulse Respiration Blood pressure 97.8 degrees 88/minute 16/minute 142/82 Weight Height 81.2 kg 1.638 m Edgardo Arriaga MD 10/29/2018 2:45 PM Signed PROBLEM: pT1a N0 vulvar ca Current Outpatient Medications Medication Sig Dispense Refill - furosemide (LASIX) 20 mg tablet TAKE 1 TABLET BY MOUTH EVERY SUNDAY, SUNDAY AND SUNDAY 0 - ferrous sulfate 325 mg (65 mg iron) tablet take 1 tablet by mouth every AFTERNOON 0 - loperamide (IMODIUM) 2 mg cap(s) Take 2 mg by mouth as needed. - spironolactone (ALDACTONE) 25 mg tablet - losartan (COZAAR) 50 mg tablet Take 50 mg by mouth once daily. 11 - MULTIVIT WITH CALCIUM,IRON,MIN (MULTIPLE VITAMIN, WOMENS ORAL) Take 1 tablet by mouth once daily. - MULTIVIT-MINERALS/YAKELIN SHASHA FUM (MULTI VITAMIN ORAL) Take by mouth. - RED YEAST RICE ORAL Take by mouth. - POLYCARBOPHIL (REPLENS VAGINAL) Use vaginally. - FLUZONE HIGH-DOSE , PF, 180 mcg/0.5 mL injection - GAVILYTE-G 236-22.74-6.74 -5.86 gram suspension - Cholecalciferol, Vitamin D3, (VITAMIN D) 1,000 unit cap Take 1,000 Units by mouth once daily. - CALCIUM CARBONATE/VITAMIN D3 (CALCIUM 600 + D ORAL) Take by mouth. - SACCHAROMYCES BOULARDII (PROBIOTIC, S.BOULARDII, ORAL) Take by mouth as needed. - Telmisartan-Hydrochlo rothiazid (MICARDIS HCT) 40-12.5 mg per tablet Take 0.5 tablets by mouth once daily. - SYNTHROID 100 mcg tablet Once daily, skip tab on sundays - Biotin 2,500 mcg cap Take by mouth. Twice weekly No current facility-administered medications for this visit. SUBJECTIVE: Sharidonreports that she feels well. No vaginal bleeding or discharge. No shortness of breath, cough, or chest pain. No abdominal pain, nausea, vomiting, diarrhea, or constipation. No dysuria, gross hematuria, urinary frequency, urinary urgency, or incontinence. Her ECOG performance status is 1 (restricted in physically strenuous activity but ambulatory and able to carry out work of a light or sedentary nature). PHYSICAL EXAM: BP 142/82 Pulse 88 Temp (Src) 97.8 (Oral) Resp 16 Ht 5' 4.5 (1.64m) Wt 179 lb (81.2kg) SpO2 97% LMP 12/07/1995 BMI 30.26 kg/(m2). GEN: Comfortable HEENT: MMM, normocephalic NECK: No cervical or supraclavicular adenopathy. No thyromegaly CARD: RRR PULM: Clear bilat ABD: Soft, nontender, not distended, no organomegaly GROIN: No inguinal adenopathy PELVIC: The external genitalia are normal. Vaginal modi without lesion. Rectovaginal negative for mass. EXT: No lower ext edema or tendnerness. Mail Distributor: Myla Rhodes, INEZ ASSESSMENT: 77?vulvar cancer pT1A N0 mod diff Multiple resections for locally recurrent/persistent disease Vulvectomy 11/2008 Vulvectomy 07/2009 Bilat inguinal LND 08/2009 Vulvectomy 06/30/2015 ?At that time tumor size 8mm, 0.2mm inv Biopsy 03/2016 clear Vaginal stenosis S+ -> M dilator Prior hysterectomy (2013) PLAN: No clinical evidence of disease recurrence Pap clear 10/23/2017, follow up Mammo 05/2017 nl per pt, William QOY Colonoscopy 12/2017 due at 4y BMD 03/2016 Continue surveillance RTC 6m MD Edgardo Dejesus MD 10/29/2018 2:27 PM Signed How to Prepare for Your Colonoscopy Using Golytely, Nulytely, Trilyte or Colyte Preparations with Conscious Sedation IMPORTANT - Read These Instructions at Least 2 Weeks Before your Colonoscopy Stewart Instructions: ? Your bowel must be empty so that your doctor can clearly view your colon. Follow all of the instructions in this handout EXACTLY as they are written. If you do NOT follow the directions for when to start drinking the bowel preparation, your colonoscopy WILL be cancelled. ? Do NOT eat any solid food the ENTIRE day before your colonoscopy. ? Buy your bowel preparation at least 5 days before your colonoscopy. ? Do NOT mix the solution until the day before your colonoscopy. Designated Fur Dry Cleaner Hand on the Day of Your Exam A responsible family member or friend MUST come with you to your colonoscopy and REMAIN in the endoscopy area until you are discharged. You are NOT ALLOWED to drive, take a taxi or bus, or leave the Endoscopy Center ALONE. If you do not have a responsible tank wagon driver (family member or friend) with you to take you home, you exam cannot be done with sedation and will be cancelled. Medications Some of the medications you take may need to be stopped or adjusted before your colonoscopy. You MUST call the doctor who ordered any of the following medicines at least 2 weeks before your colonoscopy. ? Blood thinners - such as Coumadin (warfarin), Plavix (clopidogrel), Ticlid (ticlopidine hydrochloride), Agrylin (anagrelide), Xarelto (Rivaroxaban), Pradaxa (Dabigatran), Eliquis (Apixaban), and Effient (Prasugrel). ? Insulin or diabetes pills. Please call the doctor that monitors your glucose levels. Your insulin dosage may need to be adjusted due to the diet restrictions required with this bowel preparation. (Please bring your diabetes medicines with you on the day of your procedure.) If you take aspirin, take it and ALL other medications prescribed by your doctor. On the day of your colonoscopy, take your medications with a sip of water. Five (5) Days Before Your Colonoscopy ? Do NOT take medicines that stop diarrhea - such as Imodium, Kaopectate, or Pepto Bismol. ? Do NOT take fiber supplements - such as Metamucil, Citrucel, or Perdiem. ? Do NOT take products that contain iron - such as multi-vitamins (the label lists what is in the products). ? Do NOT take Vitamin E. Buy the prescription bowel preparation solution at your local pharmacy or drugstore pharmacy. Three (3) Days Before Your Colonoscopy ? Do NOT eat high-fiber foods - such as popcorn, beans, seeds (flax, sunflower, quinoa), multigrain bread, nuts, salad/vegetables, or fresh and dried fruit. One (1) Day Before Your Colonoscopy Only drink clear liquids the ENTIRE DAY before your colonoscopy. Do NOT eat any solid foods. Drink at least 8 ounces of clear liquids every hour after waking up. The clear liquids you can drink include: ? Water, apple, or white grape juice; broth; coffee or tea (without milk or creamer); clear carbonated beverages such as lester todd or lemon-ekwok soda; Gatorade or other sports drinks (not red); Frandy-Aid or other flavored drinks (not red). You may eat plain jello or other gelatins (not red) or popsicles (not red). Do NOT drink alcohol on the day before or the day of the procedure. When to Mix and Drink Your Bowel Prep Follow the instructions on the label. After mixing, place the solution in the refrigerator for a couple of hours before drinking. You may add the flavor pack that came with the bowel preparation. Do NOT add ice, sugar or any flavorings to the solution. Morning Appointment (Before 12 noon) Step 1: ? Start drinking the bowel preparation at 6 PM the evening before your colonoscopy. Drink an 8-oz glass of bowel preparation every 10 minutes for a total of 8 glasses. ? You may continue to drink clear liquids until bedtime. Step 2: The day of the colonoscopy (4 hours before your exam). ? Drink an 8-oz glass of bowel preparation every 10 minutes for a total of 8 glasses. ? You may continue to drink clear liquids up to 2 hours before your exam. If you take aspirin, take it and ALL other prescribed medicines with a sip of water on the day of your colonoscopy. Afternoon Appointment (After 12 noon) ? Start drinking the bowel preparation at 6 AM the day of your colonoscopy. Drink an 8-oz glass of bowel preparation every 10 minutes. You must finish drinking the solution by 9 AM. ? You may continue to drink clear liquids up to 2 hours before your exam. If you take aspirin, take it and ALL other prescribed medicines with a sip of water on the day of your colonoscopy. Referring Provider: SELF [[id number]] Allergies As of Date: 10/29/2018 Noted Allergy Reaction SULFA (SULFONAMIDE ANTIBIOTICS) 12/02/2015 4 - Hives PENICILLINS 12/02/2015 2 - Rash Comments: Took ampicillin in 2014 without complications Date Reviewed: 10/29/2018 Reviewed by: Laura (Noah) Donte - Fully Assessed Reason for Visit: Follow Up [171] Primary Visit Diagnosis:Vulvar cancer (HCC) [C51.9] Order(s):peg 3350-Electrolytes (GOLYTELY) 236-22.74-6.74 -5.86 gram suspensionTake 4,000 mL by mouth one time only for 1 dose. Refer to printed prep instructions from your doctor.Disp: 1 BottleRfl: 0 PAP, CYTO ENVIRONMENTAL QUALITY ANALYST [[id number]] Order #: [id number] Prescriptions as of 10/29/2018 Sig: FERROUS SULFATE 325 MG (65 MG* take 1 tablet by mouth every * LOPERAMIDE 2 MG CAPSULE Take 2 mg by mouth as needed. MULTIPLE VITAMIN, WOMENS ORAL Take 1 tablet by mouth once d* RED YEAST RICE ORAL Take by mouth. REPLENS VAGINAL Use vaginally. TELMISARTAN 40 MG-HYDROCHLORO* Take 0.5 tablets by mouth onc* SYNTHROID 100 MCG TABLET Once daily, skip tab on * PEG 3350-ELECTROLYTES 236 GRA* Take 4,000 mL by mouth one ti* FUROSEMIDE 20 MG TABLET TAKE 1 TABLET BY MOUTH EVERY * SPIRONOLACTONE 25 MG TABLET LOSARTAN 50 MG TABLET Take 50 mg by mouth once sonal* MULTI VITAMIN ORAL Take by mouth. FLUZONE HIGH-DOSE [id number] (* GAVILYTE-G 236 GRAM-22.74 GRA* CHOLECALCIFEROL (VITAMIN D3) * Take 1,000 Units by mouth onc* CALCIUM 600 + D ORAL Take by mouth. PROBIOTIC (S.BOULARDII) ORAL Take by mouth as needed. BIOTIN 2,500 MCG CAPSULE Take by mouth. Twice weekly Problem List As Of Date 10/29/2018 Noted Resolved Diarrhea [R19.7] Hypercholesterolemia [E78.00] Unspecified essential hypertension [I10] Vulvar cancer (HCC) [C51.9] INVALID FOR* Hypothyroidism [E03.9] INVALID FOR* Hemorrhoids [K64.9] INVALID FOR* Mitral valve prolapse [I34.1] INVALID FOR* Borderline diabetes mellitus [R73.03] INVALID FOR* Abdominal pain, vomiting, and diarrhea [R10.9, *INVALID FOR*01/20/2016 Other instructions from your clinician: How to Prepare for Your Colonoscopy Using Golytely, Nulytely, Trilyte or Colyte Preparations with Conscious Sedation IMPORTANT - Read These Instructions at Least 2 Weeks Before your Colonoscopy Stewart Instructions: ? Your bowel must be empty so that your doctor can clearly view your colon. Follow all of the instructions in this handout EXACTLY as they are written. If you do NOT follow the directions for when to start drinking the bowel preparation, your colonoscopy WILL be cancelled. ? Do NOT eat any solid food the ENTIRE day before your colonoscopy. ? Buy your bowel preparation at least 5 days before your colonoscopy. ? Do NOT mix the solution until the day before your colonoscopy. Designated Fur Dry Cleaner Hand on the Day of Your Exam A responsible family member or friend MUST come with you to your colonoscopy and REMAIN in the endoscopy area until you are discharged. You are NOT ALLOWED to drive, take a taxi or bus, or leave the Endoscopy Center ALONE. If you do not have a responsible tank wagon driver (family member or friend) with you to take you home, you exam cannot be done with sedation and will be cancelled. Medications Some of the medications you take may need to be stopped or adjusted before your colonoscopy. You MUST call the doctor who ordered any of the following medicines at least 2 weeks before your colonoscopy. ? Blood thinners - such as Coumadin (warfarin), Plavix (clopidogrel), Ticlid (ticlopidine hydrochloride), Agrylin (anagrelide), Xarelto (Rivaroxaban), Pradaxa (Dabigatran), Eliquis (Apixaban), and Effient (Prasugrel). ? Insulin or diabetes pills. Please call the doctor that monitors your glucose levels. Your insulin dosage may need to be adjusted due to the diet restrictions required with this bowel preparation. (Please bring your diabetes medicines with you on the day of your procedure.) If you take aspirin, take it and ALL other medications prescribed by your doctor. On the day of your colonoscopy, take your medications with a sip of water. Five (5) Days Before Your Colonoscopy ? Do NOT take medicines that stop diarrhea - such as Imodium, Kaopectate, or Pepto Bismol. ? Do NOT take fiber supplements - such as Metamucil, Citrucel, or Perdiem. ? Do NOT take products that contain iron - such as multi-vitamins (the label lists what is in the products). ? Do NOT take Vitamin E. Buy the prescription bowel preparation solution at your local pharmacy or [facility]. Three (3) Days Before Your Colonoscopy ? Do NOT eat high-fiber foods - such as popcorn, beans, seeds (flax, sunflower, quinoa), multigrain bread, nuts, salad/vegetables, or fresh and dried fruit. One (1) Day Before Your Colonoscopy Only drink clear liquids the ENTIRE DAY before your colonoscopy. Do NOT eat any solid foods. Drink at least 8 ounces of clear liquids every hour after waking up. The clear liquids you can drink include: ? Water, apple, or white grape juice; broth; coffee or tea (without milk or creamer); clear carbonated beverages such as lester todd or lemon-ekwok soda; Gatorade or other sports drinks (not red); Frandy-Aid or other flavored drinks (not red). You may eat plain jello or other gelatins (not red) or popsicles (not red). Do NOT drink alcohol on the day before or the day of the procedure. When to Mix and Drink Your Bowel Prep Follow the instructions on the label. After mixing, place the solution in the refrigerator for a couple of hours before drinking. You may add the flavor pack that came with the bowel preparation. Do NOT add ice, sugar or any flavorings to the solution. Morning Appointment (Before 12 noon) Step 1: ? Start drinking the bowel preparation at 6 PM the evening before your colonoscopy. Drink an 8-oz glass of bowel preparation every 10 minutes for a total of 8 glasses. ? You may continue to drink clear liquids until bedtime. Step 2: The day of the colonoscopy (4 hours before your exam). ? Drink an 8-oz glass of bowel preparation every 10 minutes for a total of 8 glasses. ? You may continue to drink clear liquids up to 2 hours before your exam. If you take aspirin, take it and ALL other prescribed medicines with a sip of water on the day of your colonoscopy. Afternoon Appointment (After 12 noon) ? Start drinking the bowel preparation at 6 AM the day of your colonoscopy. Drink an 8-oz glass of bowel preparation every 10 minutes. You must finish drinking the solution by 9 AM. ? You may continue to drink clear liquids up to 2 hours before your exam. If you take aspirin, take it and ALL other prescribed medicines with a sip of water on the day of your colonoscopy. Prescriptions ordered this encounter Disp Refills Start End PEG 3350-ELECTROLYTES 236 GRAM-22.74* 1 Prince* 0 10/29/2018 10/29/2018 Class: Print RX Route: ORAL Sig: Take 4,000 mL by mouth one time only for 1 dose. Refer to printed prep instructions from your doctor. Encounter Status:Closed by EDGARDO ARRIAGA MD on 10/29/18 [facility] PROGRESSon 10-29-2018 PROGRESS HNO ID: [id number] Author: Edgardo Arriaga Service: ? Author Type: Physician Type: Progress Notes Filed: 10/29/2018 2:45 PM Note Text: PROBLEM: pT1a N0 vulvar ca Current Outpatient Medications Medication Sig Dispense Refill - furosemide (LASIX) 20 mg tablet TAKE 1 TABLET BY MOUTH EVERY SUNDAY, SUNDAY AND SUNDAY 0 - ferrous sulfate 325 mg (65 mg iron) tablet take 1 tablet by mouth every AFTERNOON 0 - loperamide (IMODIUM) 2 mg cap(s) Take 2 mg by mouth as needed. - spironolactone (ALDACTONE) 25 mg tablet - losartan (COZAAR) 50 mg tablet Take 50 mg by mouth once daily. 11 - MULTIVIT WITH CALCIUM,IRON,MIN (MULTIPLE VITAMIN, WOMENS ORAL) Take 1 tablet by mouth once daily. - MULTIVIT-MINERALS/YAKELIN SHASHA FUM (MULTI VITAMIN ORAL) Take by mouth. - RED YEAST RICE ORAL Take by mouth. - POLYCARBOPHIL (REPLENS VAGINAL) Use vaginally. - FLUZONE HIGH-DOSE , PF, 180 mcg/0.5 mL injection - GAVILYTE-G 236-22.74-6.74 -5.86 gram suspension - Cholecalciferol, Vitamin D3, (VITAMIN D) 1,000 unit cap Take 1,000 Units by mouth once daily. - CALCIUM CARBONATE/VITAMIN D3 (CALCIUM 600 + D ORAL) Take by mouth. - SACCHAROMYCES BOULARDII (PROBIOTIC, S.BOULARDII, ORAL) Take by mouth as needed. - Telmisartan-Hydrochlo rothiazid (MICARDIS HCT) 40-12.5 mg per tablet Take 0.5 tablets by mouth once daily. - SYNTHROID 100 mcg tablet Once daily, skip tab on sundays - Biotin 2,500 mcg cap Take by mouth. Twice weekly No current facility-administered medications for this visit. SUBJECTIVE: Sharidonreports that she feels well. No vaginal bleeding or discharge. No shortness of breath, cough, or chest pain. No abdominal pain, nausea, vomiting, diarrhea, or constipation. No dysuria, gross hematuria, urinary frequency, urinary urgency, or incontinence. Her ECOG performance status is 1 (restricted in physically strenuous activity but ambulatory and able to carry out work of a light or sedentary nature). PHYSICAL EXAM: BP 142/82 Pulse 88 Temp (Src) 97.8 (Oral) Resp 16 Ht 5' 4.5 (1.64m) Wt 179 lb (81.2kg) SpO2 97% LMP 12/07/1995 BMI 30.26 kg/(m2). GEN: Comfortable HEENT: MMM, normocephalic NECK: No cervical or supraclavicular adenopathy. No thyromegaly CARD: RRR PULM: Clear bilat ABD: Soft, nontender, not distended, no organomegaly GROIN: No inguinal adenopathy PELVIC: The external genitalia are normal. Vaginal modi without lesion. Rectovaginal negative for mass. EXT: No lower ext edema or tendnerness. 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 PARTIALLY OBSCURING INFLAMMATION. GENERAL CATEGORIZATION NEGATIVE FOR INTRAEPITHELIAL LESION OR MALIGNANCY. INTERPRETATION/RESULT REACTIVE CELLULAR CHANGES ASSOCIATED WITH INFLAMMATION OR REPAIR. ATROPHY. Electronically signed: 11/27/2018 Screened by: CARLA LUGO(ASCP) Signed Out by: EDGARDO ESTRADA M.D.,PATHOLOGIST The Pap test serves as a screening tool for early detection of cervical cancer. The Pap test does not represent a final diagnostic test for cervical cancer. Furthermore, the Pap test was not designed to screen for other malignancies (endometrial, ovarian cancer, etc....). False negatives and false positives have occurred. If clinically indicated, further patient evaluation is recommended. Printed on: November 27, 2018 Page 1 of 1 Normal [facility] Comment on above: Performed By: #### C YTOP #### [place] [address] Lab Report: Basic Metabolic Profile (BMP)on 03-13-2017 Anion gap 6 mmol/L Invalid Interpretation Code 5-15 [facility] Work Phone: [phone] BUN/Creatinine Ratio 17.1 RATIO Invalid Interpretation Code 10-20 [facility] Work Phone: [phone] Calcium 9.1 mg/dL Invalid Interpretation Code 8.5-10.1 [facility] Work Phone: [phone] Chloride 105 mmol/L Invalid Interpretation Code 98-107 [facility] Work Phone: [phone] CO2 28.0 mmol/L Invalid Interpretation Code 21.0-32.0 [facility] Work Phone: [phone] Creatinine 1.05 mg/dL High 0.55-1.02 [facility] Work Phone: [phone] eGFR (non-black) 66 mL/min/{1.73_m2} Invalid Interpretation Code >60 [facility] Work Phone: [phone] eGFR (non-black) 54 mL/min/{1.73_m2} Low >60 [facility] Work Phone: [phone] Glucose mass conc 100 mg/dL Invalid Interpretation Code 70-110 [facility] Work Phone: [phone] Potassium molar conc 4.3 mmol/L Invalid Interpretation Code 3.5-5.1 [facility] Work Phone: [phone] Sodium 139 mmol/L Invalid Interpretation Code 136-145 [facility] Work Phone: [phone] Urea nitrogen 18 mg/dL Invalid Interpretation Code 7-18 [facility] Phone: [phone] Office Visiton 02-23-2017 Dietary management education, guidance, and counseling (procedure) yes Invalid Interpretation Code [facility] Phone: [phone] Documentation of current medications (procedure) Done Invalid Interpretation Code [facility] Phone: [phone] Fall risk assessment No Invalid Interpretation Code [facility] Phone: [phone] Tobacco use HS Never smoker Invalid Interpretation Code [facility] Phone: [phone] Replaced Document: Jassmark E CG Observationson 02-23-2017 EKG QRS axis -30 deg Invalid Interpretation Code [facility] Phone: [phone] Interpretation Sinus Rhythm Low voltage in precordial leads. -RSR(V1) -nondiagnostic. -Old anterior infarct. ABNORMAL Invalid Interpretation Code [facility] Phone: [phone] P [place] 34 deg Invalid Interpretation Code [facility] [employer] Phone: [phone] W[place] Interval 176 ms Invalid Interpretation Code [facility] Work Phone: [phone] Pulse (Heart Rate) 77 /min Invalid Interpretation Code [facility] Phone: [phone] QRS Duration 100 ms Invalid Interpretation Code [facility] Work Phone: [phone] QT Interval new path ms Invalid Interpretation Code [facility] Work Phone: [phone] QTc [place] 401 ms Invalid Interpretation Code [facility] Work Phone: [phone] T [place] -1 deg Invalid Interpretation Code [facility] Work Phone: [phone] Office Visiton 03-11-2015 cardiac risk group B Invalid Interpretation Code [facility] Work Phone: [phone] General cardiovascular disease 10Y risk [#] [place].D'Agostino 15 % Invalid Interpretation Code [facility] Work Phone: [phone] Clinical Lists Update: Prelo cuff setter 03-10-2015 Alanine aminotransferase (ALT) 15 U/L Invalid Interpretation Code [facility] Work Phone: [phone] Albumin 4.4 g/dL Invalid Interpretation Code [facility] Work Phone: [phone] Alkaline phosphatase (ALP) 73 U/L Invalid Interpretation Code [facility] Work Phone: [phone] Aspartate aminotransferase (AST) 16 U/L Invalid Interpretation Code [facility] Work Phone: [phone] Bilirubin (total) 0.5 mg/dL Invalid Interpretation Code [facility] Work Phone: [phone] Cholesterol 207 mg/dL High [facility] Work Phone: [phone] Globulin 3.0 g/dL Invalid Interpretation Code [facility] Work Phone: [phone] HDL Cholesterol 53 mg/dL Invalid Interpretation Code [facility] Work Phone: [phone] Hemoglobin A1c/Hemoglobin.total mass fraction (Bld) 5.9 % Invalid Interpretation Code [facility] Work Phone: [phone] LDL Cholesterol 134 mg/dL High [facility] Work Phone: [phone] Protein 7.4 g/dL Invalid Interpretation Code [facility] Work Phone: [phone] Triglyceride 101 mg/dL Invalid Interpretation Code [facility] Work Phone: [phone] Clinical Lists Update: Prelo cuff setter 12-02-2013 Thyroid stimulating hormone (TSH) 2.11 u[iU]/mL Invalid Interpretation Code [facility] Work Phone: [phone] Vital Signs Date Time Vital Sign Value Performing Clinician Faci lity 11-07-2024 14:05-0400 Body mass index (BMI) [Ratio] 28.43 kg/m2 Annia Jagielo MOTOR BLOCK MECHANIC.DATABASE ADMINISTRATION MANAGER Work Phone: [facility] 11-07-2024 14:05-0400 Body weight 76.3 kg Annia Jagielo MOTOR BLOCK MECHANIC.DATABASE ADMINISTRATION MANAGER Work Phone: [facility] 11-07-2024 14:05-0400 Diastolic blood pressure 74 mm[Hg] Annia Jagielo MOTOR BLOCK MECHANIC.DATABASE ADMINISTRATION MANAGER Work Phone: [facility] 11-07-2024 14:05-0400 Systolic blood pressure 118 mm[Hg] Annia Jagielo MOTOR BLOCK MECHANIC.DATABASE ADMINISTRATION MANAGER Work Phone: [facility] 05-09-2024 14:48-0500 Body mass index (BMI) [Ratio] 27.48 kg/m2 Annia Jagielo MOTOR BLOCK MECHANIC.DATABASE ADMINISTRATION MANAGER Work Phone: [facility] 05-09-2024 14:48-0500 Body weight 73.75 kg Annia Jagielo MOTOR BLOCK MECHANIC.DATABASE ADMINISTRATION MANAGER Work Phone: [facility] 05-09-2024 14:48-0500 Diastolic blood pressure 74 mm[Hg] Annia Jagielo MOTOR BLOCK MECHANIC.DATABASE ADMINISTRATION MANAGER Work Phone: [facility] 05-09-2024 14:48-0500 Systolic blood pressure 117 mm[Hg] Annia Jagielo MOTOR BLOCK MECHANIC.DATABASE ADMINISTRATION MANAGER Work Phone: [facility] 11-23-2023 14:09-0400 Body mass index (BMI) [Ratio] 26.42 kg/m2 Annia Jagielo MOTOR BLOCK MECHANIC.DATABASE ADMINISTRATION MANAGER Work Phone: [facility] 11-23-2023 14:09-0400 Body weight 70.9 kg Annia Jagielo MOTOR BLOCK MECHANIC.DATABASE ADMINISTRATION MANAGER Work Phone: [facility] 11-23-2023 14:09-0400 Diastolic blood pressure 75 mm[Hg] Annia Jagielo MOTOR BLOCK MECHANIC.DATABASE ADMINISTRATION MANAGER Work Phone: [facility] 11-23-2023 14:09-0400 Systolic blood pressure 132 mm[Hg] Annia Wilson MOTOR BLOCK MECHANIC.DATABASE ADMINISTRATION MANAGER Work Phone: [facility] 05-04-2023 15:07-0500 Body weight 70.2 kg Annia Wilson MOTOR BLOCK MECHANIC.DATABASE ADMINISTRATION MANAGER Work Phone: [facility] 05-04-2023 15:07-0500 Diastolic blood pressure 68 mm[Hg] Annia Wilson MOTOR BLOCK MECHANIC.DATABASE ADMINISTRATION MANAGER Work Phone: [facility] 05-04-2023 15:07-0500 Systolic blood pressure 112 mm[Hg] Annia Wilson MOTOR BLOCK MECHANIC.DATABASE ADMINISTRATION MANAGER Work Phone: [facility] 01-18-2023 13:25-0400 Body height 162.[address] Tanvi Doty Work Phone: [facility] 01-18-2023 13:25-0400 Body mass index (BMI) [Ratio] 28.2 kg/m2 Dr. Tanvi Doty Work Phone: [facility] 01-18-2023 13:25-0400 Body temperature 98.2 [degF] Dr. Tanvi Doty Work Phone: [facility] 01-18-2023 13:25-0400 Body weight 74.[address] Tanvi Doty Work Phone: [facility] 01-18-2023 13:25-0400 Diastolic blood pressure 80 mm[Hg] Dr. Tanvi Doty Work Phone: [facility] 01-18-2023 13:25-0400 Heart rate 70 /min Dr. Tanvi Doty Work Phone: [facility] 01-18-2023 13:25-0400 Respiratory rate 16 /min Dr. Tanvi Doty Work Phone: [facility] 01-18-2023 13:25-0400 SaO2% (BldA) [Mass fraction] 97 % Dr. Tanvi Doty Work Phone: [facility] 01-18-2023 13:25-0400 Systolic blood pressure 136 mm[Hg] Dr. Tanvi Doty Work Phone: [facility] 10-16-2022 08:06-0400 Body mass index (BMI) [Ratio] 29 kg/m2 Dr. Tanvi Doty Work Phone: [facility] 10-16-2022 08:06-0400 Body temperature 98.4 [degF] Dr. Tanvi Doty Work Phone: [facility] 10-16-2022 08:06-0400 Body weight 76.[address] Tanvi Doty Work Phone: [facility] 10-16-2022 08:06-0400 Diastolic blood pressure 78 mm[Hg] Dr. Tanvi Doty Work Phone: [facility] 10-16-2022 08:06-0400 Heart rate 73 /min Dr. Tanvi Doty Work Phone: [facility] 10-16-2022 08:06-0400 Respiratory rate 16 /min Dr. Tanvi Doty Work Phone: [facility] 10-16-2022 08:06-0400 SaO2% (BldA) [Mass fraction] 97 % Dr. Tanvi Doty Work Phone: [facility] 10-16-2022 08:06-0400 Systolic blood pressure 140 mm[Hg] Dr. Tanvi Doty Work Phone: [facility] 08-04-2022 10:51-0500 Body weight 76.79 kg Annia Wilson APRN.DATABASE ADMINISTRATION MANAGER Work Phone: [facility] 08-04-2022 10:51-0500 Diastolic blood pressure 73 mm[Hg] Annia Wilson APRN.DATABASE ADMINISTRATION MANAGER Work Phone: [facility] 08-04-2022 10:51-0500 Systolic blood pressure 124 mm[Hg] Annia Wilson CHRIS Work Phone: [facility] 07-28-2022 15:25-0500 Body height 162.[address] Tanvi Doty Work Phone: [facility] 07-28-2022 15:25-0500 Body mass index (BMI) [Ratio] 29.2 kg/m2 Dr. Tanvi Doty Work Phone: [facility] 07-28-2022 15:25-0500 Body weight 77.[address] Tanvi Doty Work Phone: [facility] 07-28-2022 15:25-0500 Diastolic blood pressure 75 mm[Hg] Dr. Taniv Doty Work Phone: [facility] 07-28-2022 15:25-0500 Heart rate 77 /min Dr. Tanvi Doty Work Phone: [facility] 07-28-2022 15:25-0500 Respiratory rate 16 /min Dr. Tanvi Doty Work Phone: [facility] 07-28-2022 15:25-0500 Systolic blood pressure 125 mm[Hg] Dr. Tanvi Doty Work Phone: [facility] 03-21-2022 09:11-0400 Body height 162.[address] Marga Chilel Work Phone: [facility] Work Phone: 03-21-2022 09:11-0400 Body mass index (BMI) [Ratio] 29 kg/m2 Dr. Marga Chilel Work Phone: [facility] Work Phone: 03-21-2022 09:11-0400 Body temperature 98 [degF] Dr. Marga Chilel Work Phone: [facility] Work Phone: 03-21-2022 09:11-0400 Body weight 76.[address] Marga Chilel Work Phone: [facility] Work Phone: 03-21-2022 09:11-0400 Diastolic blood pressure 72 mm[Hg] Dr. Marga Chilel Work Phone: [facility] Work Phone: 03-21-2022 09:11-0400 Heart rate 67 /min Dr. Marga Chilel Work Phone: [facility] Work Phone: 03-21-2022 09:11-0400 Respiratory rate 14 /min Dr. Marga Chilel Work Phone: [facility] Work Phone: 03-21-2022 09:11-0400 SaO2% (BldA) [Mass fraction] 99 % Dr. Marga Chilel Work Phone: [facility] Work Phone: 03-21-2022 09:11-0400 Systolic blood pressure 130 mm[Hg] Dr. Marga Chilel Work Phone: [facility] Work Phone: 02-23-2022 10:55-0400 Body temperature 98.2 [degF] Dr. Marga Chilel Work Phone: [facility] Work Phone: 02-23-2022 10:55-0400 Body weight 76.[address] Marga Chilel Work Phone: [facility] Work Phone: 02-23-2022 10:55-0400 Diastolic blood pressure 68 mm[Hg] Dr. Marga Chilel Work Phone: [facility] Work Phone: 02-23-2022 10:55-0400 Heart rate 75 /min Dr. Marga Chilel Work Phone: [facility] Work Phone: 02-23-2022 10:55-0400 Respiratory rate 16 /min Dr. Marga Chilel Work Phone: [facility] Work Phone: 02-23-2022 10:55-0400 SaO2% (BldA) [Mass fraction] 98 % Dr. Marga Chilel Work Phone: [facility] Work Phone: 02-23-2022 10:55-0400 Systolic blood pressure 126 mm[Hg] Dr. Marga Chilel Work Phone: [facility] Work Phone: 01-05-2022 08:58-0400 Body mass index (BMI) [Ratio] 29.2 kg/m2 Dr. Marga Chilel Work Phone: [facility] Work Phone: 01-05-2022 08:58-0400 Body weight 77.[address] Marga Chilel Work Phone: [facility] Work Phone: 01-05-2022 08:58-0400 Diastolic blood pressure 62 mm[Hg] Dr. Marga Chilel Work Phone: [facility] Work Phone: 01-05-2022 08:58-0400 Heart rate 72 /min Dr. Marga Chliel Work Phone: [facility] Work Phone: 01-05-2022 08:58-0400 Respiratory rate 16 /min Dr. Marga Chilel Work Phone: [facility] Work Phone: 01-05-2022 08:58-0400 SaO2% (BldA) [Mass fraction] 100 % Dr. Marga Chilel Work Phone: [facility] Work Phone: 01-05-2022 08:58-0400 Systolic blood pressure 108 mm[Hg] Dr. Marga Chilel Work Phone: [facility] Work Phone: 09-06-2021 09:16-0400 Body height 162.[address] Tanvi Doty Work Phone: [facility] Work Phone: 09-06-2021 09:16-0400 Body mass index (BMI) [Ratio] 29.8 kg/m2 Dr. Tanvi Doty Work Phone: [facility] Work Phone: 09-06-2021 09:16-0400 Body temperature 96.7 [degF] Dr. Tanvi Doty Work Phone: [facility] Work Phone: 09-06-2021 09:16-0400 Body weight 78.[address] Tanvi Doty Work Phone: [facility] Work Phone: 09-06-2021 09:16-0400 Diastolic blood pressure 80 mm[Hg] Dr. Tanvi Doty Work Phone: [facility] Work Phone: 09-06-2021 09:16-0400 Heart rate 72 /min Dr. Tanvi Doty Work Phone: [facility] Work Phone: 09-06-2021 09:16-0400 Respiratory rate 16 /min Dr. Tanvi Doty Work Phone: [facility] Work Phone: 09-06-2021 09:16-0400 SaO2% (BldA) [Mass fraction] 99 % Dr. Tanvi Doty Work Phone: [facility] Work Phone: 09-06-2021 09:16-0400 Systolic blood pressure 138 mm[Hg] Dr. Tanvi Doty Work Phone: [facility] Work Phone: 02-23-2017 15:27-0400 BMI (Body Mass Index) 31.58 kg/m2 Dari Mai RN [facility] Work Phone: 02-23-2017 15:27-0400 BP Diastolic 82 mm[Hg] Dari Mai RN [facility] Work Phone: 02-23-2017 15:27-0400 BP Systolic 148 mm[Hg] Dari Mai RN [facility] Work Phone: 02-23-2017 15:27-0400 Height 162.56 cm Dari Mai RN [facility] Work Phone: 02-23-2017 15:27-0400 Pulse (Heart Rate) 80 /min Dari Mai RN [facility] Work Phone: 02-23-2017 15:27-0400 Respiratory Rate 16 /min Dari Mai RN [facility] Work Phone: 02-23-2017 15:27-0400 Weight 83.46 kg Dari Mai RN [facility] Work Phone: 03-03-2016 10:25-0400 BSA (Body Surface Area) 1.91 m2 Dari Mai RN [facility] Work Phone: 03-11-2015 13:05-0400 BP Diastolic 82 mm[Hg] Dari Mai RN [facility] Work Phone: 03-11-2015 13:05-0400 BP Systolic 140 mm[Hg] Dari Mai RN [facility] Work Phone: Encounters Encounter Date Encounter Type Care Provider Facility Start: 01-14-2025 End: 01-14-2025 ambulatory [facility] Start: 01-06-2025 End: 01-06-2025 Emergency department patient visit JUAN LOPEZ MD [facility] Start: 12-24-2024 End: 12-24-2024 Telephone encounter America Sultana MD Work Phone: [facility] Comment on above: Results Start: 12-18-2024 End: 12-18-2024 Telephone encounter America Sultana MD Work Phone: [facility] Comment on above: Orders Start: 12-18-2024 End: 12-18-2024 ambulatory TANVI DOTY MD Facility:[facility] Start: 12-18-2024 End: 12-18-2024 Patient encounter procedure EPIFANIO VELÁZQUEZ [facility] Start: 12-18-2024 End: 12-18-2024 ambulatory PAO PURVIS MD Facility:[facility] Start: 12-18-2024 End: 12-18-2024 Patient encounter procedure ANNIA WILSON DATABASE ADMINISTRATION MANAGER [facility] Start: 12-11-2024 End: 12-11-2024 ambulatory Annia Wilson MOTOR BLOCK MECHANIC.DATABASE ADMINISTRATION MANAGER Work Phone: [facility] Comment on above: Postop check (Primar y Dx); History of cancer of vulva Start: 12-11-2024 End: 12-11-2024 Telemedicine consultation with patient Annia Wilson MOTOR BLOCK MECHANIC.DATABASE ADMINISTRATION MANAGER Work Phone: [facility] Start: 12-11-2024 End: 12-11-2024 ambulatory ANNIA WILSON Facility:[facility] Start: 12-08-2024 End: 12-08-2024 ambulatory AMERICA SULTANA JR Facility:[facility] Start: 12-08-2024 Encounter for other preprocedural examination AMERICA SULTANA JR [facility] Start: 12-04-2024 End: 12-04-2024 Nursing evaluation of patient and report Link Trainer Operator Onc Nurse Ca 4 Work Phone: [facility] Comment on above: Educational circumst ances (Primary Dx) Start: 12-04-2024 End: 12-04-2024 ambulatory TANVI DOTY Facility:[facility] Start: 11-27-2024 End: 11-27-2024 Telephone encounter America Sultana MD Work Phone: [facility] Comment on above: Patient Question Start: 11-26-2024 ambulatory [facility] Facility :[facility] Start: 11-24-2024 End: 11-24-2024 Preprocedural examination done America Sultana MD Work Phone: [facility] Start: 11-24-2024 End: 11-24-2024 Telephone encounter America Sultana MD Work Phone: [facility] Comment on above: Results Start: 11-21-2024 End: 11-21-2024 Telephone encounter Annia Wislon APRN.DATABASE ADMINISTRATION MANAGER Work Phone: [facility] Comment on above: Results Start: 11-07-2024 End: 11-07-2024 Patient encounter procedure Annia Wilson APRN.DATABASE ADMINISTRATION MANAGER Work Phone: [facility] Start: 11-07-2024 End: 11-07-2024 ambulatory Annia Wilson MOTOR BLOCK MECHANIC.DATABASE ADMINISTRATION MANAGER Work Phone: [facility] Comment on above: History of cancer of vulva (Primary Dx); Encounter for screening mammogram for malignant neoplasm of breast Start: 11-05-2024 End: 11-05-2024 [facility]ulatory [facility] Facility[facility] Start: 10-27-2024 End: 10-27-2024 ambulatory [facility] Facility:[facility] Start: 10-15-2024 End: 10-15-2024 ambulatory Tanvi Soren Facility:[facility] Start: 07-18-2024 End: 07-18-2024 ambulatory [facility] Start: 07-11-2024 End: 07-11-2024 ambulatory Tanvi Soren Facility:[facility] Start: 06-17-2024 End: 06-17-2024 ambulatory PAO PURVIS MD Facility:[facility] Start: 06-17-2024 End: 06-17-2024 Patient encounter procedure PAO PURVIS MD [facility] Start: 06-09-2024 End: 06-09-2024 ambulatory Tanvi Doty Facility:[facility] Start: 06-04-2024 End: 06-04-2024 ambulatory Nelson GARCIA [facility] Start: 06-03-2024 End: 06-03-2024 Telephone encounter Annia Wilson APRN.DATABASE ADMINISTRATION MANAGER Work Phone: [facility] Comment on above: Patient Question Start: 06-02-2024 End: 06-02-2024 ambulatory Nelson GARCIA [facility] Start: 05-09-2024 End: 05-09-2024 Visit (SP) Office Annia Wilson APRN.DATABASE ADMINISTRATION MANAGER Work Phone: [facility] Comment on above: Encounter for follow -up surveillance of malignant neoplasm of vulva (Primary Dx); Vaginal stenosis; Insomnia, unspecified type; Major depressive disorder with single episode, in partial remission (HCC) Start: 05-01-2024 End: 05-01-2024 ambulatory MARGA JOSEPHAZUL GARCIA Facility:[facility] Start: 05-01-2024 End: 05-01-[address] PHAM DAWKINS MD [facility] Start: 04-16-2024 End: 04-16-2024 ambulatory Tanvi Doty Facility:[facility] Start: 04-11-2024 End: 04-11-2024 ambulatory Suresh Graves NP Facility:[facility] Start: 02-05-2024 End: 02-05-2024 ambulatory Nelson GARCIA [facility] Start: 12-12-2023 Telephone encounter Mely Joseph RN Gynecology Oncology Comment on above: Results Start: 12-05-2023 End: 12-05-2023 ambulatory ANNIA WILSON CNP Facility:B Start: 12-05-2023 End: 12-05-2023 Patient encounter procedure ANNIA WILSON CNP [facility] Start: 12-04-2023 End: 12-04-2023 ambulatory PAO PURVIS MD Facility:B Start: 12-04-2023 End: 12-04-2023 Patient encounter procedure PAO PURVIS MD [facility] Start: 11-23-2023 End: 11-23-2023 Visit (SP) Office Annia Wilson APRN.DATABASE ADMINISTRATION MANAGER Work Phone: Gynecology Oncology Comment on above: Encounter for follow -up surveillance of malignant neoplasm of vulva (Primary Dx); Vaginal stenosis; Major depressive disorder with single episode, in partial remission (HCC) Start: 10-24-2023 End: 10-24-[address] PHAM DAWKINS MD Facility:B Start: 10-24-2023 End: 10-24-[address] PHAM DAWKINS MD [facility] Start: 10-18-2023 Telephone encounter Annia Wilson APRN.DATABASE ADMINISTRATION MANAGER Work Phone: Gynecology Oncology Comment on above: Orders Start: 05-04-2023 End: 05-04-2023 Follow-up encounter Annia Wilson APRN.DATABASE ADMINISTRATION MANAGER Work Phone: Gynecology Oncology Comment on above: Encounter for follow -up surveillance of malignant neoplasm of vulva (Primary Dx); Colitis; Vaginal stenosis Start: 05-04-2023 End: 05-04-2023 Patient encounter procedure Annia Wilson APRN.DATABASE ADMINISTRATION MANAGER Work Phone: [facility] Start: 03-08-2023 End: 03-08-2023 ambulatory PAO PURVIS MD Facility:B Start: 03-08-2023 End: 03-08-2023 Patient encounter procedure PAO PURVIS MD [facility] Start: 02-09-2023 Non-patient / Non-visit Dr. Jinny Doty Work Phone: [facility] Start: 02-09-2023 End: 02-09-[address] Tanvi Doty Work Phone: [facility] Work Phone: Start: 02-09-2023 End: 02-09-[address] Tanvi Doty Work Phone: [facility] Work Phone: Start: 01-24-2023 End: 01-24-[address] Tanvi Doty Work Phone: [facility] Work Phone: Start: 01-24-2023 End: 01-24-[address] Tanvi Doty Work Phone: [facility]Laboratory Work Phone: Start: 01-18-2023 End: 01-18-[address] Tanvi Doty Work Phone: [facility] [place] Work Phone: Start: 10-16-2022 End: 10-16-[address] Tanvi Doty Work Phone: [facility] [place] Work Phone: Start: 10-12-2022 End: 10-12-[address] Tanvi Doty Work Phone: [facility]-Radiology, [facility] Work Phone: Start: 10-06-2022 End: 10-06-2022 ambulatory Shaneka Lyman PT [facility] Physical Therapy Comment on above: Lymphedema (Primary Dx) Start: 09-28-2022 End: 09-28-2022 Patient encounter procedure ANNIA WILSON [facility] Start: 09-22-2022 Telephone encounter Annia Wilson APRN.DATABASE ADMINISTRATION MANAGER Work Phone: Gynecology Oncology Comment on above: Returning Patient's Call Start: 09-20-2022 Telephone encounter Clifford quiros DO [facility] Comment on above: Patient Question Start: 09-11-2022 End: 09-11-[address] Tanvi Doty Work Phone: [facility] Work Phone: Start: 09-11-2022 End: 09-11-[address] Tanvi Doty Work Phone: [facility]Laboratory Start: 08-30-2022 End: 08-30-2022 Patient encounter procedure PAO PURVIS MD [facility] Start: 08-15-2022 Telephone encounter Viridiana Garber RN Gynecology Oncology Comment on above: Returning Patient's Call Results Start: 08-04-2022 End: 08-04-2022 Follow-up encounter Annia Wilson APRN.DATABASE ADMINISTRATION MANAGER Work Phone: Gynecology Oncology Comment on above: Encounter for follow -up surveillance of vulvar cancer (Primary Dx); Abnormal Pap smear of vagina; Encounter for screening mammogram for breast cancer Start: 08-04-2022 End: 08-04-2022 Patient encounter procedure Annia Wilson APRN.DATABASE ADMINISTRATION MANAGER Work Phone: [facility] Start: 07-28-2022 End: 07-28-[address] Tanvi Doty Work Phone: [facility] Start: 04-12-2022 End: 04-13-2022 ambulatory [facility] Start: 04-07-2022 Telephone encounter Annia Wilson APRN.DATABASE ADMINISTRATION MANAGER Work Phone: Gynecology Oncology Comment on above: Vaginal Problem Start: 04-06-2022 Telephone encounter Karlene cardenas DO Work Phone: Obstetrics/Gynecology Comment on above: personal questions Start: 03-21-2022 End: 03-21-[address] Marga Chilel Work Phone: [facility] Work Phone: Start: 03-21-2022 End: 03-21-[address] Marga Chilel Work Phone: [facility] Internal Medicine Start: 02-23-2022 End: 02-23-[address] Marga Chilel Work Phone: [facility] Med at [facility] Start: 02-01-2022 End: 02-01-2022 Patient encounter procedure PAO PURVIS MD [facility] Start: 01-05-2022 End: 01-05-[address] Marga Chilel Work Phone: [facility] Start: 09-22-2021 End: 09-22-2021 Patient encounter procedure ANNIA WILSON DATABASE ADMINISTRATION MANAGER [facility] Start: 09-06-2021 End: 09-06-[address] Tanvi Doty Work Phone: [facility] Internal Medicine Start: 07-28-2021 End: 07-28-2021 Patient encounter procedure MARGA CHILEL DO [facility] Procedures Date Procedure Procedure Detail Performing Clinician Start: 10-12-[address] Tanvi Doty Work Phone: Start: 05-26-2021 Colonoscopy Karlene cardenas DO Work Phone: Start: 02-23-2017 End: 03-13-2017 *BMP Rick Prabhakar MD Start: 02-23-2017 End: 02-23-2017 Ecg routine ecg w/least 12 lds w/i&r Rick Prabhakar MD Start: 02-23-2017 End: 02-23-2017 Follow Up Appt 1 year Rick Melendez Start: 02-23-2017 End: 02-23-2017 PFM Rick Prabhakar MD Start: 03-03-2016 End: 03-03-2016 Ecg routine ecg w/least 12 lds w/i&r Rick Prabhakar MD Start: 03-03-2016 End: 03-03-2016 Follow Up Appt 1 year Rick Melendez Start: 03-03-2016 End: 03-03-2016 PFM Rick Prabhakar MD Start: 03-11-2015 End: 03-12-2015 Documentation of current medications Rick Prabhakar MD Start: 03-11-2015 End: 03-11-2015 Follow Up Appt 6 weeks Rick Prabhakar MD Start: 03-11-2015 End: 03-11-2015 Follow Up Appt Other Rick Prabhakar MD Start: 03-11-2015 End: 03-11-2015 MMM Rick Prabhakar MD Appendectomy MARGA Cortez Hysterectomy MARGA Cortez Ligation of fallopian tube Dimitry CHILEL DO Vulvectomy MARGA Cortez Plan of Treatment Date Care Activity Detail Author Start: 05-06-2029 Urine microalbumin profile DTa P,Tdap,Td Vaccine (2 - Td or Tdap) [facility] Start: 11-07-2025 Screening for malign ant neoplasm of cervix Cervical Cancer Screening [facility] Start: 11-06-2025 End: 11-06-2025 ambulatory 11/06/2025 2:30 PM EDT Visit (SP) Office Gynecology Oncology [address] [address] Annia Wilson, MOTOR BLOCK MECHANIC.DATABASE ADMINISTRATION MANAGER [address] [place] [address] 6 month f/u vulvar cancer Gynecology Oncology Comment on above: 6 month f/u vulvar c ancer Start: 04-12-2025 Diabetes Screening Diabetes Screenin g [facility] Start: 01-26-2025 Influenza vaccination [facility] Start: 12-31-2024 End: 12-31-2024 ambulatory 12/31/2024 4:20 PM EDT Visit (SP) Office Gynecology Oncology [address] [place] [address] America Sultana Jr., MD [address] [place] [address] POST OP Gynecology Oncology Comment on above: POST OP Start: 12-11-2024 End: 12-11-2024 ambulatory 12/11/2024 10:30 AM EDT [facility] Gynecology Oncology [address] [place] [address] Annia Wilson, MOTOR BLOCK MECHANIC.DATABASE ADMINISTRATION MANAGER [address] [place] [address] POST OP Gynecology Oncology Comment on above: POST OP Start: 12-08-2024 End: 12-08-2024 Admission to same day surgery center Admitting Comment on above: COLPOSCOPY W/ BIOPSY VAGINA/CERVIX Start: 12-08-2024 End: 12-08-2024 Colposcopy entire vagina w/vagina/cervix bx [facility] Start: 12-08-2024 Subsequent hospital visit by physician Admitting Comment on above: Abnormal Pap smear o f vagina [R87.629], Preop examination [Z01.818] Start: 12-04-2024 End: 12-04-2024 Nursing evaluation of patient and report 12/04/2024 10:30 AM EDT Nurse Visit Gynecology Oncology [address] [place] [address] 4, [place] [address] [place] [address] PRE OP TEACHING Gynecology Oncology Comment on above: PRE OP TEACHING Start: 11-07-2024 End: 11-07-2024 ambulatory 11/07/2024 2:00 PM EDT Visit (SP) Office Gynecology Oncology [address] [address] Annia Wilson, MOTOR BLOCK MECHANIC.DATABASE ADMINISTRATION MANAGER [address] [place] [address] 6 month f/u vulvar cancer Gynecology Oncology Comment on above: 6 month f/u vulvar c ancer Start: 05-28-2024 Advance Directive Discussion Advance Directive Discussion [facility] Start: 05-28-2024 Medicare Advantage A nnual Wellness Visit Medicare Advantage Annual Wellness Visit [facility] Start: 05-09-2024 End: 05-09-2024 Follow-up encounter 05/09/2024 2:30 PM EST Visit (SP) Office Gynecology Oncology [address] [address] Annia Wilson, MOTOR BLOCK MECHANIC.DATABASE ADMINISTRATION MANAGER [address] [place] [address] FOLLOW UP VULVAR CANCER Gynecology Oncology Comment on above: FOLLOW UP VULVAR CAN CER Start: 01-27-2024 Covid-19 Vaccine ( season) Covid-19 Vaccine ( season) [facility] Start: 01-27-2024 Influenza vaccination [facility] Start: 11-23-2023 End: 11-23-2023 Follow-up encounter 11/23/2023 3:00 PM EDT Visit (SP) Office Gynecology Oncology [address] [id number] Annia Wilson, MOTOR BLOCK MECHANIC.DATABASE ADMINISTRATION MANAGER [address] [place] [address] FOLLOW UP VULVAR CANCER Gynecology Oncology Comment on above: FOLLOW UP VULVAR CAN CER Start: 10-07-2023 BP CONTROLLED (<130/80) BP CONTROLLE D (<130/80) [facility] Start: 08-05-2023 BP CONTROLLED (<130/80) BP CONTROLLE D (<130/80) [facility] Start: 05-28-2023 Advance Directive Discussion Advance Directive Discussion [facility] Start: 05-28-2023 Behavioral Health Screening Behavioral Health Screening [facility] Start: 05-26-2023 Colonoscopy COLONOSCOPY [facility] Start: 05-26-2023 Screening for malign ant neoplasm of colon Colonoscopy [facility] Start: 01-26-2023 Covid-19 Vaccine () Covid-19 Vaccine () [facility] Start: 01-26-2023 Influenza vaccination [facility] Start: 01-01-2023 Screening for malign ant neoplasm of colon Sigmoidoscopy [facility] Start: 01-01-2023 SIGMOIDOSCOPY SIGMOIDOSCOPY [facility] Start: 08-05-2022 BP CONTROLLED (<130/80) BP CONTROLLE D (<130/80) [facility] Start: 05-28-2022 ADVANCE DIRECTIVE DISCUSSION ADVANCE DIRECTIVE DISCUSSION [facility] Start: 05-28-2022 DEPRESSION ASSESSMENT DEPRESSION ASS [facility] Start: 01-26-2022 Influenza vaccination INFLUENZA (#1) [facility] Start: 06-03-2021 COVID-19 VACCINE (4 - Booster for Moderna series) COVID-19 VACCINE (4 - Booster for Moderna series) [facility] Start: 05-28-2021 ADVANCE DIRECTIVE DISCUSSION ADVANCE DIRECTIVE DISCUSSION [facility] Start: 05-28-2021 DEPRESSION ASSESSMENT DEPRESSION ASS ESSMENT [facility] Start: 02-25-2018 End: 02-25-2018 Appointment Appointment [facility] Work Phone: Start: 02-23-2017 End: 03-13-2017 *BMP *BMP [facility] Work Phone: Start: 02-23-2017 End: 02-23-2017 Follow Up Appt 1 year Follow Up Appt 1 year [facility] Work Phone: Start: 02-23-2017 End: 02-23-2017 PFM PFM [facility] Work Phone: Start: 2016 RSV Vaccine (1 - 1-d ose 75+ series) RSV Vaccine (1 - 1-dose 75+ series) [facility] Start: 03-03-2016 End: 03-03-2016 Ecg routine ecg w/least 12 lds w/i&r EKG (In office) [facility] Work Phone: Start: 03-03-2016 End: 03-03-2016 Follow Up Appt 1 year Follow Up Appt 1 year [facility] Work Phone: Start: 03-03-2016 End: 03-03-2016 PFM PFM [facility] Work Phone: Start: 03-11-2015 End: 03-11-2015 Ecg routine ecg w/least 12 lds w/i&r EKG (In office) [facility] Work Phone: Start: 03-11-2015 End: 03-11-2015 Echocardiography Echocardiogram (complete) [facility] Work Phone: Start: 03-11-2015 End: 03-11-2015 Follow Up Appt 6 weeks Follow Up Appt 6 weeks [facility] Work Phone: Start: 03-11-2015 End: 03-11-2015 Follow Up Appt Other Follow Up Appt Other [facility] Work Phone: Start: 03-11-2015 End: 03-11-2015 MMM MMM [facility] Work Phone: Start: 03-11-2015 End: 03-14-2015 Nuclear stress test -exercise Nuclear stress test -exercise [facility] Work Phone: Start: 05-22-2012 Shingrix Vaccine (2 of 2) Page grix Vaccine (2 of 2) [facility] Start: 2006 BONE DENSITY BONE DENSITY [facility] Start: 2006 Bone Density Screening Bone Density Screening [facility] Start: 2006 PNEUMOCOCCAL: 65+ (1 - PCV) PNEUMOCOCCAL: 65+ (1 - PCV) [facility] Start: 2006 Screening for osteoporosis Bone Dens ity Screening [facility] Start: 2001 RSV Vaccine (1 - 1-d ose 60+ series) RSV Vaccine (1 - 1-dose 60+ series) [facility] Start: 12-17-1991 SHINGRIX VACCINE (1 of 2) PAGE GRIX VACCINE (1 of 2) [facility] Start: 1986 COLOGUARD (FIT-DNA) COLOGUARD (FIT-D NA) [facility] Start: [address] COLONOGRAPHY [facility] Start: 1986 DIABETES SCREEN DIABETES SCREEN [facility] Start: 1986 Diabetes Screening Diabetes Screenin g [facility] Start: 1986 FECAL OCCULT BLOOD FECAL OCCULT BLOO D [facility] Start: 1986 Screening for malign ant neoplasm of colon [facility] Start: 1960 Urine microalbumin profile DTAP,TDAP ,TD (1 - Tdap) [facility] Start: 12-17-1959 ANNUAL PCP TEAM HAY SORTER BAN DISEASE VISIT ANNUAL PCP TEAM CHRONIC DISEASE VISIT [facility] Start: 12-17-1959 Anxiety Screening Anxiety Screening [facility] Start: 12-17-1959 Depression Screening Depression Scre ening [facility] Blood chemistry [facility] Colposcopy entire va w/vagina/cervix bx COLPOSCOPY W/ BIOPSY VAGINA/CERVIX Abnormal Pap smear of vagina Preop examination [facility] End: 11-17-2024 DBT Breast - bilateral screening [facility] Routine Screening mammogram for breast cancer 1 Occurrences starting 10/19/2023 until 11/17/2024 [facility] Work Phone: Comment on above: 1 Occurrences starti jacinda 10/19/2023 until 11/17/2024 End: 12-07-2025 DBT Breast - bilateral screening [facility] Rad[facility] Routine Encounter for screening mammogram for malignant neoplasm of breast 1 Occurrences starting 11/07/2024 until 12/07/2025 [facility] Comment on above: 1 Occurrences starti jacinda 11/07/2024 until 12/07/2025 Lipid 1996 panel - S anay or Plasma [facility] End: 09-03-2023 SAV SCREENING [facility] Radiology Routine Encounter for screening mammogram for breast cancer 1 Occurrences starting 08/04/2022 until 09/03/2023 [facility] Work Phone: Comment on above: 1 Occurrences starti ng 08/04/2022 until 09/03/2023 PAP FLUID VAGINAL DIAGNOSTIC PAP FLUID VAGINAL DIAGNOSTIC Lab Routine Encounter for follow-up surveillance of vulvar cancer Abnormal Pap smear of vagina 08/04/2022 11:14 AM EST [facility] Work Phone: PAP TEST PAP TEST Lab Rou monique Encounter for follow-up surveillance of malignant neoplasm of vulva Ordered: 11/23/2023 [facility] Work Phone: Comment on above: Ordered: 11/23/2023 PAP TEST PAP TEST Lab Rou monique History of cancer of vulva Ordered: 11/07/2024 [facility] Work Phone: Comment on above: Ordered: 11/07/2024 REFER FOR ADMIT INTERVIEW REFER FOR ADMIT INTERVIEW Procedures Routine Abnormal Pap smear of vagina Preop examination Ordered: 11/24/2024 [facility] Work Phone: Comment on above: Ordered: 11/24/2024 [facility] Immunizations Immunization Date Immunization Notes Care Provider Mehran lai 04-08-2021 SARS-CoV-2 (COVID-19 ) mRNA-[id number] vaccine PAO PURVIS MD [facility] [place] 03-29-2021 influenza virus vaccine, unspecified formulation MARGA CHILEL DO [facility] Comment on above: Result Comment: [facility] 07-21-2020 COVID-19, mRNA, LNP- S, PF, 100 mcg or 50 mcg dose; Translations: [Moderna COVID-19 Vaccine] MARGA CHILEL DO [facility] Comment on above: Result Comment: [facility] Annalise CHACON STUDENT 06-23-2020 SARS-CoV-2 (COVID-19 ) [id number] vaccine MARGA CHILEL DO [facility] 02-05-2020 influenza virus vaccine, unspecified formulation MARGA CHILEL DO [facility] Comment on above: Result Comment: Alicia arrieta 05-06-2019 tetanus toxoid, redu yobany diphtheria toxoid, and acellular pertussis vaccine, adsorbed; Translations: [Boostrix (Tdap)] MARGA CHILEL DO [facility] 03-10-2019 influenza virus vaccine, unspecified formulation MARGA CHILEL DO [facility] 06-11-2018 pneumococcal conjuga te vaccine, 13 valent MARGA CHILEL DO [facility] 03-09-2018 influenza virus vaccine, unspecified formulation MARGA CHILEL DO [facility] 03-30-2017 influenza virus vaccine, unspecified formulation MARGA CHILEL DO [facility] 03-28-2016 influenza virus vaccine, unspecified formulation MARGA CHILEL DO [facility] 03-13-2016 FLUZONE HIGH-DOSE 2015-17, PF, 180 mcg/0.5 mL injection Karlene Stover DO Work Phone: [facility] 03-21-2015 influenza virus vaccine, unspecified formulation MARGA CHILEL DO [facility] 02-12-2014 influenza virus vaccine, unspecified formulation MARGA CHILEL DO [facility] 02-20-2013 influenza virus vaccine, unspecified formulation MARGA CHILEL DO [facility] 03-28-2012 zoster vaccine recombinant MARGA CHILEL DO [facility] 03-27-2012 zoster vaccine recombinant MARGA CHILEL DO [facility] 02-28-2012 influenza virus vaccine, unspecified formulation MARGA CHILEL DO [facility] 05-28-2010 pneumococcal polysaccharide vaccine, 23 valent MARGA CHILEL DO [facility] 04-26-2010 pneumococcal polysaccharide vaccine, 23 valent MARGA CHILEL DO [facility] Payers Date Payer Category Payer Self-pay [id number] 2023 Private Health Insurance [id number] 2020 Medicare AETNA MEDICARE A ETNA MEDICARE PPO [id number] 2020-[facility] [phone] [address] [place] [address] PPO [id number] 2020 Medicare (Managed Care) [id number]. [id number] 2020 Private Health Insurance [id number] 1941 Unknown [id number] 2.16.840.1.000131.3.579.2.6 1941 Unknown [id number] 2.16.840.1.505656.3.579.2.6 1941 Unknown [id number] 2.16.840.1.673205.3.579.2.6 1941 Unknown [id number] 2.16.840.1.907509.3.579.2.6 1941 Unknown [id number] 2.16.840.1.038245.3.579.2.6 1941 Unknown [id number] 2.16.840.1.103970.3.579.2.6 1941 Unknown [id number] 2.16.840.1.400835.3.579.2.6 1941 Unknown [id number] 2.16.840.1.187756.3.579.2.6 1941 Unknown [id number] 2.16.840.1.307613.3.579.2.6 1941 Unknown [id number] 2.16.840.1.479273.3.579.2.6 27 Unknown [id number] 2.16.840.1.298274.3.579.2.4 62 Unknown [id number] 2.16.840.1.763340.3.579.2.4 62 Unknown [id number] 2.16.840.1.394304.3.579.2.4 62 Unknown [id number] 2.16.840.1.506156.3.579.2.4 62 Unknown [id number] 2.16.840.1.267897.3.579.2.4 62 Unknown [id number] 2.16.840.1.495376.3.579.2.4 62 Unknown [id number] 2.16.840.1.514385.3.579.2.4 62 Unknown [id number] 2.16.840.1.598884.3.579.2.4 62 Unknown [id number] 2.16.840.1.378878.3.579.2.4 62 Unknown [id number] 2.16.840.1.139099.3.579.2.4 62 Unknown [id number] 2.16.840.1.814342.3.579.2.4 62 Unknown [id number] 2.16.840.1.138816.3.579.2.4 62 Unknown [id number] 2.16.840.1.475124.3.579.2.4 62 Social History Date Type Detail Facility Start: 04-08-2019 End: 05-05-2022 Never smoked tobacco (finding) [facility] Start: 1940 Sex Assigned At Female [facility] Start: 09-06-2021 End: 01-18-2023 Tobacco smoking status MAIS Unknown if ever smoked [facility] Start: 12-02-2015 End: 05-05-2022 Tobacco use and exposure Smokeless tobacco non-user [facility] Start: 06-08-2021 End: 12-11-2024 Alcohol intake Current drinker of alcohol (finding) [facility] Start: 06-08-2021 End: 10-06-2022 Alcohol intake [facility] Start: 12-02-2015 Alcohol Comment wine with supp er;occ. beer [facility] Start: 1940 Sex Assigned At Not on file [facility] Start: 10-06-2022 End: 05-04-2023 Tobacco use panel [facility] National Score (1-10 0), lower number is lower risk 64 [facility] Sexual O[facility] Start: 07-18-2018 Sex Female (finding) [facility] Clinical Notes 01-20-2016 to 01-06-2025 Note Date & Type Note Facility 01-06-2025 Hospital Discharg e instructions Patient Education 01/06/2025 09:45:42 Adenitis, Mesenteric Mesenteric Adenitis The mesentery is a sheet of tissue that attaches the intestines to the belly (abdominal) wall. Lymph nodes are small glands throughout the body. They are part of the system that fights infection. Mesenteric adenitis is swelling of the lymph nodes in the mesentery. It is also called mesenteric lymphadenitis. The problem is caused by an infection, or an inflammatory condition, often of the intestines. Mesenteric adenitis can cause these symptoms: Severe pain in the abdomen, which can be all over Pain can be in the lower right side, sometimes mimicking appendicitis Nausea and vomiting Diarrhea Fever Loss of appetite Malaise This condition can be hard to diagnose because the pain is often not just in one spot. You may need tests for this reason. Sometimes, the pain shifts to the lower right part of your abdomen. When this happens, it may seem like appendicitis. This is another reason for testing. The problem most often goes away in a few days. If you have a bacterial infection, you may need to take antibiotics. Medicines may also be given to help relieve pain until the problem calms down. Home care Your healthcare provider may prescribe medicines for pain, nausea, or infection. Follow the healthcare provider's instructions when using these medicines. If you are given medicine for infection, take all of it as directed until it is gone, even if you feel better. Rest until you feel better. To help relieve abdominal pain, soak a towel in warm water and place it on your belly. If you have had diarrhea or vomiting, follow the guidelines you are given for what to eat and drink and what to avoid. Drink plenty of fluids. Don t smoke or drink alcohol. Follow-up care Follow up with your healthcare provider, or as advised. It is often very hard to tell mesenteric adenitis apart from appendicitis. So close follow-up is needed. If X-rays were done, a radiologist will look at them. You will be told if there are changes. Call 911 Call 911 if any of these occur: Trouble breathing Confusion Very drowsy or trouble awakening Fainting or loss of consciousness Rapid heart rate Chest pain When to seek medical advice Call your healthcare provider right away if any of these occur: Fever of 100.4 F (38 C) or higher, or as directed by your healthcare provider Pain not relieved with medicine, or pain that goes away and returns Pain that is getting worse over time or changing in location Pain that localizes to the right lower abdomen, and not improving or is worsening Severe diarrhea or vomiting Severe headache Few or no stools or gas Little or no urine Leg or foot cramps Small dark red dots on the skin Swelling in the abdomen Bloody stools [id number] [employer]. [address] [place] [address]. All rights reserved. This information is not intended as a substitute for professional medical care. Always follow your healthcare professional's instructions. Follow Up Care 01/06/2025 06:57:48 With:TANVI DOTY MD Address: [address] [place] [phone] When:2-4 days [facility] 01-06-2025 Note Discharge Instructions Thank you for allowing [facility] to assist you with your healthcare needs. The following is important discharge information regarding your hospital visit. 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 Post Acute Orders No qualifying data available. You Need to Schedule the Following Appointments Follow Up with TANVI DOTY MD When:Within 2-4 days Where:[address] [place] [phone] Allergies amLODIPine (Moderate) Leg swelling symptom atorvastatin (Moderate) Rash NSAIDS Colitis lidocaine Swelling of throat, Dyspnea penicillin Rash sulfa drug Hives Medications Please ask your primary doctor or pharmacist before taking any other medication not listed, including over the counter drugs, herbal medications, vitamins and or supplements as they may interact with your home medications. What How Much When Instructions Last Dose New cephalexin (cephalexin 500 mg oral capsule) 1 cap by mouth Every 8 hours Duration: 7 Days Pickup at [facility] Unchanged calcium carbonate (calcium (as carbonate) 600 mg oral tablet) 1 tab(s) by mouth Once a day Unchanged herbal/ nutritional product (turmeric 500 mg oral capsule) 1 cap by mouth Once a day Unchanged hydrochlorothiazide-telmisartan (Micardis HCT 80 mg-25 mg oral tablet) 1 tab(s) by mouth Every day Duration: 90 Days must be brand name, cannot tolerate generic formulation Unchanged levothyroxine (Synthroid 100 mcg (0.1 mg) oral tablet) 1 tab(s) by mouth Once a day 1 tab daily , skip sundays Unchanged Misc Medication (Pressure Vision Multivit) Unchanged omega-3 polyunsaturated fatty acids-turmeric 1 cap by mouth Once a day Fish oil Pharmacy Information [facility]: [address], [place] [phone] Please take this list to your next doctor s visit. Bring all medications you take, including over the counter medications, herbals and other supplements with you to your doctor s visit. Patients and families are reminded to discard old lists and to update any records with all medication providers or retail pharmacies. Education Materials Mesenteric Adenitis The mesentery is a sheet of tissue that attaches the intestines to the belly (abdominal) wall. Lymph nodes are small glands throughout the body. They are part of the system that fights infection. Mesenteric adenitis is swelling of the lymph nodes in the mesentery. It is also called mesenteric lymphadenitis. The problem is caused by an infection, or an inflammatory condition, often of the intestines. Mesenteric adenitis can cause these symptoms: Severe pain in the abdomen, which can be all over Pain can be in the lower right side, sometimes mimicking appendicitis Nausea and vomiting Diarrhea Fever Loss of appetite Malaise This condition can be hard to diagnose because the pain is often not just in one spot. You may need tests for this reason. Sometimes, the pain shifts to the lower right part of your abdomen. When this happens, it may seem like appendicitis. This is another reason for testing. The problem most often goes away in a few days. If you have a bacterial infection, you may need to take antibiotics. Medicines may also be given to help relieve pain until the problem calms down. Home care Your healthcare provider may prescribe medicines for pain, nausea, or infection. Follow the healthcare provider's instructions when using these medicines. If you are given medicine for infection, take all of it as directed until it is gone, even if you feel better. Rest until you feel better. To help relieve abdominal pain, soak a towel in warm water and place it on your belly. If you have had diarrhea or vomiting, follow the guidelines you are given for what to eat and drink and what to avoid. Drink plenty of fluids. Don t smoke or drink alcohol. Follow-up care Follow up with your healthcare provider, or as advised. It is often very hard to tell mesenteric adenitis apart from appendicitis. So close follow-up is needed. If X-rays were done, a radiologist will look at them. You will be told if there are changes. Call 911 Call 911 if any of these occur: Trouble breathing Confusion Very drowsy or trouble awakening Fainting or loss of consciousness Rapid heart rate Chest pain When to seek medical advice Call your healthcare provider right away if any of these occur: Fever of 100.4 F (38 C) or higher, or as directed by your healthcare provider Pain not relieved with medicine, or pain that goes away and returns Pain that is getting worse over time or changing in location Pain that localizes to the right lower abdomen, and not improving or is worsening Severe diarrhea or vomiting Severe headache Few or no stools or gas Little or no urine Leg or foot cramps Small dark red dots on the skin Swelling in the abdomen Bloody stools [id number] [employer]. [address] [place] [address]. All rights reserved. This information is not intended as a substitute for professional medical care. Always follow your healthcare professional's instructions. Additional Information VACCINATE! IT SAVES LIVES! Members of the community who have not yet received the COVID-19 vaccine and would like to receive it can visit one of [facility] vaccine clinics. There are many vaccine clinic locations within the [facility]. For locations and available times, please visit [email or web address] [email or web address] It is important to note that some COVID mobile vaccine clinics are held outdoors and may be canceled in rainy or stormy conditions. To learn more about pediatric vaccinations (ages 5-11), we invite you to visit the [facility] webpage. [email or web address] To learn more about the COVID-19 vaccine, we invite you to visit the CDC website for a list of frequently asked questions. https://www.cdc.gov/coronavirus/ 2019-ncov/vaccines/faq.html [email or web address] Patient Portal Access Instructions: Stay connected with your healthcare team and access your personal medical information anytime with the [email or web address] Patient Portal. If you would like a full copy of your medical records please contact the [facility] Medical Records Department Sunday through Sunday between 8a.m. and 4:30p.m. Please follow the directions below to access the portal: 1.Access the email account you provided upon registration to the [facility].2.Look for an invitation email from [facility].3.Open the email and access the invitation link: Accept Invitation to [email or web address].Fill in the required espinoza to create your account. Sign into www.[employer] with your username and password that you created in the above steps to stay up to date. You can then view a summary of results, a summary of your visits, and the ability to download your summaries to your computer or send the information securely to a physician. Remember that your healthcare information is confidential, so carefully consider who you will allow to register on the [email or web address] Patient Portal for access to your information. You can also access the [email or web address] Patient Portal on the [employer]. Simply click on Health Records under Health Data and then click on the [employer] logo. HOW TO SAFELY DISPOSE OF PRESCRIPTION MEDICATIONS Please use one of the following methods to safely dispose of your unused medications. 1.Use a drug disposal kit: the drug disposal pouch allows you to safely discard your old and unused drugs. Ask your nurse to give you one when you are discharged.2.Visit a local take-back location: Many local pharmacies and police departments have programs that collect old and unwanted prescription drugs. Call your local pharmacy or go to http://Emerging Threats.Koozoo/3S5Rj8j to find one close to you.3.Make use of household items: Use cat litter or old coffee grounds to dispose medications if other options are not available. Mix your drugs with these household products, seal them in an airtight container and throw it into the garbage. Call [facility]: [phone] to be sure your drugs can be disposed of in this way. Some medicines may require a different approach.4.Never flush your medications down the toilet. IF YOU HAVE BEEN PRESCRIBED AN OPIOIDS FOR PAIN If you have been prescribed an opioid (such as hydrocodone, oxycodone or morphine), it is critical to understand the possible side effects and risks of opioid pain medications. Even when taken as directed, opioids can have several side effects including: Tolerance, meaning you might need to take more of a medication for the same pain relief. Nausea, vomiting and/or constipation. Sleepiness, dizziness, dry mouth, confusion, depression or itching. Physical dependence, meaning you have withdrawal symptoms when a medication is stopped ? this can develop within a few days. KNOW YOUR RESPONSIBILITIES It is important to know exactly how much and how often to take the opioid pain medications you are prescribed. Never take opioids in higher amounts or more often than prescribed. Do not combine opioids with alcohol or other drugs that cause drowsiness, such as benzodiazepines, also known as benzos, including diazepam and alprazolam, muscle relaxants or sleep aids. Never sell or share prescription opioids. This is illegal. Store opioids in a secure place and out of reach of others (including children, family, friends and visitors). The last page(s) of this document has been signed and retained as a CHART COPY Signatures Patient Education Materials Adenitis, Mesenteric Medication Leaflets My discharge plan and instructions have been reviewed and explained to me and IMADI SHARIDON D understand my current condition and have read and understand these discharge instructions. I have received a written copy of the plan/instructions. If I have questions, I am aware that I should contact my doctor. 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 Multiplanar reformatted images are provided for review. Automated exposure control, iterative reconstruction, and/or weight based adjustment of the mA/kV was utilized to reduce the radiation dose to as low as reasonably achievable. COMPARISON: None HISTORY: ORDERING SYSTEM PROVIDED HISTORY: Reason for Exam: RLQ abdominal pain FINDINGS: The included lung bases are clear. There is no visible pleural or pericardial effusion. The heart is normal in size. A small pericardial effusion visible. The liver, spleen, adrenal glands, and pancreas are within normal limits. No filling defects seen in the gallbladder. The kidneys enhance symmetrically. A smoothly marginated cyst at the upper pole of the right kidney measures 4 cm and 15 Hounsfield units. Additional small renal cysts are too small to characterize. No radiodense urinary calculus seen. No hydroureteronephrosis. The large and small bowel demonstrate no obstruction. The appendix is not visualized. No free intraperitoneal fluid or gas is identified. The aorta is normal in caliber. There is mild atherosclerosis of the larger arteries. Hazy infiltration is seen of the left mesentery with associated subcentimeter lymph nodes. No filling defects seen in the urinary bladder. There is no acute fracture or aggressive osseous lesion. Degenerative changes seen of the hips, sacroiliac joints and spine. IMPRESSION: 1. Hazy infiltration of the left mesentery with associated subcentimeter lymph nodes. 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 A six-month follow-up CT advised. 2. Small pericardial effusion. 3. No focal bowel inflammation visible. Other incidental findings, as above. Interpreted by: Valentino Drake MD Preliminary Report By: Valentino Drake MD Electronically signed By Valentino Drake MD Dictated Date: 01/06/2025 8:45:15 AM Prelim Date: 01/06/2025 8:51:51 AM Sign Date: 01/06/2025 8:51:51 AM [facility]ing [facility] Telephone encounter Note* Telephone Encounter - Viridiana Garber RN - 12/24/2024 12:46 PM EDT Returned call to patient to let her know that we received her urine results and she does have a UTI.Annia WILEY will send over a prescription to her pharmacy. Patient stated that the burning is betterbut she feels her urine might still be cloudy. Made her aware that the antibiotic will help clear that up. Patient appreciative of call. [facility]07-30-2025 Miscellaneous Notes* Telephone Encounter - Viridiana Garber RN - 12/24/2024 12:46 PM EDT Returned call to patient to let her know that we received her urine results and she does have a UTI.Annia WILEY will send over a prescription to her pharmacy. Patient stated that the burning is betterbut she feels her urine might still be cloudy. Made her aware that the antibiotic will help clear that up. Patient appreciative of call. * Telephone Encounter - Aden Braxton - 12/24/2024 11:58 AM EDT Patient called this morning regarding results from her urine test from last week. I requested the results from [facility] and they are scanned to chart. [facility] would [facility]. [facility] Telephone encounter Note * Telephone Encounter - Aden Braxton - 12/24/2024 11:58 AM EDT Patient called this morning regarding results from her urine test from last week. I requested the results from [facility] and they are scanned to chart. She would like a call back to [facility]. [facility]07-26-2025 Note. MICRO - Microbiology PROCEDURE: Urine Culture [*1] SOURCE: Urine BODY SITE: COLLECTED DATE/TIME: 12/18/2024 10:01 EDT RECEIVED DATE/TIME: 12/18/2024 15:01 EDT START DATE/TIME: 12/18/2024 15:01 EDT FREE TEXT SOURCE: FINAL REPORTS Final Report [] Verified Date/Time/Personnel: 12/20/2024 07:49 EDT >100,000 cfu/ml Escherichia coli PRELIMINARY REPORTS Preliminary Report [] Verified Date/Time/Personnel: 12/19/2024 12:25 EDT >100,000 cfu/ml Escherichia coli MICHAEL to follow Preliminary Report [] Verified Date/Time/Personnel: 12/18/2024 15:59 EDT Specimen received in lab. SUSCEPTIBILITY RESULTS Escherichia coli Antibiotic MICHAEL Dilut MICHAEL Inter Ampicillin <=8 Susceptible Ampicillin/ <=4/2 Susceptible Sulbactam Aztreonam <=4 Susceptible Cefazolin <=2 Susceptible Cefepime <=2 Susceptible Ceftolozane/ <=2 Susceptible Tazobactam Ciprofloxacin <=0.25 Susceptible Ertapenem <=0.5 Susceptible Gentamicin <=2 Susceptible ID Panel Not Not Applicable Applicable Imipenem <=1 Susceptible Levofloxacin <=0.5 Susceptible Meropenem <=1 Susceptible Minocycline <=4 Susceptible Nitrofurantoin <=32 Susceptible Trimethoprim/ <=0.5/9.5 Susceptible Sulfa Performing Locations *1: This test was performed at: [facility], [address] [place] [address], [id number] , [facility]07-24-2025 Telephone encounter Note* Telephone Encounter - Viridiana Garber RN - 12/18/2024 9:16 AM EDT Returned call to patient letting her know that order for culture and sensitivity was sent to [facility]. Patient asked if she could be notified of results. I made her aware that we would call her once we receive them. Patient appreciative. [facility]07-24-2025 Miscellaneous Notes* Telephone Encounter - Viridiana Garber RN - 12/18/2024 9:16 AM EDT Returned call to patient letting her know that order for culture and sensitivity was sent to [facility]. Patient asked if she could be notified of results. I made her aware that we would call her once we receive them. Patient appreciative. * Telephone Encounter - Aden Braxton - 12/18/2024 8:30 AM EDT Patient calling to see if we could fax over an order to have her urine tested for bacteria. She gave a urine sample this morning at [facility] as her remote sensing specialist is testing for diabetes but she saidher urine was cloudy and she's experiencing some incontinence. Fax order to [facility] @ [phone] documented in this [facility] Telephone encounter Note * Telephone Encounter - Aden Braxton - 12/18/2024 8:30 AM EDT Patient calling to see if we could fax over an order to have her urine tested for bacteria. She gave a urine sample this morning at [facility] as her remote sensing specialist is testing for diabetes but she saidher urine was cloudy and she's experiencing some incontinence. Fax order to [facility] @ [phone] [facility]07-17-2025 Instructions* Patient Instructions* Annia Wilson APRN.CNP - 12/11/2024 10:52 AM EDT documented in this encounter[facility]25 NoteHNO ID: [id number] Author: ANNIA WILSON APRN.CNP Service: ? Author Type: Nurse Practitioner Type: Progress Notes Filed: 12/11/2024 10:57 Note Text: VIRTUAL VISIT PROGRESS NOTE I have communicated my name and active licensure. The patient's identity and physical location were verified at the time of this visit. Either the patient or their legal telephone claims representative has been informed of the risks and benefits of -- and alternatives to -- treatment through a remote evaluation and consents to proceed with the evaluation remotely. This is a virtual visit. It required patient-provider interaction for the medical decision making as documented below. Persons Present: patient DATE OF SERVICE: 12/11/2024 PROBLEM: Damien Patricia presents for postop televisit. SURGERY AND DATE: 12/08/2024 - Exam under anesthesia, also examination of the vagina with biopsy of posterior vagina PATHOLOGY: FINAL DIAGNOSIS Date Value Ref Range Status 12/08/2024 Final A. Vagina, posterior, biopsy: - Polypoid squamous epithelium with marked chronic inflammation and reactive changes, negative for high-grade dysplasia or carcinoma. LINES/DRAINS: None SUBJECTIVE/INTERVAL HISTORY: Patient is an 83-year-old female with a history of vulvar cancer, status post radical resection, most recently in 2016. In October 2024, she had an abnormal Pap smear showing atypical squamous cells, cannot exclude high-grade squamous intraepithelial lesion (ASC-H). She recently underwent an exam under anesthesia with vaginal biopsies of the posterior vagina. Pathology revealed chronic inflammation and reactive changes, with no evidence of dysplasia or malignancy. She reports decreased urinary stream and burning with urination post-procedure. Genitourinary: (+) decreased urinary stream, (+) dysuria OBJECTIVE: deferred DIAGNOSTICS: (No date) Vaginal Biopsy: Chronic inflammation and reactive changes. No evidence of dysplasia or malignancy. (October 2024) Pap smear: Atypical squamous cells, cannot exclude high-grade squamous intraepithelial lesion. ASSESSMENT/PLAN: 1. Postop check (Z09) Recent EUA with vaginal biopsies performed by Dr. Bass. Pathology showed chronic inflammation and reactive changes, no evidence of dysplasia or malignancy. - Resume all home medications. - Use Aquaphor as needed. - Reintroduce normal activities, including volleyball, walking, and biking, with caution based on comfort levels. - Cancel post-op visit with Dr. Bass scheduled for December 31 as it is deemed unnecessary. - Repeat Pap smear in one year. - Monitor for any urinary abnormalities or pain; available for follow-up in [place] if needed. 2. History of cancer of vulva (Z85.44) History of vulvar cancer with radical resection, most recent surgery in 2015. No evidence of recurrence on recent biopsy. Appointments for Next 60 Days Date Time Provider Location Dept Phone 12/11/2024 10:30 AM ANNIA WILSON [facility] [phone] Annia Wilson APRN.DATABASE ADMINISTRATION MANAGER Recording using Digit[employer]i software for draft documentation of the visit was discussed with the patient/authorized telephone claims representative; all questions welcomed and answered. Patient/authorized telephone claims representative agreed to proceed A copy of this office note was sent to: Tanvi Doty, [facility]07-17-2025 History of Present illness Narrative* Annia Wilson APRN.DATABASE ADMINISTRATION MANAGER - 12/11/2024 7:18 AM EDT VIRTUAL VISIT PROGRESS NOTE I have communicated my name and active licensure. The patient's identity and physical location wereverified at the time of this visit. Either the patient or their legal telephone claims representative has been informed of the risks and benefits of -- and alternatives to -- treatment through a remote evaluation andconsents to proceed with the evaluation remotely. This is a virtual visit. It required patient-provider interaction for the medical decision making as documented below. Persons Present: patient DATE OF SERVICE: 12/11/2024 PROBLEM: Damien Patricia presents for postop televisit. SURGERY & DATE: 12/08/2024 - Exam under anesthesia, also examination of the vagina with biopsy of posterior vagina PATHOLOGY: FINAL DIAGNOSIS Date Value Ref Range Status 12/08/2024 Final A. Vagina, posterior, biopsy: - Polypoid squamous epithelium with marked chronic inflammation and reactive changes, negative for high-grade dysplasia or carcinoma. LINES/DRAINS: None SUBJECTIVE/INTERVAL HISTORY: Patient is an 83-year-old female with a history of vulvar cancer, status post radical resection, most recently in 2016. In October 2024, she had an abnormal Pap smear showing atypical squamous cells, cannot exclude high-grade squamous intraepithelial lesion (ASC-H). She recently underwent an exam under anesthesia with vaginal biopsies of the posterior vagina. Pathology revealed chronic inflammation and reactive changes, with no evidence of dysplasia or malignancy. She reports decreased urinary stream and burning with urination post-procedure. Genitourinary: (+) decreased urinary stream, (+) dysuria OBJECTIVE: deferred DIAGNOSTICS: (No date) Vaginal Biopsy: Chronic inflammation and reactive changes. No evidence of dysplasia or malignancy. (October 2024) Pap smear: Atypical squamous cells, cannot exclude high-grade squamous intraepithelial lesion. ASSESSMENT/PLAN: 1. Postop check (Z09) Recent EUA with vaginal biopsies performed by Dr. Bass. Pathology showed chronic inflammationand reactive changes, no evidence of dysplasia or malignancy. - Resume all home medications. - Use Aquaphor as needed. - Reintroduce normal activities, including volleyball, walking, and biking, with caution based on comfort levels. - Cancel post-op visit with Dr. Bass scheduled for December 31 as it is deemed unnecessary. - Repeat Pap smear in one year. - Monitor for any urinary abnormalities or pain; available for follow-up in [place] if needed. 2. History of cancer of vulva (Z85.44) History of vulvar cancer with radical resection, most recent surgery in 2016. No evidence of recurrence on recent biopsy. Appointments for Next 60 Days Date Time Provider Location Dept Phone 12/11/2024 10:30 AM ANNIA WILSON [facility] [phone] Annia Wilson APRN.DATABASE ADMINISTRATION MANAGER Recording using Digitiliti software for draft documentation of the visit was discussed with the patient/authorized telephone claims representative; all questions welcomed and answered. Patient/authorized telephone claims representative agreed to proceed A copy of this office note was sent to: Tanvi Doty MD [facility] NoteHNO ID: [id number] Author: ESTELA VAUGHN MD Service: ? Author Type: Resident Type: Anesthesia Procedure Notes Filed: 12/08/2024 07:30 Note Text: ANESTHESIOLOGY PROCEDURE NOTE Airway General Information Procedure Start Time/Medication Administration: 12/08/2024 7:15 AM Procedure End Time: 12/08/2024 7:15 AM Patient location during procedure: OR Staffing Anesthesiologist: Melissa Peters MD Resident: Estela Vaughn MD Performed by: resident Indications and Patient Condition Indications for airway management: anesthesia Preoxygenated: yes anesthesia circuit Method: sleep Difficult Mask: No Airway Accessory: LMA Final Airway Details Final airway type: supraglottic airway Number of attempts at approach: 1 Final Supraglottic Airway: i-gel Size 4 Seal Adequate: yes Airway not difficult SIGNATURE: Estela Vaughn MD PATIENT NAME: Damien Patricia DATE: December 08, 2024 TIME: 7:27 AM CSN: [id number] NoteHNO ID: [id number] Author: SHANEKA GLASS RN Service: ? Author Type: Registered Nurse Type: Progress Notes Filed: 12/04/2024 11:01 Note Text: DATE OF SERVICE: 12/04/2024 PROBLEM: Damien Patricia presents for pre-op teaching. PRE-OP DIAGNOSIS: History of cancer of vulva SCHEDULED SURGERY AND DATE: 12/08/24 PRIMARY SURGEON: America Sultana MD NURSING PREOP ASSESSMENT: Fevers, chills, cough, or nasal congestion: No Vaginal itching, burning, discharge, or odor: No Pain with urination, frequency, urgency, cloudy or foul smelling urine: No If yes to any of the above then MD notified: Not Applicable ADVANCED CARE PLANNING: Does the patient have an advanced directive: No [facility] have a copy of the patient's advanced directive: No Was advanced directive given to the patient: Yes PATIENT LEARNING ASSESSMENT: Individual patient/family learning needs evaluated and addressed: Yes Cognitive ability: Alert and oriented Motivation to learn: Eager Interested Factors affecting learning: None Physical limitations affecting learning: None Patient learns best by: Verbal Instruction Method of instruction: Verbal instruction Instructions provided to: Patient via telephone. Written material provided prior to education appointment. Family support: Unable to assess - Family not present PRE- AND POST-OPERATIVE TEACHING Pre-operative teaching and supplemental material provided and reviewed with patient: Your Surgical Guide Book Map Written pre-op and post-op instructions Antibacterial soap: patient declined, will use own Pre-operative instructions provided and reviewed with patient/family: No eating, drinking, or smoking after midnight prior to surgery unless otherwise directed No alcohol the day before surgery Medications as prescribed by anesthesia, internal medicine, surgeon, or SHIRT FINISHER Stop NSAIDs, Aspirin (ASA), vitamins, herbal supplements, herbal teas, and diet pills 7-10 days prior to surgery OK to take tylenol prn pain unless otherwise directed by physician Call surgery coordinators if any other questions about surgery date or pre-op appointments Bowel prep instructions: NPO after midnight Day of surgery instructions provided and reviewed with patient/family: Arrival time (call surgical coordinators on the office day prior to surgery for verification) No jewelry, body piercing, makeup, contacts, lotions, nail gibraltarian on fingers, or anything in hair on arrival to surgery Wear low healed shoes and loose fitting clothing Leave all valuables at home or with a family member Directions to [facility] and [facility] Parking/parking validation on the day prior to surgery Admission/check in (Report to DESK J1-9 for surgery) Holding area Placement of IV Surgical positioning Family waiting area Surgical recovery room Post-operative instructions provided and reviewed with patient/family: SEE PATIENT INSTRUCTION SECTION FOR DETAILS. ACTIVITY - No heavy lifting (>5-10 lbs), no pushing/pulling, OK to climb stairs VULVAR CARE - Sitz baths TID and prn, keep vulva clean/dry/open to air, apply medicated cream as prescribed by surgeon. BATHING - OK to shower after surgery unless otherwise directed by MD, no tub baths. PAIN MEDICATION - IV pain medication after surgery, IV RN SURGICAL if ordered by MD, discharged home with a prescription for PO pain medication, pain management after surgery, side effects of pain medication (including constipation, dizziness, drowsiness, and medication interactions). VAGINAL CARE - Pelvic rest x6 weeks unless otherwise directed by MD. DVT PROPHYLAXIS - Early ambulation, SCDs, injectable anticoagulants (heparin, lovenox, etc) RESPIRATORY - Incentive spirometer, coughing/deep breathing exercises, ambulation. RETURN TO WORK - As directed by physician, please send any FMLA papers to physician's corporation secretary. SYMPTOMS TO NOTIFY MD - Fever, chills, nausea, vomiting, increased or severe pain, heavy vaginal bleeding, foul smelling vaginal drainage, pain or swelling in extremities. URGENT SYMPTOMS - Call 911 or go to ER if any shortness of breath, difficulty breathing, or chest pain. HOW TO CONTACT PHYSICIAN - Physician's office phone number given to patient, if after hours patient instructed to call croze machine operator and ask for air liaison and special staff quantitative consultant onc resident. RUDDY program offered to patient: No Additional teaching as indicated by patient/family learning needs. PATIENT LEARNING EVALUATION AND FOLLOW UP PLAN: Patient and/or family express understanding of upcoming surgery, pre-operative preparation, the operative process, and post-operative instructions. Follow up plan: Complete - No need for follow-up Patient has a post-op appointment scheduled: Yes Referral (recommentation): None Educator: Shaneka Glass RN [facility] History of Present illness Narrative* Shaneka Glass RN - 12/03/2024 2:35 PM EDT DATE OF SERVICE: 12/04/2024 PROBLEM: Damien Patricia presents for pre-op teaching. PRE-OP DIAGNOSIS: History of cancer of vulva SCHEDULED SURGERY AND DATE: 12/08/24 PRIMARY SURGEON: America Sultana MD NURSING PREOP ASSESSMENT: Fevers, chills, cough, or nasal congestion: No Vaginal itching, burning, discharge, or odor: No Pain with urination, frequency, urgency, cloudy or foul smelling urine: No If yes to any of the above then MD notified: Not Applicable ADVANCED CARE PLANNING: Does the patient have an advanced directive: No [facility] have a copy of the patient's advanced directive: No Was advanced directive given to the patient: Yes PATIENT LEARNING ASSESSMENT: Individual patient/family learning needs evaluated and addressed: Yes Cognitive ability: Alert and oriented Motivation to learn: Eager Interested Factors affecting learning: None Physical limitations affecting learning: None Patient learns best by: Verbal Instruction Method of instruction: Verbal instruction Instructions provided to: Patient via telephone. Written material provided prior to education appointment. Family support: Unable to assess - Family not present PRE- AND POST-OPERATIVE TEACHING Pre-operative teaching and supplemental material provided and reviewed with patient: Your Surgical Guide Book Map Written pre-op and post-op instructions Antibacterial soap: patient declined, will use own Pre-operative instructions provided and reviewed with patient/family: No eating, drinking, or smoking after midnight prior to surgery unless otherwise directed No alcohol the day before surgery Medications as prescribed by anesthesia, internal medicine, surgeon, or SHIRT FINISHER Stop NSAIDs, Aspirin (ASA), vitamins, herbal supplements, herbal teas, and diet pills 7-10 days prior to surgery OK to take tylenol prn pain unless otherwise directed by physician Call surgery coordinators if any other questions about surgery date or pre-op appointments Bowel prep instructions: NPO after midnight Day of surgery instructions provided and reviewed with patient/family: Arrival time (call surgical coordinators on the office day prior to surgery for verification) No jewelry, body piercing, makeup, contacts, lotions, nail gibraltarian on fingers, or anything in hair on arrival to surgery Wear low healed shoes and loose fitting clothing Leave all valuables at home or with a family member D[facility] to [facility] and [facility] Parking/parking validation on the day prior to surgery Admission/check in (Report to DESK J1-9 for surgery) Holding area Placement of IV Surgical positioning Family waiting area Surgical recovery room Post-operative instructions provided and reviewed with patient/family: SEE PATIENT INSTRUCTION SECTION FOR DETAILS. ACTIVITY - No heavy lifting (>5-10 lbs), no pushing/pulling, OK to climb stairs VULVAR CARE - Sitz baths TID and prn, keep vulva clean/dry/open to air, apply medicated cream as prescribed by surgeon. BATHING - OK to shower after surgery unless otherwise directed by MD, no tub baths. PAIN MEDICATION - IV pain medication after surgery, IV RN SURGICAL if ordered by MD, discharged home with aprescription for PO pain medication, pain management after surgery, side effects of pain medication(including constipation, dizziness, drowsiness, and medication interactions). VAGINAL CARE - Pelvic rest x6 weeks unless otherwise directed by MD. DVT PROPHYLAXIS - Early ambulation, SCDs, injectable anticoagulants (heparin, lovenox, etc) RESPIRATORY - Incentive spirometer, coughing/deep breathing exercises, ambulation. RETURN TO WORK - As directed by physician, please send any FMLA papers to physician's corporation secretary. SYMPTOMS TO NOTIFY MD - Fever, chills, nausea, vomiting, increased or severe pain, heavy vaginal bleeding, foul smelling vaginal drainage, pain or swelling in extremities. URGENT SYMPTOMS - Call 911 or go to ER if any shortness of breath, difficulty breathing, or chest pain. HOW TO CONTACT PHYSICIAN - Physician's office phone number given to patient, if after hours patientinstructed to call croze machine operator and ask for air liaison and special staff quantitative consultant onc resident. RUDDY program offered to patient: No Additional teaching as indicated by patient/family learning needs. PATIENT LEARNING EVALUATION & FOLLOW UP PLAN: Patient and/or family express understanding of upcoming surgery, pre-operative preparation, the operative process, and post-operative instructions. Follow up plan: Complete - No need for follow-up Patient has a post-op appointment scheduled: Yes Referral (recommentation): None Educator: Shaneka Glass RN [facility] documented in this encounter[facility] Instructions* Patient Instructions* Shaneka Glass RN - 12/03/2024 2:35 PM EDT Images from the original note were not included. ENVIRONMENTAL QUALITY ANALYST ONCOLOGY PHYSICIAN CONTACT INFORMATION Surgery Scheduling Office Surgeons: Dr. Enid Vegas Dr. Farhana Osorio Dr. America Sultana Dr. Adriel Lopez Dr. Felicia Tolbert Dr. Bernice Xavier Dr. Duglas Denton Dr. Herson Garcia Dr. Sarkis Saeed Dr. Valentino Aguilar Link Trainer Operator Oncology Nurse Practitioners: Valerie Joseph, MOTOR BLOCK MECHANIC.WHITNEY Rhodes, MOTOR BLOCK MECHANIC.WHITNEY Wilson, MOTOR BLOCK MECHANIC.WHITNEY Haney, MOTOR BLOCK MECHANIC.WHITNEY Velázquez, MOTOR BLOCK MECHANIC.WHITNEY After 4:30 pm or on holidays or weekends, call: or . Ask the operatorto page the quantitative consultant oncologist air liaison and special staff. PRE-OPERATIVE CHECKLIST: PATIENT INSTRUCTIONS PRIOR TO SURGERY Our guidelines have changed, so please read these instructions carefully. Your surgery may be cancelled if you do not follow these instructions. MY ARRIVAL TIME WILL BE PROVIDED BY SURGERY SCHEDULERS ONE BUSINESS DAY PRIOR TO 2PM. PLEASE CALL IF THEY HAVE NOT CALLED BY THEN. I have been instructed not to have any solid food to eat after midnight prior to my surgery (this includes no gum, mints, smoking). I am allowed to drink small amounts (up to 12 oz) of clear liquids up until 2 hours prior to my arrival time. Clear liquids include water, fruit juices without pulp, carbonated beverages (i.e. lester todd), electrolyte beverages (i.e. Gatorade), clear tea and black coffee, clear broth, popsicles and jello. (No milk). No alcohol the day before or day of surgery. I will bring this binder to all pre and post-operative appointments AND day of surgery. MEDICATION STOPPAGE: Unless my surgeon tells me differently, I will STOP THESE MEDICATIONS 7 DAYS PRIOR TO SURGERY: (Motrin/ibuprofen/Naproxen/Aleve/Advil), Aspirin, vitamin E, herbal medications, diet pills, and [id number]-sukaami medications. Tylenol (acetaminophen) is okay. I will not wear jewelry, body piercing(s), makeup, nail gibraltarian, hairpins, or contacts on the day ofsurgery. I am to leave valuables and money at home or with family members. If I am prescribed inhalers for breathing, I will use them and bring them to the hospital. Medication(s) to be taken on the morning of surgery with a few sips of water: If I am taking any of the following blood thinning medications - Aspirin, clopidogrel (Plavix), ticagrelor (Brilinta), prasugrel (Efficient), ticlodipine (Ticlid), warfarin (Coumadin), dibigatran (Pradaxa) or rivaroxaban (Xarelto) - I will discuss whether or not I should stop them before surgery with my surgeon. Discuss medication changes with your repair department manager or primary care physician as well. If I stopped taking my blood-thinning medication, I will ask the surgeon when to resume taking it. If I am an outpatient, a responsible person will drive me home and it was suggested that someone stay with me for 24 hours. I understand that a business education instructor or cabdriver is NOT a responsible caregiver. Patients with diabetes,I will not take my morning diabetes medication (pills) on the morning of surgery. If I am on insulin, someone has gone over those instructions with me for the morning of surgery. I understand if my surgery is delayed, I will notify the check in desk that I have diabetes. See the Diabetic GuidelinesBefore Surgery in the patient education section. If I have Obstructive Sleep Apnea and use a CPAP/BiPAP machine, I will bring my mask, tubing, and machine with me on the day of surgery. PREOP INSTRUCTIONS THE DAY OF SURGERY/CHECK IN Report to DESK 1-9 for surgery. A map is located in Your Surgical Guide Book. The online version of the surgical guide book can be found at: [email or web address] The address is [address] [place] [address] INFECTION PREVENTION Please notify your doctor if you have any signs of an infection (i.e. fever, severe cough, nasal congestion, pain with urination, abnormal vaginal discharge, diarrhea, etc). Your surgeon will let you know if a bowel prep is needed before your surgery. If so, please see theattached instructions. Shower the night before surgery AND the morning of surgery with Hibiclens (provided by your surgeon). If you are allergic to Hibiclens or unable to obtain the Hibiclens, please wash with antibacterial soap. Wash your body from the neck down, focusing on your abdomen, belly button and external genitalia. Do not forget to scrub any skin folds and creases. No lotions, oils, creams, or powders after your shower. Underarm deodorant is okay. No shaving (abdominal or pubic hair) or douching the day before surgery. You may be asked to apply an antiseptic solution called Chlorhexidine Gluconate (CHG) which will beprovided to you on arrival to the preop area. Hand washing is extremely important in preventing infection (for both you as the patient and for the caregivers). HOSPITALIZATION Before you leave the hospital, you typically need to be able to eat/drink, urinate, and have your pain controlled with oral medication. Your surgeon or other members of your surgeon s team will discuss any other specific medical issues related to your discharge with you. Your surgeon may order intermittent compression sleeves. These are massaging leg pumps to help prevent blood clots after surgery. See Your Surgical Guide Book for more information. It is also very important that you walk as soon as possible and as frequently as possible after surgery. This will help decrease your risk of blood clots, exercise your lungs and speed up your recovery after surgery. If you are admitted to the hospital overnight, you will be given an incentive spirometer, which is a breathing machine that will help make sure that you are taking deep breaths and expanding your lungs while in the hospital. See Your Surgical Guide Book for more information. [facility] At the [facility], we have a multidisciplinary team of caregivers that includes fellows, residents, nurse practitioners, physician assistants, clinical nurse specialists, nurses, medical assistants, patient care nursing assistants, social workers, showcase maker and many others. We all have different roles and responsibilities but we are all here to help. OUTPATIENT SURGERY POST-OP INSTRUCTIONS POST-OP INSTRUCTIONS You must have a responsible adult drive you home and stay with you for the first [address] or drink any alcohol for 24 hours after surgery. You may have mild nausea, a sore throat or raspy voice for a few days. Do not put anything in the vagina for 4 weeks after surgery unless otherwise advised by your doctor. It is normal to have some drainage or a small amount of vaginal bleeding after surgery which may last for several weeks following your surgery. WHEN TO CALL YOUR DOCTOR: Fever (>100.4 F or 38.0 C) or chills. Incision problems such as redness, warmth, swelling, or foul smelling drainage. Severe nausea or persistent vomiting. Bright red vaginal bleeding (soaking >1 pad/hour) or foul smelling vaginal drainage. Severe pain not relieved with pain medication. Pain and swelling in your legs, especially if it is only on one side and not the other. Pain with urination, cloudy urine, or foul smelling urine. Or if you have any other problems or questions. CALL 911 or go to the ED if you have any shortness of breath, difficulty breathing, or chest pain. POSTOP: VULVAR SURGERY ACTIVITY Recovery from surgery is generally 2-3 weeks. Slowly increase your activity as tolerated. It is normal to be tired after surgery. It is normal to have a small amount of bleeding/drainage from your incisions which may last up to 3weeks. Do not put anything in the vagina for 6 weeks after surgery unless otherwise instructed by your doctor (including tampons, douching, sexual intercourse, etc). No driving for about 1-2 weeks after surgery, while you are taking opioid (narcotic) pain medication, or until you feel that you are ready. Return to work when directed by your surgeon. Please contact your surgeon s office if any FMLA or other paperwork is needed. WOUND CARE Do sitz baths or rinse incision with a squirt bottle or hand held shower and warm water 3x/day and after using the toilet. Do not lather incisions with soap. Do not use bubble bath or bath oil. Keep the incision as clean and dry as possible between sitz baths/showers. You may use a blow dryeron a cool setting to help dry the incisions after a shower. Avoid tension on the sutures (stretching or pulling). Be particularly careful getting in and out ofbed as well as in and out of the car. These stitches are all dissolvable. As they begin to dissolve, you may notice yellow to white discharge which is normal. Avoid wearing tight-fitting clothing over your incisions. Wash your hands frequently, especially before touching your incision, changing any dressings, afterusing the restroom, and before eating. IF YOU HAVE: Lymph nodes removed: You will go home with a DILMA drain. Keep an accurate daily record of the amount of drainage for your surgeon. A laser ablation procedure: You will need to apply a prescription cream and/or lidocaine jelly to the affected area three times a day to help with the discomfort and improve the healing. PAIN MANAGEMENT If urination causes excessive burning, you may pour clean water over the incision as you urinate tohelp dilute your urine and minimize discomfort. Drink plenty of fluids which will also help keep your urine more diluted. You may also apply a cool compress on your vulva to help minimize any swelling or discomfort. Do not use the cool compress for more than 20 minutes at a time. You will be given prescriptions for a variety of pain medications (opioid and non-opioid) before you leave the hospital. Surgery will cause pain and everyone has a different pain tolerance. It is safer to find the right combination and amount of medicine to manage your pain. We recommend that you take the non-opioid medication (acetaminophen and ibuprofen) on a regular schedule after surgery. You can take these medications on an alternating schedule so that you are taking one or the other every 3-4 hours. The maximum total daily dose of acetaminophen is 4,000mg and the maximum totaldaily dose of ibuprofen is 2,400mg. Take the opioid prescription ONLY when your pain is severe and never take more pills or more frequent doses than prescribed. Opioids (narcotics) can cause serious side effects. The risks increase the longer they are used. Taking opioids may cause: constipation, drowsiness, itching, nausea/vomiting. More serious side effects of opioids may include: addiction or dependence, life threatening overdose, or dizziness leading to falls/injury. Keep your pain medication locked in a safe place. Never share your pain medication with others. If you have any remaining opioid pills after you recover from surgery, please bring them to a medication disposal station (located in many of the [facility] pharmacies). Do not flush them down the toilet. Constipation is a common problem after surgery. You should take a stool softener (i.e. colace) twice a day, especially if you are taking opioids. If a stool softener alone is not helping to manage your constipation, you can also take Miralax and/or milk of magnesia as needed. WHEN TO CALL YOUR DOCTOR: Fever (>100.4 F or 38.0 C) or chills. Incision problems such as redness, warmth, swelling, or foul smelling drainage. Severe nausea or persistent vomiting. Bright red vaginal bleeding (soaking >1 pad/hour) or foul smelling vaginal drainage. Severe pain not relieved with pain medication. Pain and swelling in your legs, especially if it is only on one side and not the other. Pain with urination, cloudy urine, or foul smelling urine. Or if you have any other problems or questions. CALL 911 or go to the ED if you have any shortness of breath, difficulty breathing, or chest pain. . Advance Directives Every adult has the right to direct their own medical care. Having an advance directive on file helps to ensure that you receive the care you want if a medical condition or injury renders you unable to make decisions or communicate. Forms can be found on the [facility] Advance Directives site. You do not need a water maintenance supervisor to complete advance directive documents. [email or web address] Talking about end-of-life issues is difficult, but it truly is a gift to your loved ones. We suggest using The Conversation Project (theNatrix [email or web address].org) to help guide you through discussing and thinking about your wishes/preferences, goals and values and completing your advance directive. After you complete the documents, talk to those people who may be involved with your healthcare decision making, and give them a copy of your forms to make sure your wishes are followed. Please bringa copy of your advance directive documents to your next appointment, or email to [email or web address] as an attachment in either PDF, TIFF, or JPEG format. You can also mail to: [facility] Health Information Management, Ab7 Advance Directive Processing [address] [place], [place] [address] documented in this encounterSelect Medical Specialty [facility]07-03-2025 Telephone encounter Note * Telephone Encounter - Saurabh Grande RN - 11/27/2024 11:10 AM EDT Returned call to patient. Discussed her PAP results. Pt verbalized understanding. Pt asked about her upcoming appointments. Went through appts with pt. Pt verbalized understanding. Pt asked about a pain in her hip she had start after gardening. Advised that pt should f/u with herPCP. Pt verbalized understanding. [facility]07-03-2025 Miscellaneous Notes* Telephone Encounter - Saurabh Grande RN - 11/27/2024 11:10 AM EDT Returned call to patient. Discussed her PAP results. Pt verbalized understanding. Pt asked about her upcoming appointments. Went through appts with pt. Pt verbalized understanding. Pt asked about a pain in her hip she had start after gardening. Advised that pt should f/u with herPCP. Pt verbalized understanding. * Telephone Encounter - Teagan Hamilton - 11/27/2024 10:14 AM EDT Patient called office stating she got a new diagnosis from her pap. Patient is not sure what it wassince she was upset at the time. documented in this encounterSelect [facility]07-[facility]-2025 Telephone encounter Note * Telephone Encounter - Teagan Hamilton - 11/27/2024 10:14 AM EDT Patient called office stating she got a new diagnosis from her pap. Patient is not sure what it wassince she was upset at the time. [facility]06-30-2025 Telephone encounter Note* Telephone Encounter - Myla Rhodes APRN.CNP - 11/24/2024 4:48 PM EDT Reviewed pap test with patient. Agreeable to EUA/Vaginoscopy. Case order placed. Will update Dr. Sultana's team. Myla Rhodes APRN.CNP [facility]06-30-2025 Miscellaneous Notes* Telephone Encounter - Myla Rhodes APRN.CNP - 11/24/2024 4:48 PM EDT Reviewed pap test with patient. Agreeable to EUA/Vaginoscopy. Case order placed. Will update Dr. Sultana's team. Myla Rhodes APRN.CNP * Telephone Encounter - Aden Braxton - 11/24/2024 8:06 AM EDT Patient returning call from Annia regarding her results. She would like a call back today. documented in this encounterSelect Medical Specialty [facility]06-30-2025 Instructions* Patient Instructions* Myla Rhodes APRN.CNP - 11/24/2024 4:47 PM EDT Images from the original note were not included. Please visit the following website for the [facility] surgery guide. [email or web address] PATIENT SURGICAL CHECKLIST - NEXT STEPS Your surgeon's office will call you to arrange your surgery date and pre- admission testing appointments. You should receive a call within 2-5 business days from our scheduling team. (If you do not receive a call within 5 days - please call [phone]) Pre-admission testing appointments include: - Preop anesthesia clearance with [facility] (pre-anesthesia consultation clinic). There are options for in person appointments or virtual appointments based on the recommendations from your surgeon. - Preop exam which can be done at the time of an in person pre-anesthesia appointment or by your surgeon's team depending on the complexity of your medical history. This needs to be done within 30 days of surgery. - Virtual shared preop nurse teaching appointment. - Lab work - Any other testing that the provider orders for prior to surgery if needed You will receive a call from the storage administrator the business day prior to your surgery as to when and where to arrive on the day of your scheduled surgery ENVIRONMENTAL QUALITY ANALYST ONCOLOGY PHYSICIAN CONTACT INFORMATION Surgery Scheduling Office Surgeons: Dr. Enid Vegas Dr. Farhana Osorio Dr. America Sultana Dr. Adriel Lopez Dr. Felicia Tolbert Dr. Bernice Xavier Dr. Duglas Denton Dr. Herson Garcia Dr. Sarkis Saeed Dr. Valentino Aguilar Link Trainer Operator Oncology Nurse Practitioners: Valerie Joseph, MOTOR BLOCK MECHANIC.WHITNEY Rhodes, MOTOR BLOCK MECHANIC.WHITNEY Wilson, MOTOR BLOCK MECHANIC.WHITNEY Haney, MOTOR BLOCK MECHANIC.WHITNEY Velázquez, MOTOR BLOCK MECHANIC.DATABASE ADMINISTRATION MANAGER After 4:30 pm or on holidays or weekends, call: or . Ask the operatorto page the quantitative consultant oncologist air liaison and special staff. PRE-OPERATIVE CHECKLIST: PATIENT INSTRUCTIONS PRIOR TO SURGERY Our guidelines have changed, so please read these instructions carefully. Your surgery may be cancelled if you do not follow these instructions. MY ARRIVAL TIME IS: I have been instructed not to have any solid food to eat after midnight prior to my surgery (this includes no gum, mints, smoking). I am allowed to drink small amounts (up to 12 oz) of clear liquids up until 2 hours prior to my arrival time. Clear liquids include water, fruit juices without pulp, carbonated beverages (i.e. lester todd), electrolyte beverages (i.e. Gatorade), clear tea and black coffee, clear broth, popsicles and jello. (No milk). No alcohol the day before or day of surgery. I will bring this binder to all pre and post-operative appointments AND day of surgery. MEDICATION STOPPAGE: Unless my surgeon tells me differently, I will STOP THESE MEDICATIONS 7 DAYS PRIOR TO SURGERY: (Motrin/ibuprofen/Naproxen/Aleve/Advil), Aspirin, vitamin E, herbal medications, diet pills, and [id number] medications. Tylenol (acetaminophen) is okay. I will not wear jewelry, body piercing(s), makeup, nail gibraltarian, hairpins, or contacts on the day ofsurgery. I am to leave valuables and money at home or with family members. If I am prescribed inhalers for breathing, I will use them and bring them to the hospital. Medication(s) to be taken on the morning of surgery with a few sips of water: If I am taking any of the following blood thinning medications - Aspirin, clopidogrel (Plavix), ticagrelor (Brilinta), prasugrel (Efficient), ticlodipine (Ticlid), warfarin (Coumadin), dibigatran (Pradaxa) or rivaroxaban (Xarelto) - I will discuss whether or not I should stop them before surgery with my surgeon. Discuss medication changes with your repair department manager or primary care physician as well. If I stopped taking my blood-thinning medication, I will ask the surgeon when to resume taking it. If I am an outpatient, a responsible person will drive me home and it was suggested that someone stay with me for 24 hours. I understand that a business education instructor or cabdriver is NOT a responsible caregiver. Patients with diabetes,I will not take my morning diabetes medication (pills) on the morning of surgery. If I am on insulin, someone has gone over those instructions with me for the morning of surgery. I understand if my surgery is delayed, I will notify the check in desk that I have diabetes. See the Diabetic GuidelinesBefore Surgery in the patient education section. If I have Obstructive Sleep Apnea and use a CPAP/BiPAP machine, I will bring my mask, tubing, and machine with me on the day of surgery. Pain management education material found in Your Surgical Guide was reviewed with me. To find out my arrival time for surgery, I must call my surgical forceps fabricator after 2pm the day beforesurgery. Pre-operative instructions given by: PREOP INSTRUCTIONS THE DAY OF SURGERY/CHECK IN Report to DESK J1-9 for surgery. A map is located in Your Surgical Guide Book. The online version of the surgical guide book can be found at: [email or web address] The address is [address] [place] [address] INFECTION PREVENTION Please notify your doctor if you have any signs of an infection (i.e. fever, severe cough, nasal congestion, pain with urination, abnormal vaginal discharge, diarrhea, etc). Your surgeon will let you know if a bowel prep is needed before your surgery. If so, please see theattached instructions. Shower the night before surgery AND the morning of surgery with Hibiclens (provided by your surgeon). If you are allergic to Hibiclens or unable to obtain the Hibiclens, please wash with antibacterial soap. Wash your body from the neck down, focusing on your abdomen, belly button and external genitalia. Do not forget to scrub any skin folds and creases. No lotions, oils, creams, or powders after your shower. Underarm deodorant is okay. No shaving (abdominal or pubic hair) or douching the day before surgery. You may be asked to apply an antiseptic solution called Chlorhexidine Gluconate (CHG) which will beprovided to you on arrival to the preop area. Hand washing is extremely important in preventing infection (for both you as the patient and for the caregivers). HOSPITALIZATION Before you leave the hospital, you typically need to be able to eat/drink, urinate, and have your pain controlled with oral medication. Your surgeon or other members of your surgeon s team will discuss any other specific medical issues related to your discharge with you. Your surgeon may order intermittent compression sleeves. These are massaging leg pumps to help prevent blood clots after surgery. See Your Surgical Guide Book for more information. It is also very important that you walk as soon as possible and as frequently as possible after surgery. This will help decrease your risk of blood clots, exercise your lungs and speed up your recovery after surgery. If you are admitted to the hospital overnight, you will be given an incentive spirometer, which is a breathing machine that will help make sure that you are taking deep breaths and expanding your lungs while in the hospital. See Your Surgical Guide Book for more information. [facility] At the [facility], we have a multidisciplinary team of caregivers that includes fellows, residents, nurse practitioners, physician assistants, clinical nurse specialists, nurses, medical assistants, patient care nursing assistants, social workers, showcase maker and many others. We all have different roles and responsibilities but we are all here to help. OUTPATIENT SURGERY POST-OP INSTRUCTIONS POST-OP INSTRUCTIONS You must have a responsible adult drive you home and stay with you for the first [address] a car or drink any alcohol for 24 hours after surgery. You may have mild nausea, a sore throat or raspy voice for a few days. Do not put anything in the vagina for 4 weeks after surgery unless otherwise advised by your doctor. It is normal to have some drainage or a small amount of vaginal bleeding after surgery which may last for several weeks following your surgery. WHEN TO CALL YOUR DOCTOR: Fever (>100.4 F or 38.0 C) or chills. Incision problems such as redness, warmth, swelling, or foul smelling drainage. Severe nausea or persistent vomiting. Bright red vaginal bleeding (soaking >1 pad/hour) or foul smelling vaginal drainage. Severe pain not relieved with pain medication. Pain and swelling in your legs, especially if it is only on one side and not the other. Pain with urination, cloudy urine, or foul smelling urine. Or if you have any other problems or questions. CALL 911 or go to the ED if you have any shortness of breath, difficulty breathing, or chest pain. documented in this encounterSelect Medical [facility]06-30-2025 Telephone encounter Note * Telephone Encounter - Aden Braxton - 11/24/2024 8:06 AM EDT Patient returning call from Annia regarding her results. She would like a call back today. [facility] Telephone encounter Note* Telephone Encounter - Annia Wilson APRN.CNP - 11/21/2024 11:12 AM EDT Called patient to review pap smear results. LVM to return my call Review with Dr. Sultana given prior surgeries and cancer dx, will discuss EUA/ vaginoscopy in OR. Interpretation Abnormal Atypical squamous cells cannot exclude high grade squamous intraepithelial lesion (ASC-H); see comment. at 1538 EDT Diagnosis Comment Suggest colposcopy/biopsy as clinically indicated. Results from the ASCUS/LSIL triage study found that interpretations of ASC-H were associated with a higher risk of underlying HSIL (NEREIDA 2 or worse; 30-40%). HPV negative. Annia Wilson APRN.CNP [facility] Work Phone: [phone] 180-923006-27-2025 Miscellaneous Notes* Telephone Encounter - Annia Wilson APRN.CNP - 11/21/2024 11:12 AM EDT Called patient to review pap smear results. LVM to return my call Review with Dr. Sultana given prior surgeries and cancer dx, will discuss EUA/ vaginoscopy in OR. Interpretation Abnormal Atypical squamous cells cannot exclude high grade squamous intraepithelial lesion (ASC-H); see comment. at 1538 EDT Diagnosis Comment Suggest colposcopy/biopsy as clinically indicated. Results from the ASCUS/LSIL triage study found that interpretations of ASC-H were associated with a higher risk of underlying HSIL (NEREIDA 2 or worse; 30-40%). HPV negative. Annia Wilson APRN.CNP documented in this encounterSelect Medical Specialty [facility]06-13-2025 History of Present illness Narrative* Annia Wilson APRN.CNP - 11/07/2024 2:00 PM EDT DATE OF SERVICE: 11/07/2024 PROBLEM: Damien Patricia presents today for follow up. DIAGNOSIS: IA moderately differentiated vulvar cancer. GENETIC TESTING: No GENOMIC TESTING: No TREATMENT HISTORY: 1) 11/2008: vulvectomy at [facility] (path unavailable) 2) 07/2009: vulvectomy at [facility] (path unavailable) 3) 08/2009: Bilateral inguinal lymph node dissection (path unavailable) Patient reports 18 lymph nodes were removed 4) 01/21/2014 CO2 laser conization with Dr. Burk FINAL DIAGNOSIS: CERVIX, BIOPSY - BENIGN STROMA WITH MINUTE FRAGMENTED STRIPS OF ATTACHED ATYPICAL SQUAMOUS MUCOSA. SEE COMMENT. COMMENT: The squamous mucosa is almost entirely denuded. Features are suggestive of but not diagnostic of dysplasia. Procurement artifact is present. There is no evidence of malignancy. OPERATIVE PROCEDURE: Excisional CO2 laser conization 5) 02/25/2014: Ex-lap, STAN/BSO FINAL DIAGNOSIS: HYSTERECTOMY WITH BILATERAL SALPINGO-OOPHORECTOMY - EXTENSIVELY CAUTERIZED ECTOCERVIX WITH NO RESIDUAL IDENTIFIABLE SQUAMOUS MUCOSA. NO SQUAMOUS DYSPLASIA OR HUMAN PAPILLOMA VIRUS EFFECT IS IDENTIFIED. ENDOMETRIAL ATROPHY. SEROSAL ADHESIONS. RIGHT AND LEFT OVARIES AND FALLOPIAN TUBES- ATROPHIC CHANGES. 6) 06/29/2014 Partial vulvectomy (posterior/anterior vulva) with Dr. Burk FINAL DIAGNOSIS: A) PARTIAL VULVECTOMY (POSTERIOR VULVA AND PERINEUM) - CHRONIC INFLAMMATION. NEGATIVE FOR MALIGNANCY. B) PARTIAL VULVECTOMY (ANTERIOR VULVA) - SQUAMOUS CELL CARCINOMA IN SITU. COMMENT: No invasive component or margin involvement is identified. 7) 06/30/15: Left posterior vulva excision with Dr. Burk FINAL DIAGNOSIS: LEFT POSTERIOR VULVA, EXCISION - INVASIVE, MODERATELY DIFFERENTIATED, KERATINIZING SQUAMOUS CELL CARCINOMA. ASSOCIATED IN SITU SQUAMOUS CELL CARCINOMA. NEGATIVE SURGICAL MARGINS. OBSCURING CAUTERY. CHRONIC VULVITIS. SEE COMMENT. COMMENT: Associated with carcinoma in situ, is a focal area of invasive squamous cell carcinoma. The depth of invasion is 0.2 mm. Lymphovascular space invasion is not appreciated. 8) 12/07/2015: Vaginal biopsies with Dr. Arriaga FINAL DIAGNOSIS: A) VAGINAL INTROITUS @ 11 O'CLOCK, BIOPSY - BENIGN SQUAMOUS MUCOSA. B) POSTERIOR VAGINAL INTROITUS, BIOPSIES - INFLAMED GRANULATION TISSUE. BENIGN SQUAMOUS EPITHELIUM.SEE COMMENT. COMMENT: The patient's history of squamous cell carcinoma is known. The present biopsies demonstrate benign changes 9) 04/04/2016 Vulvar biopsy: FINAL DIAGNOSIS: VULVAR BIOPSY AT 7 O'CLOCK - CHRONICALLY INFLAMED HYPERPARAKERATOTIC SKIN. NEGATIVE FOR MALIGNANCY. PAST MEDICAL HISTORY Diagnosis Date Borderline diabetes mellitus 01/06/2016 Carpal tunnel syndrome on both sides & osteoarthritis Diarrhea Diverticulitis Dupuytren contracture Hemorrhoids Hypercholesterolemia Hypothyroidism Lymphocytic colitis Unspecified essential hypertension Vulvar carcinoma (HCC) PAST SURGICAL HISTORY Procedure Laterality Date CERVICAL BIOPSY COLONOSCOPY FLX DX W/COLLJ SPEC WHEN PFRMD 01/20/2016 Colonoscopy (MAC) COLONOSCOPY FLX DX W/COLLJ SPEC WHEN PFRMD 05/26/2021 No further colonoscopies needed, due to age. HYSTERECTOMY HX 02/2014 INGUINOFEM LMPHADEC SUPFC W/PEL LMPHADEC 08/2009 OTHER 03/2016 vulvar biopsy OTHER SURGICAL HISTORY (PLEASE SPECIFY) HX Right 2004 labia reconstruction; [facility] OTHER SURGICAL HISTORY (PLEASE SPECIFY) HX 80's multiple lipoma removal SIGMOIDOSCOPY 03/2018 TUBAL LIGATION HX 1972 VULVECTOMY RADICAL PARTIAL 06/29/2014, 06/2015 VULVECTOMY RADICAL PARTIAL 02/03, 08/04, 07/11 Social History Tobacco Use Smoking status: Never Smokeless tobacco: Never Vaping Use Vaping status: Never Used Substance Use Topics Alcohol use: Yes Alcohol/week: 5.0 standard drinks of alcohol Types: 5 Cans of Beer (12oz) per week Comment: wine with supper;occ. beer Drug use: No Family History Problem Relation Age of Onset Breast Cancer Sister 69 stage 1 other (bowel cancer) Other grandmother other (leukemia) Other aunts other (pancreatic cancer) Other cousin IMAGING: CT CHEST: No results found. CT ABD/PELVIS: No results found. HEALTH MAINTENANCE: Last colonoscopy: 01/01/2018 Last pap/HPV: 12/07/2023 ADVANCED CARE PLANNING: Not addressed this visit SUBJECTIVE/INTERVAL HISTORY: Patient is a female with a history of vulvar cancer s/p multiple excisions, the last being in 2015. She reports inconsistent use of vaginal dilators, noting that she has regressed to a smaller size but plans to attempt the larger size again. She denies any bleeding or significant pain with dilator use but mentions feeling constriction when using the larger size. She reports occasional difficulty urinating and a sensation of firmness in the vaginal area. She has not used Reclens or Replens recently. She mentions a decrease in white blood cell count, with a follow-up scheduled in three months. She also describes a past episode of COVID toes, characterized by toes curling in different directions, which resolved immediately. Patient remains active, participating in volleyball and horseback riding. She is involved in various social activities, including card games and gnosticist events. She expresses feelings of loneliness and is considering moving to a [facility] for more social interaction. [place] Ears/Nose/Mouth/Throat: (+) cold symptoms Genitourinary: (+) urinary difficulty, (-) vaginal bleeding ECOG PERFORMANCE STATUS: 0- Fully active, able to carry on all pre-disease performance w/o restriction. OBJECTIVE: Synopsis SmartLink 11/07/2024 14:05 Vitals BP 118/74 Weight 168 lb 3.4 oz (76.3 kg) General: No acute distress. : Vulvar scar tissue present, vaginal length normal, no abnormal masses palpated, no bleeding noted, no significant pain reported during examination. No adenopathy. Pap collected. Mail Distributor for exam: Declined The sensitive examination was discussed with the Patient or Patient's Authorized Telecommunications Repairer. Asapplicable, any other physician, advance practice provider, medical student, or other health professional student that will be observing or involved in the sensitive examination for educational or training purposes was discussed with the Patient or Authorized Telecommunications Repairer. The Patient or Authorized Telecommunications Repairer has agreed to proceed with the sensitive examination. PROCEDURES: none DIAGNOSTICS: (Today) Pap Smear: Pending results CBC: Decreased white blood cell count as noted by referring provider, awaiting repeat testing in 3 months ASSESSMENT/PLAN: 1. History of cancer of vulva Patient is approximately seven to eight years post last excision in 2015. No concerning findings onphysical exam today; vaginal length is normal with well- healed scar tissue. - Performed Pap smear; results expected in 1-2 weeks. - Advised patient to continue using vaginal dilators, progressing to larger sizes as tolerated. If discomfort or bleeding occurs, revert to the previous size. - Extended follow-up interval to one year. 2. Encounter for screening mammogram for malignant neoplasm of breast Patient is healthy and active; life expectancy is estimated to be 10 years or more. - Ordered annual screening mammogram; provided patient with a paper order for [facility]. Annia Wilson APRN.DATABASE ADMINISTRATION MANAGER Recording using Digitiliti software for draft documentation of the visit was discussed with the patient/authorized telephone claims representative; all questions welcomed and answered. Patient/authorized telephone claims representative agreed to proceed The previous note from 05/09/2024 was copied forward and the necessary changes were made above. A letter and a copy of this office note were sent to: Tanvi Doty MD documented in this encounterSelect Medical [facility]ty [facility]06-13-2025 NoteHNO ID: [id number] Author: ANNIA WILSON APRN.WHITNEY Service: ? Author Type: Nurse Practitioner Type: Progress Notes Filed: 12/04/2024 10:47 Note Text: DATE OF SERVICE: 11/07/2024 PROBLEM: Damien Patricia presents today for follow up. DIAGNOSIS: IA moderately differentiated vulvar cancer. GENETIC TESTING: No GENOMIC TESTING: No TREATMENT HISTORY: 1) 11/2008: vulvectomy at [facility] (path unavailable) 2) 07/2009: vulvectomy at [facility] (path unavailable) 3) 08/2009: Bilateral inguinal lymph node dissection (path unavailable) Patient reports 18 lymph nodes were removed 4) 01/21/2014 CO2 laser conization with Dr. Burk FINAL DIAGNOSIS: CERVIX, BIOPSY - BENIGN STROMA WITH MINUTE FRAGMENTED STRIPS OF ATTACHED ATYPICAL SQUAMOUS MUCOSA. SEE COMMENT. COMMENT: The squamous mucosa is almost entirely denuded. Features are suggestive of but not diagnostic of dysplasia. Procurement artifact is present. There is no evidence of malignancy. OPERATIVE PROCEDURE: Excisional CO2 laser conization 5) 02/25/2014: Ex-lap, STAN/BSO FINAL DIAGNOSIS: HYSTERECTOMY WITH BILATERAL SALPINGO-OOPHORECTOMY - EXTENSIVELY CAUTERIZED ECTOCERVIX WITH NO RESIDUAL IDENTIFIABLE SQUAMOUS MUCOSA. NO SQUAMOUS DYSPLASIA OR HUMAN PAPILLOMA VIRUS EFFECT IS IDENTIFIED. ENDOMETRIAL ATROPHY. SEROSAL ADHESIONS. RIGHT AND LEFT OVARIES AND FALLOPIAN TUBES- ATROPHIC CHANGES. 6) 06/29/2014 Partial vulvectomy (posterior/anterior vulva) with Dr. Burk FINAL DIAGNOSIS: A) PARTIAL VULVECTOMY (POSTERIOR VULVA AND PERINEUM) - CHRONIC INFLAMMATION. NEGATIVE FOR MALIGNANCY. B) PARTIAL VULVECTOMY (ANTERIOR VULVA) - SQUAMOUS CELL CARCINOMA IN SITU. COMMENT: No invasive component or margin involvement is identified. 7) 06/30/15: Left posterior vulva excision with Dr. Burk FINAL DIAGNOSIS: LEFT POSTERIOR VULVA, EXCISION - INVASIVE, MODERATELY DIFFERENTIATED, KERATINIZING SQUAMOUS CELL CARCINOMA. ASSOCIATED IN SITU SQUAMOUS CELL CARCINOMA. NEGATIVE SURGICAL MARGINS. OBSCURING CAUTERY. CHRONIC VULVITIS. SEE COMMENT. COMMENT: Associated with carcinoma in situ, is a focal area of invasive squamous cell carcinoma. The depth of invasion is 0.2 mm. Lymphovascular space invasion is not appreciated. 8) 12/07/2015: Vaginal biopsies with Dr. Arriaga FINAL DIAGNOSIS: A) VAGINAL INTROITUS @ 11 O'CLOCK, BIOPSY - BENIGN SQUAMOUS MUCOSA. B) POSTERIOR VAGINAL INTROITUS, BIOPSIES - INFLAMED GRANULATION TISSUE. BENIGN SQUAMOUS EPITHELIUM. SEE COMMENT. COMMENT: The patient's history of squamous cell carcinoma is known. The present biopsies demonstrate benign changes 9) 04/04/2016 Vulvar biopsy: FINAL DIAGNOSIS: VULVAR BIOPSY AT 7 O'CLOCK - CHRONICALLY INFLAMED HYPERPARAKERATOTIC SKIN. NEGATIVE FOR MALIGNANCY. PAST MEDICAL HISTORY Diagnosis Date Borderline diabetes mellitus 01/06/2016 Carpal tunnel syndrome on both sides AND osteoarthritis Diarrhea Diverticulitis Dupuytren contracture Hemorrhoids Hypercholesterolemia Hypothyroidism Lymphocytic colitis Unspecified essential hypertension Vulvar carcinoma (HCC) PAST SURGICAL HISTORY Procedure Laterality Date CERVICAL BIOPSY COLONOSCOPY FLX DX W/COLLJ SPEC WHEN PFRMD 01/20/2016 Colonoscopy (MAC) COLONOSCOPY FLX DX W/COLLJ SPEC WHEN PFRMD 05/26/2021 No further colonoscopies needed, due to age. HYSTERECTOMY HX 02/2014 INGUINOFEM LMPHADEC SUPFC W/PEL LMPHADEC 08/2009 OTHER 03/2016 vulvar biopsy OTHER SURGICAL HISTORY (PLEASE SPECIFY) HX Right 2005 labia reconstruction; [facility] OTHER SURGICAL HISTORY (PLEASE SPECIFY) HX 80's multiple lipoma removal SIGMOIDOSCOPY 03/2018 TUBAL LIGATION HX 1972 VULVECTOMY RADICAL PARTIAL 06/29/2014, 06/2015 VULVECTOMY RADICAL PARTIAL 02/03, 08/04, 07/11 Social History Tobacco Use Smoking status: Never Smokeless tobacco: Never Vaping Use Vaping status: Never Used Substance Use Topics Alcohol use: Yes Alcohol/week: 5.0 standard drinks of alcohol Types: 5 Cans of Beer (12oz) per week Comment: wine with supper;occ. beer Drug use: No Family History Problem Relation Age of Onset Breast Cancer Sister 69 stage 1 other (bowel cancer) Other grandmother other (leukemia) Other aunts other (pancreatic cancer) Other cousin IMAGING: CT CHEST: No results found. CT ABD/PELVIS: No results found. HEALTH MAINTENANCE: Last colonoscopy: 01/01/2018 Last pap/HPV: 11/14/2024 ADVANCED CARE PLANNING: Not addressed this visit SUBJECTIVE/ROS: Patient is a female with a history of vulvar cancer s/p multiple excisions, the last being in 2015. She reports inconsistent use of vaginal dilators, noting that she has regressed to a smaller size but plans to attempt the larger size again. She denies any bleeding or significant pain with dilator use but mentions feeling constriction when using the larger size. She reports occasional difficulty urinating and a sensation of firmness in the vag (more content not included)...[facility]01-07-2025 Telephone encounter Note* Telephone Encounter - Annia Wilson APRN.WHITNEY - 06/03/2024 5:50 PM EST Spoke with patient regarding last appointment. She was unsure when her last visit was and when she called to check she was told I will no longer be seeing patients in [place]. I assured her that I am still seeing patients in [place] and her next appt is 11/07 at 2pm. She was thankful for the call. Annia Wilson APRN.WHITNEY [facility] Work Phone: [phone]) 781-396401-07-2025 Miscellaneous Notes* Telephone Encounter - Annia Wilson APRN.WHITNEY - 06/03/2024 5:50 PM EST Spoke with patient regarding last appointment. She was unsure when her last visit was and when she called to check she was told I will no longer be seeing patients in [place]. I assured her that I am still seeing patients in [place] and her next appt is 11/07 at 2pm. She was thankful for the call. Annia Wilson APRN.WHITNEY documented in this encounter[facility] Instructions* Patient Instructions* Annia Wilson APRN.CNP - 05/09/2024 3:24 PM EST Okay to start magnesium oxide 400mg at bedtime documented in this encounter[facility] History of Present illness Narrative* Annia Wilson APRN.CNP - 05/09/2024 2:30 PM EST DATE OF SERVICE: 05/09/2024 PROBLEM: Damien Patricia presents today for follow up. HPI: Damien had vulvectomies (11/2008 and 07/2009) as well as bilateral inguinal lymph node dissection in August 2009) for IA moderately differentiated vulvar cancer. 12/2013 she under went laser conization. She had STAN/BSO with Dr. Burk at [facility] in 02/2014 for atypical cervical dysplasia. She then had partial vulvectomy in 06/2014 that showed SCC in situ. 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 She had a negative biopsy November 2015 and 2016. PRIOR HISTORY & TREATMENT: 1) 11/2008: vulvectomy at [facility] (path unavailable) 2) 07/2009: vulvectomy at [facility] (path unavailable) 3) 08/2009: Bilateral inguinal lymph node dissection (path unavailable) Patient reports 18 lymph nodes were removed 4) 01/21/2014 CO2 laser conization with Dr. Bukr FINAL DIAGNOSIS: CERVIX, BIOPSY - BENIGN STROMA WITH MINUTE FRAGMENTED STRIPS OF ATTACHED ATYPICAL SQUAMOUS MUCOSA. SEE COMMENT. COMMENT: The squamous mucosa is almost entirely denuded. Features are suggestive of but not diagnostic of dysplasia. Procurement artifact is present. There is no evidence of malignancy. OPERATIVE PROCEDURE: Excisional CO2 laser conization 5) 02/25/2014: Ex-lap, STAN/BSO FINAL DIAGNOSIS: HYSTERECTOMY WITH BILATERAL SALPINGO-OOPHORECTOMY - EXTENSIVELY CAUTERIZED ECTOCERVIX WITH NO RESIDUAL IDENTIFIABLE SQUAMOUS MUCOSA. NO SQUAMOUS DYSPLASIA OR HUMAN PAPILLOMA VIRUS EFFECT IS IDENTIFIED. ENDOMETRIAL ATROPHY. SEROSAL ADHESIONS. RIGHT AND LEFT OVARIES AND FALLOPIAN TUBES- ATROPHIC CHANGES. 6) 06/29/2014 Partial vulvectomy (posterior/anterior vulva) with Dr. Burk FINAL DIAGNOSIS: A) PARTIAL VULVECTOMY (POSTERIOR VULVA AND PERINEUM) - CHRONIC INFLAMMATION. NEGATIVE FOR MALIGNANCY. B) PARTIAL VULVECTOMY (ANTERIOR VULVA) - SQUAMOUS CELL CARCINOMA IN SITU. COMMENT: No invasive component or margin involvement is identified. 7) 06/30/15: Left posterior vulva excision with Dr. Burk FINAL DIAGNOSIS: LEFT POSTERIOR VULVA, EXCISION - INVASIVE, MODERATELY DIFFERENTIATED, KERATINIZING SQUAMOUS CELL CARCINOMA. ASSOCIATED IN SITU SQUAMOUS CELL CARCINOMA. NEGATIVE SURGICAL MARGINS. OBSCURING CAUTERY. CHRONIC VULVITIS. SEE COMMENT. COMMENT: Associated with carcinoma in situ, is a focal area of invasive squamous cell carcinoma. The depth of invasion is 0.2 mm. Lymphovascular space invasion is not appreciated. 8) 12/07/2015: Vaginal biopsies with Dr. Arriaga FINAL DIAGNOSIS: A) VAGINAL INTROITUS @ 11 O'CLOCK, BIOPSY - BENIGN SQUAMOUS MUCOSA. B) POSTERIOR VAGINAL INTROITUS, BIOPSIES - INFLAMED GRANULATION TISSUE. BENIGN SQUAMOUS EPITHELIUM.SEE COMMENT. COMMENT: The patient's history of squamous cell carcinoma is known. The present biopsies demonstrate benign changes 9) 04/04/2016 Vulvar biopsy: FINAL DIAGNOSIS: VULVAR BIOPSY AT 7 O'CLOCK - CHRONICALLY INFLAMED HYPERPARAKERATOTIC SKIN. NEGATIVE FOR MALIGNANCY. PAST MEDICAL HISTORY Diagnosis Date Borderline diabetes mellitus 01/06/2016 Carpal tunnel syndrome on both sides & osteoarthritis Diarrhea Diverticulitis Dupuytren contracture Hemorrhoids Hypercholesterolemia Hypothyroidism Lymphocytic colitis Unspecified essential hypertension Vulvar carcinoma (HCC) PAST SURGICAL HISTORY Procedure Laterality Date CERVICAL BIOPSY COLONOSCOPY FLX DX W/COLLJ SPEC WHEN PFRMD 01/20/2016 Colonoscopy (MAC) COLONOSCOPY FLX DX W/COLLJ SPEC WHEN PFRMD 05/26/2021 No further colonoscopies needed, due to age. HYSTERECTOMY HX 02/2014 INGUINOFEM LMPHADEC SUPFC W/PEL LMPHADEC 08/2009 OTHER 03/2016 vulvar biopsy OTHER SURGICAL HISTORY (PLEASE SPECIFY) HX Right 2004 labia reconstruction; [place] OTHER SURGICAL HISTORY (PLEASE SPECIFY) HX 80's multiple lipoma removal SIGMOIDOSCOPY 03/2018 TUBAL LIGATION HX 1972 VULVECTOMY RADICAL PARTIAL 06/29/2014, 06/2015 VULVECTOMY RADICAL PARTIAL 02/03, 08/04, 07/11 Social History Tobacco Use Smoking status: Never Smokeless tobacco: Never Vaping Use Vaping status: Never Used Substance Use Topics Alcohol use: Yes Alcohol/week: 5.0 standard drinks of alcohol Types: 5 Cans of Beer (12oz) per week Comment: wine with supper;occ. beer Drug use: No SUBJECTIVE/ROS: Damien Patricia reports that she feels well. No vulvar bumps, lesions, pruritus.Reports LLQ pain. No vaginal bleeding or discharge. Patient is not sexually active. Patient reportsswelling of lower extremities. Her ECOG performance status is 1 (restricted in physically strenuousactivity but ambulatory and able to carry out work of a light or sedentary nature). She had LLQ pain for two days, she had to lay a certain way to lay comfortable and then it went away within an hour. Her bowels were normal. She continues to swim, play volleyball and horseback riding lessons. OBJECTIVE: Synopsis [employer] 05/09/2024 14:48 [facility] AMB SYNOPSIS BP BP 117/74 Weight Weight 162 lb 9.6 oz (73.8 kg) GENERAL: Patient is a well developed, well nourished female. She is alert, oriented, pleasant, and cooperative. HEENT: Normocephalic, atraumatic, mucus membranes moist, and no lesions ABDOMEN: Abdomen soft, non-tender, no hepatosplenomegaly. Mild Tenderness to deep palpation on LLQ,no rebound or guarding. No mass or ascites, +BS. PELVIC: External genitalia with well healed vulvectomy scars. No concern for disease recurrence. Vagina normal on speculum exam (XS speculum) with scarring near vaginal apex; improved. Uterus, cervix, adnexa surgically absent. No urethral, bladder or pelvic masses LOWER EXTREMITIES: No pitting edema, no palpable cords, and no skin changes. Mail Distributor for exam: Declined The sensitive examination was discussed with the Patient or Patient's Authorized Telecommunications Repairer. Asapplicable, any other physician, advance practice provider, medical student, or other health professional student that will be observing or involved in the sensitive examination for educational or training purposes was discussed with the Patient or Authorized Telecommunications Repairer. The Patient or Authorized Telecommunications Repairer has agreed to proceed with the sensitive examination. PROCEDURES: none ASSESSMENT: 83 year old with history of recurrent vulvar cancer s/p excisions, last in 2015. No concern for disease recurrence. Depression is improved, continues to have excellent PS. PLAN: 1. Encounter for follow-up surveillance of malignant neoplasm of vulva TRAVON RTC in 6 months, sooner if needed HM reviewed and UTD 2. Vaginal stenosis Improved Continue vaginal dilation 3. Insomnia, unspecified type PCP prescribed trazodone, she will take this occasionally Using lester turmeric and this is helpful Discussed magnesium qHS to help with anxiety and sleep 4. Major depressive disorder with single episode, in partial remission (HCC) Slight worse due to discussion and argument(s) with daughters Depressive episode due to loss of romantic partner (still alive but different views/wants) Supportive care provided Continued horse therapy and speaking with therapist Goranies SI/HI Annia Wilson APRN.CNP Some elements copied from my note on 11/23/23 , have been updated where appropriate, and reflect my current medical decision making from today. I spent a total of 31 minutes on the date of the service which included preparing to see the patient, [id number] patient care, completing clinical documentation, obtaining and/or reviewing separately obtained history, performing a medically appropriate examination, counseling and educating the pat ient/family/caregiver, ordering medications, tests, or procedures, and communicating results to thepatient/family/caregiver. CC: Tanvi Doty MD documented in this encounterSelect [facility]24 NoteHNO ID: [id number] Author: ANNIA WILSON APRN.WHITNEY Service: ? Author Type: Nurse Practitioner Type: Progress Notes Filed: 05/09/2024 17:33 Note Text: DATE OF SERVICE: 05/09/2024 PROBLEM: Damien Patricia presents today for follow up. HPI: Damien had vulvectomies (11/2008 and 07/2009) as well as bilateral inguinal lymph node dissection in August 2009) for IA moderately differentiated vulvar cancer. 12/2013 she under went laser conization. She had STAN/BSO with Dr. Burk at [facility] in 02/2014 for atypical cervical dysplasia. She then had partial vulvectomy in 06/2014 that showed SCC in situ. 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 She had a negative biopsy November 2015 and 2016. PRIOR HISTORY AND TREATMENT: 1) 11/2008: vulvectomy at [facility] (path unavailable) 2) 07/2009: vulvectomy at [facility] (path unavailable) 3) 08/2009: Bilateral inguinal lymph node dissection (path unavailable) Patient reports 18 lymph nodes were removed 4) 01/21/2014 CO2 laser conization with Dr. Burk FINAL DIAGNOSIS: CERVIX, BIOPSY - BENIGN STROMA WITH MINUTE FRAGMENTED STRIPS OF ATTACHED ATYPICAL SQUAMOUS MUCOSA. SEE COMMENT. COMMENT: The squamous mucosa is almost entirely denuded. Features are suggestive of but not diagnostic of dysplasia. Procurement artifact is present. There is no evidence of malignancy. OPERATIVE PROCEDURE: Excisional CO2 laser conization 5) 02/25/2014: Ex-lap, STAN/BSO FINAL DIAGNOSIS: HYSTERECTOMY WITH BILATERAL SALPINGO-OOPHORECTOMY - EXTENSIVELY CAUTERIZED ECTOCERVIX WITH NO RESIDUAL IDENTIFIABLE SQUAMOUS MUCOSA. NO SQUAMOUS DYSPLASIA OR HUMAN PAPILLOMA VIRUS EFFECT IS IDENTIFIED. ENDOMETRIAL ATROPHY. SEROSAL ADHESIONS. RIGHT AND LEFT OVARIES AND FALLOPIAN TUBES- ATROPHIC CHANGES. 6) 06/29/2014 Partial vulvectomy (posterior/anterior vulva) with Dr. Burk FINAL DIAGNOSIS: A) PARTIAL VULVECTOMY (POSTERIOR VULVA AND PERINEUM) - CHRONIC INFLAMMATION. NEGATIVE FOR MALIGNANCY. B) PARTIAL VULVECTOMY (ANTERIOR VULVA) - SQUAMOUS CELL CARCINOMA IN SITU. COMMENT: No invasive component or margin involvement is identified. 7) 06/30/15: Left posterior vulva excision with Dr. Burk FINAL DIAGNOSIS: LEFT POSTERIOR VULVA, EXCISION - INVASIVE, MODERATELY DIFFERENTIATED, KERATINIZING SQUAMOUS CELL CARCINOMA. ASSOCIATED IN SITU SQUAMOUS CELL CARCINOMA. NEGATIVE SURGICAL MARGINS. OBSCURING CAUTERY. CHRONIC VULVITIS. SEE COMMENT. COMMENT: Associated with carcinoma in situ, is a focal area of invasive squamous cell carcinoma. The depth of invasion is 0.2 mm. Lymphovascular space invasion is not appreciated. 8) 12/07/2015: Vaginal biopsies with Dr. Arriaga FINAL DIAGNOSIS: A) VAGINAL INTROITUS @ 11 O'CLOCK, BIOPSY - BENIGN SQUAMOUS MUCOSA. B) POSTERIOR VAGINAL INTROITUS, BIOPSIES - INFLAMED GRANULATION TISSUE. BENIGN SQUAMOUS EPITHELIUM. SEE COMMENT. COMMENT: The patient's history of squamous cell carcinoma is known. The present biopsies demonstrate benign changes 9) 04/04/2016 Vulvar biopsy: FINAL DIAGNOSIS: VULVAR BIOPSY AT 7 O'CLOCK - CHRONICALLY INFLAMED HYPERPARAKERATOTIC SKIN. NEGATIVE FOR MALIGNANCY. PAST MEDICAL HISTORY Diagnosis Date Borderline diabetes mellitus 01/06/2016 Carpal tunnel syndrome on both sides AND osteoarthritis Diarrhea Diverticulitis Dupuytren contracture Hemorrhoids Hypercholesterolemia Hypothyroidism Lymphocytic colitis Unspecified essential hypertension Vulvar carcinoma (HCC) PAST SURGICAL HISTORY Procedure Laterality Date CERVICAL BIOPSY COLONOSCOPY FLX DX W/COLLJ SPEC WHEN PFRMD 01/20/2016 Colonoscopy (MAC) COLONOSCOPY FLX DX W/COLLJ SPEC WHEN PFRMD 05/26/2021 No further colonoscopies needed, due to age. HYSTERECTOMY HX 02/2014 INGUINOFEM LMPHADEC SUPFC W/PEL LMPHADEC 08/2009 OTHER 03/2016 vulvar biopsy OTHER SURGICAL HISTORY (PLEASE SPECIFY) HX Right 2005 labia reconstruction; [facility] OTHER SURGICAL HISTORY (PLEASE SPECIFY) HX 80's multiple lipoma removal SIGMOIDOSCOPY 03/2018 TUBAL LIGATION HX 1972 VULVECTOMY RADICAL PARTIAL 06/29/2014, 06/2015 VULVECTOMY RADICAL PARTIAL 02/03, 08/04, 07/11 Social History Tobacco Use Smoking status: Never Smokeless tobacco: Never Vaping Use Vaping status: Never Used Substance Use Topics Alcohol use: Yes Alcohol/week: 5.0 standard drinks of alcohol Types: 5 Cans of Beer (12oz) per week Comment: wine with supper;occ. beer Drug use: No SUBJECTIVE/ROS: Damien Patricia reports that she feels well. No vulvar bumps, lesions, pruritus. Reports LLQ pain. No vaginal bleeding or discharge. Patient is not sexually active. Patient reports swelling of lower extremities. Her ECOG performance status is 1 (restricted in physically strenuous activity but ambulatory and able to carry out work of a light or sedentary nature). She had LLQ pain for two days, she had to lay a certain way to lay comfortable and then it went raheel (more content not included)...[facility] 12-12-2023 Telephone encounter Note* Telephone Encounter - Mely Joseph RN - 12/12/2023 8:52 AM EDT Verified name and . Called the patient to inform her that the PAP and HPV testing are negative. Patient was appreciative for the follow up. Mely Joseph RN Ski Lift Attendant [facility]07-17-2024 Miscellaneous Notes* Telephone Encounter - Mely Joseph RN - 12/12/2023 8:52 AM EDT Verified name and . Called the patient to inform her that the PAP and HPV testing are negative. Patient was appreciative for the follow up. Mely Joseph RN Ski Lift Attendant documented in this encounterSelect [facility]06-28-2024 History of Present illness Narrative* Annia Wilson, FABIAN.DATABASE ADMINISTRATION MANAGER - 11/23/2023 3:00 PM EDT DATE OF SERVICE: 11/23/2023 PROBLEM: Damien Patricia presents today for follow up. HPI: Damien had vulvectomies (11/2008 and 07/2009) as well as bilateral inguinal lymph node dissection in August 2009) for IA moderately differentiated vulvar cancer. 12/2013 she under went laser conization. She had STAN/BSO with Dr. Burk at [facility] in 02/2014 for atypical cervical dysplasia. She then had partial vulvectomy in 06/2014 that showed SCC in situ. 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 She had a negative biopsy November 2015 and 2016. PRIOR HISTORY & TREATMENT: 1) 11/2008: vulvectomy at [facility] (path unavailable) 2) 07/2009: vulvectomy at [facility] (path unavailable) 3) 08/2009: Bilateral inguinal lymph node dissection (path unavailable) Patient reports 18 lymph nodes were removed 4) 01/21/2014 CO2 laser conization with Dr. Burk FINAL DIAGNOSIS: CERVIX, BIOPSY - BENIGN STROMA WITH MINUTE FRAGMENTED STRIPS OF ATTACHED ATYPICAL SQUAMOUS MUCOSA. SEE COMMENT. COMMENT: The squamous mucosa is almost entirely denuded. Features are suggestive of but not diagnostic of dysplasia. Procurement artifact is present. There is no evidence of malignancy. OPERATIVE PROCEDURE: Excisional CO2 laser conization 5) 02/25/2014: Ex-lap, STAN/BSO FINAL DIAGNOSIS: HYSTERECTOMY WITH BILATERAL SALPINGO-OOPHORECTOMY - EXTENSIVELY CAUTERIZED ECTOCERVIX WITH NO RESIDUAL IDENTIFIABLE SQUAMOUS MUCOSA. NO SQUAMOUS DYSPLASIA OR HUMAN PAPILLOMA VIRUS EFFECT IS IDENTIFIED. ENDOMETRIAL ATROPHY. SEROSAL ADHESIONS. RIGHT AND LEFT OVARIES AND FALLOPIAN TUBES- ATROPHIC CHANGES. 6) 06/29/2014 Partial vulvectomy (posterior/anterior vulva) with Dr. Burk FINAL DIAGNOSIS: A) PARTIAL VULVECTOMY (POSTERIOR VULVA AND PERINEUM) - CHRONIC INFLAMMATION. NEGATIVE FOR MALIGNANCY. B) PARTIAL VULVECTOMY (ANTERIOR VULVA) - SQUAMOUS CELL CARCINOMA IN SITU. COMMENT: No invasive component or margin involvement is identified. 7) 06/30/15: Left posterior vulva excision with Dr. Burk FINAL DIAGNOSIS: LEFT POSTERIOR VULVA, EXCISION - INVASIVE, MODERATELY DIFFERENTIATED, KERATINIZING SQUAMOUS CELL CARCINOMA. ASSOCIATED IN SITU SQUAMOUS CELL CARCINOMA. NEGATIVE SURGICAL MARGINS. OBSCURING CAUTERY. CHRONIC VULVITIS. SEE COMMENT. COMMENT: Associated with carcinoma in situ, is a focal area of invasive squamous cell carcinoma. The depth of invasion is 0.2 mm. Lymphovascular space invasion is not appreciated. 8) 12/07/2015: Vaginal biopsies with Dr. Arriaga FINAL DIAGNOSIS: A) VAGINAL INTROITUS @ 11 O'CLOCK, BIOPSY - BENIGN SQUAMOUS MUCOSA. B) POSTERIOR VAGINAL INTROITUS, BIOPSIES - INFLAMED GRANULATION TISSUE. BENIGN SQUAMOUS EPITHELIUM.SEE COMMENT. COMMENT: The patient's history of squamous cell carcinoma is known. The present biopsies demonstrate benign changes 9) 04/04/2016 Vulvar biopsy: FINAL DIAGNOSIS: VULVAR BIOPSY AT 7 O'CLOCK - CHRONICALLY INFLAMED HYPERPARAKERATOTIC SKIN. NEGATIVE FOR MALIGNANCY. PAST MEDICAL HISTORY Diagnosis Date Borderline diabetes mellitus 01/06/2016 Carpal tunnel syndrome on both sides & osteoarthritis Diarrhea Diverticulitis Dupuytren contracture Hemorrhoids Hypercholesterolemia Hypothyroidism Lymphocytic colitis Unspecified essential hypertension Vulvar carcinoma (HCC) PAST SURGICAL HISTORY Procedure Laterality Date CERVICAL BIOPSY COLONOSCOPY FLX DX W/COLLJ SPEC WHEN PFRMD 01/20/2016 Colonoscopy (MAC) COLONOSCOPY FLX DX W/COLLJ SPEC WHEN PFRMD 05/26/2021 No further colonoscopies needed, due to age. HYSTERECTOMY HX 02/2014 INGUINOFEM LMPHADEC SUPFC W/PEL LMPHADEC 08/2009 OTHER 03/2016 vulvar biopsy OTHER SURGICAL HISTORY (PLEASE SPECIFY) HX Right 2005 labia reconstruction; [facility] OTHER SURGICAL HISTORY (PLEASE SPECIFY) HX 80's multiple lipoma removal SIGMOIDOSCOPY 03/2018 TUBAL LIGATION HX 1972 VULVECTOMY RADICAL PARTIAL 06/29/2014, 06/2015 VULVECTOMY RADICAL PARTIAL 02/03, 08/04, 07/11 Social History Tobacco Use Smoking status: Never Smokeless tobacco: Never Vaping Use Vaping Use: Never used Substance Use Topics Alcohol use: Yes Alcohol/week: 5.0 standard drinks of alcohol Types: 5 Cans of Beer (12oz) per week Comment: wine with supper;occ. beer Drug use: No SUBJECTIVE/ROS: Damien Patricia reports that she feels well. No vulvar bumps, lesions, pruritis,or pain. No vaginal bleeding or discharge. Patient is not sexually active. No swelling of lower extremities. She is urinating well. She bowels do remain loose, this is her baseline. Her ECOG performance status is zero (fully active, able to carry on all pre-disease performance without restriction). She was depressed for the first time this year. She was romantically involved with a friend, [place] and things did not end well. It was a very awkward situation and she became depressed with this loss of her relationship. She has lost 20lbs over the last year. She went to counseling, did horse therapy and is feeling in a much better place mentally. She was started on trazodone by her PCP and stopped it after 5 days because her BP was elevated and rising. She now taking L theanine as needed. She continues to play volleyball, swim, play pickleball. She noticed an odor in the vagina about two weeks ago, but it has since resolved. She is using coconut oil with her dilators. OBJECTIVE: VITALS: BP 132/75 Wt 70.9 kg (156 lb 4.9 oz) LMP 12/07/1995 (Approximate) BMI 26.42 kg/m GENERAL: Patient is a well developed, well nourished female. She is alert, oriented, pleasant, and cooperative. HEENT: Normocephalic, atraumatic, mucus membranes moist, and no lesions PELVIC: External genitalia with well healed vulvectomy scars. No concern for disease recurrence. Vagina normal on speculum exam with scarring near vaginal apex; relatively stable. Uterus, cervix, adnexa surgically absent. No urethral, bladder or pelvic masses. Pap and HPV done today. Tolerated examwell with a S speculum. No palpable adenopathy. LOWER EXTREMITIES: No pitting edema, no palpable cords, and no skin changes. Mail Distributor for exam: offered and declined. PROCEDURES: none ASSESSMENT: 82 year old with history of recurrent vulvar cancer s/p excisions, last in 2016. No concern for disease recurrence. Depression is improved, continues to have excellent PS. Colitis symptoms have resolved. PLAN: 1. Encounter for follow-up surveillance of malignant neoplasm of vulva TRAVON on exam today RTC in 6 months, sooner if needed - PAP TEST 2. Vaginal stenosis Stable changes OK to resume dilator use if helpful 3. Major depressive disorder with single episode, in partial remission (HCC) Doing well overall and much better than earlier this year Depressive episode due to loss of romantic partner (still alive but different views/wants) Some family stress as well Supportive care provided Continued horse therapy and speaking with therapist Annia Wilson APRN.CNP Some elements copied from my note on 05/04/23, have been updated where appropriate, and reflect my current medical decision making from today. Medical Decision Making: Problems: Moderate: 2+ stable chronic illnesses Data: Unique test result(s) reviewed: 2 Unique test(s) ordered: 1 Risk: Low: Low risk from testing/treatment Medical Decision Making Level: 4 - Moderate CC: Clifford Aburto DO documented in this encounter[facility] [place] Telephone encounter Note * Telephone Encounter - Annia Wilson APRN.CNP - 10/19/2023 8:17 AM EDT Order sent to temporary administrative assistant to fax to number below. Annia Wilson APRN.CNP [facility] [place]24 Miscellaneous Notes* Telephone Encounter - Annia Wilson APRN.CNP - 10/19/2023 8:17 AM EDT Order sent to temporary administrative assistant to fax to number below. Annia Wilson APRN.DATABASE ADMINISTRATION MANAGER * Addendum Note - Annia Wilson APRN.CNP - 10/19/2023 8:13 AM EDTAddended by: ANNIA WILSON on: 10/19/2023 08:13 AM Modules accepted: Orders * Telephone Encounter - Luisana Kaminski Ma - 10/18/2023 2:40 PM EDT Patient would like an order for mammogram faxed to [phone] please. documented in this encounterSelect [facility] [place]24 Note* Addendum Note - Annia Wilson APRN.CNP - 10/19/2023 8:13 AM EDTAddended by: ANNIA WILSON on: 10/19/2023 08:13 AM Modules accepted: Orders [facility]05-23-2024 Telephone encounter Note* Telephone Encounter - Luisana Kaminski Ma - 10/18/2023 2:40 PM EDT Patient would like an order for mammogram faxed to [phone] please. [facility] History of Present illness Narrative* Shanejoana Annia M, MOTOR BLOCK MECHANIC.DATABASE ADMINISTRATION MANAGER - 05/04/2023 3:00 PM EST DATE OF SERVICE: 05/04/2023 PROBLEM: Damien Patricia presents today for follow up. HPI: Since her last visit Damien Patricia reports she is doing okay. She had vulvectomies (11/2008 and 07/2009) as well as bilateral inguinal lymph node dissection in August 2009) for IA moderately differentiated vulvar cancer. 12/2013 she under went laser conization. Shehad STAN/BSO with Dr. Burk at [facility] in 02/2014 for atypical cervical dysplasia. She then had partial vulvectomy in 06/2014 that showed SCC in situ. 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 She had a negative biopsy November 2015 and 2016. PRIOR HISTORY & TREATMENT: 1) 11/2008: vulvectomy at [facility] (path unavailable) 2) 07/2009: vulvectomy at [facility] (path unavailable) 3) 08/2009: Bilateral inguinal lymph node dissection (path unavailable) Patient reports 18 lymph nodes were removed 4) 01/21/2014 CO2 laser conization with Dr. Burk FINAL DIAGNOSIS: CERVIX, BIOPSY - BENIGN STROMA WITH MINUTE FRAGMENTED STRIPS OF ATTACHED ATYPICAL SQUAMOUS MUCOSA. SEE COMMENT. COMMENT: The squamous mucosa is almost entirely denuded. Features are suggestive of but not diagnostic of dysplasia. Procurement artifact is present. There is no evidence of malignancy. OPERATIVE PROCEDURE: Excisional CO2 laser conization 5) 02/25/2014: Ex-lap, STAN/BSO FINAL DIAGNOSIS: HYSTERECTOMY WITH BILATERAL SALPINGO-OOPHORECTOMY - EXTENSIVELY CAUTERIZED ECTOCERVIX WITH NO RESIDUAL IDENTIFIABLE SQUAMOUS MUCOSA. NO SQUAMOUS DYSPLASIA OR HUMAN PAPILLOMA VIRUS EFFECT IS IDENTIFIED. ENDOMETRIAL ATROPHY. SEROSAL ADHESIONS. RIGHT AND LEFT OVARIES AND FALLOPIAN TUBES- ATROPHIC CHANGES. 6) 06/29/2014 Partial vulvectomy (posterior/anterior vulva) with Dr. Burk FINAL DIAGNOSIS: A) PARTIAL VULVECTOMY (POSTERIOR VULVA AND PERINEUM) - CHRONIC INFLAMMATION. NEGATIVE FOR MALIGNANCY. B) PARTIAL VULVECTOMY (ANTERIOR VULVA) - SQUAMOUS CELL CARCINOMA IN SITU. COMMENT: No invasive component or margin involvement is identified. 7) 06/30/15: Left posterior vulva excision with Dr. Burk FINAL DIAGNOSIS: LEFT POSTERIOR VULVA, EXCISION - INVASIVE, MODERATELY DIFFERENTIATED, KERATINIZING SQUAMOUS CELL CARCINOMA. ASSOCIATED IN SITU SQUAMOUS CELL CARCINOMA. NEGATIVE SURGICAL MARGINS. OBSCURING CAUTERY. CHRONIC VULVITIS. SEE COMMENT. COMMENT: Associated with carcinoma in situ, is a focal area of invasive squamous cell carcinoma. The depth of invasion is 0.2 mm. Lymphovascular space invasion is not appreciated. 8) 12/07/2015: Vaginal biopsies with Dr. Arriaga FINAL DIAGNOSIS: A) VAGINAL INTROITUS @ 11 O'CLOCK, BIOPSY - BENIGN SQUAMOUS MUCOSA. B) POSTERIOR VAGINAL INTROITUS, BIOPSIES - INFLAMED GRANULATION TISSUE. BENIGN SQUAMOUS EPITHELIUM.SEE COMMENT. COMMENT: The patient's history of squamous cell carcinoma is known. The present biopsies demonstrate benign changes 9) 04/04/2016 Vulvar biopsy: FINAL DIAGNOSIS: VULVAR BIOPSY AT 7 O'CLOCK - CHRONICALLY INFLAMED HYPERPARAKERATOTIC SKIN. NEGATIVE FOR MALIGNANCY. PAST MEDICAL HISTORY Diagnosis Date Borderline diabetes mellitus 01/06/2016 Carpal tunnel syndrome on both sides & osteoarthritis Diarrhea Diverticulitis Dupuytren contracture Hemorrhoids Hypercholesterolemia Hypothyroidism Lymphocytic colitis Unspecified essential hypertension Vulvar carcinoma (HCC) PAST SURGICAL HISTORY Procedure Laterality Date CERVICAL BIOPSY COLONOSCOPY FLX DX W/COLLJ SPEC WHEN PFRMD 01/20/2016 Colonoscopy (MAC) COLONOSCOPY FLX DX W/COLLJ SPEC WHEN PFRMD 05/26/2021 No further colonoscopies needed, due to age. HYSTERECTOMY HX 02/2014 INGUINOFEM LMPHADEC SUPFC W/PEL LMPHADEC 08/2009 OTHER 03/2016 vulvar biopsy OTHER SURGICAL HISTORY (PLEASE SPECIFY) HX Right 2004 labia reconstruction; [facility] OTHER SURGICAL HISTORY (PLEASE SPECIFY) HX 80's multiple lipoma removal SIGMOIDOSCOPY 03/2018 TUBAL LIGATION HX 1972 VULVECTOMY RADICAL PARTIAL 06/29/2014, 06/2015 VULVECTOMY RADICAL PARTIAL 02/03, 08/04, 07/11 Social History Tobacco Use Smoking status: Never Smokeless tobacco: Never Vaping Use Vaping Use: Never used Substance Use Topics Alcohol use: Yes Alcohol/week: 5.0 standard drinks of alcohol Types: 5 Cans of Beer (12oz) per week Comment: wine with supper;occ. beer Drug use: No SUBJECTIVE/ROS: Sharidon Halliwell reports that she feels well. No vulvar bumps, lesions, pruritis,or pain. No vaginal bleeding or discharge. Patient is not sexually active. No swelling of lower extremities. Her ECOG performance status is zero (fully active, able to carry on all pre-disease performance without restriction). She has been dealing with colitis for several weeks. It has been pretty bad over the last 1.5 weeks. She feels her clitoris is bigger than it was previously. She was romantically involved with a man and that has ended. She was having a hard time with this, feeling down and difficulty sleeping. She is taking melatonin and a calming medication (OTC) and feels much improved. She is doing volleyball,pickleball, and remains very active. OBJECTIVE: VITALS: BP 112/68 Wt 70.2 kg (154 lb 12.2 oz) LMP 12/07/1995 (Approximate) BMI 26.15 kg/m GENERAL: Patient is a well developed, well nourished female. She is alert, oriented, pleasant, and cooperative. HEENT: Normocephalic, atraumatic, mucus membranes moist, and no lesions ABDOMEN: Abdomen soft, non-tender, no hepatosplenomegaly. PELVIC: External genitalia with well healed scar from prior radical resection. No concern for recurrence carcinoma or abnormal lesion. Tolerated exam well with S speculum. Band of scar tissue felt atvaginal apex has decreased in thickness but still palpable. No palpable adenopathy. LOWER EXTREMITIES: No pitting edema, no palpable cords, and no skin changes. Mail Distributor for exam: offered and declined PROCEDURES: none ASSESSMENT: 82 year old with history of vulvar cancer. no concern for recurrence. She has colitis which she had several years ago and was treated with saline and steroids. She is worried about takingsteroids due to immunosuppression risk and it causing her cancer to come back. PLAN: 1. Encounter for follow-up surveillance of malignant neoplasm of vulva TRAVON Repeat pap at next visit RTC in 6 months, sooner if needed 2. Colitis Worse over the last week OK for steroids if needed from my standpoint She will follow up with PCP/GI to discuss 3. Vaginal stenosis Improved Continue vaginal dilation as tolerated Annia Wilson, MOTOR BLOCK MECHANIC.DATABASE ADMINISTRATION MANAGER Some elements copied from my note on 08/04/22 , have been updated where appropriate, and reflect my current medical decision making from today. Medical Decision Making: Problems: Low: Acute, uncomplicated illness or injury Moderate: 2+ stable chronic illnesses Medical Decision Making Level: 2 - Straightforward CC: Clifford Aburto DO documented in this encounterSelect [facility] [place]23 History of Present illness Narrative* Shaneka Lyman, PT - 10/06/2022 11:14 AM EDT Episode Visit Count: 1 Therapist That Will Accept/Oversee The Plan Of Care: Shaneka Lyman Start of Care Date: 10/06/22 Onset Date: (Original onset 10/2019. Recent worsening) Plan of Care Certification Date: 10/06/22 Next Certification Due Date: 12/06/22 Patient Identified by Name and Date of : Yes REHABILITATION AND SPORTS THERAPY PHYSICAL THERAPY EVALUATION PLAN OF CARE: Assessment: Damien Patricia presents with diagnosis of lymphedema that interferes with nothing .She presents with impairments in edema management and secondary soft tissue changes. Patient did not complete the PROMIS (Patient Reported Outcome Measures Information System). Prognosis for therapy is Good due to: current objective clinical presentation, good overall health status, positive past response to therapy, good support system/ coping skills, Prognosis may be limited due to chronic nature of impairments . She will benefit from skilled therapy services to meet the goals established forthis plan of care as noted below. Goals for Episode of Care: created on 10/06/22 through 12/06/22 Patient / family knowledgeable re: all pertinent aspects of CDT Patient / family independent with donning / doffing compression garment and proper wearing scheduleand care of garment Patient / family independent with home exercise program Patient will decrease circumferential measurements by 0.5 to 1.5 cm in the following areas: B LEs for decreased recurrence of infection, improved mobility, improved range of motion and allow appropriate fit in compressive garment. Patient Goals: To know what to do next regarding stockings and exercises for my legs. Planned Interventions, Frequency, and Duration: Current Frequency: 2x/week Duration: 8 weeks Total Number of Visits Planned: 16 Planned Treatment Interventions: Therapeutic exercise (15715), Manual therapy (91797), Self-long term management (49927), Patient/Family/Caregiver Education PLAN FOR NEXT VISIT: Review HEP as needed. May initiate MLD for B LE sequence. Patient demonstrates good understanding of plan of care and treatment. The above goals and plan of care were discussed and agreed upon by patient/family. SUBJECTIVE: Damien Patricia is a 81 year old female seen today for Now is getting lumpy againa nd is seeping over my knees. Pt notes she has gotten a variety of garments and now is just not sure what to do. She brings in multiple LE compression garments. Does self-MLD daily, elevates legs when sitting, lying down. Patient Goals: To know what to do next regarding stockings and exercises for my legs. Functional Limitations: nothing Prior Level of Function: Independent without limitations Relevant History Employment: Retired Recreation / Current Exercise: yardwork, gardens, plays senior volleyball, walks with dog twice a day. Pt notes she is starting golfing again and plans to start swimming (on her own, then will join [employer]). She also has done some yoga intermittently. Home Environment Patient Lives With: Self/Alone Intake Information: Prescription present Pain: Pain Pain Level: 0 Pain Location: Leg - Right, Leg - Left, Foot - Right, Foot - Left Post Treatment Pain Post Treatment Pain Level: 0 PROMIS Scales T-scores: mean of general population = 50. 5 points is clinically meaningfully difference Percentiles provide an indication of how the patient's score ranks in relation to the general population. Higher percentile rankings indicate better function/quality of life. 50th percentile is the average of the general population and indicates half of respondents had a worse score. OBJECTIVE MEASURES WITH LEVEL OF FUNCTION: Lymphedema Presents with: Swelling, Decreased knowledge of lymphedema management Lymphedema is better: In AM Lymphedema Contributing Factors: Lymph Node Removal Lymphedema Contributing Factors Comments: multiple abdominal, pelvic surgeries Relative Contra-indications to Compression: : None Relative Contra-indications to Manual Lymph Drainage: : None Relative Contra-indications to Neck Manual Lymph Drainage: : Age (>70 years old), Hyper/hypothyroidism Relative Contra-indications for Abdominal Sequences: Diverticulosis Previous Lymphedema Treatment: Compression Garment Compression Garment: Pt brings 5 different compression garments with her today, all purchased within the past 2 years. (knee highs, thigh highs, leggings) Skin: Color, Pitting Edema, Skin Comments Color Comments:: Good hydration and normal coloration of skin. Pitting Edema Comments:: 1+ pitting dorsum of feet, ankles, and mildly into distal half of lower leg Skin Comments:: Of note, pt stubbed her toe on R foot and digits 3-5 with bruising present. Stage of Lymphedema: 2 Lower Extremity Circumferential Measurements R 1st toe (proximal phalanx): 9 R Metatarsal Phalangeal (MTP): 25.5 R Arch: 23.5 R 5 cm from floor: 28 cm R 10 cm from floor: 24 cm R 15 cm from floor: 26.5 cm R 20 cm from floor: 32 cm R 25 cm from floor: 37 cm R 30 cm from floor: 40 cm R 35 cm from floor: 41 cm R 40 cm from floor: 42 cm R 45 cm from floor: 45.5 cm (knee) R 50 cm from floor: 48.5 cm R 55 cm from floor: 54 cm R 60 cm from floor: 57 cm R 65 cm from floor: 62 cm L 1st toe (proximal phalanx): 8 L Metatarsal Phalangeal (MTP): 24 L Arch: 23.5 L 5 cm from floor: 26.5 cm L 10 cm from floor: 24 cm L 15 cm from floor: 25.5 cm L 20 cm from floor: 30 cm L 25 cm from floor: 38.5 cm L 30 cm from floor: 40 cm L 35 cm from floor: 39.5 cm L 40 cm from floor: 40 cm L 45 cm from floor: 45 cm (knee) L 50 cm from floor: 50.5 cm L 55 cm from floor: 54 cm L 60 cm from floor: 57.5 cm L 65 cm from floor: 63.5 cm Affected Leg: Bilateral, Right Leg Larger Calculate Volume : Yes R Lower Extremity Volume: 8594 L Lower Extremity Volume: 8558 Difference in Volume: 36 Difference in % : 0.42 Education: Education Learning Preferences: Demonstration, Explanation Barriers: None Learning/educational needs: Home exercise program, Plan of Care, Lymphedema Program Education Provided: Yes, see treatment interventions for education provided Education Provided To: Patient Education Mode/Type: Demonstration, Explanation/Discussion, Literature/Printed Materials, Performance Response to Education/Teach Back: States/Identifies, Return Demonstration TREATMENT: PT Treatment Interventions: Therapeutic Exercise, Manual Therapy, Self-Usp Management Evaluation Therapeutic Exercise: 1: *Instruction in LE Decongestive Exercises Skilled Intervention: Patient was educated in proper exercise technique and purpose for exercises. Skilled judgment was provided in selection of appropriate interventions. Provided written instruction for home exercise program to facilitate proper performance and compliance. Correct performance of therapeutic exercises was facilitated with verbal and visual cuing. Patient education as noted. Self-Usp Management: 1: Educated pt in lymphedema and CDT treatment including infection/skin care prevention, decongestie exercises, MLD and compression garment options. 2: Discussed recomendations for treatment, garments, and daily activities. Pt plans to start swimming, encouraged continued golfing, yoga, and daily walks with her dog. Educated in benefits of each of these exercises/activities. Discussed options for garments and treatment, including MLD, compression pumps, other types of garments. Skilled Intervention: Skilled judgment in the selection of proper modification for activity of daily living/home management based on clinical presentation, deficits, and needs. Educated the patient regarding recommendations and provided written instruction to facilitate compliance. Provided written instruction for activities of daily living techniques to facilitate proper performance and compliance. Reviewed patient specific diagnosis in relation to activities of daily living/home management. Billing * Evaluation Low Complexity: 1 Unit Therapeutic Exercise Treatment Minutes: 15 Self-Care/Home Management Treatment Minutes: 25 Total Treatment Time Minutes (timed/untimed): 60 Shaneka Lyman PT documented in this encounterSelect [facility] [place]-28-2023 Miscellaneous Notes* Telephone Encounter - Annia Wilson APRN.[facility] - 09/22/2022 4:24 PM EDT Reviewed message received from nursing staff and patient calling in about leg swelling. Spoke with Damien. She has been wearing different support hose, but swelling has been worse especially under her knees and thighs in both legs. A few times over the years she has has trouble and lymphedema therapy has helped. This time her compression stockings, exercise are not helping as much. She would like to follow up with a therapist to see if there are different exercises she can do. Referral placed, warning signs given. She is scheduled to see me in February, follow up sooner if needed. Annia Wilson APRN.CNP documented in this encounterSelect Medical [facility] [place]03-21-2023 Miscellaneous Notes* Telephone Encounter - Viridiana Garber RN - 08/15/2022 10:32 AM EDT Patient returned call. Made patient aware that her pap test had insufficient sample. Will repeat exam in one year per Annia Wilson SHIRT FINISHER. Patient understood. documented in this encounterSelect [facility] [place]03-21-2023 Miscellaneous Notes* Telephone Encounter - Caty Mullen - 08/15/2022 10:16 AM EDT Patient is returning a phone call to discuss Pap test results. Please contact Patient to discuss. She will be waiting for the phone call. Caty Mullen documented in this encounterSelect Medical [facility] [place]03-10-2023 Instructions* Patient Instructions* Annia Wilson APRN.CNP - 08/04/2022 11:16 AM EST Please call [phone] to schedule appointment with pelvic floor physical therapy documented in this encounterSelect Medical [facility]ty [facility] [place]03-10-2023 History of Present illness Narrative* Annia Wilson APRN.CNP - 08/04/2022 11:00 AM EST DATE OF SERVICE: 08/04/2022 PROBLEM: Damien Patricia presents today for follow up. HPI: Since her last visit Damien Patricia reports she is doing well. She has been dating and very interested in pursuing intercourse with her new interest. She is worried that she will have discomfort given her scaring. Doing well with vaginal dilation. She had vulvectomies (11/2008 and 07/2009) as well as bilateral inguinal lymph node dissection in August 2009) for IA moderately differentiated vulvar cancer. 12/2013 she under went laser conization. Shehad STAN/BSO with Dr. Burk at [facility] in 02/2014 for atypical cervical dysplasia. She then had partial vulvectomy in 06/2014 that showed SCC in situ. 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 She had a negative biopsy November 2015 and 2016. PRIOR HISTORY & TREATMENT: 1) 11/2008: vulvectomy at [facility] (path unavailable) 2) 07/2009: vulvectomy at [facility] (path unavailable) 3) 08/2009: Bilateral inguinal lymph node dissection (path unavailable) Patient reports 18 lymph nodes were removed 4) 01/21/2014 CO2 laser conization with Dr. Burk FINAL DIAGNOSIS: CERVIX, BIOPSY - BENIGN STROMA WITH MINUTE FRAGMENTED STRIPS OF ATTACHED ATYPICAL SQUAMOUS MUCOSA. SEE COMMENT. COMMENT: The squamous mucosa is almost entirely denuded. Features are suggestive of but not diagnostic of dysplasia. Procurement artifact is present. There is no evidence of malignancy. OPERATIVE PROCEDURE: Excisional CO2 laser conization 5) 02/25/2014: Ex-lap, STAN/BSO FINAL DIAGNOSIS: HYSTERECTOMY WITH BILATERAL SALPINGO-OOPHORECTOMY - EXTENSIVELY CAUTERIZED ECTOCERVIX WITH NO RESIDUAL IDENTIFIABLE SQUAMOUS MUCOSA. NO SQUAMOUS DYSPLASIA OR HUMAN PAPILLOMA VIRUS EFFECT IS IDENTIFIED. ENDOMETRIAL ATROPHY. SEROSAL ADHESIONS. RIGHT AND LEFT OVARIES AND FALLOPIAN TUBES- ATROPHIC CHANGES. 6) 06/29/2014 Partial vulvectomy (posterior/anterior vulva) with Dr. Burk FINAL DIAGNOSIS: A) PARTIAL VULVECTOMY (POSTERIOR VULVA AND PERINEUM) - CHRONIC INFLAMMATION. NEGATIVE FOR MALIGNANCY. B) PARTIAL VULVECTOMY (ANTERIOR VULVA) - SQUAMOUS CELL CARCINOMA IN SITU. COMMENT: No invasive component or margin involvement is identified. 7) 06/30/15: Left posterior vulva excision with Dr. Burk FINAL DIAGNOSIS: LEFT POSTERIOR VULVA, EXCISION - INVASIVE, MODERATELY DIFFERENTIATED, KERATINIZING SQUAMOUS CELL CARCINOMA. ASSOCIATED IN SITU SQUAMOUS CELL CARCINOMA. NEGATIVE SURGICAL MARGINS. OBSCURING CAUTERY. CHRONIC VULVITIS. SEE COMMENT. COMMENT: Associated with carcinoma in situ, is a focal area of invasive squamous cell carcinoma. The depth of invasion is 0.2 mm. Lymphovascular space invasion is not appreciated. 8) 12/07/2015: Vaginal biopsies with Dr. Arriaga FINAL DIAGNOSIS: A) VAGINAL INTROITUS @ 11 O'CLOCK, BIOPSY - BENIGN SQUAMOUS MUCOSA. B) POSTERIOR VAGINAL INTROITUS, BIOPSIES - INFLAMED GRANULATION TISSUE. BENIGN SQUAMOUS EPITHELIUM.SEE COMMENT. COMMENT: The patient's history of squamous cell carcinoma is known. The present biopsies demonstrate benign changes 9) 04/04/2016 Vulvar biopsy: FINAL DIAGNOSIS: VULVAR BIOPSY AT 7 O'CLOCK - CHRONICALLY INFLAMED HYPERPARAKERATOTIC SKIN. NEGATIVE FOR MALIGNANCY. PAST MEDICAL HISTORY Diagnosis Date Borderline diabetes mellitus 01/06/2016 Carpal tunnel syndrome on both sides & osteoarthritis Diarrhea Diverticulitis Dupuytren contracture Hemorrhoids Hypercholesterolemia Hypothyroidism Lymphocytic colitis Unspecified essential hypertension Vulvar carcinoma (HCC) PAST SURGICAL HISTORY Procedure Laterality Date CERVICAL BIOPSY COLONOSCOPY FLX DX W/COLLJ SPEC WHEN PFRMD 01/20/2016 Colonoscopy (MAC) COLONOSCOPY FLX DX W/COLLJ SPEC WHEN PFRMD 05/26/2021 No further colonoscopies needed, due to age. HYSTERECTOMY HX 02/2014 INGUINOFEM LMPHADEC SUPFC W/PEL LMPHADEC 08/2009 OTHER 03/2016 vulvar biopsy OTHER SURGICAL HISTORY (PLEASE SPECIFY) HX Right 2005 labia reconstruction; [facility] OTHER SURGICAL HISTORY (PLEASE SPECIFY) HX 81's multiple lipoma removal SIGMOIDOSCOPY 03/2018 TUBAL LIGATION HX 1972 VULVECTOMY RADICAL PARTIAL 06/29/2014, 06/2015 VULVECTOMY RADICAL PARTIAL 02/03, 08/04, 07/11 Social History Tobacco Use Smoking status: Never Smokeless tobacco: Never Vaping Use Vaping Use: Never used Substance Use Topics Alcohol use: Yes Alcohol/week: 12.5 standard drinks Types: 5 Cans of Beer (12oz) per week Comment: wine with supper;occ. beer Drug use: No HEALTH MAINTENANCE: last mammogram: 05/09/2019- negative, patient to schedule last colonoscopy: 01/01/2018- last pap: 08/05/21- unsatisfactory; HPV neg SUBJECTIVE/ROS: Damien Patricia reports that she feels well. No vulvar bumps, lesions, pruritis,or pain. No vaginal bleeding or discharge. Patient is not sexually active. Her ECOG performance status is zero (fully active, able to carry on all pre-disease performance without restriction). OBJECTIVE: VITALS: BP 124/73 Wt 76.8 kg (169 lb 4.8 oz) LMP 12/07/1995 (Approximate) BMI 28.61 kg/m GENERAL: Patient is a well developed, well nourished female. She is alert, oriented, pleasant, and cooperative. PELVIC: External genitalia with well healed scar from prior radical resection. <0.1cm lichen sclerosis near right side of introitus. No concern for carcinoma, no symptoms. Vagina foreshortened, but tolerated exam well with XS speculum. Band of scar tissue felt at vaginal apex, not as thick as last visit with decreased tenderness. Vaginal pap and HPV today. LOWER EXTREMITIES: No pitting edema, no palpable cords, and no skin changes. Mail Distributor for exam: offered and declined PROCEDURES: none ASSESSMENT: 81 year old female with history of vulvar cancer. No concern for recurrence, discussed dilator use and pelvic floor PT to help with scar tissue. PLAN: 1. Vulvar cancer No evidence of disease recurrence Pap today given prior abnormal result RTC in 6 months HM reviewed, mammogram order placed 2. Vaginal stenosis 2/2 scaring, improved with consistent dilator use; continue progress Patient will schedule with PT for assessment Annia Wilson APRN.WHITNEY Some elements copied from my note on 05/05/22 , have been updated where appropriate, and reflect my current medical decision making from today. I spent 50 minutes in the visit, with more than 50% of the total [id number] time of the visit in counseling / coordination of care. CC: Clifford Aburto DO [facility] Miscellaneous Notes* Telephone Encounter - Rozina Kat RN - 04/07/2022 1:31 PM EST Damien Patricia 1940 81 year old Situation: vaginal dilators Background: Annia Wilson CNP: ASSESSMENT: 80 year old with history of vulvar cancer. Doing well without concern for disease recurrence on exam today. PLAN: 1. Vulvar cancer- TRAVON x6 years RTC in 1 year, sooner for new symptoms Tolerated exam well today Vaginal pap today, last pap ASCUS. Consider EUA if pap worsens given likely intolerability of vaginoscopy in the office. If ASCUS or better, no intervention warranted 2. Screening Due for mammogram, patient will schedule locally Defer colonoscopy/BMD to PCP 3. Lymphedema- stable Continue massage and compression as she has been Reviewed concerning s/s to contact the office Annia Wilson APRN.DATABASE ADMINISTRATION MANAGER Assessment: Patient states she has a new romantic partner and would like to have the option of vaginal intercourse in the future. She has been using a 1/2 inch dilator with lubricant and leaves it inplace x10 minutes. She states she feels a band at the introitus and another one slightly deeper in the vagina. She wonders if this will prevent her from being able to have vaginal intercourse? Alsoshe would like recommendations on vaginal dilator set and what size to purchase next. Recommendation: Will route to Annia Wilson CNP for POC. Patient aware she may need appt for pelvic exam. Rozina Kat RN documented [facility] [place] Miscellaneous Notes* Telephone Encounter - Rozina Kat RN - 04/07/2022 1:29 PM EST Closing encounter, opened under wrong provider. * Telephone Encounter - Rozina Kat RN - 04/07/2022 10:07 AM EST Attempted to return patient's call. LMTCB, contact information provided. * Telephone Encounter - Caty Mullen - 04/06/2022 1:25 PM EST Patient is calling today to speak with Dr. Stover or a nurse regarding some personal matters. Please contact the Patient to discuss. Caty Toño Pss documented in this encounter[facility] History of Past illness Narrative* Problem Noted Date Resolved Date Abdominal pain, vomiting, and diarrhea 6 01/20/2016 documented as of this encounter (statuses as of 04/07/2022) [address]25-2016 History of Past illness Narrative* Problem Noted Date Resolved Date Abdominal pain, vomiting, and diarrhea 6 01/20/2016 documented as of this encounter (statuses as of 04/10/2022) [address]25-2016 History of Past illness Narrative* Problem Noted Date Resolved Date Abdominal pain, vomiting, and diarrhea 6 01/20/2016 documented as of this encounter (statuses as of 08/04/2022) [address]25-2016 History of Past illness Narrative* Problem Noted Date Resolved Date Abdominal pain, vomiting, and diarrhea 6 01/20/2016 documented as of this encounter (statuses as of 08/15/2022) [address]25-2016 History of Past illness Narrative* Problem Noted Date Resolved Date Abdominal pain, vomiting, and diarrhea 6 01/20/2016 documented as of this encounter (statuses as of 08/22/2022) [address]25-2016 History of Past illness Narrative* Problem Noted Date Resolved Date Abdominal pain, vomiting, and diarrhea 6 01/20/2016 documented as of this encounter (statuses as of 09/22/2022) [address]25-2016 History of Past illness Narrative* Problem Noted Date Resolved Date Abdominal pain, vomiting, and diarrhea 6 01/20/2016 documented as of this encounter (statuses as of 09/27/2022) [address]25-2016 History of Past illness Narrative* Problem Noted Date Resolved Date Abdominal pain, vomiting, and diarrhea 6 01/20/2016 documented as of this encounter (statuses as of 10/06/2022) [address]25-2016 History of Past illness Narrative* Problem Noted Date Diagnosed Date Resolved Date Abdominal pain, vomiting, and diarrhea 01/20/2016 01/20/2016 documented as of this encounter (statuses as of 05/05/2023) [facility] Future Appointments Appointment Date:08/04/2021 10:00:00 AM Scheduled Provider:PAO PURVIS MD Location:[facility] Appointment Type:ENDO OV Appointment Date:11/30/2021 01:30:00 PM Scheduled Provider:MARGA CHILEL DO Location:[facility] Appointment Type:PC OV Future Scheduled Tests Laboratory* Antinuclear Antibody Screen, Serum 02/03/21 * C-Reactive Protein 02/03/21 * Thyroid Antibodies 02/03/21 * Thyroid Stimulating Hormone 09/30/20 * Thyroid Stimulating Hormone 08/12/20 * Free T4 09/30/20 * Free T4 08/12/20 * A1C Hemoglobin 09/30/20 * A1C Hemoglobin 08/12/20 * Rheumatoid Factor 02/03/21 * Complete Blood Count 02/03/21 * Lipid Profile 08/03/21 * Sedimentation Rate Automated 02/03/21 * Vitamin D Level 09/30/20 * Vitamin D Level 08/03/21 * Vitamin D Level 08/12/20 * Complete Metabolic Panel 09/30/20 * Complete Metabolic Panel 08/03/21 * Complete Metabolic Panel 08/12/20 * anti-Thyroid Peroxidase 02/03/21 Radiology* BD Bone Density DEXA Axial Skeleton 05/30/21 [facility] Evaluation + Plan note Future Appointments Appointment Date:11/30/2021 01:30:00 PM Scheduled Provider:MARGA CHILEL DO Location:[facility] Appointment Type:PC OV Appointment Date:02/09/2022 10:30:00 AM Scheduled Provider:PAO PURVIS MD Location:[facility] Appointment Type:ENDO OV Future Scheduled Tests Laboratory* Antinuclear Antibody Screen, Serum 02/03/21 * C-Reactive Protein 02/03/21 * Thyroid Antibodies 02/03/21 * Thyroid Stimulating Hormone 02/04/22 * Thyroid Stimulating Hormone 09/30/20 * Free T4 02/04/22 * Free T4 09/30/20 * A1C Hemoglobin 02/04/22 * A1C Hemoglobin 09/30/20 * Rheumatoid Factor 02/03/21 * Complete Blood Count 02/03/21 * Free T3 02/04/22 * Lipid Profile 08/03/21 * Sedimentation Rate Automated 02/03/21 * Vitamin D Level 08/03/21 * Vitamin D Level 02/04/22 * Vitamin D Level 09/30/20 * Complete Metabolic Panel 08/03/21 * Complete Metabolic Panel 02/04/22 * Complete Metabolic Panel 09/30/20 * anti-Thyroid Peroxidase 02/03/21 Radiology* BD Bone Density DEXA Axial Skeleton 05/30/21 [facility] Evaluation + Plan note Future Appointments Appointment Date:02/09/2022 10:30:00 AM Scheduled Provider:PAO PURVIS MD Location:[facility] Appointment Type:ENDO OV Future Scheduled Tests Laboratory* Antinuclear Antibody Screen, Serum 02/03/21 * C-Reactive Protein 02/03/21 * Thyroid Antibodies 02/03/21 * Rheumatoid Factor 02/03/21 * Complete Blood Count 02/03/21 * Lipid Profile 08/03/21 * Sedimentation Rate Automated 02/03/21 * Vitamin D Level 08/03/21 * Complete Metabolic Panel 08/03/21 * anti-Thyroid Peroxidase 02/03/21 Radiology* BD Bone Density DEXA Axial Skeleton 05/30/21 [facility] Evaluation + Plan note Future Appointments Appointment Date:09/07/2022 10:00:00 AM Scheduled Provider:PAO PURVIS MD Location:[facility] Appointment Type:ENDO OV Future Scheduled Tests Laboratory* Lipid Profile 08/03/21 * Vitamin D Level 08/03/21 * Complete Metabolic Panel 08/03/21 [facility] Evaluation + Plan note Future Appointments Appointment Date:03/15/2023 10:00:00 AM Scheduled Provider:PAO PURVIS MD Location:[facility] Appointment Type:ENDO OV Future Scheduled Tests Laboratory* Thyroid Stimulating Hormone 03/09/23 * Free T4 03/09/23 * A1C Hemoglobin 03/09/23 * Free T3 03/09/23 * Lipid Profile 03/09/23 * Vitamin D Level 03/09/23 * Complete Metabolic Panel 03/09/23 [facility] Evaluation + Plan note Future Appointments Appointment Date:03/15/2023 10:00:00 AM Scheduled Provider:PAO PURVIS MD [facility] Appointment Type:ENDO OV [facility] Evaluation + Plan note Future Appointments Appointment Date:12/13/2023 10:00:00 AM Scheduled Provider:PAO PURVIS MD Location:[facility] Appointment Type:ENDO OV Future Scheduled Tests Laboratory* Thyroid Stimulating Hormone 12/14/23 * Free T4 12/14/23 * A1C Hemoglobin 12/14/23 * Free T3 12/14/23 * Vitamin D Level 12/14/23 * Complete Metabolic Panel 12/14/23 * anti-Thyroid Peroxidase 12/14/23 [facility] Evaluation + Plan note Future Appointments Appointment Date:12/05/2023 01:00:00 PM Scheduled Provider: Location:[facility] Appointment Type:MA Mammogram Screening Bilateral w/ Bola Appointment Date:12/13/2023 10:00:00 AM Scheduled Provider:PAO PURVIS MD Location:[facility] Appointment Type:ENDO OV Future Scheduled Tests Radiology* MA Mammo Screening Bilateral w/ Bola 12/05/23 [facility] Evaluation + Plan note Future Appointments Appointment Date:12/13/2023 10:00:00 AM Scheduled Provider:PAO PURVIS MD Location:[facility] Appointment Type:ENDO OV [facility] Evaluation + Plan note Future Appointments Appointment Date:06/24/2024 10:00:00 AM Scheduled Provider:PAO PURVIS MD Location:[facility] Appointment Type:ENDO OV Future Scheduled Tests Laboratory* Basic Metabolic Panel 12/13/23 * Thyroid Stimulating Hormone 06/14/24 * Free T4 06/14/24 * A1C Hemoglobin 06/14/24 * Free T3 06/14/24 * Lipid Profile 06/14/24 * Vitamin D Level 06/14/24 * Complete Metabolic Panel 06/14/24 [facility] Evaluation + Plan note Future Appointments Appointment Date:06/24/2024 10:00:00 AM Scheduled Provider:PAO PURVIS MD Location:[facility] Appointment Type:ENDO OV Future Scheduled Tests Laboratory* Basic Metabolic Panel 12/13/23 [facility] Evaluation + Plan note Future Appointments Appointment Date:12/23/2024 10:00:00 AM Scheduled Provider:PAO PURVIS MD Location:[facility] Appointment Type:ENDO OV [facility] Evaluation + Plan note Future Appointments Appointment Date:12/23/2024 10:00:00 AM Scheduled Provider:PAO PURVIS MD Location:[facility] Appointment Type:ENDO OV Diagnostic Tests Pending * Free T4 12/18/24 [facility] Evaluation + Plan note Future Appointments Appointment Date:06/18/2025 09:30:00 AM Scheduled Provider:PAO PURVIS MD Location:[facility] Appointment Type:ENDO OV Future Scheduled Tests Laboratory* Thyroid Stimulating Hormone 06/25/25 * Free T4 06/25/25 * A1C Hemoglobin 06/25/25 * Free T3 06/25/25 * Lipid Profile 06/25/25 * Albumin/Creatinine Ratio, Random Urine 06/25/25 * Vitamin D Level 06/25/25 * Complete Metabolic Panel 06/25/25 [facility] evaluation note* Diagnosis Onset Date Resolution Status Hypothyroidism acute Essential hypertension chron ic [facility] [place] Work Phone: evaluation note* Diagnosis Onset Date Resolution Status Essential hypertension chron ic Nonrheumatic mitral valve prolapse chronic Palpitations chronic 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 Hypothyroidism acute Essential hypertension chron ic Cough noneactive [facility] [place] Work Phone: Evaluation note* Diagnosis Encounter for follow-up surveillance of vulvar cancer- Primary Abnormal Pap smear of vagina Abnormal glandular Papanicolaou smear of vagina Encounter for screening mammogram for breast cancer [facility]* Diagnosis Onset Date Resolution Status Essential hypertension chron ic Nonrheumatic mitral valve prolapse chronic Palpitations [facility] Work Phone: Evaluation note* Diagnosis Lymphedema- Primary Other lymphedema documented in this encounter [facility]* Diagnosis Lymphedema- Primary Other lymphedema documented in this [facility]* Diagnosis Onset Date Resolution Status Lymphedema acute Toe pain, right acute 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 Hypothyroidism acute Vulvar cancer acute Essential hypertension chron ic Palpitations [facility] Work Phone: Evaluation note* Diagnosis Onset Date Resolution Status 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 Hypothyroidism acute Vulvar cancer acute Essential hypertension chron ic Palpitations [facility] Work Phone: Evaluation note* Diagnosis Encounter for follow-up surveillance of malignant neoplasm of vulva- Primary Colitis Other and unspecified noninfectious gastroenteritis and colitis Vaginal stenosis Stricture or atresia of vagina documented in this encounter [facility]* Diagnosis Screening mammogram for breast cancer- Primary documented in this encounter [facility]* Diagnosis Encounter for follow-up surveillance of malignant neoplasm of vulva- Primary Vaginal stenosis 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, in partial remission (HCC) documented in this encounter [facility]* Diagnosis Encounter for follow-up surveillance of malignant neoplasm of vulva- Primary Vaginal stenosis Stricture or atresia of vagina Insomnia, unspecified type Major depressive disorder with single episode, in partial remission (HCC) documented in this encounter [facility]* Diagnosis History of cancer of vulva- Primary Personal history of malignant neoplasm of other female genital organs Encounter for screening mammogram for malignant neoplasm of breast Other screening mammogram documented in this encounter [facility]* Diagnosis Abnormal Pap smear of vagina- Primary Abnormal glandular Papanicolaou smear of vagina Preop examination Preoperative examination, unspecified documented [facility] this encounter [facility]* Diagnosis Educational circumstances- Primary Educational circumstance Abnormal Pap smear of vagina Abnormal glandular Papanicolaou smear of vagina Preop examination Preoperative examination, unspecified documented [facility] this encounter [facility]* Diagnosis Postop check- Primary Follow-up examination, following unspecified surgery History of cancer of vulva Personal history of malignant neoplasm of other female genital organs documented [facility] this encounter [facility]* Diagnosis Acute cystitis without hematuria- Primary Acute cystitis [facility] Narrative No data available for this section [facility] Discharge instructions No data available for this section [facility] Progress note No data available for this section [facility] Reason for referral (narrative)* Diagnostic Procedure Only (Routine) - Pending Review Specialty Diagnoses / Procedures Referred By Moose black Referred To Contact [facility] Diagnoses Encounter for screening mammogram for breast cancer Procedures SAV SCREENING SCREENING MAMMOGRAPHY BI 2-VIEW BREAST INC CAD Annia Wilson APRN.CNP [address] [place] [address] [facility] [address] [place] [address] Referral ID Status Reason Start Date Expiration Date Visits Requested Visits Authorized [id number] Pending Review Auto-Generat ed Referral 08/04/2022 09/03/2023 1 1 [facility] for referral (narrative)* Diagnostic Procedure Only (Routine) - Pending Review Specialty Diagnoses / Procedures Referred By Moose black Referred To Contact [facility] Diagnoses Screening mammogram for breast cancer Procedures SAV SCREENING W BOLA SCREENING DIGITAL BREAST TOMOSYNTHESIS BI SCREENING MAMMOGRAPHY BI 2-VIEW BREAST INC Annia Ruth APRN.DATABASE ADMINISTRATION MANAGER [address] [place] [address] [facility] [address] [place] [address] Referral ID Status Reason Start Date Expiration Date Visits Requested Visits Authorized [id number] Pending Review Auto-Generat ed Referral 10/19/2023 11/17/2024 1 1 [facility] Summary Purpose Family History No Family History Records Found Relationship Condition Age at Onset Recorded Date/T della father Coronary artery disease Unknown Heart valve disease Unknown sister Tachycardia Unknown Advance Directives No Advanced Directives Records FoundNo Advanced Directives Records FoundNo Advanced Directives Records FoundNo Advanced Directives Records FoundNo Advanced Directives Records FoundNo Advanced Directives Records FoundNo Advanced Directives Records FoundNo Advanced Directives Records Found Chief Complaint and Reason for Visit Chief Complaint BP ISSUES Reason for Visit Hypothyroidism Essential hypertension Chief Complaint 6 m fu 6 M FU Cough Reason for Visit Essential hypertensi on Nonrheumatic mitral valve prolapse Palpitations Deafness in left ear Hypothyroidism Essential hypertension Cough Chief Complaint 6 M FU E ORDERS Reason for Visit Essential hypertensi on Nonrheumatic mitral valve prolapse Palpitations Chief Complaint TOE INJURY Blackened Toes 1 Y FU E ORDER Reason for Visit Lymphedema Toe pain, right Deafness in left ear Hypothyroidism Vulvar cancer Essential hypertension Palpitations Chief Complaint 1 Y FU E ORDER MURMUR Reason for Visit Deafness in left ear Hypothyroidism Vulvar cancer Essential hypertension Palpitations Reason for Referral Specialty Diagnoses / Procedures Referred By Contrajeev t Referred To Contact [facility] Diagnoses Lymphedema Procedures CONSULT TO LYMPHEDEMA THERAPY OFFICE/OUTPATIENT [facility] 60-74 MINUTES Annia Wilson, MOTOR BLOCK MECHANIC.DATABASE ADMINISTRATION MANAGER [address] [place] [address] [facility] [address] [place] [address] Referral ID Status Reason Start Date Expiration Date Visits Requested Visits Authorized [id number] Pending Review Auto-Generat ed Referral 09/22/2022 09/22/2023 1 1 Additional Source Comments INFORMATION SOURCE (unrecogn ized section and content) DATE CREATED AUTHOR 05/01/2019 [facility] DATE CREATED AUTHOR AUTHOR'S ORGANIZ ATION 09/17/2019 [facility] DATE CREATED AUTHOR AUTHOR'S ORGANIZ ATION 10/27/2021 [facility] DATE CREATED AUTHOR AUTHOR'S ORGANIZ ATION 04/16/2022 [facility] DATE CREATED AUTHOR AUTHOR'S ORGANIZ ATION 12/11/2023 [facility] ([place]) DATE CREATED AUTHOR AUTHOR'S ORGANIZ ATION 01/02/2025 [facility] DATE CREATED AUTHOR AUTHOR'S ORGANIZ ATION 01/11/2025 [facility] DATE CREATED AUTHOR AUTHOR'S ORGANIZ ATION 01/15/2025 [facility] [place] Care Team (unrecognized sect ion and content) Airport Guide Relationship Specialty Start Date End Date Clifford Aburto, DO PCP - General Family Medicine 11/02/15 Airport Guide Relationship Specialty Start Date End Date Clifford Aburto, DO PCP - General Family Medicine 11/02/15 Airport Guide Relationship Specialty Start Date End Date Clifford Aburto, DO PCP - General Family Medicine 11/02/15 Airport Guide Relationship Specialty Start Date End Date Clifford Aburto, DO PCP - General Family Medicine 11/02/15 Team Status: Active Member Role Status Dates Dr. Clifford Aburto , Family Provider Active Dr. Tanvi Doty MD Primary Care Provider Active Team Status: Inactive Member Role Status Dates Dr. Tanvi Doty MD Primary Care Provider, Referri ng Provider Active Suresh Graves SHIRT FINISHER, SHIRT FINISHER-C Attending Provider Active Team Status: Inactive Member Role Status Dates Dr. Tanvi Doty MD Primary Care Provider Active Suresh Graves SHIRT FINISHER, SHIRT FINISHER-C Attending Provider, Referring Pro vider Active Airport Guide Relationship Specialty Start Date End Date Clifford Aburto, DO PCP - General Family Medicine 11/02/15 Airport Guide Relationship Specialty Start Date End Date Clifford Aburto, DO PCP - General Family Medicine 11/02/15 Airport Guide Relationship Specialty Start Date End Date Clifford Aburto, DO PCP - General Family Medicine 11/02/15 Team Status: Inactive Member Role Status Dates Dr. Tanvi Doty MD Primary Care Provider, Attendi ng Provider Active Team Status: Inactive Member Role Status Dates Dr. Tanvi Doty MD Primary Care Pro vider, Attending Provider, Referring Provider Active Team Status: Active Member Role Status Dates Dr. Tanvi Doty MD Primary Care Provider Active Dr. Rodger Hogan MD Attending Provider Active Airport Guide Relationship Specialty Start Date End Date Clifford Aburto, DO PCP - General Family Medicine 11/02/15 Airport Guide Relationship Specialty Start Date End Date Clifford Aburto DO PCP - General Family Medicine 11/02/15 Airport Guide Relationship Specialty Start Date End Date Tanvi Doty MD [address] [place] [address] PCP - General Internal Medicine 11/23/23 Airport Guide Relationship Specialty Start Date End Date Tanvi Doty MD [address] [place] [address] PCP - General Internal Medicine 11/23/23 Airport Guide Relationship Specialty Start Date End Date Tanvi Doty MD [address] [place] [address] PCP - General Internal Medicine 11/23/23 Airport Guide Relationship Specialty Start Date End Date Tanvi Doty MD [address] [place] [address] PCP - General Internal Medicine 11/23/23 Airport Guide Relationship Specialty Start Date End Date Tanvi Doty MD [address] [place] [address] PCP - General Internal Medicine 11/23/23 Airport Guide Relationship Specialty Start Date End Date Tanvi Doty MD [address] [place] [address] PCP - General Internal Medicine 11/23/23 Airport Guide Relationship Specialty Start Date End Date Tanvi Doty MD [address] [place] [address] PCP - General Internal Medicine 11/23/23 Airport Guide Relationship Specialty Start Date End Date Tanvi Doty MD [address] [place] [address] PCP - General Internal Medicine 11/23/23 Airport Guide Relationship Specialty [place] [address] [place] [address] [address] [place] [address] PCP - General Internal Medicine 11/23/23 Goals (unrecognized section and content) Goals may be documented in a n alternate section Care Team (unrecognized sect ion and content) Care Team Personnel Name: MARGA CHILEL Position: P4 Physician - Primary Care Med Service: Active Provider Member Role: Primary Care Physician Address: Address: [address] [place], [place] [address] Care Team Related Persons Name: IVAN ESPITIA Name: DREW BINGHAM Name: DREW BINGHAM Name: DREW BINGHAM Name: DREW BINGHAM Name: DREW BINGHAM Source Comments (unrecognize d section and content) In the event this informatio n is protected by the Federal Confidentiality of Alcohol and Drug Abuse Patient Records regulations: The Federal rules restrict any use of the information to criminally investigate or prosecute any alcohol or drug abuse patient.[facility] the event this information is protected by the Federal Confidentiality of Alcohol and Drug Abuse Patient Records regulations: The Federal rules restrict any use of the information to criminally investigate or prosecute any alcohol or drug abuse patient.[facility] the event this information is protected by the Federal Confidentiality of Alcohol and Drug Abuse Patient Records regulations: The Federal rules restrict any use of the information to criminally investigate or prosecute any alcohol or drug abuse patient.[facility] the event this information is protected by the Federal Confidentiality of Alcohol and Drug Abuse Patient Records regulations: The Federal rules restrict any use of the information to criminally investigate or prosecute any alcohol or drug abuse patient.[facility] the event this information is protected by the Federal Confidentiality of Alcohol and Drug Abuse Patient Records regulations: The Federal rules restrict any use of the information to criminally investigate or prosecute any alcohol or drug abuse patient.[facility] the event this information is protected by the Federal Confidentiality of Alcohol and Drug Abuse Patient Records regulations: The Federal rules restrict any use of the information to criminally investigate or prosecute any alcohol or drug abuse patient.[facility]ronIn the event this information is protected by the Federal Confidentiality of Alcohol and Drug Abuse Patient Records regulations: The Federal rules restrict any use of the information to criminally investigate or prosecute any alcohol or drug abuse patient.[facility]ronIn the event this information is protected by the Federal Confidentiality of Alcohol and Drug Abuse Patient Records regulations: The Federal rules restrict any use of the information to criminally investigate or prosecute any alcohol or drug abuse patient.[facility] the event this information is protected by the Federal Confidentiality of Alcohol and Drug Abuse Patient Records regulations: The Federal rules restrict any use of the information to criminally investigate or prosecute any alcohol or drug abuse patient.[facility] the event this information is protected by the Federal Confidentiality of Alcohol and Drug Abuse Patient Records regulations: The Federal rules restrict any use of the information to criminally investigate or prosecute any alcohol or drug abuse patient.[facility] the event this information is protected by the Federal Confidentiality of Alcohol and Drug Abuse Patient Records regulations: The Federal rules restrict any use of the information to criminally investigate or prosecute any alcohol or drug abuse patient.[facility] the event this information is protected by the Federal Confidentiality of Alcohol and Drug Abuse Patient Records regulations: The Federal rules restrict any use of the information to criminally investigate or prosecute any alcohol or drug abuse patient.[facility]In the event this information is protected by the Federal Confidentiality of Alcohol and Drug Abuse Patient Records regulations: The Federal rules restrict any use of the information to criminally investigate or prosecute any alcohol or drug abuse patient.[facility]In the event this information is protected by the Federal Confidentiality of Alcohol and Drug Abuse Patient Records regulations: The Federal rules restrict any use of the information to criminally investigate or prosecute any alcohol or drug abuse patient.[facility]ronIn the event this information is protected by the Federal Confidentiality of Alcohol and Drug Abuse Patient Records regulations: The Federal rules restrict any use of the information to criminally investigate or prosecute any alcohol or drug abuse patient.[facility]ronIn the event this information is protected by the Federal Confidentiality of Alcohol and Drug Abuse Patient Records regulations: The Federal rules restrict any use of the information to criminally investigate or prosecute any alcohol or drug abuse patient.[facility]ronIn the event this information is protected by the Federal Confidentiality of Alcohol and Drug Abuse Patient Records regulations: The Federal rules restrict any use of the information to criminally investigate or prosecute any alcohol or drug abuse patient.[facility]ronIn the event this information is protected by the Federal Confidentiality of Alcohol and Drug Abuse Patient Records regulations: The Federal rules restrict any use of the information to criminally investigate or prosecute any alcohol or drug abuse patient.[facility]ronIn the event this information is protected by the Federal Confidentiality of Alcohol and Drug Abuse Patient Records regulations: The Federal rules restrict any use of the information to criminally investigate or prosecute any alcohol or drug abuse patient.[facility]ronIn the event this information is protected by the Federal Confidentiality of Alcohol and Drug Abuse Patient Records regulations: The Federal rules restrict any use of the information to criminally investigate or prosecute any alcohol or drug abuse patient.[facility]ronIn the event this information is protected by the Federal Confidentiality of Alcohol and Drug Abuse Patient Records regulations: The Federal rules restrict any use of the information to criminally investigate or prosecute any alcohol or drug abuse patient.[facility]ronIn the event this information is protected by the Federal Confidentiality of Alcohol and Drug Abuse Patient Records regulations: The Federal rules restrict any use of the information to criminally investigate or prosecute any alcohol or drug abuse patient.[facility]ronIn the event this information is protected by the Federal Confidentiality of Alcohol and Drug Abuse Patient Records regulations: The Federal rules restrict any use of the information to criminally investigate or prosecute any alcohol or drug abuse patient.[facility] Reason for Visit (unrecogniz ed section and content) Reason Comments personal questions Reason Comments Vaginal Problem Reason Comments Follow Up Reason Comments Returning Patient's Call Reason Comments Results Reason Comments Returning Patient's Call Reason Comments Patient Question Reason Comments PT Eval Specialty Diagnoses / Procedures Referred By Contac t Referred To Contact [facility] Diagnoses Lymphedema Procedures CONSULT TO LYMPHEDEMA THERAPY OFFICE/OUTPATIENT [facility] 60-74 MINUTES Annia Wilson, [employer]OR BLOCK [employer].[facility] [address] [place] [address] [facility] [place] [address] [place] [id number] Referral ID Status Reason Start Date Expiration Date Visits Requested Visits Authorized [id number] Authorized Auto-Generat ed Referral 05/28/2022 05/27/2023 99 99 Reason Comments Follow Up Hx vulvar cancer Reason Comments Orders Reason Comments Follow Up Reason Onset Date Comments Pre-Op Teaching 12/03/2024 Reason Comments Post-Op Visit Reason Comments Orders FOR RECORDS PERTAINING TO PATIENTS WHO ARE OR HAVE BEEN ENROLLED IN A CHEMICAL DEPENDENCY/SUBSTANCEABUSE PROGRAM, SOME INFORMATION MAY BE OMITTED. This clinical summary was aggregated from multiple sources. Caution should be exercised in using it in the provision of clinical care. This summary normalizes information from multiple sources, and as a consequence, information in this document may materially change the coding, format and clinical context of patient data. In addition, data may be omitted in some cases. CLINICAL DECISIONS SHOULD BE BASED ON THE PRIMARY CLINICAL RECORDS. [facility] [employer] [facility]. provides no warranty or guarantee of the accuracy or completeness of information in this document.
== END | disposition home or self-care (01) ==
LOC: LAB 08:37
PROVIDERS: PCP Internal Medicine; Referring Provider Internal Medicine; Visit Provider Internal Medicine
DX: R19.7 Diarrhea, unspecified (principal)
CPT/HCPCS: 87493

== ENCOUNTER → 2025-01-28 | Outpatient (CLI) | payer MEDICARE, SELFPAY ==
[2025-01-28 09:00] LABS: Hematocrit 35.5 % (37-47); Hemoglobin 12.0 g/dL (12.0-15.0); Immature Granulocytes Count 0.010 X10^3/uL (0.0-0.0); Mean Corp Hgb Conc 33.8 g/dL (32-36); Mean Corpuscular Volume 87.4 fL (81-99); Mean Platelet Vol. 11.0 fl (6.2-12.0); NRBC Flagged by Analyzer 0 % (0-5); Platelet Count 227 K/mm3 (150-450); RBC Distribution Width CV 12.4 % (11.6-14.6); RBC Distribution Width SD 40.0 fl (35.1-43.9); Red Blood Count 4.06 M/mm3 (4.2-5.4); White Blood Count 4.3 K/mm3 (4.4-11.0)
[2025-01-28 09:43] LABS: AST(SGOT) 21 U/L (<=31); Alanine Aminotransfer ALT/SGPT 20 U/L (<=34); Albumin, Serum 4.0 g/dL (3.4-4.8); Alkaline Phosphatase 78 U/L (35-104); Bilirubin, Direct 0.26 mg/dL (0.00-0.30); Cholesterol 168 mg/dL (<=200); Globulin 3.4 g/dL (2.2-4.2); Low Density Lipoprotein Calc. 103 mg/dL; Triglycerides 57 mg/dL; Very Low Density Lipoprotein 11 mg/dL (5-40); cholesterol:hdl ratio screen 3.16
== END | disposition home or self-care (01) ==
LOC: LAB 08:26
PROVIDERS: PCP Internal Medicine; Visit Provider Nurse Practitioner Family
DX: I10 Essential (primary) hypertension (principal); E78.00 Pure hypercholesterolemia, unspecified; D72.9 Disorder of white blood cells, unspecified
CPT/HCPCS: 36415; 80061; 80076; 85025

== ENCOUNTER → 2025-02-27 | Outpatient (CLI) | payer MEDICARE, SELFPAY ==
--- NOTE | 2025-02-27 17:06 | CT_ITS ---
PROCEDURE: ABDOMEN/PELVIS WITH CONTRAST 02/27/2025 REASON FOR EXAM: RIGHT ABDOMINAL PAIN History of carcinoma of the vulva. TECHNIQUE: Procedure Code: [id number] Modality: CT Procedure: ABDOMEN/PELVIS WITH CONTRAST Coronal and Sagittal reconstruction series were provided. CONTRAST: Isovue 370 VOLUME: 100 mL One or more dose reduction techniques were used (e.g., Automated exposure control, adjustment of the mA and/or kV according to patient size, use of iterative reconstruction technique. RADIATION DOSE SUMMARY: CTDlvol: 14.4 mGy DLP: 828.32 mGycm COMPARISON: None FINDINGS: Lung bases: The lung bases are clear. Small pericardial effusion. No significant coronary artery calcification is seen. Liver: Normal size. No mass. Gallbladder: Gallbladder is unremarkable. Spleen: Normal size. Pancreas: Diffuse fatty atrophy. Adrenals: Unremarkable Kidneys: There is a 4.2 cm 3.6 cm cyst in the upper medial aspect of the right kidney. There is fullness of both renal pelvis although no damir hydronephrosis is seen. Bladder: The bladder is unremarkable. Reproductive Organs: Prior hysterectomy. Adnexal regions are unremarkable. Bowel: Colonic diverticulosis without diverticulitis. Appendix: The appendix is not identified. There is no inflammatory process identified in the right lower quadrant to suggest appendicitis. Lymph nodes: Unremarkable. Vasculature: Mild diffuse atherosclerotic calcifications are noted. Peritoneum / Retroperitoneum: Unremarkable Bones: Degenerative changes of the spine. CT/Abdomen/Pelvis WITH Contrast IMPRESSION: No acute abnormality is seen. Reading Location: [facility]
== END | disposition home or self-care (01) ==
LOC: CT 17:11
PROVIDERS: PCP Internal Medicine; Referring Provider Internal Medicine; Visit Provider Internal Medicine
DX: R10.31 Right lower quadrant pain (principal); I88.0 Nonspecific mesenteric lymphadenitis
CPT/HCPCS: 74177; Q9967

== ENCOUNTER → 2025-03-12 | Outpatient (CLI) | payer MEDICARE, SELFPAY | END | disposition home or self-care (01) | PROVIDERS: PCP Internal Medicine; Referring Provider Internal Medicine; Visit Provider Internal Medicine | DX: I31.39 Other pericardial effusion (noninflammatory) (principal); Z20.818 Contact with and (suspected) exposure to other bacterial communicable diseases | CPT/HCPCS: 87070; 93306 ==